=== PATIENT | female | born 1945 | race Caucasian/White ===

== ENCOUNTER → 2021-05-13 00:42 | Outpatient (CLI) | payer MEDICARE, SELFPAY ==
[2021-05-13 17:56] LABS: SARS-CoV-2 RNA PCR Negative
== END ==
PROVIDERS: PCP Family Medicine; Visit Provider Internal Medicine Gastroenterology
DX: Z01.812 Encounter for preprocedural laboratory examination (principal); Z20.822 Contact with and (suspected) exposure to COVID-19
CPT/HCPCS: C9803; U0003; U0005

== ENCOUNTER 2021-05-17 01:33 | Day surgery (SDC) | payer MEDICARE, SELFPAY ==
[2021-05-12 09:33] VITALS: BMI 36.6
--- NOTE | 2021-05-16 13:37 | WPDANESEPPF ---
Anes - Initial Pre Proc Eval Procedure: Operation Date: 05/17/21 08:30 Proposed Procedures p Esophagogastroduodenoscopy - Timoteo Kyle MD Date/Time: 05/16/21 13:37 Surgeon: Timoteo Kyle MD Pre Op Diagnosis: GERD Patient Data Age: 76 Gender: F Height: 1.57 m Weight: 91 kg Allergies Allergy/AdvReac Type Severity Reaction Status Date / Time erythromycin base Allergy Unknown Skin Verified 05/17/21 07:29 Reaction Sulfa (Sulfonamide Allergy Unknown severe Verified 05/17/21 07:29 Antibiotics) joint pain Home Medications Medication Instructions Recorded Confirmed Type tramadol 50 mg tablet 50 mg PO Q6H PRN #90 tablet 06/14/20 05/12/21 Rx trazodone 50 mg tablet 50 mg PO DAILY #90 tablet 06/28/20 05/12/21 Rx acetaminophen 500 mg tablet 500 mg PO DAILY PRN tablet 07/26/20 05/12/21 History cholecalciferol (vitamin D3) 25 25 mcg PO DAILY 07/26/20 05/12/21 History mcg (1,000 unit) capsule cyanocobalamin (vitamin B-12) 1,000 mcg PO DAILY 07/26/20 05/12/21 History 1,000 mcg tablet folic acid 400 mcg tablet 0.4 mg PO DAILY 07/26/20 05/12/21 History valsartan 160 1 tablet PO DAILY #90 tablet 08/09/20 05/12/21 Rx mg-hydrochlorothiazide 12.5 mg tablet ketoconazole 2 % topical cream See Rx Instructions .ROUTE 04/24/21 05/12/21 Rx .COMPLEX #30 g Calcium + Vitamin D 500 mg PO DAILY 05/12/21 05/12/21 History omeprazole 40 mg PO DAILY 05/12/21 05/12/21 History psyllium [Metamucil] 1 packet PO DAILY 05/12/21 05/12/21 History Patient hx anesthesia problems: none Family hx anesthesia problems: none PMFSH Past Medical History Medical History (Updated 05/16/21 @ 13:37 by Kody Galvez DO) Benign essential HTN CKD (chronic kidney disease) Hypothyroidism (acquired) Surgical History Surgical History (Updated 05/16/21 @ 13:37 by Kody J. Luchtefeld, DO) History of tubal ligation Family History Family History Father Family history of malignant neoplasm Sibling Family history of malignant neoplasm Family history of malignant neoplasm of breast Mother Family history of malignant neoplasm of breast in first degree relative Social History Social History Smoking packs per day: 0.5 Smoking cigarettes per day: 10.0 Years smoked: 15 Smoking pack-years: 7.50 Smoking status: Former smoker Tobacco type: cigarettes Alcohol intake: current Drinks per week: 7 Living arrangements: with family Spiritual care concerns: No Anes - Eval Final PreProcedure Day of Procedure 05/16/21 13:37 Patient weight: obese Heart: regular rate and rhythm Lungs: clear to auscultation and normal air movement Airway: Mallampati scale class III Neurological: alert and oriented Last oral intake: >/= 8 hours ASA classification: III Emergent: no Anesthetic plan: proceed Anesthesia type and monitoring: general GIVS and standard monitoring Informed Consent: The patient's anesthetic plan and its attendant risks and benefits were discussed with the patient/family/POA. Questions were solicited and answers provided to the satisfaction of the patient/family/POA.
[2021-05-17 07:31] VITALS: BP 144/91; PULSE 86; RESP 18; TEMP 36.4; O2SAT 99
[2021-05-17] MEDS: LACTATED RINGERS 1,000 ML 150 ML IV CONT (07:47)
--- NOTE | 2021-05-17 08:25 | PM.HPGS ---
History of Present Illness History of Present Illness Consent: Risks, benefits, and alternatives have been discussed and questions answered. Patient agrees to proceed with procedure. Chief complaint: GERD Narrative: Lyssa Viera is a 76 year old female with persistent reflux symptoms. This began about 1 year ago. She has what she calls a sick feeling particularly in the morning in the substernal area. She may wake up coughing and then gag and becomes nauseated. Occasionally it is burning. She does not regurgitate into her mouth. She does not have dysphagia. She has been taking omeprazole but the symptoms have persisted though lessened to a degree. Review of Systems Review of Systems: All systems reviewed & are unremarkable except as noted in HPI and below PMFSH Past Medical History Medical History Benign essential HTN CKD (chronic kidney disease) Hypothyroidism (acquired) Surgical History Surgical History History of tubal ligation Family History Family History Father Family history of malignant neoplasm Sibling Family history of malignant neoplasm Family history of malignant neoplasm of breast Mother Family history of malignant neoplasm of breast in first degree relative Social History Social History Smoking packs per day: 0.5 Smoking cigarettes per day: 10.0 Years smoked: 15 Smoking pack-years: 7.50 Smoking status: Former smoker Tobacco type: cigarettes Alcohol intake: current Drinks per week: 7 Living arrangements: with family Spiritual care concerns: No Meds Home Medications and Allergies Home Medications Medication Instructions Recorded Confirmed Type tramadol 50 mg tablet 50 mg PO Q6H PRN #90 tablet 06/14/20 05/12/21 Rx trazodone 50 mg tablet 50 mg PO DAILY #90 tablet 06/28/20 05/12/21 Rx acetaminophen 500 mg tablet 500 mg PO DAILY PRN tablet 07/26/20 05/12/21 History cholecalciferol (vitamin D3) 25 25 mcg PO DAILY 07/26/20 05/12/21 History mcg (1,000 unit) capsule cyanocobalamin (vitamin B-12) 1,000 mcg PO DAILY 07/26/20 05/12/21 History 1,000 mcg tablet folic acid 400 mcg tablet 0.4 mg PO DAILY 07/26/20 05/12/21 History valsartan 160 1 tablet PO DAILY #90 tablet 08/09/20 05/12/21 Rx mg-hydrochlorothiazide 12.5 mg tablet ketoconazole 2 % topical cream See Rx Instructions .ROUTE 04/24/21 05/12/21 Rx .COMPLEX #30 g Calcium + Vitamin D 500 mg PO DAILY 05/12/21 05/12/21 History omeprazole 40 mg PO DAILY 05/12/21 05/12/21 History psyllium [Metamucil] 1 packet PO DAILY 05/12/21 05/12/21 History Allergies Allergy/AdvReac Type Severity Reaction Status Date / Time erythromycin base Allergy Unknown Skin Verified 05/17/21 07:29 Reaction Sulfa (Sulfonamide Allergy Unknown severe Verified 05/17/21 07:29 Antibiotics) joint pain Vital Signs Vital Signs - 24 hr 05/17/21 07:31 Temperature 36.4 C L Pulse Rate 86 Respiratory Rate 18 Blood Pressure 144/91 H Pulse Oximetry 99 Exam Resp: Auscultation: clear to auscultation bilaterally Cardio: Rate: regular rate Rhythm: regular rhythm GI: GI Palp: Yes Soft to palpation and No Tenderness to palpation present (GI) Assessment and Plan Assessment and plan (1) GERD (gastroesophageal reflux disease): Code(s): K21.9 - Gastro-esophageal reflux disease without esophagitis Status: Acute Assessment and Plan: EGD with possible biopsy or dilatation or cautery.
[2021-05-17 09:00] VITALS: BP 108/65; PULSE 90; RESP 19; O2SAT 100
[2021-05-17 09:10] VITALS: BP 114/63; PULSE 83; RESP 25; O2SAT 100
[2021-05-17 09:20] VITALS: BP 118/73; PULSE 88; RESP 17; O2SAT 100
== END 2021-05-17 09:21 | disposition home or self-care (01) ==
PROVIDERS: PCP Family Medicine; Visit Provider Internal Medicine Gastroenterology
PROC: 0DJ08ZZ Inspection of Upper Intestinal Tract, Via Natural or Artificial Opening Endoscopic (ICD-10-PCS; CPT 43235; principal; 2021-05-17 08:30)
DX: K21.00 Gastro-esophageal reflux disease with esophagitis, without bleeding (principal); I12.9 Hypertensive chronic kidney disease with stage 1 through stage 4 chronic kidney disease, or unspecified chronic kidney disease; N18.9 Chronic kidney disease, unspecified; E03.9 Hypothyroidism, unspecified; Z87.891 Personal history of nicotine dependence; E66.9 Obesity, unspecified; Z68.37 Body mass index [BMI] 37.0-37.9, adult
CPT/HCPCS: 43239; 88305; C9803; J2704; J7120; U0003; U0005

== ENCOUNTER → 2021-12-22 08:47 | Outpatient (CLI) | payer MEDICARE, SELFPAY ==
--- NOTE | ~2021-12-22 | US_ITS ---
US abdomen limited DATE: 12/22/2021 09:05 INDICATION: Abnormal enzyme levels TECHNIQUE: Real-time imaging of liver, pancreas, gallbladder COMPARISON: None FINDINGS: No hepatic or pancreatic space-occupying mass lesion is evident. There is hepatic steatosis . Normal hepatopedal portal venous flow direction. No gallstones or gallbladder wall thickening or abnormal pericholecystic fluid collection. The common bile duct measures 4 mm, normal. IMPRESSION: Hepatic steatosis Reviewed, dictated and finalized at [facility]. Reviewed, dictated and finalized at location [facility]. [facility] IMPRESSION: Hepatic steatosis
== END ==
PROVIDERS: PCP Family Medicine; Visit Provider Family Medicine
DX: R74.8 Abnormal levels of other serum enzymes (principal); K76.0 Fatty (change of) liver, not elsewhere classified
CPT/HCPCS: 76705

== ENCOUNTER → 2022-09-10 10:17 | Outpatient (CLI) | payer MEDICARE, SELFPAY ==
--- NOTE | ~2022-09-10 | DEXA_ITS ---
Bone Density Report Name: ALISSON ROSENBERG Age: 77 Sex: Female Ethnicity: White Date of : 1945 Indication: postmenopausal; screening for osteoporosis; asthma or emphysema; Referring Provider: Beny Mathis Study: Bone densitometry was performed. Exam Date: September 10, 2022 Accession number: [id number] Bone Density: Region BMD T-score Z-score Classification AP Spine (L1-L4) 1.119 0.7 3.2 Normal Femoral Neck (Left) 0.729 -1.1 1.1 Osteopenia Total Hip (Left) 1.081 1.1 3.1 Normal Femoral Neck (Right) 0.783 -0.6 1.6 Normal Total Hip (Right) 0.985 0.4 2.3 Normal Total Hip Mean 1.033 0.8 2.7 Normal World Health Organization criteria for BMD impression classify patients as: Normal (T-score at or above -1.0), Osteopenia (T-score between -1.0 and -2.5), or Osteoporosis (T-score at or below -2.5). 10-year Fracture Risk(1): Major Osteoporotic Fracture 10% Hip Fracture 1.7% Reported Risk Factors: [place] (), Neck BMD=0.729, BMI=37.1 (1) FRAX(R) Version 3.08. Fracture probability calculated for an untreated patient. Fracture probability may be lower if the patient has received treatment. Previous Exams: Region Exam Age BMD T-score BMD Change BMD Change Date g/cm2 vs Baseline vs Previous AP Spine(L1-L4) 09/10/2022 77 1.119 0.7 0.021 0.021 05/08/2017 72 1.098 0.5 Total Hip(Left) 09/10/2022 77 1.081 1.1 0.049 0.049 05/08/2017 72 1.032 0.7 Total Hip(Right) 09/10/2022 77 0.985 0.4 0.022 0.022 05/08/2017 72 0.964 0.2 *Denotes significance at 95% confidence level, LSC for AP Spine = 0.022 g/cm2, LSC for Total Hip = 0.027 g/cm2 Clinical Information Provided by Patient: Has used the following medications: Vitamin D, Calcium Has the following medical conditions: Asthma or Emphysema Patient maximum height was 63.7 Menopause Age: 55 Drinks caffeinated beverages Onset of menses at age 11 Number of children 1 Impression: The patient has low bone mass, based on the Left Femoral Neck T-score. The patient has an estimated ten-year risk of hip fracture of 1.7% and an estimated ten-year risk of major fracture of 10%, based on the WHO FRAX algorithm. No significant bone loss was observed. Discussion: BONE DENSITY IS LOW AT ONE OR MORE SKELETAL SITES. This patient's lowest T-score is low at one or more skeletal sites. It meets the World Health Organiza
--- NOTE | ~2022-09-10 | XR_ITS ---
EXAMINATION: XR chest 2V DATE: 09/10/2022 10:43 INDICATION: Cough, unspecified. TECHNIQUE: Frontal and lateral views of the chest were obtained. COMPARISON: Chest 2 views 06/15/2015 FINDINGS: There is mild atelectasis at left lung base. No pleural effusion or pneumothorax. The heart size is normal. IMPRESSION: 1. Mild atelectasis at left lung base. Reviewed, dictated and finalized at location [facility].
== END ==
PROVIDERS: PCP Physician Assistant; Visit Provider Physician Assistant
DX: Z78.0 Asymptomatic menopausal state (principal); R05.9 Cough, unspecified; R91.8 Other nonspecific abnormal finding of lung field; M85.852 Other specified disorders of bone density and structure, left thigh
CPT/HCPCS: 71046; 77080

== ENCOUNTER 2022-12-08 10:14 | Observation (INO) | payer MEDICARE, SELFPAY ==
[2022-12-08] VITALS (8 sets, daily range): BP systolic 106–146; BP diastolic 61–86; PULSE 84–102; RESP 18–20; TEMP 36.3–37; O2SAT 96–100; BMI 39.3
--- NOTE | ~2022-12-08 | US_ITS ---
EXAMINATION: US venous doppler [facility] DATE: 12/09/2022 18:08 INDICATION: Elevated D-dimer and PE . TECHNIQUE: Grayscale images without and with compression and Doppler images of the bilateral lower ex tremity veins were obtained. COMPARISON: None FINDINGS: The right common femoral vein, profunda (deep) femoral vein, femoral vein, popliteal vein, peroneal v ein, posterior tibial veins, gastrocnemius vein, and greater saphenous vein are patent. The left common femoral vein, profunda femoral vein, femoral vein, popliteal vein, peroneal vein, pos terior tibial veins, gastrocnemius vein, and greater saphenous vein are patent. IMPRESSION: 1. Patent bilateral lower extremity veins. No evidence of deep venous thrombosis. Reviewed, dictated and finalized at location [facility]. R MIXER IMPRESSION: 1. Patent bilateral lower extremity veins. No evidence of deep venous thrombos is.
--- NOTE | ~2022-12-08 | CT_ITS ---
EXAMINATION: CTA chest PE protocol DATE: 12/08/2022 13:02 ELECTRONIC SEMICONDUCTOR PROCESSOR INDICATION: Elevated d-dimer. Chest palpitations. TECHNIQUE: Computed tomographic angiography (CTA) of the chest was performed with 100 mL Omnipaque-35 0 intravenous contrast. The dose-length product was 568.07 mGy-cm. Maximum intensity projection 3D-re constructions of the aorta and other arteries were constructed by the technologist on a separate work station. Automated exposure control and iterative reconstruction technique were employed. COMPARISON: Chest dated 12/08/2022. FINDINGS: There are small filling defects in left upper lobe segmental pulmonary arteries is no evide nce of left lower lobe segmental pulmonary arteries, consistent with pulmonary embolism. No significa nt pleural or pericardial effusion. No thoracic lymphadenopathy. Heart size normal. There are bilater al peripheral interstitial infiltrates with interlobular septal thickening. Mild dependent atelectasi s. There is right upper lobe atelectasis/scarring. No endobronchial lesions. No pneumothorax. No susp icious pulmonary nodules or masses. Mild atherosclerosis of the aorta and coronary arteries without e vidence for aneurysm. Fatty infiltration of the liver. The spleen, pancreas, adrenal glands are unremarkable. Kidneys are a trophic. Gallbladder is present. Mild thoracic spondylosis. There is a focal sclerotic lesion inferio r endplate of T11, likely bone island. IMPRESSION: 1. Filling defects left upper lobe and lower lobe segmental pulmonary arteries, consistent with pulmo nary embolism, small thrombus burden. 2: Mild bilateral peripheral interstitial infiltrates with interlobular septal thickening. This may represent chronic interstitial lung disease or mild edema. Reviewed, dictated and finalized at location A. TRONIC SEMICONDUCTOR PROCESSOR IMPRESSION: 1. Filling defects left upper lobe and lower lobe segmental pulmonary arteries, consistent with pulmonary embolism, small thrombus burden. 2: Mild bilateral peripheral interstitial infiltrates with interlobular septal thickening. This may represent chronic interstitial lung disease or mild edema .
--- NOTE | ~2022-12-08 | XR_ITS ---
EXAMINATION: XR chest 2V 12/08/2022 11:17 INDICATION: Chest palpitations. Painful cough. PROCEDURE: PA and lateral views of the chest COMPARISON: 09/10/2022 FINDINGS: The lungs are clear. The cardiomediastinal silhouette is within normal limits. There are no pleural effusions. There is no pneumothorax suspected. IMPRESSION: 1: NO ACUTE CARDIOPULMONARY DISEASE. Reviewed, dictated and finalized at location A. CAL RESEARCHER
--- NOTE | 2022-12-08 10:19 | ECG_ITS ---
Measurements Intervals [place] Rate: 95 P: 36 TX: 166 QRS: -3 QRSD: 86 T: 79 QT: 335 QTc: 422 Interpretive Statements SINUS RHYTHM VENTRICULAR PREMATURE COMPLEX NONSPECIFIC ST & T-WAVE ABNORMALITY- ANT/HIGH LAT LEADS BASELINE ARTIFACT- I, II, AVL BORDERLINE ECG NO PREVIOUS ECG AVAILABLE FOR COMPARISON Electronically Signed On 12-08-2022 11:32:07 LAB TECH by Demetris Zabala D.O.
--- NOTE | 2022-12-08 10:54 | ED.ARRPALP ---
HPI - Arrhythmia/Palpitations General Chief Complaint: Arrhythmia/Palpitations <Priscila Martinez PA-C - Last Filed: 12/08/22 16:37> Stated Complaint: rapid HR, AFIB RVR EMS MONITOR <Priscila Martinez PA-C - Last Filed: 12/08/22 16:37> Time Seen by Provider: 12/08/22 10:39 <Priscila Martinez PA-C - Last Filed: 12/08/22 16:37> History of Present Illness HPI narrative: 77-year-old female here for evaluation of palpitations today. Patient states she felt her heart racing while she was at rest, looked at her apple watch and it told her she was in atrial fibrillation with rapid ventricular response. She called an ambulance who confirmed afib rvr but patient converted without intervention after several minutes to sinus tach. Denies history of atrial fibrillation. Patient has been feeling unwell over the past several weeks with sinus congestion, headaches, cough and other upper respiratory infectious symptoms. These have since improved. COVID test at home was negative. No chest pain, shortness of breath, fevers or chills, nausea or vomiting. <Priscila Martinez PA-C - Last Filed: 12/08/22 16:37> Related Data Home Medications: Home Medications Medication Instructions Recorded Confirmed acetaminophen 500 mg tablet 500 mg PO DAILY PRN Pain 07/26/20 10/08/22 (Tylenol Extra Strength) cholecalciferol (vitamin D3) 25 25 mcg PO DAILY 07/26/20 10/08/22 mcg (1,000 unit) capsule cyanocobalamin (vitamin B-12) 1,000 mcg PO DAILY 07/26/20 10/08/22 1,000 mcg tablet (Vitamin B-12) folic acid 400 mcg tablet 0.4 mg PO DAILY 07/26/20 10/08/22 Calcium + Vitamin D 500 mg PO DAILY 05/12/21 10/08/22 psyllium 1 packet PO DAILY 05/12/21 10/08/22 <ANDRES Jones Last Filed: 12/08/22 16:37> Allergies/Adverse Reactions: Allergies Allergy/AdvReac Type Severity Reaction Status Date / Time erythromycin base Allergy Unknown Skin Verified 12/08/22 10:28 Reaction Sulfa (Sulfonamide Allergy Unknown severe Verified 12/08/22 10:28 Antibiotics) joint pain <Priscila Martniez PA-C - Last Filed: 12/08/22 16:37> Review of Systems Review of Systems: Gen.: Denies fevers or chills Eyes: Denies eye pain or visual change ENT: Denies congestion Respiratory: Denies shortness of breath or cough CV: Reports palpitations GI: Denies abdominal pain nausea, emesis or diarrhea denies burning, urgency, frequency or hematuria Musculoskeletal: Denies back pain or muscle pain Neuro: Denies numbness, tingling, weakness or focal weakness Skin: Denies rash Except as documented, all other systems reviewed and negative <Priscila Martinez PA-C - Last Filed: 12/08/22 16:37> [facility] Past Medical History Medical History: Medical History (Updated 12/08/22 @ 13:20 by Priscila Martinez PA-C) Benign essential HTN CKD (chronic kidney disease) Hypothyroidism (acquired) On levothyroxine <Priscila Martinez PA-C - Last Filed: 12/08/22 16:37> Surgical History Surgical History: Surgical History (Updated 12/08/22 @ 14:43 by Odalis New NP) H/O breast biopsy History of esophagogastroduodenoscopy (EGD) May 17, 2021 biopsies negative History of tubal ligation <Priscila Martinez PA-C - Last Filed: 12/08/22 16:37> Family History Family History: Family History Father Family history of malignant neoplasm Sibling Family history of malignant neoplasm Family history of malignant neoplasm of breast Mother Family history of malignant neoplasm of breast in first degree relative <Priscila Martinez PA-C - Last Filed: 12/08/22 16:37> Social History Social History: Social History (Updated 12/08/22 @ 14:46 by Odalis New NP) 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
[2022-12-08 11:31] LABS: Basophils Absolute Auto 0.1 K/mm3 (0.0-0.1); Basophils Percent Auto 0.8 % (0.2-1.2); Eosinophils Absolute Auto 0.1 K/mm3 (0-0.3); Eosinophils Percent Auto 0.8 % (0-4.4); Hematocrit 43.2 % (37.0-47.0); Hemoglobin 14.3 g/dL (12.0-15.0); Immature Granulocyte Absolute 0.02 K/mm3 (0.00-0.031); Immature Granulocyte Percent A 0.2 % (0-0.5); Lymphocytes Absolute Auto 1.96 K/mm3 (0.9-3.2); Lymphocytes Percent Auto 22.9 % (18.3-44.2); Mean Corpuscular HGB Conc 33.1 g/dl (32-36); Mean Corpuscular Hemoglobin 32.8 pg (26-34); Mean Corpuscular Volume 99.1 fl (80-100); Mean Platelet Volume 8.9 fl (7.4-10.4); Monocytes Absolute Auto 0.7 K/mm3 (0.1-0.6); Monocytes Percent Auto 7.7 % (2.6-8.5); Neutrophils Absolute Auto 5.8 K/mm3 (1.3-6.7); Neutrophils Percent Auto 67.6 % (45.5-73.1); Platelet Count Result 269 k/mm3 (150-375); Red Blood Count 4.36 M/mm3 (4.2-5.4); Red Cell Distribution Width 13.7 % (11.5-14.5); White Blood Count 8.6 K/mm3 (4.5-10.0)
[2022-12-08 11:47] LABS: D Dimer 0.65 ug/mL (<0.48)
[2022-12-08 11:54] LABS: Alanine Aminotransferase 25 U/L (6-35); Albumin Level 4.1 g/dL (3.5-5.1); Alkaline Phosphatase 79 U/L (38-126); Anion Gap 6 mmol/L (8-16); Aspartate Amino Transferase 40 U/L (14-36); Bilirubin,Total 0.8 mg/dL (0.2-1.3); Blood Urea Nitrogen 15 mg/dL (7-17); Calcium 8.8 mg/dL (8.4-10.2); Carbon Dioxide 29 mmol/L (22-30); Chloride 102 mmol/L (98-107); Estimated CRCL calculation 48 ml/min; Estimated Glomerular Filt Rate > 60; Glucose 93 mg/dL (65-110); Sodium 137 mmol/L (137-145)
[2022-12-08 12:05] LABS: Troponin I < 0.012 ng/mL (0.000-0.034)
[2022-12-08 13:44] LABS: Magnesium 1.6 mg/dL (1.6-2.3)
[2022-12-08 13:47] LABS: Prothrombin Time 12.9 Seconds (11.1-14.7)
[2022-12-08 13:49] LABS: Partial Thromboplastin Time 25.5 SECONDS (22.3-36.8)
[2022-12-08 13:54] LABS: NT Pro B Type Natriuretic Pept 477 pg/mL (5-100)
[2022-12-08 14:14] LABS: Influenza A QL RT-PCR Negative (Negative); Influenza B QL RT-PCR Negative (Negative); SARS-CoV-2 RNA PCR Negative
--- NOTE | 2022-12-08 14:41 | PM.IMHP ---
H&P: HPI History of Present Illness Date/Time: 12/08/22 14:41 Chief Complaint: Palpitation Narrative: This is a 77-year-old female patient came to the emergency room with a racing heart rate. The patient has an Apple watch and it told her that she had atrial fibrillation and rapid ventricular response. She called an ambulance and was confirmed that she was in AFib with RVR. The patient converted without any intervention after several minutes. The patient stated that she has been unwell for the last several weeks with some sinus congestion. She has had headaches and cough. She has also had upper respiratory infections. Those symptoms are now improved. The patient had a negative COVID test at home. CTA was read as1. Filling defects left upper lobe and lower lobe segmental pulmonary arteries, consistent with pulmonary embolism, small thrombus burden. 2:? Mild bilateral peripheral interstitial infiltrates with interlobular septal thickening. This may represent chronic interstitial lung disease or mild edema. Chest x-ray was read as no acute cardiopulmonary disease. Subcu Lovenox was ordered. The patient is on room air. She does not appear to be in any distress. D-dimer 0.65. Influenza A/B and COVID are all negative. Patient is being admitted to observation status on the date of service 12/08/2022. Review of Systems Review of Systems: All systems reviewed & are unremarkable except as noted in HPI and below Constitutional: Constitutional: Reports as per HPI and Reports no additional constitutional complaints Eyes: Eyes: Reports as per HPI and Reports no additional eye complaints ENT: Reports system reviewed and no additional complaints, except as documented and Reports Normal hearing present Cardiovascular: Cardiovascular: Reports no additional cardiovascular complaints Respiratory: Respiratory: Reports no additional respiratory complaints and Reports no additional respiratory complaints Gastrointestinal: Gastrointestinal: Reports as per HPI and Reports no additional gastrointestinal complaints Musculoskeletal: Musculoskeletal: Reports no additional musculoskeletal complaints Integumentary/Breasts: Skin/Breast: Reports system reviewed and no additional complaints, except as docu and Reports as per HPI Neurologic: Reports system reviewed and no additional complaints, except as documented, Reports as per HPI and Reports Normal hearing present Psychiatric: Psychiatric: Reports no additional psychiatric complaints and Reports as per HPI Endocrine: Endocrine: Reports no additional endocrine complaints Hematologic/Lymphatic: Hematologic/Lymphatic: Reports no additional hematologic/lymphatic complaints Allergic/Immunologic: Allergic/Immunologic: Reports no additional allergic/immunologic complaints [facility] Past Medical History Medical History (Updated 12/08/22 @ 19:32 by Odalis New NP) Benign essential HTN CKD (chronic kidney disease) History of colon polyps Hypothyroidism (acquired) On levothyroxine Surgical History Surgical History (Updated 12/08/22 @ 19:26 by Odalis New NP) H/O breast biopsy H/O colonoscopy with polypectomy History of esophagogastroduodenoscopy (EGD) May 17, 2021 biopsies negative History of nasal surgery Cyst removed below left nostril History of tubal ligation Family History Family History Father Family history of malignant neoplasm Sibling Family history of malignant neoplasm Family history of malignant neoplasm of breast Mother Family history of malignant neoplasm of breast in first degree relative Son Diabetes mellitus Son Congestive heart failure Social History Social History (Updated 12/08/22 @ 19:27 by Odalis New NP) Social History: The patient lives with her son and spouse . She has 3 children. She is Retired from [employer]. 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. She is a former smoker.
[2022-12-08] MEDS: ENOXAPARIN 100 MG/ML SYRINGE 90 MG SUB-Q (15:21)
--- NOTE | 2022-12-08 18:39 | ADMGEN ---
This patient, Lyssa Viera, was admitted to 2 Medical Room 253-01. Patient/family oriented to hospital policies and general routines including ID bracelet, bed and alarms, visiting hours, pain management, procedures, bathroom and other care routines, personal items, smoking policy, room service/diet, and visiting hours. Information on how to activate the Rapid Response Team has been discussed. Patient/Family are encouraged to report perceived risks to care and to ask questions if they do not understand what they are told or what they should do.
[2022-12-08] MEDS: ACETAMINOPHEN 500 MG TABLET PO (23:36)
[2022-12-09] VITALS (9 sets, daily range): BP systolic 149–150; BP diastolic 81–94; PULSE 66–88; RESP 16–18; TEMP 36.4–36.8; O2SAT 96–98
[2022-12-09 05:35] LABS: Basophils Percent Auto 0.6 % (0.2-1.2); Eosinophils Absolute Auto 0.2 K/mm3 (0-0.3); Eosinophils Percent Auto 2.3 % (0-4.4); Hematocrit 38.7 % (37.0-47.0); Immature Granulocyte Absolute 0.03 K/mm3 (0.00-0.031); Immature Granulocyte Percent A 0.4 % (0-0.5); Lymphocytes Absolute Auto 2.46 K/mm3 (0.9-3.2); Lymphocytes Percent Auto 35.5 % (18.3-44.2); Mean Corpuscular HGB Conc 33.6 g/dl (32-36); Mean Corpuscular Hemoglobin 33.5 pg (26-34); Mean Corpuscular Volume 99.7 fl (80-100); Mean Platelet Volume 9.4 fl (7.4-10.4); Monocytes Absolute Auto 0.5 K/mm3 (0.1-0.6); Monocytes Percent Auto 7.8 % (2.6-8.5); Neutrophils Absolute Auto 3.7 K/mm3 (1.3-6.7); Neutrophils Percent Auto 53.4 % (45.5-73.1); Platelet Count Result 246 k/mm3 (150-375); Red Blood Count 3.88 M/mm3 (4.2-5.4); Red Cell Distribution Width 13.8 % (11.5-14.5); White Blood Count 6.9 K/mm3 (4.5-10.0)
[2022-12-09] MEDS: LEVOTHYROXINE SODIUM 50 MCG TABLET BY MOUTH (05:36)
[2022-12-09 05:51] LABS: Alanine Aminotransferase 20 U/L (6-35); Albumin Level 3.6 g/dL (3.5-5.1); Alkaline Phosphatase 60 U/L (38-126); Anion Gap 3 mmol/L (8-16); Aspartate Amino Transferase 27 U/L (14-36); Bilirubin,Total 0.8 mg/dL (0.2-1.3); Blood Urea Nitrogen 17 mg/dL (7-17); Calcium 8.6 mg/dL (8.4-10.2); Carbon Dioxide 31 mmol/L (22-30); Chloride 100 mmol/L (98-107); Estimated CRCL calculation 45 ml/min; Estimated Glomerular Filt Rate 54; Glucose 92 mg/dL (65-110); Lipase 57 U/L (23-300); Magnesium 1.8 mg/dL (1.6-2.3); Potassium 3.7 mmol/L (3.4-5.0); Sodium 134 mmol/L (137-145)
--- NOTE | 2022-12-09 07:39 | PM.IMPN ---
Progress Note: A&P Assessment and Plan (1) Pulmonary embolism: Code(s): I26.99 - Other pulmonary embolism without acute cor pulmonale Status: Acute Assessment and Plan: Presented to ER with CC of racing heart. CTA impression: PE with small thrombus burden; chronic interstitial lung disease vs mild edema. The patient was ordered a 1 time dose of Lovenox. D-dimer was elevated. Ultrasound of the lower extremities have been ordered. Patient placed on a starter pack of Xarelto for the PE. The patient has also been ordered an echo to evaluate for valvular disease. Ultrasound bilateral lower extremities ordered The patient also had a brief period of atrial fibrillation earlier that has now subsided. (2) Atrial fibrillation: Code(s): I48.91 - Unspecified atrial fibrillation Status: Acute Assessment and Plan: Patient presented to the ER due to feeling like her heart is racing. Patient found to have AFib RVR in the ER 12/08/2022 Patient converted without any intervention in the ER. Patient put on telemetry Patient started on Xarelto 12/09/22 patient regular rate and rhythm when evaluated (3) Hypothyroidism (acquired): Code(s): E03.9 - Hypothyroidism, unspecified Status: Acute Assessment and Plan: Continue with levothyroxine (4) Benign essential HTN: Code(s): I10 - Essential (primary) hypertension Status: Acute Assessment and Plan: Continue with valsartan and hydrochlorothiazide. continue to monitor renal functions. (5) GERD (gastroesophageal reflux disease): Code(s): K21.9 - Gastro-esophageal reflux disease without esophagitis Status: Acute Assessment and Plan: Continue with omeprazole. Subjective Date/time seen: 12/09/22 07:39 Interval history: 12/09/22 77-year-old female with history of hypertension and hypothyroidism. Patient presented to the ER with AFib RVR as well as a PE. Patient feeling better has no complaints at this time. Denies chest pain, shortness a breath, nausea, vomiting, fever, headache, palpitations and lower extremity swelling. Review of Systems Review of Systems: All systems reviewed & are unremarkable except as noted in HPI and below Exam Narrative: GENERAL: Comfortable, no acute distress HENMT: moist mucous membranes EYES: EOM intact b/l NECK: no lymphadenopathy RESPIRATORY: clear to auscultation CARDIO: RRR GI: soft, nontender, bowel sounds present SKIN: no rashes EXTREMITIES: no edema, redness or tenderness Objective Data Vital Signs Vital Signs: Vital Signs - 24 hr 12/08/22 10:20 12/08/22 10:28 12/08/22 12:03 Temperature 98.6 F Pulse Rate 90 98 92 Respiratory Rate 18 18 Blood Pressure 146/79 H 130/86 Pulse Oximetry 100 96 Oxygen Delivery Room Air 12/08/22 15:26 12/08/22 18:46 12/08/22 19:09 Temperature 97.4 F L Pulse Rate 84 99 102 H Respiratory Rate 18 18 Blood Pressure 142/69 H 106/61 Pulse Oximetry 98 96 Oxygen Delivery 12/08/22 20:32 12/08/22 20:50 12/08/22 20:00 Temperature 98.1 F Pulse Rate 92 89 Respiratory Rate 20 Blood Pressure 127/74 Pulse Oximetry 97 Oxygen Delivery Room Air 12/09/22 00:00 12/09/22 04:00 12/09/22 05:14 Temperature 97.6 F Pulse Rate 72 73 66 Respiratory Rate 16 Blood Pressure 150/91 H Pulse Oximetry 96 Oxygen Delivery Intake/Output Intake/Output: Intake & Output 12/06/22 12/07/22 12/08/22 12/09/22 23:59 23:59 23:59 23:59 Intake Total 150 Balance 150 Meds/Results Medications: Active Medications Generic Name Dose Route Start Last Admin Trade Name Freq PRN Reason Stop Dose Admin Acetaminophen 500 mg 12/08/22 19:33 12/08/22 23:36 Acetaminophen 500 Mg Tablet PO 500 mg DAILY PRN Administration Pain 1-3 Cyanocobalamin 1,000 mcg 12/09/22 09:00 Cyanocobalamin 1,000 Mcg Tablet PO DAILY [facility] Folic Acid 0.4 mg 12/09/22 09:00 Folic
[2022-12-09] MEDS: CYANOCOBALAMIN 1,000 MCG TABLET 1000 MCG PO (08:36)
[2022-12-09] MEDS: CHOLECALCIFEROL 1,000 UNITS TABLET 1000 UNITS PO (08:36)
[2022-12-09] MEDS: RIVAROXABAN 15 MG TABLET PO ×2 (08:36→17:42)
[2022-12-09] MEDS: FOLIC ACID 0.4 MG TABLET PO (08:37)
[2022-12-09] MEDS: VALSARTAN 160 MG TABLET PO (08:37)
[2022-12-09] MEDS: PSYLLIUM POWDER PACKET 1 PACKET PO (08:37)
[2022-12-09] MEDS: PANTOPRAZOLE 40 MG TABLET PO ×2 (08:37→20:53)
[2022-12-09] MEDS: hydroCHLOROthiazide 12.5 MG CAPSULE PO (08:37)
[2022-12-09] MEDS: ACETAMINOPHEN 500 MG TABLET PO (11:03)
[2022-12-09] MEDS: traMADol HCL (*CRX) 50 MG TABLET PO (22:45)
[2022-12-10] VITALS (9 sets, daily range): BP systolic 136–161; BP diastolic 80–95; PULSE 63–78; RESP 16–18; TEMP 36.4–37.1; O2SAT 96–97
--- NOTE | 2022-12-10 | ECHO_ITS ---
Patient Info Name: Lyssa Viera Age: 77 years : 1945 Gender: Female Ht: 62 in Wt: 214 lbs BSA: 2.11 m2 HR: 71 bpm BP: 161 / 95 mmHg Technical Quality: Good Exam Date: 12/10/2022 8:31 AM Exam Location: [facility] Patient Status: Inpatient Admit Date: 12/08/2022 Staff Ordering Physician: Odalis New NP [employer] Specialist: Иван Toscano RDCS, RT Attending Provider: Angela Mason MD Referring Physician: Virgen NOONAN; Exam Type: CA echo doppler color flow Study Info Indications I48.1 - Persistent atrial fibrillation I26.99 - Other pulmonary embolism without acute cor pulmonale Complete two-dimensional, color flow and Doppler transthoracic echocardiogram is performed. Strain analysis performed. Summary 1. Complete two-dimensional, color flow and Doppler transthoracic echocardiogram is performed. 2. Left ventricular chamber dimension is normal. 3. Left ventricular systolic function is normal, estimated at 55-60%. 4. There is mildly increased left ventricular wall thickness. 5. The left ventricular diastolic function is grade I diastolic dysfunction. 6. E/e' 6 is not elevated. 7. Global longitudinal strain is normal at -19.1%. 8. There is moderate aortic valve sclerosis. 9. There is mild aortic valve regurgitation. 10. There is mild to moderate mitral valve regurgitation. Left Ventricle E/e' 6 is not elevated. Global longitudinal strain is normal at -19.1%. Left ventricular chamber dimension is normal. Left ventricular systolic function is normal, estimated at 55-60%. There is mildly increased left ventricular wall thickness. The left ventricular diastolic function is grade I diastolic dysfunction. Right Ventricle Right ventricular systolic function is normal based on a normal TAPSE 2.0 cm. Right ventricular chamber dimension is not well visualized. Left Atria Left atrial chamber dimension is normal. Right Atria Right atrial chamber dimension is normal. Aortic Valve The aortic valve is trileaflet. There is moderate aortic valve sclerosis. There is no aortic valve stenosis. There is mild aortic valve regurgitation. Pulmonic Valve There is no pulmonic regurgitation. Mitral Valve There is no mitral valve stenosis. There is mild to moderate mitral valve regurgitation. Tricuspid Valve There is no tricuspid valve regurgitation. Pericardium/Pleural There is no pericardial effusion. Inferior Vena Cava Normal inferior vena cava with >50% collapse upon inspiration consistent with normal right atrial pressure, 5 mmHg. Aorta The aortic root size at the sinus of Valsalva is normal. Left Ventricular Outflow Tract Name Value Normal LVOT 2D LVOT Diameter 2.0 cm LVOT Doppler LVOT Peak Gradient 3 mmHg LVOT Mean Gradient 2 mmHg LVOT VTI 21 cm LVOT VTI/AV VTI Ratio 0.7 LVOT Stroke Volume 65 ml LVOT CO 4.7 l/min LVOT CI 2.2 l/min/m2 Selena
[2022-12-10 05:44] LABS: Hematocrit 38.4 % (37.0-47.0); Hemoglobin 12.8 g/dL (12.0-15.0); Mean Corpuscular HGB Conc 33.3 g/dl (32-36); Mean Corpuscular Hemoglobin 33.2 pg (26-34); Mean Corpuscular Volume 99.5 fl (80-100); Mean Platelet Volume 9.4 fl (7.4-10.4); Platelet Count Result 230 k/mm3 (150-375); Red Blood Count 3.86 M/mm3 (4.2-5.4); Red Cell Distribution Width 13.5 % (11.5-14.5); White Blood Count 6.6 K/mm3 (4.5-10.0)
[2022-12-10 05:58] LABS: Alanine Aminotransferase 20 U/L (6-35); Albumin Level 3.6 g/dL (3.5-5.1); Alkaline Phosphatase 59 U/L (38-126); Anion Gap 3 mmol/L (8-16); Aspartate Amino Transferase 27 U/L (14-36); Bilirubin,Total 0.7 mg/dL (0.2-1.3); Blood Urea Nitrogen 14 mg/dL (7-17); Calcium 8.4 mg/dL (8.4-10.2); Carbon Dioxide 30 mmol/L (22-30); Chloride 103 mmol/L (98-107); Estimated CRCL calculation 50 ml/min; Estimated Glomerular Filt Rate > 60; Glucose 102 mg/dL (65-110); Potassium 3.4 mmol/L (3.4-5.0); Sodium 136 mmol/L (137-145)
[2022-12-10] MEDS: LEVOTHYROXINE SODIUM 50 MCG TABLET BY MOUTH (05:58)
--- NOTE | 2022-12-10 07:12 | PM.IMPN ---
Progress Note: A&P Assessment and Plan (1) Pulmonary embolism: Code(s): I26.99 - Other pulmonary embolism without acute cor pulmonale Status: Acute Assessment and Plan: Presented to ER with CC of racing heart. CTA impression: PE with small thrombus burden; chronic interstitial lung disease vs mild edema. Presented with A-fib rvr that converted without intervention in ER The patient was ordered a 1 time dose of Lovenox. D-dimer was elevated. Ultrasound of the lower extremities have been ordered. Patient placed on a starter pack of Xarelto for the PE. Awaiting echo results Ultrasound bilateral lower extremities negative for DVT Patient able to be discharged pending echo results. (2) Atrial fibrillation: Code(s): I48.91 - Unspecified atrial fibrillation Status: Acute Assessment and Plan: Patient presented to the ER due to feeling like her heart is racing. Patient found to have AFib RVR in the ER 12/08/2022 Patient converted without any intervention in the ER. Patient put on telemetry Patient started on Xarelto 12/09/22 patient regular rate and rhythm when evaluated (3) Hypothyroidism (acquired): Code(s): E03.9 - Hypothyroidism, unspecified Status: Acute Assessment and Plan: Continue with levothyroxine (4) Benign essential HTN: Code(s): I10 - Essential (primary) hypertension Status: Acute Assessment and Plan: Continue with valsartan and hydrochlorothiazide. continue to monitor renal functions. (5) GERD (gastroesophageal reflux disease): Code(s): K21.9 - Gastro-esophageal reflux disease without esophagitis Status: Acute Assessment and Plan: Continue with omeprazole. Subjective Date/time seen: 12/10/22 07:12 Interval history: 12/09/22 77-year-old female with history of hypertension and hypothyroidism. Patient presented to the ER with AFib RVR as well as a PE. Patient feeling better has no complaints at this time. Denies chest pain, shortness a breath, nausea, vomiting, fever, headache, palpitations and lower extremity swelling. Review of Systems Review of Systems: All systems reviewed & are unremarkable except as noted in HPI and below Exam Narrative: GENERAL: Comfortable, no acute distress HENMT: moist mucous membranes EYES: EOM intact b/l NECK: no lymphadenopathy RESPIRATORY: clear to auscultation CARDIO: RRR GI: soft, nontender, bowel sounds present SKIN: no rashes EXTREMITIES: no edema, redness or tenderness, negative calf squeeze Objective Data Vital Signs Vital Signs: Vital Signs - 24 hr 12/09/22 08:00 12/09/22 08:40 12/09/22 12:00 Temperature Pulse Rate 71 88 Respiratory Rate Blood Pressure Pulse Oximetry Oxygen Delivery Room Air 12/09/22 15:23 12/09/22 16:00 12/09/22 21:30 Temperature 97.8 F 98.2 F Pulse Rate 73 80 78 Respiratory Rate 17 18 Blood Pressure 149/81 H 150/94 H Pulse Oximetry 97 98 Oxygen Delivery 12/09/22 20:00 12/09/22 20:00 12/10/22 00:00 Temperature Pulse Rate 72 66 Respiratory Rate Blood Pressure Pulse Oximetry Oxygen Delivery Room Air 12/10/22 04:00 12/10/22 05:19 Temperature 98.2 F Pulse Rate 63 78 Respiratory Rate 17 Blood Pressure 161/95 H Pulse Oximetry 97 Oxygen Delivery Intake/Output Intake/Output: Intake & Output 12/07/22 12/08/22 12/09/22 12/10/22 23:59 23:59 23:59 23:59 Intake Total 980 150 Output Total 800 Balance 980 -650 Meds/Results Medications: Active Medications Generic Name Dose Route Start Last Admin Trade Name Gwen PRN Reason Stop Dose Admin Acetaminophen 500 mg 12/08/22 19:33 12/09/22 11:03 Acetaminophen 500 Mg Tablet PO 500 mg DAILY PRN Administration Pain 1-3 Cyanocobalamin 1,000 mcg 12/09/22 09:00 12/09/22 08:36 Cyanocobalamin 1,000 Mcg Tablet PO 1,000 mcg DAILY BELINDA Administration
[2022-12-10] MEDS: PANTOPRAZOLE 40 MG TABLET PO ×2 (09:01→20:31)
[2022-12-10] MEDS: FOLIC ACID 0.4 MG TABLET PO (09:01)
[2022-12-10] MEDS: CHOLECALCIFEROL 1,000 UNITS TABLET 1000 UNITS PO (09:01)
[2022-12-10] MEDS: CYANOCOBALAMIN 1,000 MCG TABLET 1000 MCG PO (09:01)
[2022-12-10] MEDS: hydroCHLOROthiazide 12.5 MG CAPSULE PO (09:01)
[2022-12-10] MEDS: RIVAROXABAN 15 MG TABLET PO ×2 (09:02→16:51)
[2022-12-10] MEDS: VALSARTAN 160 MG TABLET PO (09:02)
[2022-12-10] MEDS: PSYLLIUM POWDER PACKET 1 PACKET PO (09:02)
[2022-12-10] MEDS: traZODone HCL 50 MG TABLET PO (20:31)
[2022-12-11] VITALS: PULSE 67
[2022-12-11 04:00] VITALS: PULSE 68
[2022-12-11 06:00] VITALS: BP 148/83; PULSE 75; RESP 18; TEMP 37.1; O2SAT 96
[2022-12-11 06:12] LABS: Hematocrit 40.7 % (37.0-47.0); Hemoglobin 13.3 g/dL (12.0-15.0); Mean Corpuscular HGB Conc 32.7 g/dl (32-36); Mean Corpuscular Hemoglobin 32.7 pg (26-34); Mean Platelet Volume 9.4 fl (7.4-10.4); Platelet Count Result 235 k/mm3 (150-375); Red Blood Count 4.07 M/mm3 (4.2-5.4); Red Cell Distribution Width 13.2 % (11.5-14.5); White Blood Count 6.6 K/mm3 (4.5-10.0)
[2022-12-11 06:24] LABS: Anion Gap 6 mmol/L (8-16); Blood Urea Nitrogen 12 mg/dL (7-17); Calcium 8.6 mg/dL (8.4-10.2); Carbon Dioxide 30 mmol/L (22-30); Chloride 100 mmol/L (98-107); Estimated CRCL calculation 50 ml/min; Estimated Glomerular Filt Rate > 60; Glucose 105 mg/dL (65-110); Potassium 3.7 mmol/L (3.4-5.0); Sodium 136 mmol/L (137-145)
[2022-12-11] MEDS: LEVOTHYROXINE SODIUM 50 MCG TABLET BY MOUTH (06:26)
[2022-12-11 08:00] VITALS: PULSE 82
[2022-12-11] MEDS: PANTOPRAZOLE 40 MG TABLET PO (08:36)
[2022-12-11] MEDS: RIVAROXABAN 15 MG TABLET PO (08:36)
[2022-12-11] MEDS: PSYLLIUM POWDER PACKET 1 PACKET PO (08:36)
[2022-12-11] MEDS: hydroCHLOROthiazide 12.5 MG CAPSULE PO (08:36)
[2022-12-11] MEDS: VALSARTAN 160 MG TABLET PO (08:36)
[2022-12-11] MEDS: CHOLECALCIFEROL 1,000 UNITS TABLET 1000 UNITS PO (08:36)
[2022-12-11] MEDS: FOLIC ACID 0.4 MG TABLET PO (08:36)
[2022-12-11] MEDS: CYANOCOBALAMIN 1,000 MCG TABLET 1000 MCG PO (08:36)
--- NOTE | 2022-12-11 09:43 | PM.DS ---
DS: Admitting Diagnosis Discharge Date 12/11/22 Admitting Diagnosis pulmonary embolism, AFib RVR DS: Discharge Diagnosis Discharge Diagnosis (1) Pulmonary embolism: Code(s): I26.99 - Other pulmonary embolism without acute cor pulmonale Status: Acute Assessment and Plan: Presented to ER with CC of racing heart. CTA impression: PE with small thrombus burden; chronic interstitial lung disease vs mild edema. Presented with A-fib rvr that converted without intervention in ER The patient was ordered a 1 time dose of Lovenox. D-dimer was elevated. Ultrasound of the lower extremities have been ordered. Patient placed on a starter pack of Xarelto for the PE. Awaiting echo results Ultrasound bilateral lower extremities negative for DVT Patient able to be discharged pending echo results. (2) Atrial fibrillation: Code(s): I48.91 - Unspecified atrial fibrillation Status: Acute Assessment and Plan: Patient presented to the ER due to feeling like her heart is racing. Patient found to have AFib RVR in the ER 12/08/2022 Patient converted without any intervention in the ER. Patient put on telemetry Patient started on Xarelto 12/09/22 patient regular rate and rhythm when evaluated (3) Hypothyroidism (acquired): Code(s): E03.9 - Hypothyroidism, unspecified Status: Acute Assessment and Plan: Continue with levothyroxine (4) Benign essential HTN: Code(s): I10 - Essential (primary) hypertension Status: Acute Assessment and Plan: Continue with valsartan and hydrochlorothiazide. continue to monitor renal functions. (5) GERD (gastroesophageal reflux disease): Code(s): K21.9 - Gastro-esophageal reflux disease without esophagitis Status: Acute Assessment and Plan: Continue with omeprazole. DS: Summary Hospital Course Reason for hospitalization: PE, AFib RVR Hospital Course: patient was evaluated in the ER 12/08/2022 due to palpitations and her Apple watch telling her that she was in atrial fibrillation with rapid ventricular response. This was confirmed in the ER and patient converted without intervention after several minutes of sinus tach. Patient had stated that she had not been feeling well for a couple weeks with some sinus congestion, headaches and cough. The symptoms had since improved. CTA revealed pulmonary embolism. X-ray did not reveal an acute cardiopulmonary process. Patient was given a 1 time dose of subcutaneous Lovenox and was admitted. Patient was started on Xarelto 15 mg b.i.d.. Discussed with patient that this would be continued for a total of 21 days and after that patient will be transition to Xarelto 20 mg once a day. Due to patient having AFib she will continue on Xarelto indefinitely. During admission patient underwent echocardiogram and ultrasound of the bilateral lower extremities. Ultrasound did not reveal evidence of a DVT. Patient underwent echocardiogram Doppler color flow that revealed EF of 55-60%, grade 1 diastolic dysfunction, moderate aortic valve sclerosis, mild aortic valve regurg, and mild to moderate mitral valve regurg. Patient denied smoking as well as hormone use. Patient stated that she was up-to-date on her cancer screening. Advised patient to continue cancer screening due to cancer being a risk factor for clotting. Patient did not require oxygen supplementation and did not have any other episodes of atrial fibrillation during her hospital stay. Patient was discharged with Xarelto and advised to follow-up with primary care provider within the next week. Time Spent with Patient Time attestation: Total time spent providing and/or coordinating discharge services: Exam Narrative: GENERAL: Comfortable, no acute distress HENMT: moist mucous membranes EYES: EOM intact b/l NECK: no lymphadenopathy RESPIRATORY: clear to auscultation CARDIO: RRR GI: soft, no
[2022-12-11 12:00] VITALS: PULSE 77
--- NOTE | 2022-12-12 09:24 | PC.NURSE ---
echo results were faxed to PCP per HIM.
== END 2022-12-11 12:37 | disposition home or self-care (01) ==
LOC: ANHED 13:49 → ANH2MED 12-10 07:01
PROVIDERS: Internal Medicine Critical Care Medicine; Nurse Practitioner; Physician Assistant; Admitting Provider Hospitalist; Emergency Provider General Practice; PCP Emergency Medicine; Visit Provider Internal Medicine
DX: I26.99 Other pulmonary embolism without acute cor pulmonale (principal); I48.91 Unspecified atrial fibrillation; E03.9 Hypothyroidism, unspecified; R00.2 Palpitations; R09.81 Nasal congestion; I12.9 Hypertensive chronic kidney disease with stage 1 through stage 4 chronic kidney disease, or unspecified chronic kidney disease; N18.9 Chronic kidney disease, unspecified; I08.0 Rheumatic disorders of both mitral and aortic valves; R51.9 Headache, unspecified; R05.9 Cough, unspecified; F10.90 Alcohol use, unspecified, uncomplicated; Z20.822 Contact with and (suspected) exposure to COVID-19; Z87.891 Personal history of nicotine dependence; Z79.1 Long term (current) use of non-steroidal anti-inflammatories (NSAID); Z79.51 Long term (current) use of inhaled steroids; Z79.891 Long term (current) use of opiate analgesic; Z79.899 Other long term (current) drug therapy
CPT/HCPCS: 36415; 71046; 71275; 80048; 80053; 83690; 83735; 83880; 84443; 84484; 85025; 85027; 85380; 85610; 85730; 87636; 93005; 93306; 93970; 96372; 99285; A9270; G0378; J1650; Q9967

== ENCOUNTER 2023-05-06 09:50 | Emergency (ER) | payer MEDICARE, SELFPAY ==
[2023-05-06 10:03] VITALS: BP 136/94; PULSE 86; RESP 16; TEMP 36.6; O2SAT 99
--- NOTE | 2023-05-06 10:06 | ED.URI ---
HPI - URI/Sore Throat General Chief Complaint: Upper Respiratory Infection Stated Complaint: cov test Time Seen by Provider: 05/06/23 10:06 Source: patient, RN notes reviewed and old records reviewed Mode of arrival: ambulatory Limitations: no limitations History of Present Illness HPI Narrative: 78 year old female who presents to [facility] care with complaints of upper respiratory symptoms of cough with chest congestion. sneezing, nasal congestion and drainage, headache with no fever since Saturday evening. Patient reports that she went to conference in [place] on Saturday. Patient reports that she took home COVID test yesterday that was negative. Patient reports that she did take some Tylenol at about o200 for a headache. Patient does have history of a fib and is on blood thinner and also has history of kidney disease and has seen nephrology in the past. Patient reports that she can not take any Ibuprofen or NSAID medications. MD elicited complaint: cough, rhinorrhea, nasal congestion and other (cough productive) Onset (ago): day(s) (3) Pain scale (0-10): 0 Able to tolerate fluids by mouth: Yes Treatments prior to arrival: acetaminophen Related Data Home Medications Medication Instructions Recorded Confirmed acetaminophen 500 mg tablet 500 mg PO DAILY PRN Pain 07/26/20 05/06/23 (Tylenol Extra Strength) cholecalciferol (vitamin D3) 25 25 mcg PO DAILY 07/26/20 05/06/23 mcg (1,000 unit) capsule cyanocobalamin (vitamin B-12) 1,000 mcg PO DAILY 07/26/20 05/06/23 1,000 mcg tablet (Vitamin B-12) Calcium + Vitamin D 500 mg PO DAILY 05/12/21 05/06/23 psyllium 1 packet PO DAILY 05/12/21 05/06/23 metoprolol succinate 25 mg 25 mg PO DAILY 04/08/23 05/06/23 tablet,extended release 24 hr Allergies Allergy/AdvReac Type Severity Reaction Status Date / Time erythromycin base Allergy Unknown Skin Verified 05/06/23 10:06 Reaction Sulfa (Sulfonamide Allergy Unknown severe Verified 05/06/23 10:06 Antibiotics) joint pain Review of Systems Review of Systems: CONSTITUTIONAL: Denies malaise, chills, sweats, or fever. EYES: Denies visual changes, redness, or discharge. ENT: Reports rhinorrhea, congestion, no sinus pain, no otalgia or sore throat. CARDIOVASCULAR: Denies chest pain, palpitations, or edema. RESPIRATORY: Reports cough.? Denies dyspnea. GASTROINTESTINAL: Denies abdominal pain, nausea, vomiting, diarrhea SKIN: Denies rash or itching. MUSCULOSKELETAL: Denies myalgia. NEUROLOGIC: Reports headache. All systems reviewed & are unremarkable except as noted in HPI and below PMFSH Past Medical History Medical History Benign essential HTN CKD (chronic kidney disease) History of colon polyps Hypothyroidism (acquired) On levothyroxine Surgical History Surgical History H/O breast biopsy H/O colonoscopy with polypectomy History of esophagogastroduodenoscopy (EGD) May 17, 2021 biopsies negative History of nasal surgery Cyst removed below left nostril History of tubal ligation Family History Family History Father Family history of malignant neoplasm Sibling Family history of malignant neoplasm Family history of malignant neoplasm of breast Mother Family history of malignant neoplasm of breast in first degree relative Son Diabetes mellitus Son Congestive heart failure Social History Social History Social History: The patient lives with her son and spouse . She has 3 children. She is Retired from [employer]. 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 She is a former smoker. She drinks a glass a wine a day. Code status full code Smoking packs per day: 0.5 Smoking cigarettes per day: 10.0 Years smoked: 17 Smoking pack-years: 8.50 Smoking status: Former sm
== END 2023-05-06 10:36 | disposition home or self-care (01) ==
PROVIDERS: Emergency Provider Registered Nurse; PCP Emergency Medicine
DX: J06.9 Acute upper respiratory infection, unspecified (principal); Z20.822 Contact with and (suspected) exposure to COVID-19; Z87.891 Personal history of nicotine dependence; I12.9 Hypertensive chronic kidney disease with stage 1 through stage 4 chronic kidney disease, or unspecified chronic kidney disease; N18.9 Chronic kidney disease, unspecified; E03.9 Hypothyroidism, unspecified
CPT/HCPCS: 87426; 99213; C9803; G0463

== ENCOUNTER → 2023-07-02 10:30 | Outpatient (CLI) | payer MEDICARE, SELFPAY ==
--- NOTE | ~2023-07-02 | XR_ITS ---
Clinical Indication: Cough PA and lateral views of the chest: Comparison: 12/08/2022 Findings: The lungs are clear, without evidence of focal consolidation or pleural effusion. Cardiome diastinal silhouette is within normal limits. Bones and soft tissues are unremarkable. Impression: Normal chest. Reviewed, dictated and finalized at location . Impression: Normal chest.
== END ==
PROVIDERS: PCP Emergency Medicine; Visit Provider Emergency Medicine
DX: R05.3 Chronic cough (principal)
CPT/HCPCS: 71046

== ENCOUNTER 2024-01-21 14:39 | Emergency (ER) | payer MEDICARE, SELFPAY ==
[2024-01-21 14:47] VITALS: BP 182/114; PULSE 84; RESP 16; TEMP 36.1; O2SAT 100
--- NOTE | 2024-01-21 15:03 | ED.GENADULT ---
HPI - General Adult General Chief complaint: Wound/Laceration Stated complaint: LIPS BLEEDING Time Seen by Provider: 01/21/24 14:55 Source: patient and RN notes reviewed Mode of arrival: ambulatory Limitations: no limitations History of Present Illness HPI narrative: 78-year-old female presents with concern for bleeding to her lower yet. She reports she had a blister that area from being in the sun and today it started to bleed. She reports she is on Xarelto and the area would not stop bleeding despite pressure, ice. She denies any other injury, trauma. MD complaint: Bleeding Related Data Home Medications Medication Instructions Recorded Confirmed cholecalciferol (vitamin D3) 25 25 mcg PO DAILY 07/26/20 06/17/23 mcg (1,000 unit) capsule cyanocobalamin (vitamin B-12) 1,000 mcg PO DAILY 07/26/20 06/17/23 1,000 mcg tablet (Vitamin B-12) metoprolol succinate 25 mg 12.5 mg PO DAILY 10/17/23 tablet,extended release 24 hr rivaroxaban 20 mg tablet (Xarelto) 20 mg PO DAILY 01/21/24 01/21/24 Allergies Allergy/AdvReac Type Severity Reaction Status Date / Time erythromycin base Allergy Unknown Skin Verified 01/21/24 14:41 Reaction Sulfa (Sulfonamide Allergy Unknown severe Verified 01/21/24 14:41 Antibiotics) joint pain Review of Systems Review of Systems: CONSTITUTIONAL: Denies malaise, chills, sweats, or fever. SKIN: Reports blister on the lower lip with intractable bleeding All systems reviewed & are unremarkable except as noted in HPI and below PMFSH Past Medical History Medical History Benign essential HTN CKD (chronic kidney disease) History of colon polyps Hypothyroidism (acquired) On levothyroxine Surgical History Surgical History H/O breast biopsy H/O colonoscopy with polypectomy History of esophagogastroduodenoscopy (EGD) May 17, 2021 biopsies negative History of nasal surgery Cyst removed below left nostril History of tubal ligation Family History Family History Father Family history of malignant neoplasm Sibling Family history of malignant neoplasm Family history of malignant neoplasm of breast Mother Family history of malignant neoplasm of breast in first degree relative Son Diabetes mellitus Son Congestive heart failure Social History Social History Social History: The patient lives with her son and spouse . She has 3 children. She is Retired from [employer]. 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 She is a former smoker. She drinks a glass a wine a day. Code status full code Smoking packs per day: 0.5 Smoking cigarettes per day: 10.0 Years smoked: 17 Smoking pack-years: 8.50 Smoking status: Former smoker Tobacco type: cigarettes Alcohol intake: current Drinks per week: 7 Alcohol use details: wine Substance use: current Lack of Transportation: No Lack of Food: Never True Current Housing: I Have Housing Concerned About Future Housing: No Difficulty Paying Gas/Electric Bills: No Difficulty Paying for Meds: No Currently Unemployed: No Education: Master's Degree or Higher Difficulty w/ Childcare or Family Care: No Living arrangements: with family Spiritual care concerns: No Comments At time of signature, agree with nursing past medical, surgical, social and family history. There is no relevant family history pertinent to the presenting complaint Exam Narrative: GENERAL: Well-appearing, well-nourished, and in no acute distress. HEAD: Normocephalic, atraumatic. EYES: PERRLA, conjunctivae clear ENT: Mucous membranes moist. NECK: Supple. No lymphadenopathy CHEST: Clear to auscultation. No respiratory distress. HEART: Regular rate and rhythm. SKIN: Warm, dry. Pinpoint break in the skin noted
[2024-01-21 15:12] VITALS: BP 171/120
== END 2024-01-21 15:09 | disposition home or self-care (01) ==
PROVIDERS: Emergency Provider Nurse Practitioner; PCP Emergency Medicine
DX: S01.501A Unspecified open wound of lip, initial encounter (principal); X58.XXXA Exposure to other specified factors, initial encounter; Z87.891 Personal history of nicotine dependence; I12.9 Hypertensive chronic kidney disease with stage 1 through stage 4 chronic kidney disease, or unspecified chronic kidney disease; N18.9 Chronic kidney disease, unspecified; E03.9 Hypothyroidism, unspecified
CPT/HCPCS: 12011; 99213; G0463

== ENCOUNTER 2024-04-17 09:44 | Outpatient (CLI) | payer MEDICARE, SELFPAY ==
[2024-04-17 19:23] LABS: Alanine Aminotransferase 29 U/L (6-35); Albumin Level 4.4 g/dL (3.5-5.1); Alkaline Phosphatase 73 U/L (38-126); Anion Gap 7 mmol/L (4-12); Aspartate Amino Transferase 56 U/L (14-36); Bilirubin,Total 0.5 mg/dL (0.2-1.3); Blood Urea Nitrogen 17 mg/dL (7-17); Calcium 9.3 mg/dL (8.4-10.2); Carbon Dioxide 29 mmol/L (22-30); Chloride 101 mmol/L (98-107); Estimated Glomerular Filt Rate > 60; Glucose 82 mg/dL (65-110); Potassium 4.1 mmol/L (3.4-5.0); Sodium 137 mmol/L (137-145)
[2024-04-17 19:44] LABS: Total Triiodothyronine (T3) 0.91 NG/ML (0.97-1.69)
== END 2024-04-17 09:45 | disposition home or self-care (01) ==
LOC: ANHGOSHLAB 09:45
PROVIDERS: PCP Emergency Medicine; Visit Provider Emergency Medicine
DX: E03.9 Hypothyroidism, unspecified (principal); E66.9 Obesity, unspecified
CPT/HCPCS: 36415; 80053; 84439; 84443; 84480

== ENCOUNTER 2024-05-16 10:30 | Emergency (ER) | payer MEDICARE, SELFPAY ==
--- NOTE | ~2024-05-16 | XR_ITS ---
XR chest 2V DATE: 05/16/2024 11:20 INDICATION: Cough TECHNIQUE: PA and lateral views COMPARISON: 07/02/2023 2 view chest FINDINGS: Bilateral hyperinflation. No pulmonary infiltrate or consolidation, pleural effusion or pul monary vascular congestion or pneumothorax. Left ventricular enlargement is suggested. There is aortic arch calcification and some aortic unfoldi ng. No hilar or mediastinal enlargement. IMPRESSION: Bilateral hyperinflation Left ventricular enlargement Aortic calcification and unfolding No active pulmonary disease or significant change since 07/02/2023 Reviewed, dictated and finalized at location A.
[2024-05-16 10:51] VITALS: BP 152/96; PULSE 103; RESP 16; TEMP 37.4; O2SAT 97
--- NOTE | 2024-05-16 11:07 | ED.URI ---
HPI - URI/Sore Throat General Chief Complaint: Upper Respiratory Infection Stated Complaint: cough,headache,dehydrated Time Seen by Provider: 05/16/24 11:07 Source: patient Mode of arrival: ambulatory Limitations: no limitations History of Present Illness HPI Narrative: 79-year-old female history of atrial fibrillation, PE, hypertension, CKD presented for complaint of cough and chest congestion over the past 5 days. Endorses nasal congestion and fatigue. Denies shortness of breath, wheezing, nausea, vomiting, diarrhea. She took NyQuil for symptoms last night. Cough is worse when lying down, productive of clear sputum. Tested negative for covid at the onset. Related Data Home Medications Medication Instructions Recorded Confirmed cholecalciferol (vitamin D3) 25 25 mcg PO DAILY 07/26/20 05/16/24 mcg (1,000 unit) capsule cyanocobalamin (vitamin B-12) 1,000 mcg PO DAILY 07/26/20 05/16/24 1,000 mcg tablet (Vitamin B-12) Allergies Allergy/AdvReac Type Severity Reaction Status Date / Time erythromycin base Allergy Unknown Skin Verified 05/16/24 10:50 Reaction Sulfa (Sulfonamide Allergy Unknown severe Verified 05/16/24 10:50 Antibiotics) joint pain Review of Systems Review of Systems: CONSTITUTIONAL: Denies body aches, fever, chills, or sweats. EYES: Denies visual changes, redness, or discharge. ENT: reports rhinorrhea, congestion, Denies sore throat, or otalgia. CARDIOVASCULAR: Denies chest pain, palpitations, or edema. RESPIRATORY: Reports cough, denies sob, wheezing. GASTROINTESTINAL: Denies abdominal pain, nausea, vomiting, or diarrhea. SKIN: Denies rash, itching, or wounds. MUSCULOSKELETAL: Denies back pain, joint pain, or myalgia. NEUROLOGIC: Denies headache, numbness, tingling, or weakness. All systems reviewed & are unremarkable except as noted in HPI and below PMFSH Past Medical History Medical History Benign essential HTN CKD (chronic kidney disease) History of colon polyps Hypothyroidism (acquired) On levothyroxine Surgical History Surgical History H/O breast biopsy H/O colonoscopy with polypectomy History of esophagogastroduodenoscopy (EGD) May 17, 2021 biopsies negative History of nasal surgery Cyst removed below left nostril History of tubal ligation Family History Family History Father Family history of malignant neoplasm Sibling Family history of malignant neoplasm Family history of malignant neoplasm of breast Mother Family history of malignant neoplasm of breast in first degree relative Son Diabetes mellitus Son Congestive heart failure Social History Social History Social History: The patient lives with her son and spouse . She has 3 children. She is Retired from [employer]. 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 She is a former smoker. She drinks a glass a wine a day. Code status full code Smoking packs per day: 0.5 Smoking cigarettes per day: 10.0 Years smoked: 17 Smoking pack-years: 8.50 Smoking status: Former smoker Tobacco type: cigarettes Alcohol intake: current Drinks per week: 7 Alcohol use details: wine Substance use: current Lack of Transportation: No Lack of Food: Never True Current Housing: I Have Housing Concerned About Future Housing: No Difficulty Paying Gas/Electric Bills: No Difficulty Paying for Meds: No Currently Unemployed: No Education: Master's Degree or Higher Difficulty w/ Childcare or Family Care: No Living arrangements: with family Spiritual care concerns: No Comments At time of signature, I have reviewed and agree with nursing past medical, surgical, social and family history unless otherwise noted. Please see nursing chart for further information
== END 2024-05-16 12:06 | disposition home or self-care (01) ==
PROVIDERS: Emergency Provider Nurse Practitioner Family; PCP Emergency Medicine
DX: J40 Bronchitis, not specified as acute or chronic (principal); Z87.891 Personal history of nicotine dependence; I12.9 Hypertensive chronic kidney disease with stage 1 through stage 4 chronic kidney disease, or unspecified chronic kidney disease; N18.9 Chronic kidney disease, unspecified; E03.9 Hypothyroidism, unspecified; I48.91 Unspecified atrial fibrillation; Z86.711 Personal history of pulmonary embolism
CPT/HCPCS: 71046; 99213; G0463

== ENCOUNTER 2024-11-10 22:02 | Emergency (ER) | payer MEDICARE, SELFPAY ==
--- NOTE | ~2024-11-10 | XR_ITS ---
EXAMINATION: XR chest 2V Exam Date/Time: 11/10/2024 23:00 [facility] [employer] HISTORY: afib Comparison: 05/16/2024. RESULT: Lines, tubes, and devices: None. Lungs and pleura: Clear. Cardiomediastinal silhouette: Stable. Other: No acute osseous or upper abdominal finding. IMPRESSION: No acute cardiopulmonary process. Reviewed, dictated and finalized at location K. [employer] [employer]
[2024-11-10 22:25] VITALS: BP 121/85; PULSE 96; RESP 16; TEMP 36.2; O2SAT 95
--- NOTE | 2024-11-10 22:32 | ECG_ITS ---
Test Date: 2024-11-10 22:36:24 Measurements Intervals [place] Rate: 94 P: 53 W[place]: 173 QRS: -19 QRSD: 164 T: 133 QT: 392 QTc: 491 Interpretive Statements SINUS RHYTHM LEFT BUNDLE BRANCH BLOCK [120+ ms QRS DURATION, 80+ ms Q/S IN V1/V2, 85+ ms R IN I/aVL/V5/V6] No previous ECG available for comparison Electronically Signed On 11-11-2024 18:48:54 CHIEF GAUGER by Chris Lo
[2024-11-10 22:47] LABS: Basophils Absolute Auto 0.1 K/mm3 (0.0-0.1); Basophils Percent Auto 0.9 % (0.2-1.2); Eosinophils Absolute Auto 0.2 K/mm3 (0-0.3); Eosinophils Percent Auto 2.6 % (0-4.4); Hematocrit 38.9 % (37.0-47.0); Hemoglobin 13.1 g/dL (12.0-15.0); Immature Granulocyte Absolute 0.02 K/mm3 (0.00-0.031); Immature Granulocyte Percent A 0.3 % (0-0.5); Lymphocytes Absolute Auto 3.05 K/mm3 (0.9-3.2); Lymphocytes Percent Auto 39.6 % (18.3-44.2); Mean Corpuscular HGB Conc 33.7 g/dl (32-36); Mean Corpuscular Hemoglobin 32.8 pg (26-34); Mean Corpuscular Volume 97.3 fl (80-100); Mean Platelet Volume 9.2 fl (7.4-10.4); Monocytes Absolute Auto 0.7 K/mm3 (0.1-0.6); Monocytes Percent Auto 9.5 % (2.6-8.5); Neutrophils Absolute Auto 3.6 K/mm3 (1.3-6.7); Neutrophils Percent Auto 47.1 % (45.5-73.1); Platelet Count Result 256 k/mm3 (150-375); Red Cell Distribution Width 13.6 % (11.5-14.5); White Blood Count 7.7 K/mm3 (4.5-10.0)
[2024-11-10 23:02] LABS: Alanine Aminotransferase 27 U/L (6-35); Alkaline Phosphatase 85 U/L (38-126); Anion Gap 6 mmol/L (4-12); Aspartate Amino Transferase 40 U/L (14-36); Bilirubin,Total 0.4 mg/dL (0.2-1.3); Blood Urea Nitrogen 26 mg/dL (7-17); Calcium 9.2 mg/dL (8.4-10.2); Carbon Dioxide 27 mmol/L (22-30); Chloride 105 mmol/L (98-107); Estimated CRCL calculation 26 ml/min; Estimated Glomerular Filt Rate 48; Glucose 92 mg/dL (65-110); INR 2.5; Lipase 100 U/L (23-300); Potassium 3.7 mmol/L (3.4-5.0); Prothrombin Time 27.6 Seconds (11.1-14.7); Sodium 138 mmol/L (137-145)
[2024-11-10 23:03] LABS: Partial Thromboplastin Time 34.7 Seconds (22.3-36.8)
[2024-11-10 23:13] LABS: Troponin I < 0.012 ng/mL (0.000-0.034)
[2024-11-10 23:58] VITALS: BP 128/74; PULSE 86; RESP 17; O2SAT 96
[2024-11-10 23:59] VITALS: PULSE 98
[2024-11-11] VITALS (18 sets, daily range): BP systolic 104–151; BP diastolic 54–92; PULSE 71–109; RESP 14–22; O2SAT 95–100
--- NOTE | 2024-11-11 00:15 | ED.ARRPALP ---
HPI - Arrhythmia/Palpitations General Chief Complaint: Arrhythmia/Palpitations Stated Complaint: a-fib Time Seen by Provider: 11/11/24 00:01 Source: patient Mode of arrival: EMS Limitations: no limitations History of Present Illness HPI narrative: Patient is a 79 y/o female who presents to the ED via EMS with report of palpitations. Patient reports she was sitting down watching TV prior to arrival when she suddenly began having pain in her bilateral lower jaw and chest pressure. She felt her heart racing at that time. She looked on her Apple watch and noted her heart rate to be in the 170s. She states this felt similar to her previous episode of AFib. She has had 1 other episode of AFib in December of 2022. She is on Xarelto 20 mg daily. She is compliant with this, but did miss 3 doses last week due to undergoing gynecologic surgery. She had previously been on metoprolol, but was taken off of this October 22 by her masseur/masseuse (Dr. Olivier) d/t patient reporting fatigue. patient states while she was in the ambulance, she felt herself convert out of AFib. She is feeling improved currently. Denies any ongoing chest pain or pressure. Denies shortness of breath. Denies lower extremity pain or swelling. Denies recent cough or cold symptoms, fevers. Related Data Home Medications ?Medication ?Instructions ?Recorded ?Confirmed ?Last Taken ?Type cholecalciferol (vitamin D3) 25 25 mcg PO DAILY 07/26/20 11/11/24 11/11/24 History mcg (1,000 unit) capsule cyanocobalamin (vitamin B-12) 1,000 mcg PO DAILY 07/26/20 11/11/24 11/11/24 History 1,000 mcg tablet (Vitamin B-12) Allergies Allergy/AdvReac Type Severity Reaction Status Date / Time erythromycin base Allergy Unknown Skin Verified 11/11/24 00:03 Reaction Sulfa (Sulfonamide Allergy Unknown severe Verified 11/11/24 00:03 Antibiotics) joint pain Review of Systems Review of Systems: All systems reviewed & are unremarkable except as noted in HPI. All systems reviewed & are unremarkable except as noted in HPI and below PMFSH Past Medical History Medical History (Updated 11/11/24 @ 02:51 by Radha Mckeon PA-C) Pulmonary embolism Atrial fibrillation Right foot infection Cortisone 08/18/2024 History of colon polyps CKD (chronic kidney disease) Benign essential HTN Hypothyroidism (acquired) On levothyroxine Surgical History Surgical History H/O colonoscopy with polypectomy History of nasal surgery Cyst removed below left nostril H/O breast biopsy History of esophagogastroduodenoscopy (EGD) May 17, 2021 biopsies negative History of tubal ligation Family History Family History Father Family history of malignant neoplasm Sibling Family history of malignant neoplasm Family history of malignant neoplasm of breast Mother Family history of malignant neoplasm of breast in first degree relative Son Diabetes mellitus Son Congestive heart failure Social History Social History Social History: The patient lives with her son and spouse . She has 3 children. She is Retired from [employer]. 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 She is a former smoker. She drinks a glass a wine a day. Code status full code Smoking packs per day: 0.5 Smoking cigarettes per day: 10.0 Years smoked: 17 Smoking pack-years: 8.50 Smoking status: Former smoker Tobacco type: cigarettes Alcohol intake: current Drinks per week: 7 Alcohol use details: wine Substance use: current Lack of Transportation: No Lack of Food: Never True Current Housing: I Have Housing Concerned About Future Housing: No Difficulty Paying Gas/Electric Bills: No Difficulty Paying for Meds: No Currently Unemployed: No Education: Master's Degree or Higher Difficulty w/ Childcare or Family Care: No Living arrangements: with family Spiritual care concerns: No Exam Narrative: GENERAL: Elderly but well appearing, well-nourished, non-toxic, in no acute distress. HEAD: Normocephalic, atraumatic. RESPIRATORY: Airway patent, respirations nonlabored. Clear to auscultation bilaterally, no rales, rhonchi, wheezing. No focal lung sounds. CARDIOVASCULAR: Borderline tachycardic with regular rhythm without murmurs, rubs, or gallops. Peripheral pulses intact. MUSCULOSKELETAL: Moves all extremities. No gross deformities. No peripheral edema. No calf tenderness. SKIN: Warm, dry, normal color. NEURO: A&O X3. Speech clear. Cranial nerves II-XII grossly intact. Steady gait. No ataxic movements. PSYCHIATRIC: Appropriate mood and affect. Normal interaction. Course Vital Signs Vital signs: Vital Signs Temperature 97.1 F L 11/10/24 22:25 Pulse Rate 96 11/10/24 22:25 Respiratory Rate 16 11/10/24 22:25 Blood Pressure 121/85 11/10/24 22:25 Pulse Oximetry 95 11/10/24 22:25 Oxygen Delivery Room Air 11/10/24 22:25 Temperature 97.1 F L 11/10/24 22:25 Pulse Rate 83 11/11/24 02:40 Respiratory Rate 18 11/11/24 01:46 Blood Pressure 114/71 11/11/24 01:46 Pulse Oximetry 96 11/11/24 01:46 Oxygen Delivery Room Air 11/10/24 22:25 MDM - Arrhythmia/Palpitations MDM Narrative Medical decision making narrative: Patient presented to ED with palpitations, AFib. Improved by the time of arrival to the ED and by the time of my evaluation. Patient asymptomatic upon my evaluation. HR in the 90s, sinus on the monitor. EKG with NSR, left bundle-branch block. This does appear new from previous records. Only 1 other EKG in the system from December 2022 does not show evidence of LBBB. Baseline troponin is undetectable. Chest x-ray is clear. Laboratory studies are otherwise unremarkable. Stable electrolytes. Magnesium WNL. Patient is not currently on any rate-controlling medications. Taken off metoprolol around 3 weeks ago. She also had to hold her Xarelto for 3 days last week due to preop for gynecologic surgery. Hx of PE. D-dimer today WNL. TSH WNL. 3HR trop slightly increased to 0.032 but still within normal range. Discussed clinical picture and work-up with Dr. Smallwood, cardiology director of cardiopulmonary services for Dr. Olivier, feel patient is safe for discharge home with close outpatient follow-up. Will have office contact patient today to make follow-up appointment. She will discuss with Dr. Olivier -patient's masseur/masseuse. Recommended to give dose of short-acting metoprolol tartrate 12.5 mg x 1 in the ED to prevent further tachycardia/ AFib tonight. Will defer medication adjustments /possible Holter monitoring to Dr. Olivier. Discussed these recommendations with patient. She is in agreement with plan. She feels comfortable going home. She has remained asymptomatic since being in the ED. No further sx's or arrhythmias. Discussed strict return precautions should sx's recur or worsen. She voiced understanding. D/C in stable condition. HR stable at time of d/c. Medical Records Attestation: I reviewed the patient's medical records. Lab Data Attestation: I reviewed the patient's lab results. 11/10/24 22:39 11/10/24 22:39 Labs: Lab Results 11/10/24 11/11/24 Range/Units 22:39 02:06 WBC 7.7 (4.5-10.0) K/mm3 RBC 4.00 L (4.2-5.4) M/mm3 Hgb 13.1 (12.0-15.0) g/dL Hct 38.9 (37.0-47.0) % MCV 97.3 (80-100) fl MCH 32.8 (26-34) pg MCHC 33.7 (32-36) g/dl RDW 13.6 (11.5-14.5) % Plt Count 256 (150-375) k/mm3 MPV 9.2 (7.4-10.4) fl Immature Gran % (Auto) 0.3 (0-0.5) % Neut % (Auto) 47.1 (45.5-73.1) % Lymph % (Auto) 39.6 (18.3-44.2) % Starke % (Auto) 9.5 H (2.6-8.5) % Eos % (Auto) 2.6 (0-4.4) % Baso % (Auto) 0.9 (0.2-1.2) % Lymph # (Auto) 3.05 (0.9-3.2) K/mm3 Starke # (Auto) 0.7 H (0.1-0.6) K/mm3 Eos # (Auto) 0.2 (0-0.3) K/mm3 Baso # (Auto) 0.1 (0.0-0.1) K/mm3 Abs Immat Gran (auto) 0.02 (0.00-0.031) K/mm3 Absolute Neuts (auto) 3.6 (1.3-6.7) K/mm3 Absolute Nucleated RBC 0.000 (0.0-0.012) K/mm3 Nucleated RBC % 0.0 (0.0-0.2) % PT 27.6 H (11.1-14.7) Seconds INR 2.5 APTT 34.7 (22.3-36.8) Seconds D-Dimer 0.43 (<0.48) ug/mL Sodium 138 (137-145) mmol/L Potassium 3.7 (3.4-5.0) mmol/L Chloride 105 (98-107) mmol/L Carbon Dioxide 27 (22-30) mmol/L Anion Gap 6 (4-12) mmol/L BUN 26 H (7-17) mg/dL Creatinine 1.10 H (0.7-1.0) mg/dL Estim Creat Clear Calc 26 ml/min Estimated GFR 48 L (59 - ) Glucose 92 (65-110) mg/dL Calcium 9.2 (8.4-10.2) mg/dL Magnesium 1.9 (1.6-2.3) mg/dL Total Bilirubin 0.4 (0.2-1.3) mg/dL AST 40 H (14-36) U/L ALT 27 (6-35) U/L Alkaline Phosphatase 85 (38-126) U/L Troponin I < 0.012 0.032 D (0.000-0.034) ng/mL Total Protein 7.0 (6.3-8.2) g/dL Albumin 4.0 (3.5-5.1) g/dL Lipase 100 (23-300) U/L TSH 0.787 (0.465-4.680) uIU/mL Imaging Data Attestation: I personally reviewed and interpreted this imaging study as follows: Radiologist's impression: ITS Impressions Chest X-Ray 11/10/24 23:23 IMPRESSION: No acute cardiopulmonary process. ECG Data EKG #1: Attestation: I personally reviewed and interpreted this ECG as follows: ECG completion date: 11/10/24 ECG completion time: 22:36 EKG Interpretation: normal rate (94), sinus rhythm, non-specific ST changes and LBBB Discharge Plan Discharge Clinical Impression: Paroxysmal A-fib, LBBB (left bundle branch block), Jaw pain Patient Disposition: Home, Self-Care Condition: Stable Instructions: Antibiotic Form, A-fib (Atrial Fibrillation) (ED), Tachycardia (ED) Additional Instructions: The cardiology office should be contacting you today to make a follow-up appointment for further evaluation. They are aware of your ED visit and symptoms tonight. Continue to monitor symptoms. Return to the ED if you experience recurrent symptoms, recurrent elevated heart rate, jaw pain, chest pain, shortness of breath, feeling dizzy or lightheaded, passing out, unable to keep down food or drink, or any other symptoms of concern. Patient Language: Mongolian Prescriptions: No Action cyanocobalamin (vitamin B-12) [Vitamin B-12] 1,000 mcg tablet 1,000 mcg PO DAILY cholecalciferol (vitamin D3) 25 mcg (1,000 unit) capsule 25 mcg PO DAILY metoprolol succinate 25 mg tablet extended release 24 hr 12.5 mg PO DAILY Qty: 45 1RF pantoprazole 40 mg tablet,delayed release (DR/EC) 40 mg PO QAM Qty: 90 3RF Xarelto 20 mg tablet 20 mg PO DAILY Qty: 90 1RF Rx Instructions: pt states she takes this every day levothyroxine 50 mcg tablet See Rx Instructions .ROUTE .COMPLEX Qty: 90 1RF Dose Instruction: TAKE 1 TABLET BY MOUTH DAILY Rx Instructions: TAKE 1 TABLET BY MOUTH DAILY valsartan-hydrochlorothiazide 160-12.5 mg tablet See Rx Instructions .ROUTE .COMPLEX Qty: 90 1RF Dose Instruction: TAKE 1 TABLET BY MOUTH DAILY Rx Instructions: TAKE 1 TABLET BY MOUTH DAILY tramadol 50 mg tablet 50 mg PO Q8H PRN (Reason: pain) Qty: 20 0RF Follow-up/Referrals: Sameer Hampton MD [Primary Care Provider] - Time of Disposition: 02:49
[2024-11-11 00:57] LABS: Magnesium 1.9 mg/dL (1.6-2.3)
[2024-11-11 01:27] LABS: D Dimer 0.43 ug/mL (<0.48)
[2024-11-11 01:32] LABS: Thyroid Stimulating Hormone 0.787 uIU/mL (0.465-4.680)
--- NOTE | 2024-11-11 01:46 | ECG_ITS ---
Test Date: 2024-11-11 02:01:04 Measurements Intervals [place] Rate: 79 P: 68 NE: 164 QRS: -24 QRSD: 162 T: 133 QT: 436 QTc: 503 Interpretive Statements SINUS RHYTHM LEFT BUNDLE BRANCH BLOCK [120+ ms QRS DURATION, 80+ ms Q/S IN V1/V2, 85+ ms R IN I/aVL/V5/V6] Compared to ECG 11/10/2024 22:36:24 No significant changes Electronically Signed On 11-11-2024 11:51:14 DIE TRIPPER by Chris Lo
[2024-11-11 02:38] LABS: Troponin I 0.032 ng/mL (0.000-0.034)
[2024-11-11] MEDS: METOPROLOL TARTRATE 12.5 MG TABLET PO (02:40)
== END 2024-11-11 03:48 | disposition home or self-care (01) ==
PROVIDERS: Student in an Organized Health Care Education/Training Program; Emergency Provider Physician Assistant; PCP Emergency Medicine
DX: I48.0 Paroxysmal atrial fibrillation (principal); I44.7 Left bundle-branch block, unspecified; R68.84 Jaw pain; Z86.711 Personal history of pulmonary embolism; N18.9 Chronic kidney disease, unspecified; I12.9 Hypertensive chronic kidney disease with stage 1 through stage 4 chronic kidney disease, or unspecified chronic kidney disease; E03.9 Hypothyroidism, unspecified; Z87.891 Personal history of nicotine dependence
CPT/HCPCS: 36415; 71046; 80053; 83690; 83735; 84443; 84484; 85025; 85380; 85610; 85730; 93005; 99284; A9270

== ENCOUNTER 2024-11-16 07:34 | Emergency (ER) | payer MEDICARE, SELFPAY ==
--- NOTE | ~2024-11-16 | US_ITS ---
US pelvic complete Ordering provider: Darci Jernigan III, DO History: . vaginal bleeding . Comparison: None. Technique: Transabdominal and endovaginal ultrasound of the pelvis (Doppler ultrasound interrogation techniques used as needed for this exam.) FINDINGS: CERVIX: Normal. UTERUS: Measures 7.1x 3.9x 5.4 cm in length which is within normal limits and is anteverted. No myom etrial masses. ENDOMETRIUM: Normal in thickness measuring 19 mm. (Note: the premenopausal endometrium may measure up to 16 mm when in the secretory phase.) No endometrial masses, cysts or fluid. CUL DE SAC: No free fluid. RIGHT OVARY: Not visualized. LEFT OVARY: Not visualized. ADNEXA: Normal. No mass. IMPRESSION: Thickened endometrium. Further evaluation advised to exclude endometrial carcinoma.. Otherwise, иван l pelvic ultrasound. Reviewed, dictated and finalized at location A. ANICAL DESIGN TECHNICIAN IMPRESSION: Thickened endometrium. Further evaluation advised to exclude endometrial carcin yelena.. Otherwise, normal pelvic ultrasound.
[2024-11-16 07:44] VITALS: BP 159/91; PULSE 99; RESP 17; TEMP 36.6; O2SAT 99
--- NOTE | 2024-11-16 07:54 | ED_ITS ---
HPI - Female Genitourinary General Chief complaint: Vaginal Bleeding Stated complaint: vaginal bleeding Time Seen by Provider: 11/16/24 07:50 History of Present Illness HPI Narrative: Pt presents with heavy vaginal bleeding today. Pt had hysteroscopy with D and C 11/[address] Paulina Leyva at [facility]. Pt had some bleedign initially but it resolved but now recurred and more heavy. Pt is on xeralto for a fib. Pt denies abdominal pain. Related Data Home Medications ?Medication ?Instructions ?Recorded ?Confirmed ?Last Taken ?Type cholecalciferol (vitamin D3) 25 25 mcg PO DAILY 07/26/20 11/11/24 11/11/24 History mcg (1,000 unit) capsule cyanocobalamin (vitamin B-12) 1,000 mcg PO DAILY 07/26/20 11/11/24 11/11/24 History 1,000 mcg tablet (Vitamin B-12) Allergies Allergy/AdvReac Type Severity Reaction Status Date / Time erythromycin base Allergy Unknown Skin Verified 11/16/24 07:35 Reaction Sulfa (Sulfonamide Allergy Unknown severe Verified 11/16/24 07:35 Antibiotics) joint pain Review of Systems 2 Review of Systems: All systems reviewed & are unremarkable except as noted in HPI and below PMFSH Past Medical History Medical History (Updated 11/16/24 @ 09:27 by Darci Jernigan III, DO) Pulmonary embolism Atrial fibrillation Right foot infection Cortisone 08/18/2024 History of colon polyps CKD (chronic kidney disease) Benign essential HTN Hypothyroidism (acquired) On levothyroxine Surgical History Surgical History H/O colonoscopy with polypectomy History of nasal surgery Cyst removed below left nostril H/O breast biopsy History of esophagogastroduodenoscopy (EGD) May 17, 2021 biopsies negative History of tubal ligation Family History Family History Father Family history of malignant neoplasm Sibling Family history of malignant neoplasm Family history of malignant neoplasm of breast Mother Family history of malignant neoplasm of breast in first degree relative Son Diabetes mellitus Son Congestive heart failure Social History Social History Social History: The patient lives with her son and spouse . She has 3 children. She is Retired from [employer]. 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 She is a former smoker. She drinks a glass a wine a day. Code status full code Smoking packs per day: 0.5 Smoking cigarettes per day: 10.0 Years smoked: 17 Smoking pack-years: 8.50 Smoking status: Former smoker Tobacco type: cigarettes Alcohol intake: current Drinks per week: 7 Alcohol use details: wine Substance use: current Lack of Transportation: No Lack of Food: Never True Current Housing: I Have Housing Concerned About Future Housing: No Difficulty Paying Gas/Electric Bills: No Difficulty Paying for Meds: No Currently Unemployed: No Education: Master's Degree or Higher Difficulty w/ Childcare or Family Care: No Living arrangements: with family Spiritual care concerns: No Exam 2 Const: General: healthy appearing and no acute distress Nutritional Appearance: well nourished Orientation/consciousness: patient oriented x3 Limitations: no limitations Eyes: Conjunctivae: conjunctivae normal Resp: Effort & Inspection: normal respiratory effort Auscultation: clear to auscultation bilaterally Cardio: Rate: regular rate Rhythm: abnormal rhythm GI: GI Palp: Yes Soft to palpation and No Tenderness to palpation present (GI) Auscultation: normal bowel sounds Back/Spine/Pelvis: Back: no CVA tenderness Skin: General skin exam: normal color Rashes: no rashes Wounds: no wounds Neuro: General: patient oriented x3, moves all extremities and no focal motor deficits Cranial nerves: Yes Nystagmus not present Speech: normal speech Extrem: General: normal to inspection and no clubbing, cyanosis or edema Psych: Appearance: grossly normal Mental Status: mental status grossly normal Affect: normal affect Attitude: cooperative Course Vital Signs Vital signs: Vital Signs Temperature 98 F 11/16/24 07:44 Pulse Rate 99 11/16/24 07:44 Respiratory Rate 17 11/16/24 07:44 Blood Pressure 159/91 H 11/16/24 07:44 Pulse Oximetry 99 11/16/24 07:44 Oxygen Delivery Room Air 11/16/24 07:44 Temperature 97.9 F 11/16/24 10:19 Pulse Rate 90 11/16/24 10:19 Respiratory Rate 16 11/16/24 10:19 Blood Pressure 146/93 H 11/16/24 10:19 Pulse Oximetry 98 11/16/24 10:19 Oxygen Delivery Room Air 11/16/24 07:44 MDM - Female Genitourinary MDM Narrative Medical decision making narrative: Pt presents with vaginal bleeding s/p hysteroscopy last week. Will check labs and sono and call her surgeon. labs look fine. endometrium thickened. discussed with Dr mcnulty covering for dr leyva. recommended holding xeralto for 3 days and will see in follow up Lab Data 11/16/24 08:09 11/16/24 08:09 Labs: Lab Results 11/16/24 Range/Units 08:09 WBC 5.7 (4.5-10.0) K/mm3 RBC 3.89 L (4.2-5.4) M/mm3 Hgb 12.7 (12.0-15.0) g/dL Hct 37.9 (37.0-47.0) % MCV 97.4 (80-100) fl MCH 32.6 (26-34) pg MCHC 33.5 (32-36) g/dl RDW 13.7 (11.5-14.5) % Plt Count 255 (150-375) k/mm3 MPV 9.4 (7.4-10.4) fl Immature Gran % (Auto) 0.4 (0-0.5) % Neut % (Auto) 46.6 (45.5-73.1) % Lymph % (Auto) 36.5 (18.3-44.2) % [place] % (Auto) 13.1 H (2.6-8.5) % Eos % (Auto) 2.5 (0-4.4) % Baso % (Auto) 0.9 (0.2-1.2) % Lymph # (Auto) 2.07 (0.9-3.2) K/mm3 [place] # (Auto) 0.7 H (0.1-0.6) K/mm3 Eos # (Auto) 0.1 (0-0.3) K/mm3 Baso # (Auto) 0.1 (0.0-0.1) K/mm3 Abs Immat Gran (auto) 0.02 (0.00-0.031) K/mm3 Absolute Neuts (auto) 2.7 (1.3-6.7) K/mm3 Absolute Nucleated RBC 0.000 (0.0-0.012) K/mm3 Nucleated RBC % 0.0 (0.0-0.2) % PT 20.7 H D (11.1-14.7) Seconds INR 1.7 APTT 29.3 (22.3-36.8) Seconds Sodium 137 (137-145) mmol/L Potassium 4.0 (3.4-5.0) mmol/L Chloride 104 (98-107) mmol/L Carbon Dioxide 28 (22-30) mmol/L Anion Gap 5 (4-12) mmol/L BUN 15 D (7-17) mg/dL Creatinine 0.90 (0.7-1.0) mg/dL Estim Creat Clear Calc 47 ml/min Estimated GFR 60 (59 - ) Glucose 99 (65-110) mg/dL Calcium 8.7 (8.4-10.2) mg/dL Total Bilirubin 0.7 (0.2-1.3) mg/dL AST 45 H (14-36) U/L ALT 27 (6-35) U/L Alkaline Phosphatase 82 (38-126) U/L Total Protein 7.0 (6.3-8.2) g/dL Albumin 3.8 (3.5-5.1) g/dL Discharge Plan Discharge Clinical Impression: Abnormal vaginal bleeding Patient Disposition: Home, Self-Care Condition: Stable Instructions: Antibiotic Form, Abnormal (Dysfunctional) Uterine Bleeding (ED) Additional Instructions: hold xeralto for 3 days. follow up with dr leyva Patient Language: Latvian Prescriptions: No Action cyanocobalamin (vitamin B-12) [Vitamin B-12] 1,000 mcg tablet 1,000 mcg PO DAILY cholecalciferol (vitamin D3) 25 mcg (1,000 unit) capsule 25 mcg PO DAILY metoprolol succinate 25 mg tablet extended release 24 hr 12.5 mg PO DAILY Qty: 45 1RF pantoprazole 40 mg tablet,delayed release (DR/EC) 40 mg PO QAM Qty: 90 3RF Xarelto 20 mg tablet 20 mg PO DAILY Qty: 90 1RF Rx Instructions: pt states she takes this every day levothyroxine 50 mcg tablet See Rx Instructions .ROUTE .COMPLEX Qty: 90 1RF Dose Instruction: TAKE 1 TABLET BY MOUTH DAILY Rx Instructions: TAKE 1 TABLET BY MOUTH DAILY valsartan-hydrochlorothiazide 160-12.5 mg tablet See Rx Instructions .ROUTE .COMPLEX Qty: 90 1RF Dose Instruction: TAKE 1 TABLET BY MOUTH DAILY Rx Instructions: TAKE 1 TABLET BY MOUTH DAILY tramadol 50 mg tablet 50 mg PO Q8H PRN (Reason: pain) Qty: 20 0RF Follow-up/Referrals: Sameer Hampton MD [Primary Care Provider] -
[2024-11-16 08:26] LABS: Basophils Absolute Auto 0.1 K/mm3 (0.0-0.1); Basophils Percent Auto 0.9 % (0.2-1.2); Eosinophils Absolute Auto 0.1 K/mm3 (0-0.3); Eosinophils Percent Auto 2.5 % (0-4.4); Hematocrit 37.9 % (37.0-47.0); Hemoglobin 12.7 g/dL (12.0-15.0); Immature Granulocyte Absolute 0.02 K/mm3 (0.00-0.031); Immature Granulocyte Percent A 0.4 % (0-0.5); Lymphocytes Absolute Auto 2.07 K/mm3 (0.9-3.2); Lymphocytes Percent Auto 36.5 % (18.3-44.2); Mean Corpuscular HGB Conc 33.5 g/dl (32-36); Mean Corpuscular Hemoglobin 32.6 pg (26-34); Mean Corpuscular Volume 97.4 fl (80-100); Mean Platelet Volume 9.4 fl (7.4-10.4); Monocytes Absolute Auto 0.7 K/mm3 (0.1-0.6); Monocytes Percent Auto 13.1 % (2.6-8.5); Neutrophils Absolute Auto 2.7 K/mm3 (1.3-6.7); Neutrophils Percent Auto 46.6 % (45.5-73.1); Platelet Count Result 255 k/mm3 (150-375); Red Blood Count 3.89 M/mm3 (4.2-5.4); Red Cell Distribution Width 13.7 % (11.5-14.5); White Blood Count 5.7 K/mm3 (4.5-10.0)
[2024-11-16 08:35] LABS: Alanine Aminotransferase 27 U/L (6-35); Albumin Level 3.8 g/dL (3.5-5.1); Alkaline Phosphatase 82 U/L (38-126); Anion Gap 5 mmol/L (4-12); Aspartate Amino Transferase 45 U/L (14-36); Bilirubin,Total 0.7 mg/dL (0.2-1.3); Blood Urea Nitrogen 15 mg/dL (7-17); Calcium 8.7 mg/dL (8.4-10.2); Carbon Dioxide 28 mmol/L (22-30); Chloride 104 mmol/L (98-107); Estimated CRCL calculation 47 ml/min; Estimated Glomerular Filt Rate 60; Glucose 99 mg/dL (65-110); Sodium 137 mmol/L (137-145)
[2024-11-16 08:50] LABS: INR 1.7; Prothrombin Time 20.7 Seconds (11.1-14.7)
[2024-11-16 08:51] LABS: Partial Thromboplastin Time 29.3 Seconds (22.3-36.8)
[2024-11-16 10:19] VITALS: BP 146/93; PULSE 90; RESP 16; TEMP 36.6; O2SAT 98
--- OUTSIDE RECORDS SUMMARY | 2024-11-21 18:16 | XMS_ITS | Clinical Summary ---
Author Organization [facility] Address [address] [place] [address] Phone Care Team Providers Care Magnetic Resonance Technologist Name Role Phone Stefan Park MD Primary Care Provider [phone] Social History Tobacco Use Types Packs/Day Years Used Date Smoking Tobacco: Never Assessed Comments Unknown Sex and Gender Information Value Date Recorded Sex Assigned at Not on file Legal Sex Female 8:22 AM CDT Gender Identity Not on file Sexual Orientation Not on file Plan of Treatment Health Maintenance Due Date Last Done Comments DEXA Bone Density 1945 Hepatitis C Virus (HCV) Screening 1945 TdaP Immunization 1945 Zoster Immunization (1 of 2) 1995 Pneumococcal Immunization (5 0+ years) (1 of 1 - PCV) 2010 SARS-COV-2 Immunization ( - 2022-24 season) 2023 Influenza Immunization (Seas on Ended) 2024 Colonoscopy High Risk Discontinued 09/03/2019 Colonoscopy Discontinued 09/03/2019 Colorectal Cancer Screening Discontinued Cologuard Discontinued Hepatitis B Immunization Aged Out No longer eligible based on patient's age to complete this topic Immunochemical Fecal Occult Blood Discontinued Meningococcal Immunization (ACWY) Aged Out No longer eligible based on patient's age to complete this topic Rotavirus Immunization Aged Out No lo nger eligible based on patient's age to complete this topic Procedures Procedure Name Priority Date/Time Associated Diagnosis Comments HM COLONOSCOPY Routine 09/03/2019 from Last 3 Months or Most Recently Relevant to Health Maintenance Results * HM COLONOSCOPY (09/03/2019) Malik Austin DO PROCEDURE/MINOR SURGICAL ORDERA BLES Final Result from Last 3 Months or Most Recently Relevant to Health Maintenance Care Teams Magnetic Resonance Technologist Relationship Specialty Start Date End Date Stefan Park MD [address] [place] [address] PCP - General Family Medicine 07/15/19
--- OUTSIDE RECORDS SUMMARY | 2024-11-21 18:17 | XMS_ITS | Encounter Summary ---
Author Organization [facility] Healthcare Address [address] [place] [address] Care Team Providers Care Chemical Weigher Name Role Phone No, Physician Primary Care Provider [phone] Encounter Details Date Type Department Care Team (Latest Contact Info) Description 11/02/2024 2:47 PM GUILLOTINE TRIMMER - 11/02/2024 11:59 PM GUILLOTINE TRIMMER Hospital Encounter [address] [address] Postmenopausal bleeding; Pre-operative laboratory examination Discharge Disposition: Discharge to home or self care Social History Tobacco Use Types Packs/Day Years Used Date Smoking Tobacco: Former Cigarettes 0 08/19/1963 - 12/02/1977 Smokeless Tobacco: Never Comments:I smoked very littl e. Humiliation, Afraid, Rape, and Kick questionnair e Answer Date Recorded Within the last year, have y ou been afraid of your partner or ex-partner? No 09/09/2023 Within the last year, have y ou been humiliated or emotionally abused in other ways by your partner or ex-partner? No Within the last year, have y ou been kicked, hit, slapped, or otherwise physically hurt by your partner or ex-partner? No 09/09/2023 Within the last year, have y ou been raped or forced to have any kind of sexual activity by your partner or ex-partner? No 09/09/2023 AUDIT-C Answer Date Recorded Q1: How often do you have a drink containing alcohol? 4 or more times a week 10/28/2024 Q2: How many drinks containi ng alcohol do you have on a typical day when you are drinking? 1 or 2 Q3: How often do you have si x or more drinks on one occasion? Never 10/28/2024 PHQ-2 Answer Date Recorded PHQ-2 Total Score 0 09/07/2024 Comments No Sex and Gender Information Value Date Recorded Sex Assigned at Not on file Legal Sex Female 3:32 AM GUILLOTINE TRIMMER Gender Identity Not on file Sexual Orientation Not on file documented as of this encounter Medications at Time of Discharge acetaminophen (TYLENOL) 500 mg tablet Take 1 tablet (500 mg total) by mouth every 6 (six) hours as needed calcium carbonate-vitami n D3 1,250mg (500mg elemental) - 5 mcg (200 units) per tablet Take 1 tablet by mouth daily cholecalciferol (VITAMIN D-3) 2000 unit tablet 0.5 tablets (1,000 Units total) cyanocobalamin (Vitamin B-12) 100 mcg tablet Take 1 tablet (100 mcg total) by mouth daily ibuprofen (ADVIL,MOTRIN) 600 mg tablet Take 1 tablet (600 mg total) by mouth every 6 (six) hours as needed for pain 10 tablet 11/05/2024 ketoconazole (NIZORAL) 2 % cream Apply topically daily levothyroxine (SYNTHROID) 50 mcg tablet Take 1 tablet (50 mcg total) by mouth workers' compensation magistrate before breakfast omeprazole (PriLOSEC) 20 mg capsule 2 capsules (40 mg total) 08/10/2015 psyllium, aspartame, SF (Metamucil Fiber Singles) 3.4 gram packet Take by mouth as directed 05/28/2018 rivaroxaban (XARELTO) 20 mg tablet Take 1 tablet (20 mg total) by mouth traMADoL (ULTRAM) 50 mg tablet as needed 09/05/2012 traZODone (DESYREL) 50 mg tablet Take 1 tablet (50 mg total) by mouth nightly valsartan-hydroC HLOROthiazide (DIOVAN-HCT) 160-12.5 mg per tablet Take 1 tablet by mouth daily documented as of this encounter Discharge Disposition Disposition Code Departure Means Destination Discharge to home or self care documented in this encounter Plan of Treatment Not on file documented as of this encounter Procedures Procedure Name Priority Date/Time Associated Diagnosis Comments EGFR Routine 11/02/2024 2:47 PM GUILLOTINE TRIMMER Postmenopausal bleeding Pre-operative laboratory examination DIFFERENTIAL AUTO Routine 11/02/2024 2:4 7 PM GUILLOTINE TRIMMER Postmenopausal bleeding Pre-operative laboratory examination URINALYSIS AND REFLEX TO MICROSCOPIC Routine 11/02/2024 2:47 PM GUILLOTINE TRIMMER Postmenopausal bleeding Pre-operative laboratory examination CBC WITH AUTO DIFFERENTIAL Routine 11/02/2024 2:47 PM GUILLOTINE TRIMMER Postmenopausal bleeding Pre-operative laboratory examination TYPE AND SCREEN Timed 11/02/2024 2:47 PM GUILLOTINE TRIMMER Postmenopausal bleeding Pre-operative laboratory examination URINE CULTURE Routine 11/02/2024 2:47 PM GUILLOTINE TRIMMER Postmenopausal bleeding Pre-operative laboratory examination COMPREHENSIVE METABOLIC PANEL Routine 11/02/2024 2:47 PM GUILLOTINE TRIMMER Postmenopausal bleeding Pre-operative laboratory examination documented in this encounter Results * (ABNORMAL) eGFR (11/02/2024 2:47 PM GUILLOTINE TRIMMER) eGFR 55(L) >=60 mL/min/1. 73 m2 Comment: Interpretive Data Reference Interval Normal ?>/= 90 mL/min/1.73m2 Mildly decreased* ? 60 - 89 mL/min/1.73m2 Mildly to moderately decreased ?45 - 59 mL/min/1.73m2 Moderately to severely decreased ??30 - 44 mL/min/1.73m2 Severely decreased ?15 - 29 mL/min/1.73m2 Kidney Failure ?< 15 ??mL/min/1.73m2 *Relative to young adult level Estimated glomerular filtration rate is determined by the 2020 CKD-EPI equation recommended by the National Kidney Foundation (A Unifying Approach to GFR Estimation: Recommendations of the NKF-ASK Task Force on Reassessing the Inclusion of Race in Diagnosing Kidney Disease, JASN 2020). The CKD-EPI equation should not be used for patients with unstable renal function and has not been validated in children and those over 70. Current interpretive data was last reviewed 2021. Blood 11/02/2024 2:47 PM GUILLOTINE TRIMMER 11/02/2024 8:35 PM GUILLOTINE TRIMMER us Paulina Leyva MD LAB BLOOD ORDERABLE S Final Result [facility] [id number] Department [place] [address] * (ABNORMAL) Differential, auto (11/02/2024 2:47 PM GUILLOTINE TRIMMER) Neutrophil abs 3.9 1.5 - 6.5 K/cumm Imm gran abs 0.0 0.0 - 0.1 K/cumm [facility] Lymphocyte abs 2.7 0.8 - 3.3 K/cumm [facility] Monocyte abs 0.9(H) 0.2 - 0.8 K/cumm [facility] Eosinophil abs 0.1 0.0 - 0.5 K/cumm [facility] Basophil abs 0.1 0.0 - 0.1 K/cumm [facility] Neutrophil pct 50.6 % [facility] Comment: Interpretive Data Percent cell count reference ranges are not reported, since discordance with absolute values may lead to misinterpretation of CBC data. Current Interpretive Data was last revised on 2018. Imm gran pct 0.3 % [facility] Comment: Interpretive Data Percent cell count reference ranges are not reported, since discordance with absolute values may lead to misinterpretation of CBC data. Current Interpretive Data was last revised on 2018. Lymphocyte pct 35.4 % [facility] Comment: Interpretive Data Percent cell count reference ranges are not reported, since discordance with absolute values may lead to misinterpretation of CBC data. Current Interpretive Data was last revised on 2018. Monocyte pct 11.8 % [facility] Comment: Interpretive Data Percent cell count reference ranges are not reported, since discordance with absolute values may lead to misinterpretation of CBC data. Current Interpretive Data was last revised on 2018. Eosinophil pct 1.2 % [facility] Comment: Interpretive Data Percent cell count reference ranges are not reported, since discordance with absolute values may lead to misinterpretation of CBC data. Current Interpretive Data was last revised on 2018. Basophil pct 0.7 % [facility] Comment: Interpretive Data Percent cell count reference ranges are not reported, since discordance with absolute values may lead to misinterpretation of CBC data. Current Interpretive Data was last revised on 2018. Blood 11/02/2024 2:4 7 PM GUILLOTINE TRIMMER 11/02/2024 7:38 PM GUILLOTINE TRIMMER us Paulina Leyva MD LAB BLOOD ORDERABLE S Final Result [facility] [id number] Department [place] [address] * (ABNORMAL) Comprehensive metabolic panel (11/02/2024 2:47 PM GUILLOTINE TRIMMER) Sodium 135 135 - 145 mmol/L Potassium, pl 4.2 3.3 - 4.9 mmol/L [facility] Chloride 96(L) 97 - 110 mmol/L [facility] CO2 26 22 - 32 mmol/L [facility] Anion gap 13 2 - 15 mmol/L [facility] BUN 15 6 - 25 mg/dL [facility] Creatinine 1.03 0.60 - 1.10 mg/dL [facility] Glucose 95 70 - 199 mg/dL [facility] Comment: Interpretive Data Fasting glucose >/= 126 mg/dl is diagnostic for diabetes. ?? Fasting is defined as no caloric intake for at least 8 hours. Fasting glucose between 100 mg/dl to 125 mg/dl is diagnostic of prediabetes. In a patient with classic symptoms of hyperglycemia or hyperglycemic crisis, a random glucose >/= 200 mg/dl is diagnostic for diabetes. In the absence of unequivocal hyperglycemia, results should be confirmed by repeat testing. The classification and Diagnosis of Diabetes Diabetes Care 202; 46: S19-S40. Current interpretive data was last revised 2022. Calcium 9.3 8.5 - 10.3 mg/dL [facility] Bilirubin, total 0.7 0.1 - 1.2 mg/dL [facility] Protein, pl 7.6 6.5 - 8.5 g/dL [facility] Albumin 4.1 3.5 - 5.0 g/dL [facility] Alk phos 104 40 - 130 Units/L [facility] ALT 26 7 - 45 Units/L [facility] AST 45 10 - 45 Units/L [facility] Blood 11/02/2024 2:47 PM GUILLOTINE TRIMMER 11/02/2024 7:38 PM GUILLOTINE TRIMMER Paulina Leyva MD LAB BLOOD ORDERABLE S Final Result Performing Organization Address [facility] Co de Phone Number BOOGIE SIM [address] Department [email or web address] [place] [address] * Urine culture Urine, clean voided (11/02/2024 2:47 PM GUILLOTINE TRIMMER) Report Final Report: Less than 100,000 colonies/mL (clinically insignificant growth based on current clinical standards) Comment:Testing performed by : [facility], [address] [place]., [address] Organism (CLINICALLY INSIGNIFICANT GROWTH [facility] Urine, clean voided 11/02/2024 2:47 PM GUILLOTINE TRIMMER 11/02/2024 10:18 PM GUILLOTINE TRIMMER Narrative [facility] - 11/04/2024 3:41 AM GUILLOTINE TRIMMER Testing performed by [facility] Microbiology Laboratory ([phone]) Paulina Leyva MD LAB MICROBIOLOGY - GENERAL ORDERABLES Final Result Performing Organization Address City/[facility]/ZIP Co de Phone Number AURELIANOJULIETH [facility] [address] [place] [address] * Urinalysis reflex to microscopic (11/02/2024 2:47 PM GUILLOTINE TRIMMER) Color, ur Yellow Yellow Clarity, ur Clear Clear [facility] Specific gravity, ur 1.020 1.003 - 1.030 [facility] pH, urine 6.0 [facility] Comment: Interpretive Data ? Urine pH is affected by diet, medications, systemic acid-base disturbances, and renal tubular function. ??pH may affect urinary stone formation. ??For example, urine pH below 6.0 may help reduce the tendency for calcium phosphate stones and pH greater than 6.0 may reduce the tendency for uric acid stone formation. Source: [facility] Current Interpretive Data was last revised on 2017 Protein, ur ql Negative Negative [facility] Glucose, ur ql Negative Negative [facility] Ketones, ur Negative Negative [facility] Bilirubin, ur Negative Negative [facility] Blood, ur Negative Negative [facility] Urobilinogen, ur <2.0 <2.0 mg/dL [facility] Nitrite, ur Negative Negative [facility] Leukocyte esterase, ur Negative Negative [facility] UA reflex comment Reflex conditions for microscopic UA not met. [facility] Urine 11/02/2024 2:47 PM GUILLOTINE TRIMMER 11/02/2024 7:38 PM GUILLOTINE TRIMMER Paulina Leyva MD LAB URINE ORDERABLE S Final Result Performing Organization Address [facility] de Phone Number BOOGIE [place] [address] Department of [email or web address] [place], [place] [id number] * Type and screen (11/02/2024 2:47 PM GUILLOTINE TRIMMER) Pathologist [facility] Jayne, indirect Negative ABO Rh O Positive [facility] Blood 11/02/2024 2:47 PM GUILLOTINE TRIMMER 11/02/2024 8:25 PM GUILLOTINE TRIMMER Narrative [facility] - 11/02/2024 9:06 PM GUILLOTINE TRIMMER Is this test being ordered in advance for a procedure?->Yes Expected date of procedure:->11/05/24 Has the patient been transfused in the past 3 months?->No Has the patient been in the past 3 months?->No Paulina Leyva MD LAB BLOOD BANK TEST ORDERABLES Final Result Performing Organization Address [facility] Co de Phone Number AURELIANOJULIETH SIM [phone] Department of Laboratories [place], [place] [id number] * (ABNORMAL) CBC with auto differential (11/02/2024 2:47 PM GUILLOTINE TRIMMER) WBC 7.6 3.8 - 9.9 K/cumm Hgb 13.5 11.9 - 15.5 g/dL [facility] Hct 42.9 35.6 - 45.5 % [facility] Plt 282 150 - 400 K/cumm [facility] MPV 9.6 9.1 - 12.3 fL [facility] RBC 4.32 3.90 - 5.20 M/cumm [facility] MCV 99.3(H) 81.3 - 96.4 fL [facility] MCH 31.3 27.1 - 33.3 pg [facility] MCHC 31.5(L) 32.3 - 35.7 g/dL [facility] RDW CV 13.3 11.1 - 14.9 % [facility] RDW SD 49.1(H) 35.7 - 48.1 fL [facility] NRBC abs 0.00 0.00 - 0.01 K/cumm [facility] Blood 11/02/2024 2:47 PM GUILLOTINE TRIMMER 11/02/2024 7:38 PM GUILLOTINE TRIMMER us Paulina Leyva MD LAB BLOOD ORDERABLE S Final Result [facility] [address] Department [place] [address] documented in this encounter Visit Diagnoses Diagnosis Postmenopausal bleeding Pre-operative laboratory examination Pre-procedural laboratory examination documented in this encounter Care Teams Chemical Weigher Relationship Specialty Start Date End Date No, Physician PCP - General 10/22/24 documented as of this encounter
--- OUTSIDE RECORDS SUMMARY | 2024-11-21 18:17 | XMS_ITS | Encounter Summary ---
Author Organization [facility] Healthcare Address [address] [place] [address] Care Team Providers Care Lorry Weigher Name Role Phone No, Physician Primary Care Provider [phone] Paulina Leyva MD Unavailable [phone] Reason for Visit * Auth/Cert (Routine) Specialty Diagnoses / Procedures Referred By Contac t Referred To Contact Diagnoses Postmenopausal bleeding Postmenopausal bleeding [N95.0] Procedures ME HYSTEROSCOPY BX ENDOMETRIUM&/POLYPC W/WO D&C HYSTEROSCOPY, DILATION AND CURETTAGE, MYOSURE POLYPECTOMY Referral ID Status Reason Start Date Expiration Date Visits Re quested Visits Authorized [id number] 1 1 Encounter Details Date Type Department Care Team (Late st Contact Info) Description 11/05/2024 9:15 AM VENEER PATCHER - 11/05/2024 1:40 PM VENEER PATCHER Hospital Encounter [facility] Operating Room [address] [place] [address] Paulina Leyva MD [address] [place] [id number] Postmenopausal bleeding Discharge Disposition: Discharge to home or self [...] Date Recorded PHQ-2 Total Score 0 09/07/2024 Personal Safety Answer Date Recorded Have you ever been in or are you currently in a harmful physical or emotional relationship or is someone making you feel afraid or unsafe? Denies 11/05/2024 Comments No Sex and Gender Information Value Date Recorded Sex Assigned at Not on file Legal Sex Female 3:32 AM VENEER PATCHER Gender Identity Not on file Sexual Orientation Not on file documented as of this encounter Last Filed Vital Signs Vital Sign Reading Time Taken Comments Blood Pressure 164/96 11/05/2024 1:10 PM VENEER PATCHER Pulse 75 11/05/2024 1:10 PM VENEER PATCHER Temperature 36.6 ??C (97.8 ??F) 11/05/2024 1:10 PM CS T Respiratory Rate 18 11/05/2024 1:10 PM VENEER PATCHER Oxygen Saturation 95% 11/05/2024 1:10 PM VENEER PATCHER Inhaled Oxygen Concentration - - Weight 98.3 kg (216 lb 11.4 oz) 11/05/2024 9:34 AM VENEER PATCHER Height 158.8 cm (5' 2.5 ) 11/05/2024 9:34 AM VENEER PATCHER Body Mass Index 39.01 11/05/2024 9:34 AM VENEER PATCHER documented in this encounter Discharge Instructions * Attachments The following attachments cannot be sent through Care Everywhere. 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 operator before breakfast omeprazole (PriLOSEC) 20 mg capsule [...] mouth daily documented as of this encounter Ordered Prescriptions Prescription Sig Dispense Quantity Refills Last Filled Start Date End Date ibuprofen (ADVIL,MOTRIN) 600 mg tablet Take 1 tablet (600 mg total) by mouth every 6 (six) hours as needed for pain 10 tablet 11/05/2024 documented in this encounter Discharge Disposition Disposition Code Departure Means Destination Comment s Discharge to home or self care documented in this encounter H&P Notes * Paulina Leyva MD - 11/05/2024 8:59 AM CST History and Physical Subjective: Lyssa Rosenberg is a 79 y.o. year old female who presents for hysteroscopy, D and C, MyoSure polypectomy secondary to postmenopausal bleeding. The patient had an episode of vaginal bleeding. She was sent for ultrasound on 08/31/2024 that showed the uterus to be 5.7 x 4.8 x 3.1 with a endometrium measures 5.4 mm. She declines sampling in theoffice. Therefore we will go for MyoSure D&C. She has recently seen her clinical documentation manager in got cardiac clearance. No LMP recorded. Patient is postmenopausal. Past Medical History: Diagnosis Date Arthritis Asthma Atrial fibrillation (CMS/HCC) (HCC) Chronic kidney disease GERD (gastroesophageal reflux disease) Heart disease 12/2022 Hypertension Hypothyroidism Thyroid disease Past Surgical History: Procedure Laterality Date BREAST BIOPSY COLONOSCOPY CYST REMOVAL ESOPHAGOGASTRODUODENOSCOPY ME LIG/TRNSXJ FLP TUBE ABDL/VAG APPR UNI/BI Tubal Ligation - (Added by TW Conv) TUBAL LIGATION Prior to Admission medications Medication Sig Start Date End Date Taking? Authorizing Provider acetaminophen (TYLENOL) 500 mg tablet Take 1 tablet (500 mg total) by mouth every 6 (six) hours as needed Yes Susan Lacey MD calcium carbonate-vitamin D3 1,250mg (500mg elemental) - 5 mcg (200 units) per tablet Take 1 tabletby mouth daily Yes Susan Lacey MD cholecalciferol (VITAMIN D-3) 2000 unit tablet 0.5 tablets (1,000 Units total) Yes Susan Lacey MD cyanocobalamin (Vitamin B-12) 100 mcg tablet Take 1 tablet (100 mcg total) by mouth daily Yes Susan Lacey MD ketoconazole (NIZORAL) 2 % cream Apply topically daily Yes Susan Lacey MD levothyroxine (SYNTHROID) 50 mcg tablet Take 1 tablet (50 mcg total) by mouth pocket flap creasing machine operator before breakfast Yes Susan Lacey MD omeprazole (PriLOSEC) 20 mg capsule 2 capsules (40 mg total) 08/10/15 Yes Susan Lacey MD psyllium, aspartame, SF (Metamucil Fiber Singles) 3.4 gram packet Take by mouth as directed 05/28/18Yes Susan Lacey MD rivaroxaban (XARELTO) 20 mg tablet Take 1 tablet (20 mg total) by mouth Yes Susan Lacey MD traMADoL (ULTRAM) 50 mg tablet 09/05/12 Yes Susan Lacey MD valsartan-hydroCHLOROthiazide (DIOVAN-HCT) 160-12.5 mg per tablet Take 1 tablet by mouth daily Yes Susan Lacey MD traZODone (DESYREL) 50 mg tablet Take 1 tablet (50 mg total) by mouth nightly Patient not taking: Reported on 11/02/2024 Provider, Historical, Allergies Allergen Reactions Erythromycin Rash Sulfa (Sulfonamide Antibiotics) Other (See comments) Extreme pain in back Family History Problem Relation Age of Onset Breast cancer Mother 40 Family history of malignant neoplasm of breast - (Added by TW Conv) Thyroid disease Mother Heart attack Father Lung cancer Father Family history of lung cancer - (Added by TW Conv) Hypertension Father Other (Ewings sarcoma [Other]) Sister Hypertension Sister Breast cancer Sister 69 x2 she was brca 1&2 negative. 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 Substance and Sexual Activity Drug use: Never Frequency: 7.0 times per week Comment: wine- 3-4 glasses because she drinks it over a long period of time, no mj, pills or drugs. Sexual activity: Not Currently Partners: Male control/protection: None Alcohol Use: Not At Risk (10/28/2024) AUDIT-C Frequency of Alcohol Consumption: 4 or more times a week Average Number of Drinks: 1 or 2 Frequency of Binge Drinking: Never ROS: No URI symptoms. Objective: BP 156/85 Pulse 91 Temp 36.3 ??C (97.3 ??F) (Temporal) Resp 18 Ht 158.8 cm (5' 2.5 ) Wt 216 lb 11.4 oz (98.3 kg) SpO2 97% BMI 39.01 kg/m?? Pleasant female in NAD. Physical Exam: HEENT: WNL Heart: RRR Lungs: clear Abdomen: soft, non-tender, no masses Pelvic: deferred to OR Extremities: non-tender Recent Results (from the past week) CBC with auto differential Collection Time: 11/02/24 2:47 PM Result Value Ref Range WBC 7.6 3.8 - 9.9 K/cumm Hgb 13.5 11.9 - 15.5 g/dL Hct 42.9 35.6 - 45.5 % Plt 282 150 - 400 K/cumm MPV 9.6 9.1 - 12.3 fL RBC 4.32 3.90 - 5.20 M/cumm MCV 99.3 (H) 81.3 - 96.4 fL MCH 31.3 27.1 - 33.3 pg MCHC 31.5 (L) 32.3 - 35.7 g/dL RDW CV 13.3 11.1 - 14.9 % RDW SD 49.1 (H) 35.7 - 48.1 fL NRBC abs 0.00 0.00 - 0.01 K/cumm Type and screen Collection Time: 11/02/24 2:47 PM Result Value Ref Range Jayne, indirect Negative ABO Rh O Positive Urinalysis reflex to microscopic Collection Time: 11/02/24 2:47 PM Result Value Ref Range Color, ur Yellow Yellow Clarity, ur Clear Clear Specific gravity, ur 1.020 1.003 - 1.030 pH, urine 6.0 Protein, ur ql Negative Negative Glucose, ur ql Negative Negative Ketones, ur Negative Negative Bilirubin, ur Negative Negative Blood, ur Negative Negative Urobilinogen, ur <2.0 <2.0 mg/dL Nitrite, ur Negative Negative Leukocyte esterase, ur Negative Negative UA reflex comment Reflex conditions for microscopic UA not met. Urine culture Urine, clean voided Collection Time: 11/02/24 2:47 PM Specimen: Urine, clean voided Result Value Ref Range Report Final Report: Less than 100,000 colonies/mL (clinically insignificant growth based on current clinical standards) Organism (CLINICALLY INSIGNIFICANT GROWTH Comprehensive metabolic panel Collection Time: 11/02/24 2:47 PM Result Value Ref Range Sodium 135 135 - 145 mmol/L Potassium, pl 4.2 3.3 - 4.9 mmol/L Chloride 96 (L) 97 - 110 mmol/L CO2 26 22 - 32 mmol/L Anion gap 13 2 - 15 mmol/L BUN 15 6 - 25 mg/dL Creatinine 1.03 0.60 - 1.10 mg/dL Glucose 95 70 - 199 mg/dL Calcium 9.3 8.5 - 10.3 mg/dL Bilirubin, total 0.7 0.1 - 1.2 mg/dL Protein, pl 7.6 6.5 - 8.5 g/dL Albumin 4.1 3.5 - 5.0 g/dL Alk phos 104 40 - 130 Units/L ALT 26 7 - 45 Units/L AST 45 10 - 45 Units/L Differential, auto Collection Time: 11/02/24 2:47 PM Result Value Ref Range Neutrophil abs 3.9 1.5 - 6.5 K/cumm Imm gran abs 0.0 0.0 - 0.1 K/cumm Lymphocyte abs 2.7 0.8 - 3.3 K/cumm Monocyte abs 0.9 (H) 0.2 - 0.8 K/cumm Eosinophil abs 0.1 0.0 - 0.5 K/cumm Basophil abs 0.1 0.0 - 0.1 K/cumm Neutrophil pct 50.6 % Imm gran pct 0.3 % Lymphocyte pct 35.4 % Monocyte pct 11.8 % Eosinophil pct 1.2 % Basophil pct 0.7 % eGFR Collection Time: 11/02/24 2:47 PM Result Value Ref Range eGFR 55 (L) >=60 mL/min/1.73 m2 Potassium, whole blood Collection Time: 11/05/24 9:49 AM Result Value Ref Range Potassium, bld 4.0 3.3 - 4.9 mmol/L Assessment and Plan: Procedure reviewed along with risk, benefits and alternatives as they pertain to her specifically. Questions answered Post op pain management discussed. She voices understanding and desired to proceed. Paulina Leyva MD ER PATCHER documented in this encounter Miscellaneous Notes * Op Note - Paulina Leyva MD - 11/05/2024 10:45 AM CST Operative Note Preop Dx: 1. Postmenopausal bleeding 2. Endometrial polyp- possible Post op Dx: Same Surgeon: Dr. Paulina Leyva Procedure: Hysteroscopy with Myosure endometrial curettage Anesthesia: General EBL: Minimal Findings: proliferative endometrium. There is no descent. Specimens: Endometrial curettings Abx: None Drains: None Counts: Correct Compl.: None Condition: To RR stable. Indications for Procedure: Lyssa Rosenberg is a 79 y.o. year old female who presents for hysteroscopy, Myosure polypectomy and D&C. See H&P. Operative Technique: After the benefits and risks were discussed, and informed consent was obtained, the patient was taken to the operating room and under successful general anesthesia was prepped and draped in the usual sterile manner for vaginal surgery. SCDs were placed on the patient's legs, anin and out catheter was performed, and a time out was performed. A speculum was placed in the vagina, and the anterior cervical lip was grasped with a tenaculum. The cervix was dilated with Dago dilators. Hysteroscopy was performed. Initially I believe I made a false passage posteriorly but with retracting the hysteroscope I was able to go through the endocervical canal into the uterus. Posteriorly there was irregular area of tissue. It was broad-based and very erythematous. Approximately half a cm in diameter. Overall there appeared to be proliferative endometrium. Both tubal ostia were visualized. Pictures were taken. Using the Myosure device, the the posterior irregular area was resected and removed. Endometrium was sampled circumferentially.. The endometrial cavity was clear after finishing. Because I could not be confident that I was putting the curette into the endometrial cavity and not the false passage orperforating curettage was not done. Tissue resected was sent to pathology. All instruments were removed and hemostasis was assured. The patient was transferred to the recovery room in good condition.She tolerated the procedure well. Paulina Leyva MD ER PATCHER * Perioperative Nursing Note - Nighat Friend RN - 10/28/2024 2:05 PM CST Pre operative instructions reviewed with patient, she verbalized understanding. Instructed patient that she is to hold xarelto prior to procedure and will be notified of hold time after Dr Olivier confirms this. Gris from Dr Leyva aware to get clearance and xarelto hold time from Dr Olivier ER PATCHER * Pre-Procedure Instructions - Nighat Friend RN - 10/28/2024 1:54 PM CST [phone] We are pleased that you and your doctor have chosen [facility] for your surgery. We hope that the following information will help make your visit a pleasant one. Surgery Date: 11/05/2024 9:30 am arrival to ambulatory department Before your surgery: Notify your doctor of ANY change in your health such as a cold, sore throat, fever, any infection or a change in the problem for which you are having your surgery. Follow any instructions given to you by your doctor or surgeon. Check with your doctor if you need to STOP taking: Aspirin (ordered by your doctor) Plavix Coumadin One week before surgery STOP taking: All herbal supplements Aspirin (not ordered by your doctor) Aleve, Advil, Motrin, Ibuprofen, or other similar medications (Tylenol is okay). 24 hours before your surgery: No smoking or alcoholic drinks. Night before your surgery: Do not eat or drink anything after midnight. Follow surgeon's instructions for anti-bacterial shower night before and morning of surgery. Day of surgery: Do not swallow any water when you brush your teeth. ONLY take these pills with a tiny sip of water. Pre-Surgery Instructions: Medication Instructions acetaminophen (TYLENOL) 500 mg tablet Take as prescribed calcium carbonate-vitamin D3 1,250mg (500mg elemental) - 5 mcg (200 units) per tablet Stop taking 7days prior to surgery cholecalciferol (VITAMIN D-3) 2000 unit tablet Stop taking 7 days prior to surgery cyanocobalamin (Vitamin B-12) 100 mcg tablet Stop taking 7 days prior to surgery ketoconazole (NIZORAL) 2 % cream Take as prescribed levothyroxine (SYNTHROID) 50 mcg tablet Take morning of surgery omeprazole (PriLOSEC) 20 mg capsule Take morning of surgery psyllium, aspartame, SF (Metamucil Fiber Singles) 3.4 gram packet Take as prescribed rivaroxaban (XARELTO) 20 mg tablet Stop taking 3 days prior to surgery traMADoL (ULTRAM) 50 mg tablet Hold the morning of surgery valsartan-hydroCHLOROthiazide (DIOVAN-HCT) 160-12.5 mg per tablet Take morning of surgery traZODone (DESYREL) 50 mg tablet Take as prescribed Use no make-up, nail georgian, lotions, oils or powders on your skin. Wear comfortable clothes that will not be tight in the area of your surgery. Leave all valuables and jewelry (including all body piercing jewelry) at home. If you use a CPAP machine, please bring it with you to wear after your surgery. Please bring your a photo ID and insurance cards with you. Check in at the Registration Desk.downstairs in the Ambulatory Surgery Department. You will come inthe main entrance and go down the dwyer until you see the [employer]/coffee shop, there will be elevators to the right, take those down to LL1. You will exist the elevators to the right and go down thehall and you will pass Medical Imaging on the left and we will be the next department on the right,you will see the sign above that says Ambulatory Surgery Department check-in. If you are 17 years old or younger, a parent or guardian must come with you. After your Outpatient Surgery: You must have a responsible adult to drive you home, you will not be allowed to drive or take a cabhome. We recommend you have someone stay with you for 24 hours after your surgery. Questions or concerns: If you have any questions or concerns regarding your procedure, contact your surgeon as soon as possible. If you have questions regarding your Pre-Admission Testing, please call us. We can be reached at the number posted at the top of the page. ER PATCHER documented in this encounter Plan of Treatment Not on file documented as of this encounter Procedures Procedure Name Priority Date/Time Associated Diagnosis Comments SURGICAL PATHOLOGY Routine 11/05/2024 2: 57 PM VENEER PATCHER Postmenopausal bleeding DILATION AND CURETTAGE/HYSTEROSC OPY 11/05/2024 10:16 AM VENEER PATCHER Postmenopausal bleeding ECG 12-LEAD STAT 11/05/2024 10:00 AM VENEER PATCHER POTASSIUM, WHOLE BLOOD STAT 11/05/2024 9:49 AM VENEER PATCHER ABO/RH STAT 11/05/2024 9:49 AM VENEER PATCHER ANTIBODY SCREEN STAT 11/05/2024 9:49 AM VENEER PATCHER TYPE AND SCREEN STAT 11/05/2024 9:49 AM VENEER PATCHER documented in this encounter Results * Surgical pathology (11/05/2024 2:57 PM VENEER PATCHER) Tissue (Endometrial curettings) 11/05/2024 11:08 AM VENEER PATCHER Narrative PATHOLOGY [facility] ([place] - 11/09/2024 12:25 PM VENEER PATCHER EPIC results best viewed via link to PDF [facility] Department of Pathology [address] [place] [id number] Note to Patients: This report may contain a detailed description of human tissue sent by a health care provider to the laboratory for pathologic evaluation. The content of this report is essential for diagnosis and may provide important critical findings. This information may be unfamiliar to patients to review without a medical professional present. It is advised that the patient review this report in the presence of a health care provider who can answer questions and explain the details. Final Report Patient Name: ??LYSSA ROSENBERGRamón Address: ??[address] [place] [address], ??[place], [place] ?? Gender: ??F : ??1945 (Age: 79) Service: ??Obstetrics Location: ??[facility] Hospital #: ??[id number] Patient Type: ??[facility] EP OP in bed Accession # ?[id number] Taken: ??11/05/2024 Received: ??11/05/2024 Accessioned: ??11/05/2024 Reported: ??11/09/2024 Physician(s):Paulina Leyva M.D. Diagnosis: Endometrium, curettings: ? - Consistent with benign endometrial polyp. ? - Negative for complex atypical hyperplasia and malignancy. Abdoulaye Villarreal M.D. Report Electronically Reviewed and Signed Out By ??Abdoulaye Villarreal M.D. ??11/09/2024 12:25:08 Specimen(s) Received: A: Endometrial curettings Microscopic Description: Sections show fragments of endometrium which show findings of a benign endometrial polyp which show a somewhat hyalinized stroma with some scattered cystically dilated glands as well as occasional thick-walled clusters of vessels. ??There is no evidence of complex atypical hyperplasia or malignancy present. ??Overall, the findings are compatible with a benign endometrial polyp. Intradepartmental consultation: Dr. Hensley has also reviewed this case and agrees with the findings. Clinical History: Postmenopausal bleeding. ??Hystereoscopy, dilation and curettage, Myosure polypectomy. Gross Description: The specimen is submitted in a single formalin filled container labeled LYSSA ROSENBERG and endometrial curettings . ??It is an approximate 1.5 cc aggregate of multiple pink-hernández mucosal tissue fragments. ??All in one cassette. Rae Montoya R.N., P.Belkis/Daphney White M.D. REPORT IMAGES AND SCANNED DOCUMENTS, IF INCLUDED, ONLY VIEWABLE IN PDF VERSION OF REPORT The performance characteristics of some immunohistochemical stains, fluorescence in-situ hybridization tests and immunophenotyping by flow cytometry cited in this report (if any) were determined by the Surgical Pathology Department at [facility] as part of an ongoing water quality analyst program and in compliance with federally mandated regulations drawn from the Clinical Laboratory Improvement Act of 1988 (CLIA '88). ??Some of these tests rely on the use of analyte specific reagents and are subject to specific labeling requirements by the US Food and Drug Administration. ??Such diagnostic tests may only be performed in a facility that is certified by the Department of Health and Human Services as a high complexity laboratory under CLIA '88. The FDA has determined that such clearance or approval is not necessary. ??This test is used for clinical purposes. ??It should not be regarded as investigational or for research. ??Nevertheless, federal rules concerning the medical use of analyte specific reagents require that the following disclaimer be attached to the report: This test was developed and its performance characteristics determined by the Surgical Pathology Department [facility]. ??It has not been cleared or approved by the U. S. Food and Drug Administration. Note for decalcified specimens: This assay has not been validated on decalcified tissues. Results should be interpreted with caution given the possibility of false negativity on decalcified specimens Paulina Leyva MD LAB PATHOLOGY ORDER ART Final Result PATHOLOGY [facility] ([place] [address] [place] [address] * ECG 12 lead (11/05/2024 10:00 AM VENEER PATCHER) 11/05/2024 10:0 0 AM VENEER PATCHER Narrative [facility] - 11/05/2024 10:17 AM VENEER PATCHER Vent Rate: 69 bpm RR Interval: 859 msec ME Interval: 177 msec QRS Duration: 169 msec QT Interval: 454 msec QTC Interval: 474 msec P-R-T [place]: 28 - -24 - 122 degrees IMPRESSION: SINUS RHYTHM LEFT BUNDLE BRANCH BLOCK ??[120+ ms QRS DURATION, 80+ ms Q/S IN V1/V2, 85+ ms R IN I/aVL/V5/V6] ABNORMAL ECG Electronically Signed By: Mauri Sanches MD us Archie Riggins MD ECG ORDERABLES Final Result [facility] * Antibody screen (11/05/2024 9:49 AM VENEER PATCHER) Jayne, indirect, Gel Interpretation Negative ABSC Blood 11/05/2024 9:49 AM VENEER PATCHER 11/05/2024 9:59 AM VENEER PATCHER Narrative [facility] - 11/05/2024 11:05 AM VENEER PATCHER Has the patient had Daratumumab or Isatuximab in the past 6 months?->Unknown us Paulina Leyva MD LAB BLOOD BANK TEST ORDERABLES Final Result [facility] Department [place] [address] * ABO/Rh (11/05/2024 9:49 AM VENEER PATCHER) ABO/Rh O Positive Blood 11/05/2024 9:49 AM VENEER PATCHER 11/05/2024 9:59 AM VENEER PATCHER Narrative [facility] - 11/05/2024 11:05 AM VENEER PATCHER Has the patient had Daratumumab or Isatuximab in the past 6 months?->Unknown us Paulina Leyva MD LAB BLOOD BANK TEST ORDERABLES Final Result [facility] [place] [place] [address] * Potassium, whole blood (11/05/2024 9:49 AM VENEER PATCHER) Potassium, bld 4.0 3.3 - 4.9 mmol/L Comment: Interpretive Data This method is not able to assess for hemolysis, which may falsely increase potassium concentrations. If further testing is needed to evaluate this result, consider in-laboratory plasma potassium. Current Interpretive Data was last revised on 2022. Blood 11/05/2024 9:49 AM VENEER PATCHER 11/05/2024 9:59 AM VENEER PATCHER Archie Riggins MD LAB BLOOD ORDERABLES F inal Result Performing Organization Address [facility] Co de Phone Number [facility] [place] [address] documented in this encounter Visit Diagnoses Diagnosis Postmenopausal bleeding- Primary documented in this encounter Admitting Diagnoses Diagnosis Postmenopausal bleeding documented in this encounter Administered Medications Inactive Administered Medications - up to 3 most recent administrations Medication Order MAR Action Action Date Dose Rate Site acetaminophen (TYLENOL) tablet 1,000 mg 1,000 mg, oral, Once, On [place] 11/05/24 at 1000, For 1 dose, Pre-Op, Administer 1 hour prior to induction., Indications: PainIndications:Pain Given 11/05/2024 9:58 AM VENEER PATCHER 1,000 mg fentaNYL (SUBLIMAZE) preservative free injection 25 mcg 25 mcg, intravenous, Every 10 min PRN, 1st line for pain, Starting on La[place] 11/05/24 at 1124, Phase I, Notify Anesthesiologist if total PACU dose reaches 100 mcg and pain score 5/10 or more., Indications: PainIndications:Pain Given 11/05/2024 11:39 AM VENEER PATCHER 25 mcg Given 11/05/2024 11:29 AM VENEER PATCHER 25 mcg ketorolac (TORADOL) 30 mg/mL injection 30 mg 30 mg, intravenous, Once, On Laurel 11/05/24 at 1215, For 1 dose, Phase I, For Adult IV push, administer over 15 seconds Given 11/05/2024 11:46 AM VENEER PATCHER 30 mg sodium chloride 0.9% infusion 125 mL/hr, intravenous, Continuous, Starting on Laurel 11/05/24 at 1000, Pre-Op, May discontinue when discharge criteria met. New Bag 11/05/2024 10:39 AM VENEER PATCHER documented in this encounter Active and Recently Administered Medications Times are shown in VENEER PATCHER. Scheduled Medication Order 11/03/2024 11/04/2024 11/05/2024 acetaminophen (TYLENOL) tablet 1,000 mg (COMPLETED) 1,000 mg, oral, Once, On Laurel 11/05/24 at 1000, For 1 dose, Pre-Op, Administer 1 hour prior to induction., Indications: Pain 0958 (Given - Provid er: Bishop Francois RN) ketorolac (TORADOL) 30 mg/mL injection 30 mg (COMPLETED) 30 mg, intravenous, Once, On Laurel 11/05/24 at 1215, For 1 dose, Phase I, For Adult IV push, administer over 15 seconds 1146 (Given - Provid er: Christine Peoples) Continuous Medication Order 11/03/2024 11/04/2024 11/05/2024 sodium chloride 0.9% infusion 30 mL/hr, intravenous, Continuous, Starting on Laurel 11/05/24 at 1000, Pre-Op 1000 (Due) sodium chloride 0.9% infusion 125 mL/hr, intravenous, Continuous, Starting on La[place] 11/05/24 at 1000, Pre-Op, May discontinue when discharge criteria met. 1039 (New Bag - Prov ider: Jason Ervin CRNA)1841 (Due: Stopped) PRN Medication Order 11/03/2024 11/04/2024 11/05/2024 fentaNYL (SUBLIMAZE) preservative free injection 25 mcg (CANCELED) 25 mcg, intravenous, Every 10 min PRN, 1st line for pain, Starting on Laurel 11/05/24 at 1124, Phase I, Notify Anesthesiologist if total PACU dose reaches 100 mcg and pain score 5/10 or more., Indications: Pain 1129 (Given - Provid er: Christine Peoples)1139 (Given - Provider: Christine Peoples - Comment: total of 50 mcg given from vial. 0 waste.) sodium chloride 0.9% irrigation (CANCELED) As needed, Starting on Laurel 11/05/24 at 1102, Intra-Op 1102 (Given - Provid er: Paulina Leyva MD - Comment: on sterile field) documented in this encounter Orders Medications Ordered That John ht Not Have Been Administered Count Last Ordered Date First Ordered Date amisulpride (BARHEMSYS) injection 10 mg 1 1 01/06/2024 Carrier Fluids for Secondary Infusion - 0.9% Sodium Chloride 1 11/05/2024 diphenhydrAMINE (BENADRYL) 5 0 mg/mL injection 12.5 mg 1 11/05/2024 meperidine (DEMEROL) preserv ative free injection 12.5 mg 1 11/05/2024 naloxone (NARCAN) 0.4 mg/mL injection 0.04-0.4 mg 1 11/05/2024 sodium chloride 0.9% flush 0.5-20 mL 1 04/2024 sodium chloride 0.9% infusion 2 11/05/2024 sodium chloride 0.9% irrigation 1 Diet Count Last Ordered Date First Orde red Date ADULT DISCHARGE DIET 1 11/05/2024 Nursing Count Last Ordered Date First Orde red Date DISCHARGE CALL PROVIDER 1 11/05/2024 DISCHARGE INSTRUCTIONS 1 11/05/2024 FOLLOW UP WITH ESTABLISHED PROVIDER 1 11/05 Admission Count Last Ordered Date First Orde red Date INITIATE OUTPATIENT IN A BED 1 11/05/2024 Discharge Count Last Ordered Date First Orde red Date DISCHARGE PATIENT 1 11/05/2024 documented in this encounter Care Teams Lorry Weigher Relationship Specialty Start Date End Date No, Physician PCP - General 10/22/24 Paulina Leyva MD [address] [place] [address] [place] [address] Consulting Physician Obstetrics and Gynecology 11/05/24 documented as of this encounter
--- OUTSIDE RECORDS SUMMARY | 2024-11-21 18:17 | XMS_ITS | Encounter Summary ---
Author Organization [facility] Address [address] [place] [address] Care Team Providers Care Signal Worker Helper Name Role Phone Sameer Hampton MD Primary Care Provider [phone] Reason for Referral * Diagnostic Imaging (Routine) - Closed Specialty Diagnoses / Procedures Referred By Contac t Referred To Contact Diagnoses Screening mammogram, encounter for Procedures Screening Mammogram Bilateral W Adrián Screening Mammogram, Self [facility] Referral ID Status Reason Start Date Expiration Date Visits Re quested Visits Authorized [id number] Closed 03/23/2024 04/22/2025 1 1 * Diagnostic Imaging (Routine) - Closed Specialty Diagnoses / Procedures Referred By Contac t Referred To Contact Diagnoses Screening mammogram, encounter for Procedures Screening Mammogram Bilateral W Adrián Screening Mammogram, Self [facility] Referral ID Status Reason Start Date Expiration Date Visits Re quested Visits Authorized [id number] Closed 03/23/2024 04/22/2025 1 1 Reason for Visit * Diagnostic Imaging (Routine) - Closed Specialty Diagnoses / Procedures Referred By Contac t Referred To Contact Diagnoses Screening mammogram, encounter for Procedures Screening Mammogram Bilateral W Adrián Screening Mammogram, Self [facility] Referral ID Status Reason Start Date Expiration Date Visits Re quested Visits Authorized [id number] Closed 03/23/2024 04/22/2025 1 1 Encounter Details Date Type Department Care Team (Latest Contact Info) Description 04/15/2024 9:49 AM CDT - 04/15/2024 11:59 PM CDT Hospital Encounter [facility] [address] [place] [address] Screening mammogram, encounter for Discharge Disposition: Discharge to home or self [...] often do you have a drink containing alc ohol? Monthly or less 09/09/2023 Q2: How many drinks containi ng alcohol do you have on a typical day when you are drinking? 1 or 2 09/09/2023 Q3: How often do you have si x or more drinks on one occasion? Never 09/09/2023 Comments No Sex and Gender Information Value Date Recorded Sex Assigned at Not on file Legal Sex Female 3:32 AM LINEN MANAGER Gender Identity Not on file Sexual Orientation [...] tablet (100 mcg total) by mouth daily ketoconazole (NIZORAL) 2 % cream Apply topically daily levothyroxine (SYNTHROID) 50 mcg tablet Take 1 tablet (50 mcg total) by mouth flight engineer helicopter before breakfast omeprazole (PriLOSEC) 20 mg capsule [...] tablet Take 1 tablet by mouth daily metoprolol XL (TOPROL-XL) 25 mg extended release tablet TAKE 1 TABLET (25 MG TOTAL) BY MOUTH DAILY. 90 tablet 3 12/16/2023 4 documented as of this encounter Discharge Disposition Disposition Code Departure Means Destination Discharge to home or self care documented in this encounter Plan of Treatment Not on file documented as of this encounter Procedures Procedure Name Priority Date/Time Associated Diagnosis Comments SCREENING MAMMOGRAM BILATERAL W ADRIÁN Schedule Routine, Read Routine (OP Routine) 04/15/2024 10:03 AM CDT Screening mammogram, encounter for documented in this encounter Results * Screening Mammogram Bilateral W Adrián (04/15/2024 10:03 AM CDT) Anatomical Region Laterality Modality Breast Bilateral Mammography Narrative 04/16/2024 2:54 PM CDT Mammogram Technique: Bilateral Digital Breast Tomosynthesis, Bilateral C-view 2D Screening mammogram. ??Views obtained: ??bilateral craniocaudal and bilateral mediolateral oblique. ??Computer Aided Detection was performed. Mammogram Findings: The present examination has been compared to prior imaging studies performed at [facility] on 12/14/2015, 12/18/2016, 01/08/2018 and 02/16/2020, and at [facility] at [facility] on 12/13/2014, 02/02/2019, 02/09/2020, 02/22/2021, 03/21/2022 and 04/11/2023. There are scattered areas of fibroglandular density. There is no suspicious abnormality in either breast. There are no significant changes from the prior study. Impression: There is no mammographic evidence of malignancy. Annual screening mammography is recommended. OVERALL FINAL ASSESSMENT: BI-RADS CATEGORY 1: ??Negative. Procedure Note Anne Watts MD - 04/16/2024 Mammogram Technique: Bilateral Digital Breast Tomosynthesis, Bilateral C-view 2D Screening mammogram. Views obtained: bilateral craniocaudal and bilateral mediolateral oblique. Computer Aided Detection was performed. Mammogram Findings: The present examination has been compared to prior imaging studies performed at [facility] on 12/14/2015, 12/18/2016,01/08/2018 and 02/16/2020, and at [facility] on 12/13/2014, 02/02/2019, 02/09/2020, 02/22/2021, 03/21/2022 and04/11/2023. There are scattered areas of fibroglandular density. There is no suspicious abnormality in either breast. There are no significant changes from the prior study. Impression: There is no mammographic evidence of malignancy. Annual screening mammography is recommended. OVERALL FINAL ASSESSMENT: BI-RADS CATEGORY 1: Negative. us Self Screening Mammogram IMG MAMMO PROCEDURES Fi nal Result documented in this encounter Visit Diagnoses Diagnosis Screening mammogram, encounter for documented in this encounter Care Teams Signal Worker Helper Relationship Specialty Start Date End Date Sameer Hampton MD PCP - General Family Medicine 02/26/23 10/21/24 documented as of this encounter
--- OUTSIDE RECORDS SUMMARY | 2024-11-21 18:17 | XMS_ITS | Encounter Summary ---
Author Organization [facility] Healthcare Address [address] [place] [address] Care Team Providers Care Trailer Rental Clerk Name Role Phone No, Physician Primary Care Provider [phone] Paulina Leyva MD Unavailable [phone] Reason for Visit * Auth/Cert (Routine) Specialty Diagnoses / Procedures Referred By Contac t Referred To Contact Diagnoses Postmenopausal bleeding Postmenopausal bleeding [N95.0] Procedures AR HYSTEROSCOPY BX ENDOMETRIUM&/POLYPC W/WO D&C HYSTEROSCOPY, DILATION AND CURETTAGE, MYOSURE POLYPECTOMY Referral ID Status Reason Start Date Expiration Date Visits Re quested Visits Authorized [id number] 1 1 Encounter Details Date Type Department Care Team (Late st Contact Info) Description 11/05/2024 10:31 AM BLINDSTITCH LAPEL PADDER Anesthesia Event [facility] Operating Room [address] [place] [address] [place] [id number] [address] Acrhie Riggins MD [address] [place] [id number] Anesthesia Record Procedure Summary Procedure Name Responsible Anesthesiologist Anesthesia Start Time Anesthesia Stop Time HYSTEROSCOPY, DILATION AND CURETTAGE, MYOSURE POLYPECTOMY (Vagina) Ruben Mosley MD 11/05/24 1031 11/05/24 1122 Events Date Time Event Comment 11/05/2024 0947 1031 An Start 1031 In Room 1031 An Start Data 1039 An Induction The patient was reevaluated immediately before moderate or deep sedation use and before anesthesia induction. 1040 An LMA 1041 Anesthesia Ready 1044 an celeste now 1053 Proc Start 1108 Proc Fin 1113 Airway Removed 1116 Out of Room 1116 an stop data 1120 Handoff to RN I completed my handoff to the receiving nurse during which we: 1. Patient identified 2. Responsible provider identified 3. Pertinent medical history reviewed 4. Procedure type and surgical course discussed 5. Intraoperative anesthetic management and any significant issues discussed 6. Expectations and concerns for postop period discussed 7. Questions solicited from receiving nurse 8. Patient disposition at the time of handoff: No value filed. 1122 An Stop Meds Name Total fentaNYL 100 mcg propofol 150 mg lidocaine (cardiac) syringe 2 % 100 mg dexamethasone 4 mg ondansetron 4 mg sodium chloride 0.9% infusion 0 mL * Agents Name O2% N2O O2 Air Sevoflurane Inspired Sevoflurane * Blood No blood administrations on file. Lines, Drains, and Airways Type Details Placement Removal Wound 11/05/24; 1054; Non-incision; Vagina; hysteroscopy 11/05/24 1054 by Cortney Holman RN Peripheral IV Placement Date: 04/24; Placement Time: 0959; Catheter Size: 22 G; Orientation: Left, Proximal; Location: Antecubital; Inserted by: Ammy WILEY; Insertion Attempts: 2; Patient Tolerance: Tolerated well; Removal Date: 11/05/24; Removal Time: 1310; Removal Reason: Discharge 11/05/24 0959 by Bishop Francois RN 11/05/24 1310 by Bishop Francois, INEZ Supraglottic Airway Placement Date: 04/24; Placement Time: 1047 (created via procedure documentation); Mask Ventilation: 0; Size: 4; Insertion Attempts: 1; Comments: Atraumatic LMA placement. Dentition same as preop. No GERD sx today. ; Removal Date: 11/05/24; Removal Time: 1114 11/05/24 1047 by Jason Ervin CRNA 11/05/24 1114 by Portia Collado MD documented in this encounter Social History Tobacco Use Types Packs/Day Years [...] on file Legal Sex Female 3:32 AM BLINDSTITCH LAPEL PADDER Gender Identity Not on file Sexual Orientation Not on file documented as of this encounter OR Notes * Anesthesia Postprocedure Evaluation - Ruben Mosley MD - 11/05/2024 12:48 PM CST Patient: Lyssa Viera Procedure Summary Date: 11/05/24 Room / Location: [facility] OR [facility] OPERATING ROOM Anesthesia Start: 1031 Anesthesia Stop: 1122 Procedure: HYSTEROSCOPY, DILATION AND CURETTAGE, MYOSURE POLYPECTOMY (Vagina) Diagnosis: Postmenopausal bleeding (Postmenopausal bleeding [N95.0]) Providers: Paulina Leyva MD Responsible Provider: Ruben Mosley MD Anesthesia Type: general ASA Status: 2 Anesthesia Type: general Last vitals BP 164/96 Pulse 75 Temp 36.6 ??C (97.8 ??F) (Temporal) Resp 18 SpO2 95% Anesthesia Post Evaluation Patient location during evaluation: PACU Patient participation: complete - patient participated Level of consciousness: fully awake Pain management: satisfactory to patient Airway patency: adequate Cardiovascular status: acceptable Respiratory status: acceptable Hydration status: acceptable Pt is: normothermic Nausea/Vomiting status: none No notable events documented. DSTITCH LAPEL PADDER * Anesthesia Procedure Notes - Jason Ervin CRNA - 11/05/2024 10:47 AM CSTAssociated Order(s): Airway Airway Patient location: OR Urgency: elective Indications for airway management: anesthesia and airway protection Difficult airway: no Staff: Placed by: CHAIN SAW DRIVER: Jason Ervin CRNA Emergent airway documentation: Risks and benefits discussed: yes Consent obtained: yes Consent given by: patient Airway prep: Preoxygenated: yes Patient position: sniffing Mask difficulty assessment: 0 - not attempted Spontaneous ventilation during airway: absent Sedation level during airway: GA Final airway details: Final airway type: supraglottic airway Final supraglottic airway: unique SGA size: 4 Number of attempts: 1 Planned trial extubation: yes Additional comments: Atraumatic LMA placement. Dentition same as preop. No GERD sx today. DSTITCH LAPEL PADDER * Anesthesia Preprocedure Evaluation - Portia Collado MD - 11/05/2024 9:30 AM BLINDSTITCH LAPEL PADDER Images from the original note were not included. Anesthesia Evaluation Lyssa Viera is a 79 y.o. female HYSTEROSCOPY, DILATION AND CURETTAGE, MYOSURE POLYPECTOMY (Vagina) Pre-Op Diagnosis Codes: * Postmenopausal bleeding [N95.0] HISTORY Past Medical History Information obtained from: patient and chart. Neurological Pertinent negatives: seizures and CVA/stroke Cardiovascular + Hypertension + Atrial fibrillation/flutter - + DVT/PE Pertinent negatives: MD ; pacemaker/ICD and negative for CHF Respiratory + Asthma (Last use of inhaler was in the ) Pertinent negatives: COPD; sleep apnea (LEESA) and non-smoker Gastrointestinal + GERD - on daily therapy. Asymptomatic. Renal / + Renal disease - CKD Musculoskeletal/Pain + Osteoarthritis Endocrine / Other + Thyroid disease - hypothyroidism Pertinent negatives: diabetes mellitus Functional Capacity Functional capacity: 4-6 METs Comments: Functional capacity limited by knee pain Review of Systems Pertinent negatives: SOB; recent cold/flu; fever and chest pain Patient Active Problem List Diagnosis Date Noted Postmenopausal bleeding 09/09/2023 Well woman exam 09/09/2023 Chronic fatigue 04/23/2023 Medication side effects 04/23/2023 Primary hypertension 01/29/2023 Paroxysmal atrial fibrillation (CMS/HCC) (HCC) 01/29/2023 Pulmonary embolus (HCC) 01/29/2023 Hypothyroidism (acquired) 01/29/2023 Chronic anticoagulation 01/29/2023 Past Medical History: Diagnosis Date Arthritis Asthma Atrial fibrillation (CMS/HCC) (HCC) Chronic kidney disease GERD (gastroesophageal reflux disease) Heart disease 12/2022 Hypertension Hypothyroidism Thyroid disease Past Surgical History: Procedure Laterality Date BREAST BIOPSY COLONOSCOPY CYST REMOVAL ESOPHAGOGASTRODUODENOSCOPY AR LIG/TRNSXJ FLP TUBE ABDL/VAG APPR UNI/BI Tubal Ligation - (Added by TW Conv) TUBAL LIGATION OB History 2 Para 2 Term 1 1 AB Living 3 SAB IAB Ectopic Multiple 1 Live Births 3 Allergies Allergen Reactions Erythromycin Rash Sulfa (Sulfonamide Antibiotics) Other (See comments) Extreme pain in back Med List Status: Nurse Complete Set By: Nighat Friend RN at 10/28/2024 1:53 PM Taking? Last Dose Start Date End Date Provider acetaminophen (TYLENOL) 500 mg tablet Past Week -- -- Susan Lacey MD calcium carbonate-vitamin D3 1,250mg (500mg elemental) - 5 mcg (200 units) per tablet Past Week -- -- Susan Lacey MD cholecalciferol (VITAMIN D-3) 2000 unit tablet Past Week -- -- Susan Lacey MD cyanocobalamin (Vitamin B-12) 100 mcg tablet Past Week -- -- Susan Lacey MD ketoconazole (NIZORAL) 2 % cream -- -- -- Susan Lacey MD levothyroxine (SYNTHROID) 50 mcg tablet 11/05/2024 -- -- Susan Lacey MD omeprazole (PriLOSEC) 20 mg capsule 11/05/2024 08/10/15 -- Susan Lacey MD psyllium, aspartame, SF (Metamucil Fiber Singles) 3.4 gram packet -- 05/28/18 -- Susan Lacey MD rivaroxaban (XARELTO) 20 mg tablet 11/02/2024 -- -- Susan Lacey MD traMADoL (ULTRAM) 50 mg tablet 11/04/2024 09/05/12 -- Susan Lacey MD traZODone (DESYREL) 50 mg tablet More than a month -- -- Susan Lacey MD valsartan-hydroCHLOROthiazide (DIOVAN-HCT) 160-12.5 mg per tablet 11/05/2024 -- -- Susan Lacey MD Current Facility-Administered Medications: acetaminophen (TYLENOL) tablet 1,000 mg, 1,000 mg, oral, Once Carrier Fluids for Secondary Infusion - 0.9% Sodium Chloride, 30 mL, intravenous, PRN sodium chloride 0.9% flush 0.5-20 mL, 0.5-20 mL, intra-catheter, PRN sodium chloride 0.9% infusion, 30 mL/hr, intravenous, Continuous sodium chloride 0.9% infusion, 125 mL/hr, intravenous, Continuous Social History Tobacco Use Smoking Status Former Current packs/day: 0.00 Types: Cigarettes Start date: 08/19/1963 Quit date: 12/02/1977 Years since quittin.9 Smokeless Tobacco Never Tobacco Comments I smoked very little. Alcohol Use: Not At Risk (10/28/2024) AUDIT-C Frequency of Alcohol Consumption: 4 or more times a week Average Number of Drinks: 1 or 2 Frequency of Binge Drinking: Never Substance and Sexual Activity Drug Use Never Frequency: 7.0 times per week Comment: wine- 3-4 glasses because she drinks it over a long period of time, no mj, pills or drugs. 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 PT: No results found for requested labs within last 30 days. INR: No results found for requested labs within last 30 days. APTT: No results found for requested labs within last 30 days. Hgb A1C: No results found for requested labs within last 30 days. CBC RBC: 11/02/2024: 4.32 M/cumm RDW: No results found for requested labs within last 30 days. MCHC: 11/02/2024: 31.5 g/dL (L) MCH: 11/02/2024: 31.3 pg MCV: 11/02/2024: 99.3 fL (H) Hct: 11/02/2024: 42.9 % Hgb: 11/02/2024: 13.5 g/dL WBC: 11/02/2024: 7.6 K/cumm MPV: 11/02/2024: 9.6 fL Platelets: 11/02/2024: 282 K/cumm RDW CV: 11/02/2024: 13.3 % RDW Sd: 11/02/2024: 49.1 fL (H) BMP Glucose: 11/02/2024: 95 mg/dL Calcium: 11/02/2024: 9.3 mg/dL Sodium: 11/02/2024: 135 mmol/L Potassium: 11/02/2024: 4.2 mmol/L CO2: 11/02/2024: 26 mmol/L Chloride: 11/02/2024: 96 mmol/L (L) BUN: 11/02/2024: 15 mg/dL Creatinine: 11/02/2024: 1.03 mg/dL STOP-Bang Total Score: 3 DOS Physical Exam Medical history, medications, and allergies reviewed. Attestation: This PAT evaluation 11/05/2024. Airway Exam: Mallampati: III Cervical ROM: FROM Cardiovascular Exam: Rate: regular Rhythm: regular Pulmonary Exam: LCTA, bilat EENT Exam: trachea midline Dental Exam: Appears intact Current state: Patient's current state is cooperative. Anesthesia Plan ASA 2 My patient is approved for the Anesthesia Controlled Medication protocol when under care of a CHAIN SAW DRIVER Planned anesthesia: General Team communication plan: LMA Induction: Induction: intravenous. Postoperative Plan: No postoperative mechanical ventilation intended. Informed Consent: Discussed plan with CHAIN SAW DRIVER. Anesthesia plan and risks discussed with patient. Consent and Attending signature: I and/or my designee have discussed the anesthesia plan, benefits, possible alternatives, parental presence at time of induction (if indicated), and clinically relevant risks that may include dental injury, unintentional awareness, and/or other complications. The patient and/or parent/legal guardian understand, and agree to proceed. All questions answered. DSTITCH LAPEL PADDER documented in this encounter Plan of Treatment Not on file documented as of this encounter Procedures Procedure Name Priority Date/Time Associated Diagnosis Comments AR AN ELECTIVE SUPRAGLOTTIC AIRWAY Routine 11/05/2024 10:47 AM BLINDSTITCH LAPEL PADDER documented in this encounter Results * AR AN ELECTIVE SUPRAGLOTTIC AIRWAY (11/05/2024 10:47 AM BLINDSTITCH LAPEL PADDER) Narrative Jason Ervin CRNA - 11/05/2024 10:47 AM BLINDSTITCH LAPEL PADDER Jason Ervin CRNA ? 11/05/2024 10:47 AM Airway Patient location: OR Urgency: elective Indications for airway management: anesthesia and airway protection Difficult airway: no Staff: Placed by: CHAIN SAW DRIVER: Jason Ervin CRNA Emergent airway documentation: Risks and benefits discussed: yes Consent obtained: yes Consent given by: patient Airway prep: Preoxygenated: yes Patient position: sniffing Mask difficulty assessment: 0 - not attempted Spontaneous ventilation during airway: absent Sedation level during airway: GA Final airway details: Final airway type: supraglottic airway Final supraglottic airway: unique SGA size: 4 Number of attempts: 1 Planned trial extubation: yes Additional comments: Atraumatic LMA placement. Dentition same as preop. No GERD sx today. us Ruben Mosley MD ANESTHESIA ORDERABLES Fi nal Result documented in this encounter Visit Diagnoses Not on filedocumented in this encounter Administered Medications Inactive Administered Medications - up to 3 most recent administrations Medication Order MAR Action Action Date Dose Rate Site dexAMETHasone (DECADRON) injection solution intravenous, Administer over 2 Minutes, As needed, Starting on Laurel 11/05/24 at 1044, Anesthesia Intra-op Given 11/05/2024 10:44 AM BLINDSTITCH LAPEL PADDER 4 mg fentaNYL (SUBLIMAZE) preservative free injection intravenous, As needed, Starting on [place] 11/05/24 at 1045, Anesthesia Intra-op Given 11/05/2024 11:21 AM BLINDSTITCH LAPEL PADDER 50 mcg Given 11/05/2024 10:56 AM BLINDSTITCH LAPEL PADDER 25 mcg Given 11/05/2024 10:45 AM BLINDSTITCH LAPEL PADDER 25 mcg lidocaine (PF) (XYLOCAINE) 20 mg/mL (2 %) preservative free injection intravenous, As needed, Starting on [place] 11/05/24 at 1039, Anesthesia Intra-op Given 11/05/2024 10:39 AM BLINDSTITCH LAPEL PADDER 100 mg ondansetron (ZOFRAN) injection intravenous, Administer over 2 Minutes, As needed, Starting on [place] 11/05/24 at 1044, Anesthesia Intra-op Given 11/05/2024 10:44 AM BLINDSTITCH LAPEL PADDER 4 mg propofoL (DIPRIVAN) 10 mg/mL IV intravenous, As needed, Starting on [place] 11/05/24 at 1039, Anesthesia Intra-op Given 11/05/2024 10:39 AM BLINDSTITCH LAPEL PADDER 150 mg sodium chloride 0.9% infusion 125 mL/hr, intravenous, Continuous, Starting on Laurel 11/05/24 at 1000, Pre-Op, May discontinue when discharge criteria met. New Bag 11/05/2024 10:39 AM BLINDSTITCH LAPEL PADDER documented in this encounter Care Teams Trailer Rental Clerk Relationship Specialty Start Date End Date No, Physician PCP - General 10/22/24 Paulina Leyva MD [address] GRIJALVA [address] [place] [id number] Consulting Physician Obstetrics and Gynecology 11/05/24 documented as of this encounter
--- OUTSIDE RECORDS SUMMARY | 2024-11-21 18:17 | XMS_ITS | Encounter Summary ---
Author Organization [facility] Healthcare Address [address] [place] [address] Care Team Providers Care Retail Coverage Merchandiser Name Role Phone No, Physician Primary Care Provider [phone] Encounter Details Date Type Department Care Team (Late st Contact Info) Description 11/02/2024 Telephone [facility] Cardiology [address] [place] [address] Berta Olivier MD [address] [place] [address] Social History Tobacco Use Types Packs/Day Years [...] on file Legal Sex Female 3:32 AM OUTCOMES ANALYST Gender Identity Not on file Sexual Orientation Not on file documented as of this encounter Miscellaneous Notes * Telephone Encounter - Shaun Simon RN - 11/03/2024 11:51 AM OUTCOMES ANALYST Clearance sent to [facility] OMES ANALYST * Telephone Encounter - Shaun Simon RN - 11/02/2024 1:12 PM OUTCOMES ANALYST LM on returning call regarding cardiac clearance. Explained that clearance will be reviewed tomorrow when RP returns to office. Advised their office to call back with any questions or concerns. OMES ANALYST * Telephone Encounter - Priya Navarrete - 11/02/2024 11:43 AM CST Pt is scheduled for an OBGYN surgical procedure on 11/05/2024. They faxed us a letter asking for clearance and how long to hold Xarelto before and after on 10/28/2024. The OBGYN does not have a recommended time to hold medication. Clearance letter to our office is scanned into media. . OMES ANALYST documented in this encounter Plan of Treatment Not on file documented as of this encounter Visit Diagnoses Not on filedocumented in this encounter Care Teams Retail Coverage Merchandiser Relationship Specialty Start Date End Date No, Physician PCP - General 10/22/24 documented as of this encounter
--- OUTSIDE RECORDS SUMMARY | 2024-11-21 18:17 | XMS_ITS | Encounter Summary ---
Author Organization [facility] Healthcare Address [address] [place] [address] Care Team Providers Care Medical Transcription Name Role Phone Sameer Hampton MD Primary Care Provider [phone] Reason for Visit * Reason Comments Follow-up Pt is here for a 6 m [facility] f/u PMB Encounter Details Date Type Department Care Team (Late st Contact Info) Description 01/06/2024 10:30 AM SUPERVISOR LATHING Office Visit [facility] Medical Group Women's Health Care at [address] [address] Paulina Leyva MD [address] [place], [place] [id number] Postmenopausal bleeding (Primary Dx) Social History Tobacco Use Types Packs/Day Years [...] on file Legal Sex Female 3:32 AM SUPERVISOR LATHING Gender Identity Not on file Sexual Orientation Not on file documented as of this encounter Last Filed Vital Signs Vital Sign Reading Time Taken Comments Blood Pressure 134/78 01/06/2024 10:25 AM SUPERVISOR LATHING Pulse - - Temperature - - Respiratory Rate - - Oxygen Saturation - - Inhaled Oxygen Concentration - - Weight 98.9 kg (218 lb) 01/06/2024 10:25 AM SUPERVISOR LATHING Height - - Body Mass Index 39.24 08/27/2023 9:01 AM CDT documented in this encounter Progress Notes * Paulina Leyva MD - 01/06/2024 10:30 AM CST Images from the original note were not included. Tattoo Identifier Visit Follow-up (Pt is here for a 6 month f/u PMB ) Subjective: Lyssa Viera is a 78 y.o. year old female who presents For follow-up of her postmenopausal bleeding She has not had anymore No LMP recorded. Patient is postmenopausal. Menstrual History: No LMP recorded. Patient is postmenopausal. Sexual History: OB History 2 Para 2 Term 1 1 AB Living 3 SAB IAB Ectopic Multiple 1 Live Births 3 # Outcome Date GA Labor/2nd Weight Sex Delivery Anes PTL Lv A1 A5 1A 10/1976 1.758 kg (3 lb 14 oz) M Vaginal None Living 1B 10/1976 2.155 kg (4 lb 12 oz) M Vaginal None Living 2 Term 06/1978 2.92 kg (6 lb 7 oz) M Vaginal None Living Objective: BP 134/78 (BP Location: Left arm, Patient Position: Sitting) Wt 218 lb (98.9 kg) BMI 39.24 kg/m?? Physical Exam: well-developed well-nourished female in no apparent distress OBGyn Exam Assessment and Plan: Diagnoses and all orders for this visit: Postmenopausal bleeding (Primary) Assessment & Plan: To call if she has any more bleeding otherwise we will follow-up for complete exam in 1 year Return in about 1 year (around 01/06/2025) for follow-up of postmenopausal bleeding and complete exam. Paulina Leyva MD 01/06/2024 RVISOR LATHING documented in this encounter Miscellaneous Notes * Assessment & Plan Note - Paulina Leyva MD - 01/06/2024 10:48 AM CSTAssociated Problem(s): Postmenopausal bleeding To call if she has any more bleeding otherwise we will follow-up for complete exam in 1 year RVISOR LATHING documented in this encounter Plan of Treatment Not on file documented as of this encounter Visit Diagnoses Diagnosis Postmenopausal bleeding- Primary documented in this encounter Care Teams Medical Transcription Relationship Specialty Start Date End Date Sameer Hampton MD PCP - General Family Medicine 02/26/23 10/21/24 documented as of this encounter
--- OUTSIDE RECORDS SUMMARY | 2024-11-21 18:17 | XMS_ITS | Encounter Summary ---
Author Organization [facility] Healthcare Address [address] [place] [address] Care Team Providers Care Jewelry Repairer Name Role Phone No, Physician Primary Care Provider [phone] Reason for Visit * Reason Comments Pre-op Visit Pt is scheduled for Hysteroscopy, D&C, Myosure Polypectomy on 11/05/2024 Surgical Clearance Still waiting for hernandez rgical clearance from Cardiology. Per nurse Madhav w/ [facility] Cardiology: Dr Olivier returns to office tomorrow, will complete and send back. Encounter Details Date Type Department Care Team (Late st Contact Info) Description 11/02/2024 1:45 PM TABLET MAKING MACHINE OPERATOR HELPER Office Visit [facility] Medical Group Women's Health Care at [address] [address] Paulina Leyva MD [address] [place] [address] DR GRIJALVA [address] [place] [address] Postmenopausal bleeding (Primary Dx) Social History Tobacco [...] on file Legal Sex Female 3:32 AM TABLET MAKING MACHINE OPERATOR HELPER Gender Identity Not on file Sexual Orientation Not on file documented as of this encounter Last Filed Vital Signs Vital Sign Reading Time Taken Comments Blood Pressure 126/70 11/02/2024 1:46 PM TABLET MAKING MACHINE OPERATOR HELPER Pulse - - Temperature - - Respiratory Rate - - Oxygen Saturation - - Inhaled Oxygen Concentration - - Weight 98.9 kg (218 lb) 11/02/2024 1:46 PM TABLET MAKING MACHINE OPERATOR HELPER Height 158.8 cm (5' 2.5 ) 11/02/2024 1:46 PM TABLET MAKING MACHINE OPERATOR HELPER Body Mass Index 39.24 11/02/2024 1:46 PM TABLET MAKING MACHINE OPERATOR HELPER documented in this encounter Progress Notes * Paulina Leyva MD - 11/02/2024 1:45 PM CST Images from the original note were not included. System Support Developer Visit Pre-op Visit (Pt is scheduled for Hysteroscopy, D&C, Myosure Polypectomy on 11/05/2024) and Surgical Clearance (Still waiting for surgical clearance from Cardiology. Per nurse Madhav w/ [facility] Cardiology: Dr Olivier returns to office tomorrow, will complete and send back. ) Subjective: Lyssa Viera is a 79 y.o. year old female who presents for her preop She didn't talk to cards about the procedure Cardiac clearance is pending. [facility] called her today and told her to stop her xeralto No more bleeding. She fell on on 10/08 after going to the bathroom No dizziness Thinks she broke her tailbone. Lots of pain. She is off her betablocker No LMP recorded. Patient is postmenopausal. Menstrual History: No LMP recorded. Patient is postmenopausal. Sexual History: OB History 2 Para 2 Term 1 1 AB Living 3 SAB IAB Ectopic Multiple 1 Live Births 3 # Outcome Date GA Labor/2nd Weight Sex Type Anes PTL Lv A1 A5 1A 10/1976 1.758 kg (3 lb 14 oz) M Vaginal None Living 1B 10/1976 2.155 kg (4 lb 12 oz) M Vaginal None Living 2 Term 06/1978 2.92 kg (6 lb 7 oz) M Vaginal None Living Objective: BP 126/70 (BP Location: Left arm, Patient Position: Sitting) Ht 158.8 cm (5' 2.5 ) Wt 218 lb (98.9 kg) BMI 39.24 kg/m?? Physical Exam: Wdwn fmeal in nad OBGyn Exam Assessment and Plan: Diagnoses and all orders for this visit: Postmenopausal bleeding (Primary) Assessment & Plan: Procedure reviewed along with risk, benefits and alternatives as they pertain to her specifically. Questions answered Post op pain management discussed. She voices understanding and desired to proceed. Return for Next scheduled follow up. Paulina Leyva MD 11/02/2024 ET MAKING MACHINE OPERATOR HELPER documented in this encounter Miscellaneous Notes * Assessment & Plan Note - Paulina Leyva MD - 11/02/2024 2:29 PM CSTAssociated Problem(s): Postmenopausal bleeding Procedure reviewed along with risk, benefits and alternatives as they pertain to her specifically. Questions answered Post op pain management discussed. She voices understanding and desired to proceed. ET MAKING MACHINE OPERATOR HELPER documented in this encounter Plan of Treatment Not on file documented as of this encounter Visit Diagnoses Diagnosis Postmenopausal bleeding- Primary documented in this encounter Care Teams Jewelry Repairer Relationship Specialty Start Date End Date No, Physician PCP - General 10/22/24 documented as of this encounter
--- OUTSIDE RECORDS SUMMARY | 2024-11-21 18:17 | XMS_ITS | Encounter Summary ---
Author Organization [facility] Healthcare Address [address] [place] [address] Care Team Providers Care Drupal Architect Name Role Phone Sameer Hampton MD Primary Care Provider Reason for Visit * Reason Comments Follow-up Pt is here for a fol low up after ultrasound for PMB.IMPRESSION:1. There is a normal-sized uterus without evidence of fibroids. The endometrium is thickened for woman with postmenopausal bleeding. Sampling is recommended. 2. The right ovary is not visualized. 3. The left ovary is visualized within normal limits. Encounter Details Date Type Department Care Team (Late st Contact Info) Description 09/07/2024 10:00 AM CDT Office Visit [facility] Medical Group Women's Health Care at [address] [address] Paulina Leyva MD [address] [address] Postmenopausal bleeding (Primary Dx) Social History Tobacco [...] more drinks on one occasion? Never 09/09/2023 PHQ-2 Answer Date Recorded PHQ-2 Total Score 0 09/07/2024 Comments No Sex and Gender Information Value Date Recorded Sex Assigned at Not on file Legal Sex Female 3:32 AM SUPERVISOR HISTOLOGY Gender Identity Not on file Sexual Orientation Not on file documented as of this encounter Last Filed Vital Signs Vital Sign Reading Time Taken Comments Blood Pressure 134/88 09/07/2024 9:59 AM CDT Pulse - - Temperature - - Respiratory Rate - - Oxygen Saturation - - Inhaled Oxygen Concentration - - Weight - - Height 158.8 cm (5' 2.5 ) 09/07/2024 9:59 AM CDT Body Mass Index - - documented in this encounter Progress Notes * Paulina Leyva MD - 09/07/2024 10:00 AM CDT Images from the original note were not included. Staff Occupational Therapist Visit Follow-up (Pt is here for a follow up after ultrasound for PMB.//IMPRESSION:/1. There is a normal-sized uterus without evidence of fibroids. The endometrium is thickened for woman with postmenopausalbleeding. Sampling is recommended. 2. The right ovary is not visualized. 3. The left ovary is visualized within normal limits./) Subjective: Lyssa Viera is a 79 y.o. year old female who presents for follow-up ultrasound as mentioned inthe nursing note above. No more bleeding. She was having some hemorrhoids. No LMP recorded. Patient is postmenopausal. Menstrual [...] oz) M Vaginal None Living Objective: BP 134/88 (BP Location: Right arm, Patient Position: Sitting) Ht 158.8 cm (5' 2.5 ) BMI 38.88 kg/m?? Physical Exam: wdwn female in nad OBGyn Exam Assessment and Plan: Diagnoses and all orders for this visit: Postmenopausal bleeding (Primary) Assessment & Plan: Options discussed She has had emb before and declines to do again Will arrange to go to OR for myosure D&C. Procedure reviewed along with risk, benefits and alternatives as they pertain to her specifically. Questions answered Post op pain management discussed. She voices understanding and desired to proceed. No follow-ups on file. Paulina Leyva MD 09/07/2024 documented in this encounter Miscellaneous Notes * Assessment & Plan Note - Paulina Leyva MD - 09/07/2024 10:14 AM CDTAssociated Problem(s): Postmenopausal bleeding Options discussed She has had emb before and declines to do again Will arrange to go to OR for myosure D&C. Procedure reviewed along with risk, benefits and alternatives as they pertain to her specifically. Questions answered Post op pain management discussed. She voices understanding and desired to proceed. documented in this encounter Plan of Treatment Not on file documented as of this encounter Visit Diagnoses Diagnosis Postmenopausal bleeding- Primary documented in this encounter Care Teams Drupal Architect Relationship Specialty Start Date End Date Sameer Hampton MD PCP - General Family Medicine 02/26/23 10/21/24 documented as of this encounter
--- OUTSIDE RECORDS SUMMARY | 2024-11-21 18:17 | XMS_ITS | Encounter Summary ---
Author Organization [facility] Healthcare Address [address] [place] [address] Care Team Providers Care Mobile Therapist Name Role Phone No, Physician Primary Care Provider [phone] Paulina Leyva MD Unavailable [phone] Encounter Details Date Type Department Care Team (Late st Contact Info) Description 11/16/2024 Telephone [facility] [address] [facility] [address] [place] [address] Paulina Leyva MD [address] [place] [address] Social History Tobacco Use Types Packs/Day Years [...] on file Legal Sex Female 3:32 AM DISPOSAL MAN Gender Identity Not on file Sexual Orientation Not on file documented as of this encounter Miscellaneous Notes * Telephone Encounter - Nina Zurita RN - 11/17/2024 3:32 PM CST [phone] Called patient and left VM to check in and see how she is doing. I advised her to call back at her convenience. INEZ Wood OSAL MAN * Telephone Encounter - Arnulfo Le MD - 11/16/2024 9:16 AM DISPOSAL MAN I spoke with the ERP at [facility] today patient has been bleeding last day or 2. Op note and pathology reviewed. Ultrasound showed a thickened EMC thought to likely be blood. Bleeding is not extremely active. She is on Xarelto. We discussed holding her Xarelto for a few days. We talked about TXA but will instead hold Xarelto and call if bleeding is not improved. Hb is normal. OSAL MAN * Telephone Encounter - Nina Zurita RN - 11/16/2024 8:44 AM CST My chart message from patient at 6:30am I am experiencing increased bleeding resulting from my Hysteroscopy, dilation & curettage, myosure Polpecotomy on 11/05/24. This increase has increased significantly in the last [address] Leyva is in [place] on Mondays, I would like to see her rather than go to the ER. Is this possible? I had significant bleeding from a LEEP procedure many years ago. That bleeding was attributed to a scab falling from the wound. I called and spoke with patient and when I called she was already at [place] ER. She stated bleeding from procedure she had on 11/05/2024 was very minimal on Saturday and Saturday and then on Saturday she states she started having significant heavy bleeding and last night passed some clots. She said she had a similar issues a few years back when she had a leep. Patient states at the ER she had had blood work and a abdominal usg and is waiting to hear what they plan is. I stated That Dr. Leyva is out of the office today, but that I would forward her the message and also asked her to update us with what the ER says. REJI Tejeda, RN OSAL MAN documented in this encounter Plan of Treatment Not on file documented as of this encounter Visit Diagnoses Not on filedocumented in this encounter Care Teams Mobile Therapist Relationship Specialty Start Date End Date No, Physician PCP - General 10/22/24 Paulina Leyva MD [address] [place] [address] [place] [address] Consulting Physician Obstetrics and Gynecology 11/05/24 documented as of this encounter
--- OUTSIDE RECORDS SUMMARY | 2024-11-21 18:17 | XMS_ITS | Encounter Summary ---
Author Organization [facility] Address [address] [place] [address] Care Team Providers Care Painter And Body Work Name Role Phone Sameer Hampton MD Primary Care Provider [phone] Reason for Referral * Diagnostic Imaging (Routine) - Pending Review Specialty Diagnoses / Procedures Referred By Contleigh ann t Referred To Contact Diagnoses Postmenopausal bleeding Procedures US Transvaginal Paulina Leyva MD [address] [place] [address] DR GRIJALVA [address] [place] [address] Phone: tel: Referral ID Status Reason Start Date Expiration Date V isits Requested Visits Authorized [id number] Pending Review 08/28/2024 09/27/2025 1 1 Reason for Visit * Reason Onset Date Comments bleeding 08/28/2024 PMB Encounter Details Date Type Department Care Team (Late st Contact Info) Description 08/28/2024 Telephone [facility] [address] [facility] [address] [place] [address] Paulina Leyva MD [address] [place] [address] [address] GRIJALVA [address] [place] [address] bleeding (PMB) Social History Tobacco Use Types Packs/Day Years [...] on file Legal Sex Female 3:32 AM HISTORIAN RESEARCH ASSISTANT Gender Identity Not on file Sexual Orientation Not on file documented as of this encounter Miscellaneous Notes * Telephone Encounter - Nina Zurita RN - 08/28/2024 1:59 PM CDT Patient sent a [facility] message stating that she started having PMB that is light and started last night. Patient is wearing a pad and monitoring it and says it is a small amount, not a flow. No pain.Patient also made us aware that she is on a blood thinner, Xarelto 20 mg daily per her cardiologistfor blood clots and it is a medicine she has to take and cannot stop. Discussed with patient that we will order an ultrasound for PBM to be done SHAUN and then we will also set up an appt. With Dr. Leyva. I advised patient that if bleeding picks up, to where she is saturating a pad in an hour, thatshe should go to the ER to be evaluated. Patient verbalized understanding. Rut in our office will call patient to get ultrasound scheduled in our [place] office SHAUN and I advised to let patient know that Dr. Leyva can see her at the [place] office on 09/07/24 at 9:[address]. Dr. eLyva, Any further instructions? Thank you, INEZ Wood documented in this encounter Plan of Treatment Not on file documented as of this encounter Results * US Transvaginal (08/31/2024 10:59 AM CDT) Cul de Sac No free fluid visualized VIEWPOINT Endometrial Thickness 5.4 mm&millim eters [facility]IEWPOINT Anatomical Region Laterality Modality Pelvis N/A Ultrasound 08/31/2024 10:5 6 AM CDT Impressions 08/31/2024 5:52 PM CDT 1. ?? There is a normal-sized uterus without evidence of fibroids. ??The endometrium is thickened for woman with postmenopausal bleeding. ??Sampling is recommended. ??2. The right ovary is not visualized. ??3. The left ovary is visualized within normal limits. Narrative Procedure Note Paulina Leyva MD - 08/31/2024 IMPRESSION: 1. There is a normal-sized uterus without evidence of fibroids. Theendometrium is thickened for woman with postmenopausal bleeding. Samplingis recommended. 2. The right ovary is not visualized. 3. The left ovaryis visualized within normal limits. Paulina Leyva MD IMG US PROCEDURES F inal Result documented in this encounter Visit Diagnoses Diagnosis Postmenopausal bleeding- Primary Postmenopausal bleeding documented in this encounter Care Teams Painter And Body Work Relationship Specialty Start Date End Date Sameer Hampton MD PCP - General Family Medicine 02/26/23 10/21/24 documented as of this encounter
--- OUTSIDE RECORDS SUMMARY | 2024-11-21 18:17 | XMS_ITS | Encounter Summary ---
Author Organization [facility] Healthcare Address [address] [place] [address] Care Team Providers Care Optical Instrument Assembler Name Role Phone No, Physician Primary Care Provider [phone] Paulina Leyva MD Unavailable [phone] Encounter Details Date Type Department Care Team (Late st Contact Info) Description 11/11/2024 Telephone [facility] Medical Group Cardiology [address] [place] [address] Berta Olivier MD [address] [address] Social History Tobacco Use Types Packs/Day [...] on file Legal Sex Female 3:32 AM REGIONAL CLIMATE CHANGE ANALYST Gender Identity Not on file Sexual Orientation Not on file documented as of this encounter Miscellaneous Notes * Telephone Encounter - Ammy Calix RN - 11/11/2024 10:45 AM REGIONAL CLIMATE CHANGE ANALYST Spoke with pt, reviewed RP's response and she verbalized understanding. ONAL CLIMATE CHANGE ANALYST * Telephone Encounter - Ammy Calix RN - 11/11/2024 10:25 AM REGIONAL CLIMATE CHANGE ANALYST Spoke with pt, she went to the ED last night after feeling like she was in afib for 20 minutes while sitting and watching television. Pt said she was uncomfortable and had some slight pressure in herchest at the time and checked her apple watch and her HR was bouncing all around between 47-170. Pttold her to call 911 and while enroute to the hospital she went back into normal rhythm. Ptwas treated in the ED, given 12.5mg metoprolol, had labs done and an xray and was sent home and advised to call us. Offered pt an appt with RP on Sat for f/u and she declined because she has a meeting so she is scheduled to see CT next week in office.Pt said the ED mentioned this could be related to her being taken off of metoprolol last month at her OV I told pt it is much more likely this afib episode was due to her having recent surgery. Pt is feeling fine today and her HR is 80. Pt asking for advice on medication and if any changes need to be made. Will forward to RP. Please advise, thank you! ONAL CLIMATE CHANGE ANALYST * Telephone Encounter - Leilani Dubois - 11/11/2024 10:07 AM CST Pt calling to report she was seen at for Afib and was advised to discuss with her provider whether or not she should resume taking metoprolol. States ED doctor believes her Afib episode may have been caused due to stopping the medication. Pt requesting a call back to further discuss. Contact:[phone] ONAL CLIMATE CHANGE ANALYST documented in this encounter Plan of Treatment Not on file documented as of this encounter Visit Diagnoses Not on filedocumented in this encounter Care Teams Optical Instrument Assembler Relationship Specialty Start Date End Date No, Physician PCP - General 10/22/24 Paulina Leyva MD [address] [place] [address] DR GRIJALVA [address] [place] [address] Consulting Physician Obstetrics and Gynecology 11/05/24 documented as of this encounter
--- OUTSIDE RECORDS SUMMARY | 2024-11-21 18:17 | XMS_ITS | Encounter Summary ---
Author Organization [facility] Address [address] [place] [address] Care Team Providers Care International Trade Manager Name Role Phone Sameer Hampton MD Primary Care Provider [phone] Reason for Visit * Reason Onset Date Comments Procedure Scheduling 09/10/2024 Encounter Details Date Type Department Care Team (Late st Contact Info) Description 09/10/2024 Telephone [facility] [address] [facility] [address] [place] [address] Paulina Leyva MD [address] [place] [address] [address] [place] [address] Procedure Scheduling Social History Tobacco Use Types Packs/Day Years [...] on file Legal Sex Female 3:32 AM SHERIFF DETECTIVE Gender Identity Not on file Sexual Orientation Not on file documented as of this encounter Miscellaneous Notes * Telephone Encounter - Gris Carias MA - 09/10/2024 10:56 AM CDT [phone] Spoke w/ patient, Scheduled surgical procedure: Hysteroscopy, D&C, Myosure for 11/05/2024 Scheduled pre & post op appts as well Thank you Gris documented in this encounter Plan of Treatment Not on file documented as of this encounter Visit Diagnoses Not on filedocumented in this encounter Care Teams International Trade Manager Relationship Specialty Start Date End Date Sameer Hampton MD PCP - General Family Medicine 02/26/23 10/21/24 documented as of this encounter
--- OUTSIDE RECORDS SUMMARY | 2024-11-21 18:17 | XMS_ITS | Referral Summary ---
Author Organization [facility] [address] [place] [address] Address [address] [facility] [address] [place] [address] Care Team Providers Care Outreach Specialist Name Role Phone No, Physician Primary Care Provider Paulina Leyva MD Unavailable [phone] Encounters Date Type Department Care Team Description 11/20/2024 2:30 PM EDI ARCHITECT Office Visit [facility] Cardiology [address] [place] [address] [address] [place] [address] Paulina Mejia NP Paroxysmal atrial fibrillation (CMS/HCC) (HCC); New onset left bundle branch block (LBBB); Chronic fatigue 11/16/2024 [facility]phone [facility] [address] [place] [address] [address] [address] Paulina Leyva MD 11/11/2024 Telephone [facility] Cardiology [address] [place] [address] [address] [place] [address] Berta Olivier MD 11/11/2024 Telephone [facility] [address] [place] [address] [address] [place] [phone] Paulina Leyva MD follow up 11/05/2024 10:45 AM EDI ARCHITECT - 11/05/2024 12:00 PM EDI ARCHITECT Surgery [facility] Operating Room [address] [place] [address] Paulina Leyva MD HYSTEROSCOPY, DILATION AND CURETTAGE, MYOSURE POLYPECTOMY 11/05/2024 10:31 AM EDI ARCHITECT Anesthesia Event [facility] Operating Room [address] [place] [address] Ruben Mosley MD Reynolds, Ethan Emerson, MD 11/05/2024 9:15 AM EDI ARCHITECT - 11/05/2024 1:40 PM EDI ARCHITECT Hospital Encounter [facility] Operating Room [address] [place] [address] Paulina Leyva MD Postmenopausal bleeding Discharge Disposition: Discharge to home or self care 11/02/2024 2:47 PM EDI ARCHITECT - 11/02/2024 11:59 PM EDI ARCHITECT Hospital Encounter [address] [address] Postmenopausal bleeding; Pre-operative laboratory examination Discharge Disposition: Discharge to home or self care 11/02/2024 2:45 PM EDI ARCHITECT Lab [facility] Outpatient Lab at [address] [phone] Hypothyroidism (acquired) (Primary Dx); Postmenopausal bleeding 11/02/2024 Telephone [facility] Cardiology [address] [place] [address] [place] [phone] Berta Olivier MD 11/02/2024 1:45 PM EDI ARCHITECT Office Visit [facility] Women[facility] Care at [address] [address] Paulina Leyva MD Postmenopausal bleeding (Primary Dx) 10/28/2024 Telephone [facility] [address] [place] [address] [place] [phone] Paulina Leyva MD 10/22/2024 9:15 AM EDI ARCHITECT Office Visit [facility] Cardiology [address] [place] [address] [address] [place] [phone] Berta Olivier MD Paroxysmal atrial fibrillation (CMS/HCC) (HCC) (Primary Dx); Primary hypertension; Chronic anticoagulation 10/14/2024 Telephone [facility] [address] [facility] [address] [place] [phone] Paulina Leyva MD Pre Cert (CPT 70704) 09/10/2024 Telephone [place] [facility] [address] [facility] [address] [place] [phone] Paulina Leyva MD Procedure Scheduling 09/07/2024 10:00 AM CDT Office Visit [facility] Care at [address] [address] Paulina Leyva MD Postmenopausal bleeding (Primary Dx) 08/31/2024 10:30 AM CDT Ancillary Procedure [facility] [address] [place] [address] [address] [place] [phone] Postmenopausal bleeding 08/28/2024 Telephone [facility] [address] [place] [address] [address] [place] [phone] Paulina Leyva MD bleeding (PMB) from Last 3 Months Allergies Active Allergy Reactions Criticality Noted Date Comments Erythromycin Rash Medium 09/03/2012 Sulfa (Sulfonamide Antibiotics) Other (See comments) Medium 09/03/2012 Extreme pain in back Medications traMADoL (ULTRAM) 50 mg tablet as needed 2 Active traZODone (DESYREL) 50 mg tablet Take 1 tablet (50 mg total) by mouth nightly Active acetaminophen (TYLENOL) 500 mg tablet Take 1 tablet (500 mg total) by mouth every 6 (six) hours as needed Active cholecalciferol (VITAMIN D-3) 2000 unit tablet 0.5 tablets (1,000 Units total) Active cyanocobalamin (Vitamin B-12) 100 mcg tablet Take 1 tablet (100 mcg total) by mouth daily Active calcium carbonate-vitami n D3 1,250mg (500mg elemental) - 5 mcg (200 units) per tablet Take 1 tablet by mouth daily Active omeprazole (PriLOSEC) 20 mg capsule 2 capsules (40 mg total) 5 Active psyllium, aspartame, SF (Metamucil Fiber Singles) 3.4 gram packet Take by mouth as directed 8 Active valsartan-hydroC HLOROthiazide (DIOVAN-HCT) 160-12.5 mg per tablet Take 1 tablet by mouth daily Active levothyroxine (SYNTHROID) 50 mcg tablet Take 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 Active rivaroxaban (XARELTO) 20 mg tablet Take 1 tablet (20 mg total) by mouth Active ketoconazole (NIZORAL) 2 % cream Apply topically daily Active ibuprofen (ADVIL,MOTRIN) 600 mg tablet Take 1 tablet (600 mg total) by mouth every 6 (six) hours as needed for pain 10 tablet 4 Active Additional Information Patient not taking.Reported on 11/20/2024 diltiazem LA (CARDIZEM LA) 120 mg 24 hr tabletIndication s:Paroxysmal atrial fibrillation (CMS/HCC) (HCC) Take 1 tablet (120 mg total) by mouth daily 90 tablet 3 4 11/20/20 25 Active Active Problems Problem Noted Date Diagnosed Date Postmenopausal bleeding 09/09/2023 Assessment & Plan (11/02/2024 2:29 PM EDI ARCHITECT): Procedure reviewed along with risk, benefits and alternatives as they pertain to her specifically. Questions answered Post op pain management discussed. She voices understanding and desired to proceed. Assessment & Plan (09/07/2024 10:15 AM CDT): Options discussed She has had emb before and declines to do again Will arrange to go to OR for myosure D&C. Procedure reviewed along with risk, benefits and alternatives as they pertain to her specifically. Questions answered Post op pain management discussed. She voices understanding and desired to proceed. Assessment & Plan (01/06/2024 10:48 AM EDI ARCHITECT): To call if she has any more bleeding otherwise we will follow-up for complete exam in 1 year Assessment & Plan (09/30/2023 10:48 AM CDT): Options discussed She wants to watch and wait. If she bleeds again will go to OR Assessment & Plan (09/09/2023 2:20 PM CDT): [facility] I anticipate she will need an emb Well woman exam 09/09/2023 Overview (09/09/2023): Lab: Pap:s/p cryo and LEEP. Labs with pcp. S/p emb x 2 last 20 years ago. Job:2022 Colonoscopy: 2019- told not come back BMD:2021 Chronic fatigue 04/23/2023 Medication side effects 04/23/2023 Primary hypertension 01/29/2023 Paroxysmal atrial fibrillation (CMS/HCC) 023 Pulmonary embolus 01/29/2023 Hypothyroidism (acquired) 01/29/2023 Chronic anticoagulation 01/29/2023 Social History Tobacco Use Types Packs/Day Years Used Date Smoking Tobacco: Former Cigarettes 0 08/19/1963 - 12/02/1977 Smokeless Tobacco: Never Tobacco Cessation:Counseling Given: Not Answered Comments:I smoked very little. Humiliation, Afraid, Rape, and Kick questionnair e [...] on file Legal Sex Female 3:32 AM EDI ARCHITECT Gender Identity Not on file Sexual Orientation Not on file Last Filed Vital Signs Vital Sign Reading Time Taken Comments Blood Pressure 132/84 11/20/2024 2:33 PM EDI ARCHITECT Pulse 89 11/20/2024 2:33 PM EDI ARCHITECT Temperature 36.6 ??C (97.8 ??F) 11/05/2024 1:10 PM CS T Respiratory Rate 18 11/05/2024 1:10 PM EDI ARCHITECT Oxygen Saturation 98% 11/20/2024 2:33 PM EDI ARCHITECT Inhaled Oxygen Concentration - - Weight 98 kg (216 lb) 11/20/2024 2:33 PM EDI ARCHITECT Height 157.5 cm (5' 2 ) 11/20/2024 2:33 PM EDI ARCHITECT Body Mass Index 39.51 11/20/2024 2:33 PM EDI ARCHITECT Plan of Treatment Not on file Procedures Procedure Name Priority Date/Time Associated Diagnosis Comments ECG 12-LEAD Routine 11/20/2024 New onset left bundle branch block (LBBB) Paroxysmal atrial fibrillation (CMS/HCC) (HCC) SURGICAL PATHOLOGY Routine 11/05/2024 2: 57 PM EDI ARCHITECT Postmenopausal bleeding HI AN ELECTIVE SUPRAGLOTTIC AIRWAY Routine 11/05/2024 10:47 AM EDI ARCHITECT DILATION AND CURETTAGE/HYSTEROSCO PY 11/05/2024 10:16 AM EDI ARCHITECT Postmenopausal bleeding ECG 12-LEAD STAT 11/05/2024 10:00 AM EDI ARCHITECT ANTIBODY SCREEN STAT 11/05/2024 9:49 AM EDI ARCHITECT ABO/RH STAT 11/05/2024 9:49 AM EDI ARCHITECT POTASSIUM, WHOLE BLOOD STAT 11/05/2024 9:49 AM EDI ARCHITECT TYPE AND SCREEN STAT 11/05/2024 9:49 AM EDI ARCHITECT EGFR Routine 11/02/2024 2:47 PM EDI ARCHITECT Postmenopausal bleeding Pre-operative laboratory examination DIFFERENTIAL AUTO Routine 11/02/2024 2:4 7 PM EDI ARCHITECT Postmenopausal bleeding Pre-operative laboratory examination COMPREHENSIVE METABOLIC PANEL Routine 11/02/2024 2:47 PM EDI ARCHITECT Postmenopausal bleeding Pre-operative laboratory examination URINALYSIS AND REFLEX TO MICROSCOPIC Routine 11/02/2024 2:47 PM EDI ARCHITECT Postmenopausal bleeding Pre-operative laboratory examination TYPE AND SCREEN Timed 11/02/2024 2:47 PM EDI ARCHITECT Postmenopausal bleeding Pre-operative laboratory examination CBC WITH AUTO DIFFERENTIAL Routine 11/02/2024 2:47 PM EDI ARCHITECT Postmenopausal bleeding Pre-operative laboratory examination URINE CULTURE Routine 11/02/2024 2:47 PM EDI ARCHITECT Postmenopausal bleeding Pre-operative laboratory examination US TRANSVAGINAL Schedule Routine, Read Routine (OP Routine) 08/31/2024 10:59 AM CDT Postmenopausal bleeding from Last 3 Months Results * ECG 12 lead (11/20/2024) 11/20/2024 us Paulina Mejia NP ECG ORDERABLES Edited Re sult - Final * Surgical pathology (11/05/2024 2:57 PM EDI ARCHITECT) Tissue (Endometrial curettings) 11/05/2024 11:08 AM EDI ARCHITECT Narrative PATHOLOGY [facility] ([facility]) - 11/09/2024 12:25 PM EDI ARCHITECT EPIC results best viewed via link to PDF [facility] Department of Pathology [address] [place], [place] [id number] Note to Patients: This report may contain [...] the details. Final Report Patient Name: ??LYSSA ROSENBERG Address: ??[address] [place] [address], ??[place], [place] ?? Gender: ??F : ??1945 (Age: 79) Service: ??Obstetrics Location: ??[facility] #: ??[id number] Patient Type: ??[facility] EP OP in bed Accession # ?[id number] Taken: ??11/05/2024 Received: ??11/05/2024 Accessioned: ??11/05/2024 Reported: [...] ??All in one cassette. Rae Montoya R.N., P.A./Daphney White M.D. REPORT IMAGES AND SCANNED DOCUMENTS, IF INCLUDED, ONLY VIEWABLE IN PDF VERSION OF REPORT The performance characteristics of some immunohistochemical stains, fluorescence in-situ hybridization tests and immunophenotyping by flow cytometry cited in this report (if any) were determined by the Surgical Pathology Department at [facility] as part of an ongoing quality management nurse program and in compliance with federally mandated [...] characteristics determined by the Surgical Pathology Department [facility]. ??It has not been cleared or approved by the U. S. Food and Drug Administration. Note for decalcified specimens: This assay has not been validated on decalcified tissues. Results should be interpreted with caution given the possibility of false negativity on decalcified specimens Paulina Leyva MD LAB PATHOLOGY ORDER ART Final Result Performing Organization Address City/State/[facility] Co de Phone Number PATHOLOGY [place] [phone] * HI AN ELECTIVE SUPRAGLOTTIC AIRWAY (11/05/2024 10:47 AM EDI ARCHITECT) Narrative Jason Ervin CRNA - 11/05/2024 10:47 AM EDI ARCHITECT Jason Ervin CRNA ? 11/05/2024 10:47 AM Airway Patient location: OR Urgency: elective Indications for airway management: anesthesia and airway protection Difficult airway: no Staff: Placed by: WHEEL TRUING MACHINE TENDER: Jason Ervin CRNA Emergent airway documentation: Risks [...] same as preop. No GERD sx today. Ruben Mosley MD ANESTHESIA ORDERABLES Fi nal Result * ECG 12 lead (11/05/2024 10:00 AM EDI ARCHITECT) 11/05/2024 10:0 0 AM EDI ARCHITECT Narrative [facility] - 11/05/2024 10:17 AM EDI ARCHITECT Vent Rate: 69 bpm RR Interval: 859 msec HI Interval: 177 msec QRS Duration: 169 msec QT Interval: 454 msec QTC Interval: 474 msec P-R-T [place]: 28 - -24 - 122 degrees IMPRESSION: SINUS RHYTHM LEFT BUNDLE BRANCH BLOCK ??[120+ ms QRS DURATION, 80+ ms Q/S IN V1/V2, 85+ ms R IN I/aVL/V5/V6] ABNORMAL ECG Electronically Signed By: Mauri Sanches MD Archie Riggins MD ECG ORDERABLES Final Result Performing Organization Address [facility]/ZIP Co de Phone Number [facility] [employer] [facility] * Potassium, whole blood (11/05/2024 9:49 AM EDI ARCHITECT) Potassium, bld 4.0 3.3 - 4.9 mmol/L Comment: Interpretive Data This method is not able to assess for hemolysis, which may falsely increase potassium concentrations. If further testing is needed to evaluate this result, consider in-laboratory plasma potassium. Current Interpretive Data was last revised on 2022. Blood 11/05/2024 9:49 AM EDI ARCHITECT 11/05/2024 9:59 AM EDI ARCHITECT Archie Riggins MD LAB BLOOD ORDERABLES F inal Result Performing Organization Address [facility]/ZIP Co de Phone Number [facility] (TIFFANIE) [address] [facility] Department of Laboratories [place] [phone] * ABO/Rh (11/05/2024 9:49 AM EDI ARCHITECT) ABO/Rh O Positive Blood 11/05/2024 9:49 AM EDI ARCHITECT 11/05/2024 9:59 AM EDI ARCHITECT Narrative [facility] (TIFFANIE) - 11/05/2024 11:05 AM EDI ARCHITECT Has the patient had Daratumumab or Isatuximab in the past 6 months?->Unknown us Paulina Leyva MD LAB BLOOD BANK TEST ORDERABLES Final Result Performing Organization Address [facility]/ZIP Co de Phone Number [facility] ([place]) [address] [facility] Department of [employer] [place] [address] * Antibody screen (11/05/2024 9:49 AM EDI ARCHITECT) Jayne, indirect, Gel Interpretation Negative ABSC Blood 11/05/2024 9:49 AM EDI ARCHITECT 11/05/2024 9:59 AM EDI ARCHITECT Narrative [facility] ([place]) - 11/05/2024 11:05 AM EDI ARCHITECT Has the patient had Daratumumab or Isatuximab in the past 6 months?->Unknown us Paulina Leyva MD LAB BLOOD BANK TEST ORDERABLES Final Result Performing Organization Address [facility] de Phone Number [facility]IE HENRIQUEZ ([place]) 1 [facility] [employer] [place] [address] * (ABNORMAL) eGFR (11/02/2024 2:47 PM EDI ARCHITECT) eGFR 55(L) >=60 mL/min/1. 73 m2 Comment: [...] last reviewed 2021. Blood 11/02/2024 2:47 PM EDI ARCHITECT 11/02/2024 8:35 PM EDI ARCHITECT us Paulina Leyva MD LAB BLOOD ORDERABLE S Final Result [facility] [address] Department [place] [address] * (ABNORMAL) Differential, auto (11/02/2024 2:47 PM EDI ARCHITECT) Neutrophil abs 3.9 1.5 - 6.5 K/cumm Imm gran abs 0.0 0.0 - 0.1 K/cumm [facility] Lymphocyte abs 2.7 0.8 - 3.3 K/cumm [facility] Monocyte abs 0.9(H) 0.2 - 0.8 K/cumm [facility] Eosinophil abs 0.1 0.0 - 0.5 K/cumm [facility] Basophil abs 0.1 0.0 - 0.1 K/cumm [facility] Neutrophil pct 50.6 % [facility] Comment: Interpretive Data Percent cell count reference ranges are not reported, since discordance with absolute values may lead to misinterpretation of CBC data. Current Interpretive Data was last revised on 2018. Imm gran pct 0.3 % [facility] Comment: Interpretive Data Percent cell count reference ranges are not reported, since discordance with absolute values may lead to misinterpretation of CBC data. Current Interpretive Data was last revised on 2018. Lymphocyte pct 35.4 % [facility] Comment: Interpretive Data Percent cell count reference ranges are not reported, since discordance with absolute values may lead to misinterpretation of CBC data. Current Interpretive Data was last revised on 2018. Monocyte pct 11.8 % [facility] Comment: Interpretive Data Percent cell count reference ranges are not reported, since discordance with absolute values may lead to misinterpretation of CBC data. Current Interpretive Data was last revised on 2018. Eosinophil pct 1.2 % [facility] Comment: Interpretive Data Percent cell count reference ranges are not reported, since discordance with absolute values may lead to misinterpretation of CBC data. Current Interpretive Data was last revised on 2018. Basophil pct 0.7 % [facility] Comment: Interpretive Data Percent cell count reference ranges are not reported, since discordance with absolute values may lead to misinterpretation of CBC data. Current Interpretive Data was last revised on 2018. Blood 11/02/2024 2:47 PM EDI ARCHITECT 11/02/2024 7:38 PM EDI ARCHITECT Paulina Leyva MD LAB BLOOD ORDERABLE S Final Result [facility] [address] Department [place] [address] * Urinalysis reflex to microscopic (11/02/2024 2:47 PM EDI ARCHITECT) Color, ur Yellow Yellow Clarity, ur Clear Clear [facility] Specific gravity, ur 1.020 1.003 - 1.030 [facility] pH, urine 6.0 [facility] Comment: Interpretive Data ? Urine pH is affected by diet, medications, systemic acid-base disturbances, and renal tubular function. ??pH may affect urinary stone formation. ??For example, urine pH below 6.0 may help reduce the tendency for calcium phosphate stones and pH greater than 6.0 may reduce the tendency for uric acid stone formation. Source: [facility] [employer] Current Interpretive Data was last revised on [...] not met. [facility] Urine 11/02/2024 2:47 PM EDI ARCHITECT 11/02/2024 7:38 PM EDI ARCHITECT Paulina Leyva MD LAB URINE ORDERABLE S Final Result Performing Organization Address City/[facility] Co de Phone Number B[facility]GIE SIM [address] [facility] [employer] [place] [address] * (ABNORMAL) CBC with auto differential (11/02/2024 2:47 PM EDI ARCHITECT) WBC 7.6 3.8 - 9.9 K/cumm Hgb 13.5 11.9 - 15.5 g/dL [facility] Hct 42.9 35.6 - 45.5 % [facility] Plt 282 150 - 400 K/cumm [facility] MPV 9.6 9.1 - 12.3 fL [facility] RBC 4.32 3.90 - 5.20 M/cumm [facility] MCV 99.3(H) 81.3 - 96.4 fL [facility] MCH 31.3 27.1 - 33.3 pg [facility] MCHC 31.5(L) 32.3 - 35.7 g/dL [facility] RDW CV 13.3 11.1 - 14.9 % [facility] RDW SD 49.1(H) 35.7 - 48.1 fL [facility] NRBC abs 0.00 0.00 - 0.01 K/cumm [facility] Blood 11/02/2024 2:47 PM EDI ARCHITECT 11/02/2024 7:38 PM EDI ARCHITECT Paulina Leyva MD LAB BLOOD ORDERABLE S Final Result Performing Organization Address City/[facility]/ZIP Co de Phone Number [facility] [address] Department of [employer] [place], [place] [phone] * Type and screen (11/02/2024 2:47 PM EDI ARCHITECT) Jayne, indirect Negative ABO Rh O Positive [facility] Blood 11/02/2024 2:47 PM EDI ARCHITECT 11/02/2024 8:25 PM EDI ARCHITECT Narrative [facility] - 11/02/2024 9:06 PM EDI ARCHITECT Is this test being ordered in advance for a procedure?->Yes Expected date of procedure:->11/05/24 Has the patient been transfused in the past 3 months?->No Has the patient been in the past 3 months?->No Paulina Leyva MD LAB BLOOD BANK TEST ORDERABLES Final Result Performing Organization Address [facility] de Phone Number BOOGIE SIM [phone] Department [place] [address] * Urine culture Urine, clean voided (11/02/2024 2:47 PM EDI ARCHITECT) Report Final Report: Less than 100,000 colonies/mL (clinically insignificant growth based on current clinical standards) Comment:Testing performed by : [facility], [address] [place]., [address] Organism (CLINICALLY INSIGNIFICANT GROWTH [facility] Urine, clean voided 11/02/2024 2:47 PM EDI ARCHITECT 11/02/2024 10:18 PM EDI ARCHITECT Narrative [facility] - 11/04/2024 3:41 AM EDI ARCHITECT Testing performed by [facility] ([phone]) Paulina Leyva MD LAB MICROBIOLOGY - GENERAL ORDERABLES Final Result Performing Organization Address [facility] de Phone Number [facility]GIE SIM [phone] Department [place] [address] * (ABNORMAL) Comprehensive metabolic panel (11/02/2024 2:47 PM EDI ARCHITECT) Sodium 135 135 - 145 mmol/L Potassium, pl 4.2 3.3 - 4.9 mmol/L [facility] Chloride 96(L) 97 - 110 mmol/L [facility] CO2 26 22 - 32 mmol/L [facility] Anion gap 13 2 - 15 mmol/L [facility] BUN 15 6 - 25 mg/dL [facility] Creatinine 1.03 0.60 - 1.10 mg/dL [facility] Glucose 95 70 - 199 mg/dL [facility] Comment: Interpretive Data Fasting glucose >/= [...] classification and Diagnosis of Diabetes Diabetes Care 2021; 46: S19-S40. Current interpretive data was last revised 2022. Calcium 9.3 8.5 - 10.3 mg/dL [facility] Bilirubin, total 0.7 0.1 - 1.2 mg/dL [facility] Protein, pl 7.6 6.5 - 8.5 g/dL [facility] Albumin 4.1 3.5 - 5.0 g/dL [facility] Alk phos 104 40 - 130 Units/L [facility] ALT 26 7 - 45 Units/L [facility] AST 45 10 - 45 Units/L [facility] Blood 11/02/2024 2:47 PM EDI ARCHITECT 11/02/2024 7:38 PM EDI ARCHITECT us Paulina Leyva MD LAB BLOOD ORDERABLE S Final Result [facility] [address] Department [place] [address] * US Transvaginal (08/31/2024 10:59 AM CDT) [...] MD IMG US PROCEDURES F inal Result from Last 3 Months Insurance [facility] MED[facility] Care Teams Outreach Specialist Relationship Specialty Start Date End Date No, Physician PCP - General 10/22/24 Paulina Leyva MD [address] [place] [address] Consulting Physician Obstetrics and Gynecology 11/05/24
--- OUTSIDE RECORDS SUMMARY | 2024-11-21 18:17 | XMS_ITS | Encounter Summary ---
Author Organization [facility] Address [address] [place] [address] Care Team Providers Care Insurance Marketing Rep Name Role Phone Sameer Hampton MD Primary Care Provider [phone] Reason for Visit * Reason Comments Vaginal Bleeding * Diagnostic Imaging (Routine) - Pending Review Specialty Diagnoses / Procedures Referred By Contac t Referred To Contact Diagnoses Postmenopausal bleeding Procedures US Transvaginal Paulina Leyva MD 4 [facility] [address] [address] Phone: tel: Referral ID Status Reason Start Date Expiration Date V isits Requested Visits Authorized [id number] Pending Review 08/28/2024 09/27/2025 1 1 Encounter Details Date Type Department Care Team (Latest Contact Info) Description 08/31/2024 10:30 AM CDT Ancillary Procedure [facility] 4 [facility] [address] [place] [id number] Postmenopausal bleeding Social History Tobacco Use Types Packs/Day Years [...] on file 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 us Paulina Leyva MD IMG US PROCEDURES F inal Result documented in this encounter Visit Diagnoses Diagnosis Postmenopausal bleeding documented in this encounter Care Teams Insurance Marketing Rep Relationship Specialty Start Date End Date Sameer Hampton MD PCP - General Family Medicine 02/26/23 10/21/24 documented as of this encounter
--- OUTSIDE RECORDS SUMMARY | 2024-11-21 18:17 | XMS_ITS | Encounter Summary ---
Author Organization [facility] Healthcare Address [address] [place] [address] Care Team Providers Care Lead Portfolio Manager Name Role Phone Sameer Hampton MD Primary Care Provider [phone] Reason for Visit * Reason Comments Follow-up 6 mo f/u Atrial Fibrillation Encounter Details Date Type Department Care Team (Latest Contact Info) Description 02/26/2024 9:30 AM CDT Office Visit [facility] Medical Group Cardiology [address] [place] [address] Mikey Harrington MD [address] [facility] [address] [place] [address] Paroxysmal atrial fibrillation (CMS/HCC) (HCC) (Primary Dx); Medication side effects; Primary hypertension; Chronic anticoagulation Social History Tobacco Use Types Packs/Day Years [...] on file 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 Gender Identity Not on file Sexual Orientation Not on file documented as of this encounter Last Filed Vital Signs Vital Sign Reading Time Taken Comments Blood Pressure 126/82 02/26/2024 9:42 AM CDT Pulse 81 02/26/2024 9:42 AM CDT Temperature - - Respiratory Rate - - Oxygen Saturation 96% 02/26/2024 9:42 AM CDT Inhaled Oxygen Concentration - - Weight 98 kg (216 lb) 02/26/2024 9:42 AM CDT Height 158.8 cm (5' 2.5 ) 02/26/2024 9:42 AM CDT Body Mass Index 38.88 02/26/2024 9:42 AM CDT documented in this encounter Progress Notes * Mikey Harrington MD - 02/26/2024 9:30 AM CDT Images from the original note were not included. DATE OF VISIT: 02/26/2024 CHIEF COMPLAINT Chief Complaint Patient presents with Follow-up 6 mo f/u Atrial Fibrillation ASSESSMENT Diagnoses and all orders for this visit: Paroxysmal atrial fibrillation (CMS/HCC) (HCC) (Primary) Medication side effects Primary hypertension Chronic anticoagulation PLAN/RECOMMENDATIONS Stable, paroxysmal isolated symptomatic A. Fib in setting of acute PE 12/2022. Continue current medical therapy and systemic anticoagulation for stroke risk reduction. CHADS2 Vasc score 4. -Continue Toprol XL 12.5 mg daily reduction has helped fatigue but not resolved. She is not experiencing bradycardia and otherwise appears to be tolerating medications well. -continue Xarelto 20 mg at bedtime initially prescribed due to acute pulmonary embolism. Monitor for bleeding. If any falls, head injury or bleeding go to ER immediately. Clinically, it seem unlikelyfacial dryness, itching not relted to drug reaction or Xarelto. -notify the office with recurrent palpitations, AFib as noted. She was alerted by her Apple watch originally. BP controlled, goal <140/90mmHg. Monitor BP on routine basis. Call with readings. Continue consistent cardiovascular exercise, weight loss, medication compliance, and low-sodium diet. -continue Valsartan Hydrochlorothiazide 160/12.5 mg once daily. Lipids personally reviewed 02/26/24 LDL 82, improved and reasonably well controlled with goal LDL<100. Continue lifestyle modification and routine lipid monitoring. Evidence on CTA chest coronary and aortic atherosclerosis recommendation for statin therapy should be considered with goal LDL < 70. Discuss at next visit. Lifestyle modification counseling performed. Encouraged consistent weight loss, exercise, reductionin caloric intake. She will observe tolerance with increased activity on a consistent basis and call with any concerns or issues. Thyroid managed by PCP. Continue levothyroxine 50 mcg daily. Recent left upper and lower lobe small pulmonary embolism with small clot burden seemingly unprovoked This is being managed by her PCP. If any falls, bleeding or head injury go to ER immediately. Speak with PCP re facial itching, she agrees. Discussed antihistamine may be useful, Claritin or Alisha or Zyrtec. Over 50% of this visit counseling A. Fib, HTN, lipids, medications, lifestyle modification. Follow up in the office in 6 months or sooner as needed. Thank you for allowing me the privilege of participating in the care this very pleasant patient. Please do not hesitate to contact me with any additional questions or concerns. HPI Lyssa Viera is a 78 y.o. female with a PMHx of PAF, PE, CKD, HTN, hypothyroidism, seen in [facility] referral by Sameer Hampton MD for my opinion regarding atrial fibrillation. 01/29/23 Initial visit: Notes 12/20/22 was getting ready to go to a but could tell something was wrong and not feeling well, checked her watch told her AFib, SOB, palpitations, weak, taken to ER via EMS found to be in AF but spontaneously converted to SR and immediately felt better. BP was elevated. CTA Chest revealed L upper/lower lobe small PE. Notes some bleeding from gums at night on occasion (not nightly) since starting Xarelto but never during the day. She has not missed doses of Xarelto, she wonders if she is gritting her teeth but denies other unusual bleeding, bruising, melena/BRBPR. 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 Tires with walking whereas she could walk 3 miles but has not been as consistent since the pandemic, still now [facility] [place] [facility] A bit more SOB since PE with ADL's cleaning refrigerator had to sit a few times. She notes longstanding fatigue and SOBgoing up stairs that is not new. Denies prior palpitations, AF or other arrhythmias and was very symptomatic with AF when she presented and could tell when she converted to SR. [place] had [place] [employer] [place] but she forgot her compression socks that trip so had first time ever edema bilateral equal no assoc CP or SOB and resolved upon returning, generally no edema. LE venous dopplers negative for DVT and Echo. Etiology of PE was unknown. Had a sleep study no LEESA but does not sleep well. Has GERD so elevates pillow. 04/23/23 Under stress with her husbands health.has arthritis issues, has orthotics may help with herability to ambulate, can't lose weight. Feels the Metoprolol makes her tired, fatigued, a little lightheaded every once in a while. BP is good, no palps. She walks at the gym again her feet is the biggest limitation. Walking maybe a mile a day at the gym used to walk 3 miles daily. But she has to stop and rest several times mainly due to her feet. 08/27/23 Tired quite a bit, has arthritis in R foot getting injections limits her walking but she isback to walking some not as much as she would like. She would like to reduce her Metoprolol thinks this may be contributing to her fatigue. No CP or bleeding. No falls. Breathing is stable. Had Octavio July after traveling from [place]. Had 2 other viral illnesses with travel. She has noted HR upto 120 when exercising but not at other times. 02/26/24 has itchy and rash on face dry feeling for at least a month prior to going to , no new med changes or new soaps, lotions, detergents or new substances. No other rash or itching elsewhere atall. Benadryl gel did help. Has not spoken with PCP yet. [place] Doing ok otherwise. Cut Metoprolol in half due to fatigue which helped, still tired but notably better. Still walking most days at gym. MEDICAL HISTORY Past Medical History: Diagnosis Date Arthritis Atrial fibrillation (CMS/HCC) (HCC) Chronic kidney disease GERD (gastroesophageal reflux disease) Heart disease 12/2022 Hypertension Thyroid disease SOCIAL HISTORY reports that she quit smoking about 46 years ago. Her smoking use included cigarettes. She started smoking about 60 years ago. She has never used smokeless tobacco. She reports that she does not currently use drugs. Frequency: 7.00 times per week. No alcohol history on file. FAMILY HISTORY family history includes Autism in her son; Breast cancer (age of onset: 40) in her mother; Breast cancer (age of onset: 69) in her sister; Diabetes in her son; Ewings sarcoma in her sister; Heart attack in her father; Hypertension in her father and sister; Lung cancer in her father; No Known Problems in her paternal grandfather; Non-Hodgkin's Lymphoma in her brother; Thyroid disease in her mother. MEDICATIONS HOME MEDICATIONS : acetaminophen (TYLENOL) 500 mg tablet calcium carbonate-vitamin D3 1,250mg (500mg elemental) - 5 mcg (200 units) per tablet cholecalciferol (VITAMIN D-3) 2000 unit tablet cyanocobalamin (Vitamin B-12) 100 mcg tablet ketoconazole (NIZORAL) 2 % cream levothyroxine (SYNTHROID) 50 mcg tablet metoprolol XL (TOPROL-XL) 25 mg extended release tablet omeprazole (PriLOSEC) 20 mg capsule psyllium, aspartame, SF (Metamucil Fiber Singles) 3.4 gram packet rivaroxaban (XARELTO) 20 mg tablet traMADoL (ULTRAM) 50 mg tablet traZODone (DESYREL) 50 mg tablet valsartan-hydroCHLOROthiazide (DIOVAN-HCT) 160-12.5 mg per tablet fluticasone furoate-vilanteroL (BREO ELLIPTA) 200-25 mcg/dose diskus inhaler ALLERGIES Allergies Allergen Reactions Erythromycin Rash Sulfa (Sulfonamide Antibiotics) Rash REVIEW OF SYSTEMS Review of Systems Constitutional: Positive for malaise/fatigue and weight loss. Negative for decreased appetite, diaphoresis, fever, night sweats and weight gain. HENT: Negative for hearing loss and nosebleeds. Eyes: Negative for blurred vision and pain. Cardiovascular: Negative for chest pain, claudication, dyspnea on exertion, irregular heartbeat, leg swelling, near-syncope, orthopnea, palpitations and syncope. Respiratory: Negative for cough, hemoptysis, shortness of breath, snoring and wheezing. Endocrine: Negative for cold intolerance and heat intolerance. Hematologic/Lymphatic: Negative for bleeding problem. Does not bruise/bleed easily. Skin: Negative for color change, itching, rash and suspicious lesions. Musculoskeletal: Positive for arthritis and joint pain. Negative for falls, muscle weakness and myalgias. Gastrointestinal: Negative for abdominal pain, heartburn, hematemesis, melena and nausea. Genitourinary: Negative for dysuria, hematuria and nocturia. Neurological: Negative for excessive daytime sleepiness, dizziness, focal weakness, headaches, light-headedness, loss of balance and weakness. Psychiatric/Behavioral: Negative for altered mental status, depression and memory loss. The patientis not nervous/anxious. Allergic/Immunologic: Negative for environmental allergies. All other systems reviewed and are negative. PHYSICAL EXAM Vitals BP 126/82 (BP Location: Left arm, Patient Position: Sitting) Pulse 81 Ht 158.8 cm (5' 2.5 ) Wt 98 kg (216 lb) SpO2 96% BMI 38.88 kg/m?? Weight: 98 kg (216 lb) Height: 158.8 cm (5' 2.5 ) Body mass index is 38.88 kg/m??. Physical Exam Vitals reviewed. Constitutional: General: She is not in acute distress. Appearance: Normal appearance. She is well-developed. She is not diaphoretic. HENT: Head: Normocephalic and atraumatic. Right Ear: External ear normal. Left Ear: External ear normal. Nose: Nose normal. Mouth/Throat: Mouth: Mucous membranes are moist. Dentition: Normal dentition. Eyes: General: Lids are normal. No scleral icterus. Extraocular Movements: Extraocular movements intact. Conjunctiva/sclera: Conjunctivae normal. Neck: Thyroid: No thyromegaly. Vascular: Normal carotid pulses. No carotid bruit, hepatojugular reflux or JVD. Trachea: No tracheal deviation. Cardiovascular: Rate and Rhythm: Normal rate and regular rhythm. Pulses: Normal pulses and intact distal pulses. No decreased pulses. Heart sounds: Normal heart sounds, S1 normal and S2 normal. Heart sounds not distant. No murmur heard. No friction rub. No gallop. No S3 or S4 sounds. Pulmonary: Effort: Pulmonary effort is normal. No respiratory distress. Breath sounds: Normal breath sounds. No wheezing or rales. Chest: Chest wall: No tenderness. Abdominal: General: Bowel sounds are normal. There is no distension. Palpations: Abdomen is soft. There is no mass. Tenderness: There is no abdominal tenderness. There is no guarding or rebound. Musculoskeletal: General: No tenderness or deformity. Normal range of motion. Cervical back: Normal range of motion and neck supple. Right lower leg: No edema. Left lower leg: No edema. Lymphadenopathy: Cervical: No cervical adenopathy. Skin: General: Skin is warm and dry. Coloration: Skin is not pale. Findings: No ecchymosis, erythema, petechiae or rash. Nails: There is no clubbing. Neurological: General: No focal deficit present. Mental Status: She is alert and oriented to person, place, and time. Mental status is at baseline. Cranial Nerves: No cranial nerve deficit. Motor: No abnormal muscle tone. Coordination: Coordination normal. Psychiatric: Mood and Affect: Mood normal. Speech: Speech normal. Behavior: Behavior normal. Behavior is cooperative. Thought Content: Thought content normal. Judgment: Judgment normal. LABS AND OTHER DIAGNOSTIC TESTS 12/08/2022 CTA PE [facility]: Filling defects left upper lobe and left lower lobe segmental pulmonary arteries consistent with pulmonary embolism small thrombus burden. Mild bilateral peripheral interstitial infiltrates with interlobular septal thickening may represent chronic interstitial lung disease or mild edema. Mild atherosclerosis of the aorta and coronary arteries without evidence for aneurysm. 2D Echocardiogram Pending results I have personally reviewed and analyzed EKG, electronic medical record, and bloodwork/lipids. Joaquin Harrington MD, [facility] This note is dictated and transcribed using [employer] Direct Software. Vessel Scrapper Helper variancesmay occur. Despite proofreading, typographical errors may occur. documented in this encounter Plan of Treatment Not on file documented as of this encounter Procedures Procedure Name Priority Date/Time Associated Diagnosis Comments POCT LIPID PANEL Routine 02/26/2024 11:0 8 AM CDT Primary hypertension documented in this encounter Results * POCT lipid panel (02/26/2024 11:08 AM CDT) Cholesterol, POC 167 mg/dL Comment:GLU = 96 HDL, POC 72 mg/dL Triglycerides, POC 67 mg/dL LDL Cholesterol POC 82 mg/dL Chol/HDL Ratio, POC 1.1 Non-HDL Cholesterol, POC 95 mg/dL Cholesterol Total, POC 167 mg/dL Capillary blood 02/26/2024 1 1:08 AM CDT Mikey Harrington MD POINT OF CARE TEST ORDER ART Final Result documented in this encounter Visit Diagnoses Diagnosis Paroxysmal atrial fibrillation (CMS/HCC) (HCC)- Primary Atrial fibrillation Medication side effects Unspecified adverse effect of unspecified drug, medicinal and biological substance Primary hypertension Unspecified essential hypertension Chronic anticoagulation Encounter for long-term (current) use of anticoagulants documented in this encounter Discontinued Medications Medication Sig Discontinue Reason Start Date End Da te fluticasone furoate-vilanteroL (BREO ELLIPTA) 200-25 mcg/dose diskus inhaler Inhale 1 puff daily Rinse mouth with water after use. Do not swallow. Therapy completed 02/26/2024 documented as of this encounter Care Teams Lead Portfolio Manager Relationship Specialty Start Date End Date Sameer Hampton MD PCP - General Family Medicine 02/26/23 10/21/24 documented as of this encounter
--- OUTSIDE RECORDS SUMMARY | 2024-11-21 18:17 | XMS_ITS | Encounter Summary ---
Author Organization [facility] Healthcare Address [address] [place] [address] Care Team Providers Care Attic Fans Mechanic Name Role Phone No, Physician Primary Care Provider [phone] Reason for Visit * Reason Comments Atrial Fibrillation Hypertension 6 mo f/u Encounter Details Date Type Department Care Team (Latest Contact Info) Description 10/22/2024 9:15 AM 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 Office Visit [facility] Medical Group Cardiology [address] [place] [address] Berta Olivier MD [address] [address] Paroxysmal atrial fibrillation (CMS/HCC) (HCC) (Primary Dx); Primary hypertension; Chronic anticoagulation Social History Tobacco [...] on file Legal Sex Female 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 Gender Identity Not on file Sexual Orientation Not on file documented as of this encounter Last Filed Vital Signs Vital Sign Reading Time Taken Comments Blood Pressure 134/82 10/22/2024 9:11 AM 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 Pulse 82 10/22/2024 9:11 AM 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 Temperature - - Respiratory Rate - - Oxygen Saturation 98% 10/22/2024 9:11 AM 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 Inhaled Oxygen Concentration - - Weight 98 kg (216 lb) 10/22/2024 9:11 AM 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 Height 158.8 cm (5' 2.5 ) 10/22/2024 9:11 AM 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 Body Mass Index 38.88 10/22/2024 9:11 AM 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 documented in this encounter Progress Notes * Berta Olivier MD - 10/22/2024 9:15 AM CST CARDIOLOGY CLINIC NOTE CHIEF COMPLAINT / REASON FOR CONSULT: F/U HISTORY: Lyssa Viera is a 79 y.o. female with the following history: Paroxysmal atrial fibrillation. Diagnosed in December 2022, in setting of acute pulmonary embolism. Hypertension History of pulmonary embolism in December 2022 Chronic kidney disease Hypothyroidism Interim History: Transitioning care from Dr. Harrington. Since last visit, Clementine broke her tailbone, hasbeen having pain from that. Has fatigue, gaining weight. No palpitations. No alerts from her Apple Watch regarding AFIB. REVIEW OF SYSTEMS: GENERAL: As per HPI CVS: As per HPI PHYSICAL EXAMINATION: There were no vitals taken for this visit. GENERAL: Alert, in no distress HEAD: Normocephalic and atraumatic EYES: Extra ocular movement intact ENT: Unremarkable NECK: Supple with midline trachea CHEST: Clear to auscultation CARDIAC: Regular rate and rhythm, S1 S2 normal, no murmur, rub, heaves, thrills or gallops SKIN: Warm and dry NEURO: Alert and oriented x 3 CARDIAC IMAGING RESULTS REVIEW: No prior cardiovascular imaging available for review. ASSESSMENT/PLAN: Paroxysmal atrial fibrillation. Diagnosed in December 2022, in setting of acute pulmonary embolism. Given ongoing fatigue, will have her stop the Metoprolol and see if she notices any improvement from being off of beta vega. Continue Xarelto. Hypertension Continue Valsartan-HCTZ. Berta Olivier M.D., [facility] DING TANK TENDER HELPER documented in this encounter Plan of Treatment Not on file documented as of this encounter Visit Diagnoses Diagnosis Paroxysmal atrial fibrillation (CMS/HCC) (HCC)- Primary Atrial fibrillation Primary hypertension Unspecified essential hypertension Chronic anticoagulation Encounter for long-term (current) use of anticoagulants documented in this encounter Discontinued Medications Medication Sig Discontinue Reason Start Date End Da te metoprolol XL (TOPROL-XL) 25 mg extended release tablet TAKE 1 TABLET (25 MG TOTAL) BY MOUTH DAILY. Therapy completed 12/16/2023 10/22/2024 documented as of this encounter Care Teams Attic Fans Mechanic Relationship Specialty Start Date End Date No, Physician PCP - General 10/22/24 documented as of this encounter
--- OUTSIDE RECORDS SUMMARY | 2024-11-21 18:17 | XMS_ITS | Encounter Summary ---
Author Organization [facility] Address [address] [place] [address] Care Team Providers Care Rail Bender Name Role Phone Sameer Hampton MD Primary Care Provider [phone] Reason for Visit * Reason Onset Date Comments Pre Cert 10/14/2024 CPT 86169 Encounter Details Date Type Department Care Team (Late st Contact Info) Description 10/14/2024 Telephone [facility] [address] [place] [address] [address] [place] [address] Paulina Leyva MD [address] [place] [address] [address] [place] [address] Pre Cert (CPT 84471) Social History Tobacco Use Types Packs/Day Years [...] on file Legal Sex Female 3:32 AM FX ARTIST Gender Identity Not on file Sexual Orientation Not on file documented as of this encounter Miscellaneous Notes * Telephone Encounter - Gris Carias MA - 10/14/2024 11:49 AM FX ARTIST [phone] [employer] Spoke w/ Alfred Mancia, rep Claims that he has to transfer call to: [phone] (opt 3) Spoke w/ Issacc, intake rep Claims that CPT 73327: No Prior Auth Required Ref #: [id number] Thank you, Gris ARTIST documented in this encounter Plan of Treatment Not on file documented as of this encounter Visit Diagnoses Not on filedocumented in this encounter Care Teams Rail Bender Relationship Specialty Start Date End Date Sameer Hampton MD PCP - General Family Medicine 02/26/23 10/21/24 documented as of this encounter
--- OUTSIDE RECORDS SUMMARY | 2024-11-21 18:17 | XMS_ITS | Encounter Summary ---
Author Organization [facility] Healthcare Address [address] [place] [address] Care Team Providers Care Aluminum Siding Installer Name Role Phone No, Physician Primary Care Provider [phone] Encounter Details Date Type Department Care Team (Late st Contact Info) Description 11/02/2024 2:45 PM HEDIS REGISTERED NURSE RN Lab [facility] Medical Group Outpatient Lab at [address] [address] Hypothyroidism (acquired) (Primary Dx); Postmenopausal bleeding Social History Tobacco Use Types [...] when you are drinking? 1 or 2 11/27/202 4 Q3: How often do you have si x or more drinks on one occasion? Never 10/28/2024 PHQ-2 Answer Date Recorded PHQ-2 Total Score 0 09/07/2024 Comments No Sex and Gender Information Value Date Recorded Sex Assigned at Not on file Legal Sex Female 3:32 AM HEDIS REGISTERED NURSE RN Gender Identity Not on file Sexual Orientation Not on file documented as of this encounter Plan of Treatment Not on file documented as of this encounter Visit Diagnoses Diagnosis Hypothyroidism (acquired)- Primary Unspecified hypothyroidism Postmenopausal bleeding documented in this encounter Care Teams Aluminum Siding Installer Relationship Specialty Start Date End Date No, Physician PCP - General 10/22/24 documented as of this encounter
--- OUTSIDE RECORDS SUMMARY | 2024-11-21 18:17 | XMS_ITS | Encounter Summary ---
Author Organization [facility] Address [address] [place] [address] Care Team Providers Care Back End Developer Name Role Phone No, Physician Primary Care Provider [phone] Paulina Leyva MD Unavailable [phone] Encounter Details Date Type Department Care Team (Late st Contact Info) Description 10/28/2024 Telephone [facility] [address] [facility] [address] [place] [address] Paulina Leyva MD [address] [place] [address] Social History Tobacco Use Types Packs/Day [...] on file Legal Sex Female 3:32 AM PRINCIPAL QUALITY ENGINEER Gender Identity Not on file Sexual Orientation Not on file documented as of this encounter Miscellaneous Notes * Telephone Encounter - Gris Carias MA - 11/03/2024 2:35 PM PRINCIPAL QUALITY ENGINEER Received surgical clearance from Cardiology - scanned into media & attached to encounter Dr Autumn MENDOZA Thank you Gris CIPAL QUALITY ENGINEER * Telephone Encounter - Gris Carias MA - 11/02/2024 1:46 PM PRINCIPAL QUALITY ENGINEER Received a VM from nurse Madhav w/ [facility] Cardiology: claims that Dr Olivier is out of the office today and returns in the morning. Will have completed and sent back tomorrow morning. Return call number if needed: [phone] Thank you Gris. CIPAL QUALITY ENGINEER * Telephone Encounter - Gris Carias MA - 11/02/2024 11:41 AM PRINCIPAL QUALITY ENGINEER Walked over and spoke w/ Cardiology in the [facility] office Claims that she will follow up with faxed request, aware that patient is scheduled 11/05. CIPAL QUALITY ENGINEER * Telephone Encounter - Gris Carias MA - 10/28/2024 2:17 PM PRINCIPAL QUALITY ENGINEER Completed letter and faxed Waiting for response CIPAL QUALITY ENGINEER * Telephone Encounter - Gris Carias MA - 10/28/2024 1:50 PM PRINCIPAL QUALITY ENGINEER Nighat ortizRamón pre arrival called into the office stating that they do not see a medical clearance from Cardiology. Claims that they need to know how long patient should hold Xarelto medication prior to her surgical procedure scheduled 11/05/2024. [id number] [facility] Cardiology - [facility] location Spoke w Josselyn Claims that she does not see where the patient discussed the [facility]. Requested to send a clearance letter form over to Dr Olivier at fax #: [phone] Olivier will review & sign off. Must include surgical date, type of procedure and medication name/ concern. CIPAL QUALITY ENGINEER documented in this encounter Plan of Treatment Not on file documented as of this encounter Visit Diagnoses Not on filedocumented in this encounter Care Teams Back End Developer Relationship Specialty Start Date End Date No, Physician PCP - General 10/22/24 Paulina Leyva MD [address] [place] [address] [id number] Consulting Physician Obstetrics and Gynecology 11/05/24 documented as of this encounter
--- OUTSIDE RECORDS SUMMARY | 2024-11-21 18:17 | XMS_ITS | Clinical Summary ---
Author Organization [facility] [address] [facility] [address] Address [address] [place] [address] Care Team Providers Care Property Economist Name Role Phone No, Physician Primary Care Provider [phone] Paulina Leyva MD Unavailable [phone] Allergies Active Allergy Reactions Criticality Noted Date [...] 1 tablet (50 mcg total) by mouth tin can feeder before breakfast Active rivaroxaban (XARELTO) 20 mg [...] 09/09/2023 Assessment & Plan (11/02/2024 2:29 PM INVESTIGATIVE ASSISTANT): Procedure reviewed along with risk, benefits and [...] proceed. Assessment & Plan (01/06/2024 10:48 AM INVESTIGATIVE ASSISTANT): To call if she has any more bleeding otherwise we will follow-up for complete exam in 1 year Assessment & Plan (09/30/2023 10:48 AM CDT): Options discussed She wants to watch and wait. If she bleeds again will go to OR Assessment & Plan (09/09/2023 2:20 PM CDT): [facility] I anticipate she will need an emb Well woman exam 09/09/2023 Overview (09/09/2023): Lab: Pap:s/p cryo and LEEP. Labs with pcp. S/p emb x 2 last 20 years ago. Job:2022 Colonoscopy: 2019- told not come back BMD:2021 Chronic fatigue 04/23/2023 Medication side effects 04/23/2023 Primary hypertension 01/29/2023 Paroxysmal atrial fibrillation (CMS/HCC) 023 Pulmonary embolus 01/29/2023 Hypothyroidism (acquired) 01/29/2023 Chronic anticoagulation 01/29/2023 Encounters Date Type Department Care Team Description 11/20/2024 2:30 PM INVESTIGATIVE ASSISTANT Office Visit [facility] Medical [facility] Cardiology [address] [place] [address] Paulina Mejia NP Paroxysmal atrial fibrillation (CMS/HCC) (HCC); New onset left bundle branch block (LBBB); Chronic fatigue 11/16/2024 Telephone [facility] [email or web address] [address] [facility] [address] [place] [address] Paulina Leyva MD 11/11/2024 Telephone [facility] Cardiology [address] [place] [address] Berta Olivier MD 11/11[facility]2024 [facility] [address] [facility] [address] [place] [address] Paulina Leyva MD follow up 11/05/2024 10:45 AM INVESTIGATIVE ASSISTANT - 11/05/2024 12:00 PM INVESTIGATIVE ASSISTANT Surgery [facility] Operating Room 1 [place] [address] Paulina Leyva MD HYSTEROSCOPY, DILATION AND CURETTAGE, MYOSURE POLYPECTOMY 11/05/2024 10:31 AM INVESTIGATIVE ASSISTANT Anesthesia Event [facility] [address] [place] [address] Ruben Mosley MD Reynolds, Ethan Emerson, MD 11/05/2024 9:15 AM INVESTIGATIVE ASSISTANT - 11/05/2024 1:40 PM INVESTIGATIVE ASSISTANT Hospital Encounter [facility] Operating [facility] [address] [place] [address] Paulina Leyva MD Postmenopausal bleeding Discharge Disposition: Discharge to home or self care 11/02/2024 2:47 PM INVESTIGATIVE ASSISTANT - 11/02/2024 11:59 PM INVESTIGATIVE ASSISTANT Hospital Encounter [address] [address] Postmenopausal bleeding; Pre-operative laboratory examination Discharge Disposition: Discharge to home or self care 11/02/2024 2:45 PM INVESTIGATIVE ASSISTANT Lab [facility] Outpatient Lab at [address] [phone] Hypothyroidism (acquired) (Primary Dx); Postmenopausal bleeding 11/02/2024 1:45 PM INVESTIGATIVE ASSISTANT Office Visit [facility] at [address] [address] Paulina Leyva MD Postmenopausal bleeding (Primary Dx) 11/02/2024 Telephone [facility] Cardiology [address] [facility] [address] [place] [phone] Berta Olivier MD 10/28/2024 Telephone Frank PA[facility] [address] [place] [address] [place] [phone] Paulina Leyva MD 10/22/2024 9:15 AM INVESTIGATIVE ASSISTANT Office Visit [facility] Cardiology [address] [facility] [address] [place] [phone] Berta Olivier MD Paroxysmal atrial fibrillation (CMS/HCC) (HCC) (Primary Dx); Primary hypertension; Chronic anticoagulation 10/14/2024 Telephone [facility] [address] [facility] [address] [place] [address] Paulina Leyva MD Pre Cert (CPT 18125) 09/10/2024 Telephone Frank K[facility]n [address] [facility] [address] [place] [address] Paulina Leyva MD Procedure Scheduling 09/07/2024 10:00 AM CDT Office Visit [facility] at [address] [phone] Paulina Leyva MD Postmenopausal bleeding (Primary Dx) 08/31/2024 10:30 AM CDT Ancillary Procedure Frank Kuhn [address] [place] [address] [address] [place] [address] Postmenopausal bleeding 08/28/2024 Telephone [facility] [employer] [address] [place] [address] Paulina Leyva MD bleeding (PMB) from Last 3 Months Surgical History Surgery Date Site/Laterality Comments LA LIG/TRNSXJ FLP TUBE ABDL/ VAG APPR UNI/BI Tubal Ligation - (Added by TW Conv) BREAST BIOPSY CYST REMOVAL TUBAL LIGATION COLONOSCOPY ESOPHAGOGASTRODUODENOSCOPY Medical History Medical History Date Comments Atrial fibrillation (CMS/HCC) (HCC) Chronic kidney disease Hypertension Thyroid disease GERD (gastroesophageal reflux disease) Arthritis Heart disease 12/2022 Asthma Hypothyroidism Family History Medical History Relation Name Comments Non-Hodgkin's Lymphoma Brother Famil y history of non-Hodgkin's lymphoma - (Added by TW Conv) Heart attack Father Gui Meeks Hypertension Father Gui Meeks Lung cancer Father Gui Meeks Family histor y of lung cancer - (Added by TW Conv) Breast cancer Mother Family history of malignant neoplasm of breast - (Added by TW Conv) Thyroid disease Mother No Known Problems Paternal Grandfather Ewings sarcoma [Other] Sister 1 Marti Arthritis Sister 2 Crystal Monreal Breast cancer Sister 2 Crystal Monreal x2 she was br ca 1&2 negative. 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 09/09/23 Relation Name Status Comments Brother Father Gui Meeks Mother Paternal Grandfather Sister 1 Marti Sister 2 Crystal Alvarados Son 1 Tomer Rosenberg (autism) Son 2 Tomer Rosenberg Social History Tobacco Use Types Packs/Day Years [...] on file Legal Sex Female 3:32 AM INVESTIGATIVE ASSISTANT Gender Identity Not on file Sexual Orientation Not on file Obstetrics History Para Term AB IAB SAB Ectopic Multiple Livin g Live Births 2 2 1 1 1 3 3 Date Outcome GA Total Labor Labor/2nd/3rd Weight Sex Type Anes PTL Lisa A1 A5 Name Clin 10/20 76 1.758 kg (3 lb 14 oz) M Vaginal None Living Complications:None 10/20 76 2.155 kg (4 lb 12 oz) M Vaginal None Living Complications:None 06/19 78 Term 2.92 kg (6 lb 7 oz) M Vaginal None Living Complications:None Last Filed Vital Signs Vital Sign Reading Time Taken Comments Blood Pressure 132/84 11/20/2024 2:33 PM INVESTIGATIVE ASSISTANT Pulse 89 11/20/2024 2:33 PM INVESTIGATIVE ASSISTANT Temperature 36.6 ??C (97.8 ??F) 11/05/2024 1:10 PM CS T Respiratory Rate 18 11/05/2024 1:10 PM INVESTIGATIVE ASSISTANT Oxygen Saturation 98% 11/20/2024 2:33 PM INVESTIGATIVE ASSISTANT Inhaled Oxygen Concentration - - Weight 98 kg (216 lb) 11/20/2024 2:33 PM INVESTIGATIVE ASSISTANT Height 157.5 cm (5' 2 ) 11/20/2024 2:33 PM INVESTIGATIVE ASSISTANT Body Mass Index 39.51 11/20/2024 2:33 PM INVESTIGATIVE ASSISTANT Plan of Treatment Health Maintenance Due Date Last Done Comments Hepatitis C Screening 1945 Osteoporosis Screening-Bone Density Scan 1945 DTaP/Tdap/Td Vaccine (1 - Tdap) 1956 Hepatitis B Screening 1963 Pneumococcal vaccine 65+ (1 of 1 - PCV) 2010 Well Visit 65+ 2010 Zoster Vaccine (2 of 2) 10/06/2019 08/11/2019, 06/05 Covid-19 Vaccine (2023-2 5 season) 2024 09/30/2023, 08/24/2022, 03/26/2022, Additional history exists Influenza Vaccine (#1) 2024 09/05/2023 Depression Screening 09/07/2025 09/07/2024 Fall Risk Assessment 09/10/2025 09/10/2024 Procedures Procedure Name Priority Date/Time Associated Diagnosis Comments ECG 12-LEAD Routine 11/20/2024 New onset left bundle branch block (LBBB) Paroxysmal atrial fibrillation (CMS/HCC) (HCC) SURGICAL PATHOLOGY Routine 11/05/2024 2: 57 PM INVESTIGATIVE ASSISTANT Postmenopausal bleeding LA AN ELECTIVE SUPRAGLOTTIC AIRWAY Routine 11/05/2024 10:47 AM INVESTIGATIVE ASSISTANT DILATION AND CURETTAGE/HYSTEROSCO PY 11/05/2024 10:16 AM INVESTIGATIVE ASSISTANT Postmenopausal bleeding ECG 12-LEAD STAT 11/05/2024 10:00 AM INVESTIGATIVE ASSISTANT ANTIBODY SCREEN STAT 11/05/2024 9:49 AM INVESTIGATIVE ASSISTANT ABO/RH STAT 11/05/2024 9:49 AM INVESTIGATIVE ASSISTANT POTASSIUM, WHOLE BLOOD STAT 11/05/2024 9:49 AM INVESTIGATIVE ASSISTANT TYPE AND SCREEN STAT 11/05/2024 9:49 AM INVESTIGATIVE ASSISTANT EGFR Routine 11/02/2024 2:47 PM INVESTIGATIVE ASSISTANT Postmenopausal bleeding Pre-operative laboratory examination DIFFERENTIAL AUTO Routine 11/02/2024 2:4 7 PM INVESTIGATIVE ASSISTANT Postmenopausal bleeding Pre-operative laboratory examination COMPREHENSIVE METABOLIC PANEL Routine 11/02/2024 2:47 PM INVESTIGATIVE ASSISTANT Postmenopausal bleeding Pre-operative laboratory examination URINALYSIS AND REFLEX TO MICROSCOPIC Routine 11/02/2024 2:47 PM INVESTIGATIVE ASSISTANT Postmenopausal bleeding Pre-operative laboratory examination TYPE AND SCREEN Timed 11/02/2024 2:47 PM INVESTIGATIVE ASSISTANT Postmenopausal bleeding Pre-operative laboratory examination CBC WITH AUTO DIFFERENTIAL Routine 11/02/2024 2:47 PM INVESTIGATIVE ASSISTANT Postmenopausal bleeding Pre-operative laboratory examination URINE CULTURE Routine 11/02/2024 2:47 PM INVESTIGATIVE ASSISTANT Postmenopausal bleeding Pre-operative laboratory examination US TRANSVAGINAL Schedule Routine, Read Routine (OP Routine) 08/31/2024 10:59 AM CDT Postmenopausal bleeding from Last 3 Months Results * ECG 12 lead (11/20/2024) 11/20/2024 Paulina Mejia NP ECG ORDERABLES Edited Re sult - Final * Surgical pathology (11/05/2024 2:57 PM INVESTIGATIVE ASSISTANT) Tissue (Endometrial curettings) 11/05/2024 11:08 AM INVESTIGATIVE ASSISTANT Narrative PATHOLOGY [facility] ([place]) - 11/09/2024 12:25 PM INVESTIGATIVE ASSISTANT EPIC results best viewed via link to PDF [facility] Department of Pathology [address] [place] [address] Note to Patients: This report may contain [...] Final Report Patient Name: ??LYSSA ROSENBERG Address: ??[address] [place] [address], ??[place], [place] ?? Gender: ??F : ??1945 (Age: 79) Service: ??Obstetrics Location: ??[facility] Hospital #: ??[id number] Patient Type: ??[facility] EP OP in bed Accession # ?[id number] Taken: ??11/05/2024 Received: ??11/05/2024 Accessioned: ??11/05/2024 Reported: [...] in a single formalin filled container labeled LYSSALisa ROSENBERG and endometrial curettings . ??It is an approximate 1.5 cc aggregate of multiple pink-hernández mucosal tissue fragments. ??All in one cassette. Rae Montoya, Adrianne., P.A./Daphney White M.D. REPORT IMAGES AND SCANNED DOCUMENTS, IF INCLUDED, ONLY VIEWABLE IN PDF VERSION OF REPORT The performance characteristics of some immunohistochemical stains, fluorescence in-situ hybridization tests and immunophenotyping by flow cytometry cited in this report (if any) were determined by the Surgical Pathology Department at [facility] as part of an ongoing quality control operator program and in compliance with federally mandated [...] characteristics determined by the Surgical Pathology Department [facility]. ??It has not been cleared or approved by the U. S. Food and Drug Administration. Note for decalcified specimens: This assay has not been validated on decalcified tissues. Results should be interpreted with caution given the possibility of false negativity on decalcified specimens Paulina Leyva MD LAB PATHOLOGY ORDER ART Final Result Performing Organization Address City/State/[facility] Co de Phone Number PATHOLOGY [facility] [address] [place] [address] * LA AN ELECTIVE SUPRAGLOTTIC AIRWAY (11/05/2024 10:47 AM INVESTIGATIVE ASSISTANT) Narrative Jason Ervin CRNA - 11/05/2024 10:47 AM INVESTIGATIVE ASSISTANT Jason Ervin CRNA ? 11/05/2024 10:47 AM Airway Patient location: OR Urgency: elective Indications for airway management: anesthesia and airway protection Difficult airway: no Staff: Placed by: EARTHMOVING LABOURER: Jason Ervin CRNA Emergent airway documentation: Risks [...] * ECG 12 lead (11/05/2024 10:00 AM INVESTIGATIVE ASSISTANT) 11/05/2024 10:0 0 AM INVESTIGATIVE ASSISTANT Narrative [facility] - 11/05/2024 10:17 AM INVESTIGATIVE ASSISTANT Vent Rate: 69 bpm RR Interval: 859 msec LA Interval: 177 msec QRS Duration: 169 msec QT Interval: 454 msec QTC Interval: 474 msec P-R-T Ivor: 28 - -24 - 122 degrees IMPRESSION: SINUS RHYTHM LEFT BUNDLE BRANCH BLOCK ??[120+ ms QRS DURATION, 80+ ms Q/S IN V1/V2, 85+ ms R IN I/aVL/V5/V6] ABNORMAL ECG Electronically Signed By: Mauri Sanches MD Archie Riggins MD ECG ORDERABLES Final Result Performing Organization Address City/[facility]/ZIP Co de Phone Number [facility] [employer] [facility] * Potassium, whole blood (11/05/2024 9:49 AM INVESTIGATIVE ASSISTANT) Potassium, bld 4.0 3.3 - 4.9 mmol/L Comment: Interpretive Data This method is not able to assess for hemolysis, which may falsely increase potassium concentrations. If further testing is needed to evaluate this result, consider in-laboratory plasma potassium. Current Interpretive Data was last revised on 2022. Blood 11/05/2024 9:49 AM INVESTIGATIVE ASSISTANT 11/05/2024 9:59 AM INVESTIGATIVE ASSISTANT Archie Riggins MD LAB BLOOD ORDERABLES F inal Result [facility] ([place]) [address] [facility] Department [place] [address] * ABO/Rh (11/05/2024 9:49 AM INVESTIGATIVE ASSISTANT) Pathologist [facility] ABO/Rh O Positive Blood 11/05/2024 9:49 AM INVESTIGATIVE ASSISTANT 11/05/2024 9:59 AM INVESTIGATIVE ASSISTANT Narrative [facility] ([place]) - 11/05/2024 11:05 AM INVESTIGATIVE ASSISTANT Has the patient had Daratumumab or Isatuximab in the past 6 months?->Unknown Paulina Leyva MD LAB BLOOD BANK TEST ORDERABLES Final Result [facility] ([place]) [address] [facility] [place] [address] * Antibody screen (11/05/2024 9:49 AM INVESTIGATIVE ASSISTANT) Pathologist [facility] Jayne, indirect, Gel Interpretation Negative ABSC Blood 11/05/2024 9:49 AM INVESTIGATIVE ASSISTANT 11/05/2024 9:59 AM INVESTIGATIVE ASSISTANT Narrative [facility] ([place]) - 11/05/2024 11:05 AM INVESTIGATIVE ASSISTANT Has the patient had Daratumumab or Isatuximab in the past 6 months?->Unknown Paulina Leyva MD LAB BLOOD BANK TEST ORDERABLES Final Result Performing Organization Address City/[facility] Co de Phone Number [facility] ([place]) 1 [facility] [place] [address] * (ABNORMAL) eGFR (11/02/2024 2:47 PM INVESTIGATIVE ASSISTANT) Pathologist [facility] eGFR 55(L) >=60 mL/min/1. 73 m2 Comment: [...] last reviewed 2021. Blood 11/02/2024 2:47 PM INVESTIGATIVE ASSISTANT 11/02/2024 8:35 PM INVESTIGATIVE ASSISTANT us Paulina Leyva MD LAB BLOOD ORDERABLE S Final Result [facility] [id number] [place] [address] * (ABNORMAL) Differential, auto (11/02/2024 2:47 PM INVESTIGATIVE ASSISTANT) Neutrophil abs 3.9 1.5 - 6.5 K/cumm Imm gran abs 0.0 0.0 - 0.1 K/cumm [facility] Lymphocyte abs 2.7 0.8 - 3.3 K/cumm [facility] Monocyte abs 0.9(H) 0.2 - 0.8 K/cumm [facility] Eosinophil abs 0.1 0.0 - 0.5 K/cumm [facility] Basophil abs 0.1 0.0 - 0.1 K/cumm [facility] Neutrophil pct 50.6 % [facility] Comment: Interpretive Data Percent cell count reference ranges are not reported, since discordance with absolute values may lead to misinterpretation of CBC data. Current Interpretive Data was last revised on 2018. Imm gran pct 0.3 % [facility] Comment: Interpretive Data Percent cell count reference ranges are not reported, since discordance with absolute values may lead to misinterpretation of CBC data. Current Interpretive Data was last revised on 2018. Lymphocyte pct 35.4 % [facility] Comment: Interpretive Data Percent cell count reference ranges are not reported, since discordance with absolute values may lead to misinterpretation of CBC data. Current Interpretive Data was last revised on 2018. Monocyte pct 11.8 % [facility] Comment: Interpretive Data Percent cell count reference ranges are not reported, since discordance with absolute values may lead to misinterpretation of CBC data. Current Interpretive Data was last revised on 2018. Eosinophil pct 1.2 % [facility] Comment: Interpretive Data Percent cell count reference ranges are not reported, since discordance with absolute values may lead to misinterpretation of CBC data. Current Interpretive Data was last revised on 2018. Basophil pct 0.7 % [facility] Comment: Interpretive Data Percent cell count reference ranges are not reported, since discordance with absolute values may lead to misinterpretation of CBC data. Current Interpretive Data was last revised on 2018. Blood 11/02/2024 2:47 PM INVESTIGATIVE ASSISTANT 11/02/2024 7:38 PM INVESTIGATIVE ASSISTANT us Paulina Leyva MD LAB BLOOD ORDERABLE S Final Result [facility] [address] Department [place] [address] * Urinalysis reflex to microscopic (11/02/2024 2:47 PM INVESTIGATIVE ASSISTANT) Color, ur Yellow Yellow Clarity, ur Clear Clear [facility] Specific gravity, ur 1.020 1.003 - 1.030 [facility] pH, urine 6.0 [facility] Comment: Interpretive Data ? Urine pH is affected by diet, medications, systemic acid-base disturbances, and renal tubular function. ??pH may affect urinary stone formation. ??For example, urine pH below 6.0 may help reduce the tendency for calcium phosphate stones and pH greater than 6.0 may reduce the tendency for uric acid stone formation. Source: [facility] [employer] Current Interpretive Data was last revised on [...] not met. [facility] Urine 11/02/2024 2:47 PM INVESTIGATIVE ASSISTANT 11/02/2024 7:38 PM INVESTIGATIVE ASSISTANT Paulina Leyva MD LAB URINE ORDERABLE S Final Result [facility] [address] Department [place] [address] * (ABNORMAL) CBC with auto differential (11/02/2024 2:47 PM INVESTIGATIVE ASSISTANT) WBC 7.6 3.8 - 9.9 K/cumm Hgb 13.5 11.9 - 15.5 g/dL [facility] CH Hct 42.9 35.6 - 45.5 % [facility] CH Plt 282 150 - 400 K/cumm [facility] MPV 9.6 9.1 - 12.3 fL [facility] RBC 4.32 3.90 - 5.20 M/cumm [facility] MCV 99.3(H) 81.3 - 96.4 fL [facility] MCH 31.3 27.1 - 33.3 pg [facility] MCHC 31.5(L) 32.3 - 35.7 g/dL [facility] RDW CV 13.3 11.1 - 14.9 % [facility] RDW SD 49.1(H) 35.7 - 48.1 fL [facility] NRBC abs 0.00 0.00 - 0.01 K/cumm [facility] Blood 11/02/2024 2:47 PM INVESTIGATIVE ASSISTANT 11/02/2024 7:38 PM INVESTIGATIVE ASSISTANT us Paulina Leyav MD LAB BLOOD ORDERABLE S Final Result Performing Organization Address [facility] Co de Phone Number [facility] [phone] Department [place] [address] * Type and screen (11/02/2024 2:47 PM INVESTIGATIVE ASSISTANT) Jayne, indirect Negative ABO Rh O Positive [facility] Blood 11/02/2024 2:47 PM INVESTIGATIVE ASSISTANT 11/02/2024 8:25 PM INVESTIGATIVE ASSISTANT Narrative [facility] - 11/02/2024 9:06 PM INVESTIGATIVE ASSISTANT Is this test being ordered in advance for a procedure?->Yes Expected date of procedure:->11/05/24 Has the patient been transfused in the past 3 months?->No Has the patient been in the past 3 months?->No Paulina Leyva MD LAB BLOOD BANK TEST ORDERABLES Final Result Performing Organization Address [facility] de Phone Number [facility] [phone] [place] [place] [place] [address] * Urine culture Urine, clean voided (11/02/2024 2:47 PM INVESTIGATIVE ASSISTANT) Report Final Report: Less than 100,000 colonies/mL (clinically insignificant growth based on current clinical standards) Comment:Testing performed by : [facility], [address] [place]., [address] Organism (CLINICALLY INSIGNIFICANT GROWTH [facility] Urine, clean voided 11/02/2024 2:47 PM INVESTIGATIVE ASSISTANT 11/02/2024 10:18 PM INVESTIGATIVE ASSISTANT Narrative [facility] - 11/04/2024 3:41 AM INVESTIGATIVE ASSISTANT Testing performed by [facility] Microbiology Laboratory ([phone]) Paulina Leyva MD LAB MICROBIOLOGY - GENERAL ORDERABLES Final Result Performing Organization Address [facility] Co de Phone Number [facility] [phone] Department [place] [place] [address] * (ABNORMAL) Comprehensive metabolic panel (11/02/2024 2:47 PM INVESTIGATIVE ASSISTANT) Sodium 135 135 - 145 mmol/L Potassium, pl 4.2 3.3 - 4.9 mmol/L [facility] Chloride 96(L) 97 - 110 mmol/L [facility] CO2 26 22 - 32 mmol/L [facility] Anion gap 13 2 - 15 mmol/L [facility] BUN 15 6 - 25 mg/dL [facility] Creatinine 1.03 0.60 - 1.10 mg/dL [facility] Glucose 95 70 - 199 mg/dL [facility] Comment: Interpretive Data Fasting glucose >/= 126 [...] Units/L [facility] Blood 11/02/2024 2:47 PM INVESTIGATIVE ASSISTANT 11/02/2024 7:38 PM INVESTIGATIVE ASSISTANT us Paulina Leyva MD LAB BLOOD ORDERABLE S Final Result [facility] [phone] [place] [address] * US Transvaginal (08/31/2024 10:59 AM [...] inal Result from Last 3 Months Insurance [facility] MEDICARE AETNA MEDICARE AETNA MEDICARE Care Teams Property Economist Relationship Specialty Start Date End Date No, Physician PCP - General 10/22/24 Paulina Leyva MD [address] [place] [address] [place] [address] Consulting Physician Obstetrics and Gynecology 11/05/24
--- OUTSIDE RECORDS SUMMARY | 2024-11-21 18:17 | XMS_ITS | Encounter Summary ---
Author Organization [facility]ly [facility] Address [address] [place] [address] Care Team Providers Care Cassandra Consultant Name Role Phone No, Physician Primary Care Provider [phone] Paulina Leyva MD Unavailable [phone] Reason for Visit * Auth/Cert (Routine) Specialty Diagnoses / Procedures Referred By Contac t Referred To Contact Diagnoses Postmenopausal bleeding Postmenopausal bleeding [N95.0] Procedures MS HYSTEROSCOPY BX ENDOMETRIUM&/POLYPC W/WO D&C HYSTEROSCOPY, DILATION AND CURETTAGE, MYOSURE POLYPECTOMY Referral ID Status Reason Start Date Expiration Date Visits Re quested Visits Authorized [id number] 1 1 Encounter Details Date Type Department Care Team (Late st Contact Info) Description 11/05/2024 10:45 AM LAWN MOWER OPERATOR - 11/05/2024 12:00 PM LAWN MOWER OPERATOR Surgery [facility] Operating Room [address] [place] [address] Paulina Leyva MD [address] [place] [id number] HYSTEROSCOPY, DILATION AND CURETTAGE, MYOSURE POLYPECTOMY Surgery Details Date/Time Status Location OR Service Patient Class Case Class Case Type Trauma Case? 11/05/2024 10:45 AM Posted [facility] OPERATING ROOM OR 01 Obstetrics / Gynecology Outpatient Elective Panel 1 Procedure LRB Anes Op Region Wound Class Comments HYSTEROSCOPY, DILATION AND CURETTAGE, MYOSURE POLYPECTOMY N/A General Vagina Class III - Contaminated Surgeon Surgeon Role Service Panel Paulina Leyva MD Primary Obstetrics / Gynecology 1 documented in this encounter Social History Tobacco [...] on file Legal Sex Female 3:32 AM LAWN MOWER OPERATOR Gender Identity Not on file Sexual Orientation Not on file documented as of this encounter Last Filed Vital Signs Vital Sign Reading Time Taken Comments Blood Pressure 168/81 11/05/2024 12:00 PM LAWN MOWER OPERATOR Pulse 64 11/05/2024 12:00 PM LAWN MOWER OPERATOR Temperature 36.6 ??C (97.8 ??F) 11/05/2024 1 1:18 AM LAWN MOWER OPERATOR Respiratory Rate 13 11/05/2024 12:0 0 PM LAWN MOWER OPERATOR Oxygen Saturation 97% 11/05/2024 12: 00 PM LAWN MOWER OPERATOR Inhaled Oxygen Concentration - - Weight 98.3 kg (216 lb 11.4 oz) 11/05/2024 9:34 AM LAWN MOWER OPERATOR Height 158.8 cm (5' 2.5 ) 11/05/2024 9:34 AM LAWN MOWER OPERATOR Body Mass Index 39.01 11/05/2024 9:34 AM LAWN MOWER OPERATOR documented in this encounter Discharge Instructions * Attachments The following attachments cannot be sent through Care Everywhere. * MyoSure Tissue Removal System (Discharge Care) (Libyan) * Ibuprofen (By mouth) (Libyan) * General Anesthesia (Discharge Care) (Libyan) documented in this encounter Medications at Time [...] 1 tablet (50 mcg total) by mouth icing and glaze maker before breakfast omeprazole (PriLOSEC) 20 mg capsule [...] AM CST History and Physical Subjective: Lyssa Viera is a 79 y.o. [...] MyoSure D&C. She has recently seen her crewman armoured personnel carrier [id number] in got cardiac clearance. No LMP recorded. Patient is postmenopausal. Past Medical History: Diagnosis Date Arthritis Asthma Atrial fibrillation (CMS/HCC) (HCC) Chronic kidney disease GERD (gastroesophageal reflux disease) Heart disease 12/2022 Hypertension Hypothyroidism Thyroid disease Past Surgical History: Procedure Laterality Date BREAST BIOPSY COLONOSCOPY CYST REMOVAL ESOPHAGOGASTRODUODENOSCOPY MS LIG/TRNSXJ FLP TUBE ABDL/VAG APPR UNI/BI Tubal Ligation - (Added by TW Conv) TUBAL LIGATION Prior to Admission medications Medication Sig Start Date End Date Taking? Authorizing Provider acetaminophen (TYLENOL) 500 mg tablet Take 1 tablet (500 mg total) by mouth every 6 (six) hours as needed Yes Susan Laecy MD calcium carbonate-vitamin D3 1,250mg (500mg elemental) [...] 1 tablet (50 mcg total) by mouth icing and glaze maker before breakfast Yes Susan Lacey MD omeprazole [...] nightly Patient not taking: Reported on 11/02/2024 Susan Lacey MD Allergies Allergen Reactions Erythromycin Rash Sulfa (Sulfonamide [...] Son Cancer Neg Hx no colon or library circulation clerk cancer cmt 09/09/23 Social History Tobacco Use [...] and desired to proceed. Paulina Leyva MD MOWER OPERATOR documented in this encounter Miscellaneous Notes * [...] To RR stable. Indications for Procedure: Lyssa Viera is a 79 y.o. year [...] was clear after finishing. Because I could notbe confident that I was putting the curette into the endometrial cavity and not the false passage or perforating curettage was not done. Tissue resected was sent to pathology. All instruments were removed and hemostasis was assured. The patient was transferred to the recovery room in good condition. She tolerated the procedure well. Paulina Leyva MD MOWER OPERATOR * Perioperative Nursing Note - Nighat Friend RN - 10/28/2024 2:05 PM CST Pre operative instructions reviewed with patient, she verbalized understanding. Instructed patient that she is to hold xarelto prior to procedure and will be notified of hold time after Dr Olivier confirms this. Gris from Dr Leyva aware to get clearance and xarelto hold time from Dr Olivier MOWER OPERATOR * Pre-Procedure Instructions - Nighat Friend RN - 10/28/2024 1:54 PM CST [phone] We are pleased that you and your doctor have chosen [facility] for your surgery. We hope that the [...] Take as prescribed Use no make-up, nail slovenian, lotions, oils or powders on your skin. [...] down the dwyer until you see the [employer], there will be elevators to the [...] posted at the top of the page. MOWER OPERATOR documented in this encounter Plan of Treatment Not on file documented as of this encounter Procedures Procedure Name Priority Date/Time Associated Diagnosis Comments SURGICAL PATHOLOGY Routine 11/05/2024 2: 57 PM LAWN MOWER OPERATOR Postmenopausal bleeding DILATION AND CURETTAGE/HYSTEROSC OPY 11/05/2024 10:16 AM LAWN MOWER OPERATOR Postmenopausal bleeding ECG 12-LEAD STAT 11/05/2024 10:00 AM LAWN MOWER OPERATOR POTASSIUM, WHOLE BLOOD STAT 11/05/2024 9:49 AM LAWN MOWER OPERATOR ABO/RH STAT 11/05/2024 9:49 AM LAWN MOWER OPERATOR ANTIBODY SCREEN STAT 11/05/2024 9:49 AM LAWN MOWER OPERATOR TYPE AND SCREEN STAT 11/05/2024 9:49 AM LAWN MOWER OPERATOR documented in this encounter Results * Surgical pathology (11/05/2024 2:57 PM LAWN MOWER OPERATOR) Tissue (Endometrial curettings) 11/05/2024 11:08 AM LAWN MOWER OPERATOR Narrative PATHOLOGY [facility] - 11/09/2024 12:25 PM LAWN MOWER OPERATOR EPIC results best viewed via link to PDF [facility] Department of Pathology [address] [place] [address] Note to Patients: This report may contain [...] the details. Final Report Patient Name: ??LYSSA VIERARamón Address: ??[address] [place] [address], ??[place], [place] ?? Gender: ??F : ??1945 (Age: 79) Service: ??Obstetrics Location: ??[facility] Hospital #: ??[id number] Patient Type: ??[facility] EP OP in bed Accession # ?[id number] Taken: ??11/05/2024 Received: ??11/05/2024 Accessioned: ??11/05/2024 Reported: [...] a single formalin filled container labeled LYSSA VIERA and endometrial curettings . ??It is an [...] determined by the Surgical Pathology Department at [facility] as part of an ongoing quality control tester program and in compliance with federally mandated [...] characteristics determined by the Surgical Pathology Department [facility]. ??It has not been cleared or approved by the U. S. Food and Drug Administration. Note for decalcified specimens: This assay has not been validated on decalcified tissues. Results should be interpreted with caution given the possibility of false negativity on decalcified specimens Paulina Leyva MD LAB PATHOLOGY ORDER ART Final Result Performing Organization Address [facility] Co de Phone Number PATHOLOGY [facility] [address] [place] [address] * ECG 12 lead (11/05/2024 10:00 AM LAWN MOWER OPERATOR) 11/05/2024 10:0 0 AM LAWN MOWER OPERATOR Narrative [facility] - 11/05/2024 10:17 AM LAWN MOWER OPERATOR Vent Rate: 69 bpm RR Interval: 859 msec MS Interval: 177 msec QRS Duration: 169 msec QT Interval: 454 msec QTC Interval: 474 msec P-R-T Hutchinson: 28 - -24 - 122 degrees IMPRESSION: SINUS RHYTHM LEFT BUNDLE BRANCH BLOCK ??[120+ ms QRS DURATION, 80+ ms Q/S IN V1/V2, 85+ ms R IN I/aVL/V5/V6] ABNORMAL ECG Electronically Signed By: Mauri Sanches MD Archie Riggins MD ECG ORDERABLES Final Result Performing Organization Address [facility] de Phone Number [facility] RateElert [facility] * Antibody screen (11/05/2024 9:49 AM LAWN MOWER OPERATOR) Jayne, indirect, Gel Interpretation Negative ABSC Blood 11/05/2024 9:49 AM LAWN MOWER OPERATOR 11/05/2024 9:59 AM LAWN MOWER OPERATOR Narrative [facility] - 11/05/2024 11:05 AM LAWN MOWER OPERATOR Has the patient had Daratumumab or Isatuximab in the past 6 months?->Unknown us Paulina Leyva MD LAB BLOOD BANK TEST ORDERABLES Final Result Performing Organization Address [facility] Co de Phone Number [facility] 1 [facility] Department [place] [address] * ABO/Rh (11/05/2024 9:49 AM LAWN MOWER OPERATOR) ABO/Rh O Positive Blood 11/05/2024 9:49 AM LAWN MOWER OPERATOR 11/05/2024 9:59 AM LAWN MOWER OPERATOR Narrative [facility] - 11/05/2024 11:05 AM LAWN MOWER OPERATOR Has the patient had Daratumumab or Isatuximab in the past 6 months?->Unknown Paulina Leyva MD LAB BLOOD BANK TEST ORDERABLES Final Result Performing Organization Address [facility]/ZIP Co de Phone Number [facility] ([place] [address] [place] [address] [place] [address] * Potassium, whole blood (11/05/2024 9:49 AM LAWN MOWER OPERATOR) Potassium, bld 4.0 3.3 - 4.9 mmol/L Comment: Interpretive Data This method is not able to assess for hemolysis, which may falsely increase potassium concentrations. If further testing is needed to evaluate this result, consider in-laboratory plasma potassium. Current Interpretive Data was last revised on 2022. Blood 11/05/2024 9:49 AM LAWN MOWER OPERATOR 11/05/2024 9:59 AM LAWN MOWER OPERATOR Archie Riggins MD LAB BLOOD ORDERABLES F inal Result Performing Organization Address [facility] Co de Phone Number [facility] [address] [place] [address] [place] [address] documented in this encounter Visit Diagnoses Diagnosis Postmenopausal bleeding- Primary Postmenopausal bleeding documented in this encounter Admitting Diagnoses Diagnosis [...] induction., Indications: PainIndications:Pain Given 11/05/2024 9:58 AM LAWN MOWER OPERATOR 1,000 mg fentaNYL (SUBLIMAZE) preservative free injection 25 mcg 25 mcg, intravenous, Every 10 min PRN, 1st line for pain, Starting on Laurel 11/05/24 at 1124, Phase I, Notify Anesthesiologist if total PACU dose reaches 100 mcg and pain score 5/10 or more., Indications: PainIndications:Pain Given 11/05/2024 11:39 AM LAWN MOWER OPERATOR 25 mcg Given 11/05/2024 11:29 AM LAWN MOWER OPERATOR 25 mcg ketorolac (TORADOL) 30 mg/mL injection 30 mg 30 mg, intravenous, Once, On Laurel 11/05/24 at 1215, For 1 dose, Phase I, For Adult IV push, administer over 15 seconds Given 11/05/2024 11:46 AM LAWN MOWER OPERATOR 30 mg sodium chloride 0.9% infusion 125 mL/hr, intravenous, Continuous, Starting on Laurel 11/05/24 at 1000, Pre-Op, May discontinue when discharge criteria met. New Bag 11/05/2024 10:39 AM LAWN MOWER OPERATOR sodium chloride 0.9% irrigation As needed, Starting on Laurel 11/05/24 at 1102, Intra-Op Given 11/05/2024 11:02 AM LAWN MOWER OPERATOR 1,000 mL Surgical Site documented in this encounter Active and Recently Administered Medications Times are shown in LAWN MOWER OPERATOR. Scheduled Medication Order 11/03/2024 11/04/2024 11/05/2024 acetaminophen [...] 30 mL/hr, intravenous, Continuous, Starting on Laurel 24 at 1000, Pre-Op 1000 (Due) sodium chloride 0.9% infusion 125 mL/hr, intravenous, Continuous, Starting on Laurel 11/05/24 at 1000, Pre-Op, May discontinue when discharge criteria met. 1039 (New Bag - Prov ider: Jason Ervin, JOSE ARMANDO)1841 (Due: Stopped) PRN Medication Order 11/03/2024 11/04/2024 [...] 04/2024 sodium chloride 0.9% infusion 2 11/05/2024 Diet Count Last Ordered Date First Orde [...] 11/05/2024 documented in this encounter Care Teams Cassandra Consultant Relationship Specialty Start Date End Date No, Physician PCP - General 10/22/24 Paulina Leyva MD 4 [facility] [address] [address] Consulting Physician Obstetrics and Gynecology 11/05/24 documented as of this encounter
--- OUTSIDE RECORDS SUMMARY | 2024-11-21 18:17 | XMS_ITS | Encounter Summary ---
Author Organization [facility] Address [address] [place] [address] Care Team Providers Care Director Of Social Media Marketing Name Role Phone No, Physician Primary Care Provider [phone] Paulina Leyva MD Unavailable [phone] Reason for Visit * Reason Onset Date Comments follow up 11/11/2024 Encounter Details Date Type Department Care Team (Late st Contact Info) Description 11/11/2024 Telephone [place] [employer] [facility] [address] [place] [address] Paulina Leyva MD [address] [place] [address] [address] [place] [address] follow up Social History Tobacco Use Types Packs/Day Years [...] on file Legal Sex Female 3:32 AM WASTE COTTON CLEANER Gender Identity Not on file Sexual Orientation Not on file documented as of this encounter Miscellaneous Notes * Telephone Encounter - Nina Zurita RN - 11/17/2024 3:43 PM CST Called and spoke with patient to check in. Patient states she was discharged yesterday from [place] at 10:30 am and laid around all day. She said the bleeding has slowed down and she is just spotting. She states that she is off her Xaralto and has a f/up appt. With Cardiology on . Patienthas a post op appt. With us on 11/23/2024. She said she is doing better and played Bridge all day today. She hasn't needed anything for pain. She said she will contact us if she needs us. INEZ Wood E COTTON CLEANER * Telephone Encounter - Nina Zurita RN - 11/11/2024 9:58 AM CST [phone] Patient called back to give update. Patient states from the surgery, she really isn't having pain, Maybe just a cramp here and there. Patient states that she is still bleeding and having to wear a pad. She isn't having to change the pad every hour, but when she does she would say 50% of the pad is saturated. She states she is on blood thinners, so not sure if it could be because of that. She did let me know that she ended up in the ER at [place] last night due to Afib. Patient states she has had Afib one other time and that was on Dec 082022. She states she was started on Xarelto and metoprolo at that time. At the time of the episode last night, patient states she was watchingTV and started having jaw pain. Patient says she wears an apple watch and HR was 150-170, so her called ambulance. Patient states she did stop the metoprolol due to extreme fatigue, but last night at the ER they started her back on it and she took 12.5 mg of metoprolol. Patient was discharged from [facility] [place] at 4 am and back home feeling better. Patient states she does see a shine worker and was calling their office this morning for a follow up appt. Patient states she also has an appt. With a NURSING ASSISTANT at her PCP's office on Saturday11/16/2024 for her wellness exam. I stated that I would let Dr. Leyva, know and also reminded her of her post op appt. With Dr. Leyva on 11/23/2024 at 1 pm. REJI Tejeda RN E COTTON CLEANER * Telephone Encounter - Nina Zurita RN - 11/11/2024 9:10 AM CST [phone] Called and left VM for patient stating I was calling to check in on her post surgery. I advised patient to call us back when she can to give us an update. INEZ Wood E COTTON CLEANER * Telephone Encounter - Nina Zurita RN - 11/11/2024 9:09 AM CST ----- Message from Paulina Leyva MD sent at 11/09/2024 1:26 PM WASTE COTTON CLEANER ----- Please call and see how she is doing. E COTTON CLEANER documented in this encounter Plan of Treatment Not on file documented as of this encounter Visit Diagnoses Not on filedocumented in this encounter Care Teams Director Of Social Media Marketing Relationship Specialty Start Date End Date No, Physician PCP - General 10/22/24 Paulina Leyva MD [address] [place] [address] DR GRIJALVA [address] [place] [id number] Consulting Physician Obstetrics and Gynecology 11/05/24 documented as of this encounter
--- OUTSIDE RECORDS SUMMARY | 2024-11-21 18:18 | XMS_ITS | Encounter Summary ---
Author Organization [facility] Address [address] [place] [address] Care Team Providers Care Food Service Tray Attendant Name Role Phone Tiki Park MD Primary Care Provider Reason for Referral * Diagnostic Imaging (Routine) - Closed Specialty Diagnoses / Procedures Referred By Kaleb taylor Referred To Contact Diagnoses Encounter for screening mammogram for malignant neoplasm of breast Procedures Screening Mammogram Bilateral W Adrián Screening Mammogram, Self [address] [address] Referral ID Status Reason Start Date Expiration Date Visits Re quested Visits Authorized [id number] Closed 12/28/2019 07/08/2021 1 1 Reason for Visit * Diagnostic Imaging (Routine) - Closed Specialty Diagnoses / Procedures Referred By Kaleb taylor Referred To Contact Diagnoses Encounter for screening mammogram for malignant neoplasm of breast Procedures Screening Mammogram Bilateral W Adrián Screening Mammogram, Self [address] [address] Referral ID Status Reason Start Date Expiration Date Visits Re quested Visits Authorized [id number] Closed 12/28/2019 07/08/2021 1 1 Encounter Details Date Type Department Care Team (Latest Contact Info) Description 02/09/2020 12:50 PM CDT - 02/09/2020 11:59 PM CDT Hospital Encounter [facility] [address] [address] Screening Mammogram, Self Encounter for screening mammogram for malignant neoplasm of breast Discharge Disposition: Discharge to home or self care Social History Tobacco Use Types Packs/Day Years Used Date Smoking Tobacco: Every Day Comments Unknown Sex and Gender Information Value Date Recorded Sex Assigned at Not on file Legal Sex Female 3:32 AM RN INFUSION Gender Identity Not on file Sexual Orientation Not on file documented as of this encounter Medications at Time of Discharge omeprazole (PriLOSEC) 20 mg capsule 2 capsules (40 mg total) 08/10/2015 psyllium, aspartame, SF (Metamucil Fiber Singles) 3.4 gram packet Take by mouth as directed 05/28/2018 traMADoL (ULTRAM) 50 mg tablet as needed 09/05/2012 documented as of this encounter Discharge Disposition Disposition Code Departure Means Destination Discharge to home or self care documented in this encounter Plan of Treatment Not on file documented as of this encounter Procedures Procedure Name Priority Date/Time Associated Diagnosis Comments SCREENING MAMMOGRAM BILATERAL W ADRIÁN Schedule Routine, Read Routine (OP Routine) 02/09/2020 1:04 PM CDT Encounter for screening mammogram for malignant neoplasm of breast documented in this encounter Results * Screening Mammogram Bilateral W Adrián (02/09/2020 1:04 PM CDT) Anatomical Region Laterality Modality Breast Bilateral Mammography Addenda Addendum by Richelle Cespedes MD on 02/11/2020 11:37 AM CDT ADDENDED REPORT 02/11/2020 at 11:37:47 Addendum: The present examination has been compared to prior imaging studies performed at [facility] on 12/18/2016 and 01/08/2018, and at [facility] at [place] [address] on 02/02/2019. Mammogram Findings: Finding 2: ??Upon further review, there is a round mass in the middle upper outer quadrant of the right breast. Impression: Finding 2: ??Mass in the right breast requires additional evaluation. Additional views are recommended. OVERALL FINAL ASSESSMENT: BI-RADS CATEGORY 0: ??Incomplete: ??Need additional imaging evaluation. THIS REPORT HAS BEEN ADDENDED Narrative 02/11/2020 11:36 AM CDT ORIGINAL REPORT Mammogram Technique: Bilateral Digital Breast Tomosynthesis, Bilateral C-view 2D Screening mammogram. ??Views obtained: ??bilateral craniocaudal and bilateral mediolateral oblique. ??Computer Aided Detection was performed. Mammogram Findings: The present examination has been compared to prior imaging studies performed at [facility] on 12/18/2016 and 01/08/2018, and at [place] [address] on 02/02/2019. There are scattered areas of fibroglandular density. Finding 1: ??There is no suspicious abnormality in either breast. Impression: Annual screening mammography is recommended. OVERALL FINAL ASSESSMENT: BI-RADS CATEGORY 1: ??Negative. Procedure Note Richelle Cespedes MD - 02/11/2020 ORIGINAL REPORT Mammogram Technique: Bilateral Digital Breast Tomosynthesis, Bilateral C-view 2D Screening mammogram. Views obtained: bilateral craniocaudal and bilateral mediolateral oblique. Computer Aided Detection was performed. Mammogram Findings: The present examination has been compared to prior imaging studies performed at [facility] on 12/18/2016 and 01/08/2018, and at [place] [address] on 02/02/2019. There are scattered areas of fibroglandular density. Finding 1: There is no suspicious abnormality in either breast. Impression: Annual screening mammography is recommended. OVERALL FINAL ASSESSMENT: BI-RADS CATEGORY 1: Negative. us Self Screening Mammogram IMG MAMMO PROCEDURES Ed ited Result - Final documented in this encounter Visit Diagnoses Diagnosis Encounter for screening mammogram for malignant neoplasm of breast documented in this encounter Care Teams Food Service Tray Attendant Relationship Specialty Start Date End Date Tiki Park MD [address] [place] [address] PCP - General 11/12/17 02/25/23 documented as of this encounter
--- OUTSIDE RECORDS SUMMARY | 2024-11-21 18:18 | XMS_ITS | Encounter Summary ---
Author Organization [facility] Facility Care Team Providers Care Photographic Processor Name Role Phone Unavailable Primary Care Provider Unavailabl e Encounter Details Date Type Department Care Team (Late st Contact Info) Description 12/13/2014 - 12/13/2014 11:59 PM EDUCATION INTERN [facility] MD [address] [place] [address] Other screening mammogram Social History Tobacco Use Types Packs/Day Years Used Date Smoking Tobacco: Every Day Comments Unknown Sex and Gender Information Value Date Recorded Sex Assigned at Not on file Legal Sex Female 3:32 AM EDUCATION INTERN Gender Identity Not on file Sexual Orientation Not on file documented as of this encounter Medications at Time of Discharge traMADoL (ULTRAM) 50 mg tablet as needed 09/05/2012 documented as of this encounter Plan of Treatment Not on file documented as of this encounter Procedures Procedure Name Priority Date/Time Associated Diagnosis Comments SCREENING MAMMOGRAM Routine 12/13/2014 1 0:29 AM EDUCATION INTERN documented in this encounter Results * Screening Mammogram (12/13/2014 10:29 AM EDUCATION INTERN) Anatomical Region Laterality Modality Breast N/A Mammography 12/13/2014 10:2 9 AM EDUCATION INTERN Narrative 12/14/2014 10:00 AM EDUCATION INTERN DORIS DAWKINS MD, PHD FINAL REPORT The radiology attending physician has personally reviewed this study, and has reviewed and/or edited this written report and agrees with it. ACC# ??Date Time ??Exam [id number] Dec 13, 2014 10:29:00 [facility] [id number] Bilateral Screen w Adrián ?? Technologist(s): Fatimah Cr; ; EXAMINATION: ??Mammogram Technique: Bilateral Bilateral Full-Field Digital Screening Mammogram and Digital Breast Tomosynthesis were performed. ??Views obtained: ??bilateral craniocaudal and bilateral mediolateral oblique. ??Computer Aided Detection of the 2D images was performed with Kadriana.3 version 9.3. Mammogram Findings: The present examination has been compared to prior imaging studies performed at [facility] on 11/19/2013, 11/18/2012 and 10/23/2011. There are scattered fibroglandular densities. There is no suspicious abnormality in either breast. IMPRESSION: ??Annual screening mammography is recommended. OVERALL FINAL ASSESSMENT: BI-RADS CATEGORY 1: ??Negative. Requested By: Dictated By: ?? DORIS DAWKINS MD, PHD ??on Dec 14 2014 10:00A This document has been electronically signed by: DORIS DAWKINS MD, PHD on Dec 14 2014 ??9:59A Procedure Note Provider, MD Susan - 03/21/2017 DORIS DAWKINS MD, PHD FINAL REPORT The radiology attending physician has personally reviewed this study, and has reviewed and/or edited this written report and agrees with it. ACC# Date Time Exam [id number] Dec 13, 2014 10:29:00 [facility] [id number] Bilateral Screen w Adrián Technologist(s): Fatimah Cr; ; EXAMINATION: Mammogram Technique: Bilateral Bilateral Full-Field Digital Screening Mammogram and Digital Breast Tomosynthesis were performed. Views obtained: bilateral craniocaudal and bilateral mediolateral oblique. Computer AidedDetection of the 2D images was performed with Clarimedix 1.3 version 9.3. Mammogram Findings: The present examination has been compared to prior imaging studies performed at [facility] on 11/19/2013, 11/18/2012 and 10/23/2011. There are scattered fibroglandular densities. There is no suspicious abnormality in either breast. IMPRESSION: Annual screening mammography is recommended. OVERALL FINAL ASSESSMENT: BI-RADS CATEGORY 1: Negative. Requested By: Dictated By: DORIS DAWKINS MD, PHD on Dec 14 2014 10:00A This document has been electronically signed by: DORIS DAWKINS MD, PHD on Dec 14 2014 9:59A Historical Provider MD ROBINS MAMMO PROCEDURES Shelley l Result documented in this encounter Visit Diagnoses Diagnosis Other screening mammogram documented in this encounter
--- OUTSIDE RECORDS SUMMARY | 2024-11-21 18:18 | XMS_ITS | Encounter Summary ---
Author Organization [facility] Healthcare Address [address] [place] [address] Care Team Providers Care Diamond Broker Name Role Phone Sameer Hampton MD Primary Care Provider [phone] Reason for Referral * Diagnostic Imaging (Routine) - Closed Specialty Diagnoses / Procedures Referred By Kaleb taylor Referred To Contact Diagnoses Postmenopausal bleeding Procedures US Transvaginal Paulina Leyva MD [address] GRIJ[place]VA [address] [place] [address] Phone: tel: Referral ID Status Reason Start Date Expiration Date Visits Re quested Visits Authorized [id number] Closed 09/09/2023 10/08/2024 1 1 Reason for Visit * Reason Comments Postmenopausal Bleeding Encounter Details Date Type Department Care Team (Late st Contact Info) Description 09/09/2023 2:00 PM CDT Office Visit [facility] at [address] [address] Paulina Leyva MD [address] [place] [address] DR GRIJALVA [address] [place] [address] Postmenopausal bleeding (Primary Dx); Well woman exam Social History Tobacco Use Types Packs/Day Years [...] drinks on one occasion? Never 09/09/2023 Comments Unknown Sex and Gender Information Value Date Recorded Sex Assigned at Not on file Legal Sex Female 3:32 AM PROGRAM ENGINEER Gender Identity Not on file Sexual Orientation Not on file documented as of this encounter Last Filed Vital Signs Vital Sign Reading Time Taken Comments Blood Pressure 136/88 09/09/2023 2:04 PM CDT Pulse - - Temperature - - Respiratory Rate - - Oxygen Saturation - - Inhaled Oxygen Concentration - - Weight 97.1 kg (214 lb) 09/09/2023 2:04 PM CDT Height - - Body Mass Index 38.52 08/27/2023 9:01 AM CDT documented in this encounter Progress Notes * Paulina Leyva MD - 09/09/2023 2:00 PM CDT Images from the original note were not included. Initial fresh work inspector visit Subjective: Pateint presents for: Postmenopausal Bleeding Lyssa Viera is a 78 y.o. year old female who presents for pmb She states she was in her usoh until she had some spotting on 08/25 and 08/26. Was at a conference and was doing a lot of sitting. No cramping. She doesn't think she can do another emb in the office. She is still on the xeralto. Will need to be for life. Lab: Pap:s/p cryo and LEEP. Labs with pcp. S/p emb x 2 last 20 years ago. Job:2022 Colonoscopy: 2019- told not come back BMD:2021 Gardasil: No LMP recorded. Menstrual History: No LMP recorded. Sexual History: OB History 2 Para 2 [...] lb 7 oz) M Vaginal None Living Review of Systemsno constipation or diarrhea. Knows she has hemorrhoids. Objective: BP 136/88 (BP Location: Left arm, Patient Position: Sitting) Wt 214 lb (97.1 kg) BMI 38.52 kg/m?? OBGyn Examwdwn female in nad Assessment and Plan: Diagnoses and all orders for this visit: Postmenopausal bleeding (Primary) Assessment & Plan: To usg I anticipate she will need an emb Well woman exam Recommended screenings and preventive care discussed: Breast cancer: Breast Self Exam encouraged. Pap deferred. cholesterol followed by PCP. and Return for pelvic usg for pbm then me after. . Paulina Leyva MD 09/09/2023 documented in this encounter Miscellaneous Notes * Assessment & Plan Note - Paulina Leyva MD - 09/09/2023 2:20 PM CDTAssociated Problem(s): Postmenopausal bleeding To usg I anticipate she will need an emb * Addendum Note - Sami Carias MA - 09/09/2023 2:00 PM CDTAddended by: SAMI CARIAS on: 09/09/2023 02:40 PM Modules accepted: Orders documented in this encounter Plan of Treatment Not on file documented as of this encounter Results * US Transvaginal (09/18/2023 11:01 AM CDT) Cul de Sac No free fluid visualized VIEWPOINT Endometrial Thickness 4.1 mm&millim eters VIEWPOINT Anatomical Region Laterality Modality Pelvis N/A Ultrasound 09/18/2023 10:4 9 AM CDT Impressions 09/30/2023 10:41 AM CDT 1. The uterus is normal size with a normal endometrial thickness. ?2. ??Normal-appearing ovaries. Narrative Procedure Note Paulina Leyva MD - 09/30/2023 IMPRESSION: 1. The uterus is normal size with a normal endometrial thickness. 2.Normal- appearing ovaries. us Paulina Leyva MD IMG US PROCEDURES F inal Result documented in this encounter Visit Diagnoses Diagnosis Postmenopausal bleeding- Primary Well woman exam Routine general medical examination at a health care facility Postmenopausal bleeding documented in this encounter Care Teams Diamond Broker Relationship Specialty Start Date End Date Sameer Hampton MD PCP - General Family Medicine 02/26/23 10/21/24 documented as of this encounter
--- OUTSIDE RECORDS SUMMARY | 2024-11-21 18:18 | XMS_ITS | Encounter Summary ---
Author Organization [facility] Address [address] [place] [address] Care Team Providers Care Brim Buster Name Role Phone Tiki Park MD Primary Care Provider [phone] Reason for Referral * Diagnostic Imaging (Routine) - Closed Specialty Diagnoses / Procedures Referred By Kaleb taylor Referred To Contact Diagnoses Encounter for screening mammogram for malignant neoplasm of breast Procedures Screening Mammogram Bilateral W Tiki Yeung MD Phone: tel: fax: [address] [address] Referral ID Status Reason Start Date Expiration Date Visits Re quested Visits Authorized [id number] Closed 12/04/2018 06/14/2020 1 1 IRATORY CARE INSTRUCTOR Reason for Visit * Diagnostic Imaging (Routine) - Closed Specialty Diagnoses / Procedures Referred By Kaleb taylor Referred To Contact Diagnoses Encounter for screening mammogram for malignant neoplasm of breast Procedures Screening Mammogram Bilateral W Tiki Yeung MD Phone: tel: fax: [address] [address] Referral ID Status Reason Start Date Expiration Date Visits Re quested Visits Authorized [id number] Closed 12/04/2018 06/14/2020 1 1 Encounter Details Date Type Department Care Team (Latest Contact Info) Description 02/02/2019 1:42 PM RESPIRATORY CARE INSTRUCTOR - 02/02/2019 11:59 PM RESPIRATORY CARE INSTRUCTOR Hospital Encounter [facility] [address] [facility] [address] [place] [address] Tiki Park MD [address] [place] [id number] Encounter for screening mammogram for malignant neoplasm of breast Discharge Disposition: Discharge to home or self care Social History Tobacco Use Types Packs/Day Years Used Date Smoking Tobacco: Every Day Comments Unknown Sex and Gender Information Value Date Recorded Sex Assigned at Not on file Legal Sex Female 3:32 AM RESPIRATORY CARE INSTRUCTOR Gender Identity Not on file Sexual Orientation [...] ADRIÁN Schedule Routine, Read Routine (OP Routine) 02/02/2019 1:49 PM RESPIRATORY CARE INSTRUCTOR Encounter for screening mammogram for malignant neoplasm of breast documented in this encounter Results * Screening Mammogram Bilateral W Adrián (02/02/2019 1:49 PM RESPIRATORY CARE INSTRUCTOR) Anatomical Region Laterality Modality Breast Bilateral Digital Radiogra phy Narrative 02/04/2019 3:30 PM RESPIRATORY CARE INSTRUCTOR Mammogram Technique: Bilateral Digital Breast Tomosynthesis, Bilateral C-view 2D Screening mammogram. ??Views obtained: ??bilateral craniocaudal and bilateral mediolateral oblique. ??Computer Aided Detection was performed. Mammogram Findings: The present examination has been compared to prior imaging studies performed at [facility] on 12/14/2015, 12/18/2016 and 01/08/2018. There are scattered areas of fibroglandular density. There is no suspicious abnormality in either breast. Impression: Annual screening mammography is recommended. OVERALL FINAL ASSESSMENT: BI-RADS CATEGORY 1: ??Negative. Procedure Note Aileen Jimenez MD - 02/04/2019 Mammogram Technique: Bilateral Digital Breast Tomosynthesis, Bilateral C-view 2D Screening mammogram. Views obtained: bilateral craniocaudal and bilateral mediolateral oblique. Computer Aided Detection was performed. Mammogram Findings: The present examination has been compared to prior imaging studies performed at [facility] on 12/14/2015, 12/18/2016 and 01/08/2018. There are scattered areas of fibroglandular density. There is no suspicious abnormality in either breast. Impression: Annual screening mammography is recommended. OVERALL FINAL ASSESSMENT: BI-RADS CATEGORY 1: Negative. Tiki Park MD IMG MAMMO PROCEDURES Final Resul t documented in this encounter Visit Diagnoses Diagnosis Encounter for screening mammogram for malignant neoplasm of breast documented in this encounter Care Teams Brim Buster Relationship Specialty Start Date End Date Tiki Park MD [address] [place] [address] PCP - General 11/12/17 02/25/23 documented as of this encounter
--- OUTSIDE RECORDS SUMMARY | 2024-11-21 18:18 | XMS_ITS | Encounter Summary ---
Author Organization [facility] Healthcare Address [address] [place] [address] Care Team Providers Care Digital Press Operator Name Role Phone Tiki Park MD Primary Care Provider [phone] Encounter Details Date Type Department Care Team (Latest Contact Info) Description 01/08/2018 10:52 AM SLD TEACHER - 01/08/2018 11:59 PM SLD TEACHER Hospital Encounter [facility] OP INTERIM [phone] Davina Bolden MD [address] [facility] [phone] [place] [address] Discharge Disposition: Discharge to home or self care Social History Tobacco Use Types Packs/Day Years Used Date Smoking Tobacco: Every Day Comments Unknown Sex and Gender Information Value Date Recorded Sex Assigned at Not on file Legal Sex Female 3:32 AM SLD TEACHER Gender Identity Not on file Sexual Orientation Not on file documented as of this encounter Medications at Time of Discharge omeprazole (PriLOSEC) 20 mg capsule 2 capsules (40 mg total) 08/10/2015 traMADoL (ULTRAM) 50 mg tablet as needed 09/05/2012 documented as of this encounter Discharge Disposition Disposition Code Departure Means Destination Discharge to home or self care documented in this encounter Plan of Treatment Not on file documented as of this encounter Procedures Procedure Name Priority Date/Time Associated Diagnosis Comments MAMMOGRAPHY, TOMOGRAPHY, BILATERAL Routine 01/08/2018 5:18 PM SLD TEACHER documented in this encounter Results * MAMMOGRAPHY, TOMOGRAPHY, BILATERAL (01/08/2018 5:18 PM SLD TEACHER) Anatomical Region Laterality Modality Breast Bilateral Mammography 01/08/2018 5:18 PM SLD TEACHER Narrative 01/13/2018 3:35 PM SLD TEACHER RUFINA MCINTYRE M.D. FINAL REPORT ACC# ??Date Time ??Exam [id number] Jan 08, 2018 11:18:00 [facility] [id number] Scr Mamm grace 2v w/DANTE ?? Technologist(s): Feli Klein; ; EXAMINATION: ??Mammogram Technique: Bilateral Digital Breast Tomosynthesis, Bilateral C-view 2D Screening mammogram. ??Views obtained: ??bilateral craniocaudal and bilateral mediolateral oblique. ??Computer Aided Detection was performed. Mammogram Findings: The present examination has been compared to prior imaging studies performed at [facility] on 12/14/2015 and 12/18/2016, and at [facility] at [place] [address] on 12/13/2014. There are scattered areas of fibroglandular density. There is no suspicious abnormality in either breast. IMPRESSION: ??Annual screening mammography is recommended. OVERALL FINAL ASSESSMENT: BI-RADS CATEGORY 1: ??Negative. Requested By: Davina Bolden ??Shyla ? Dictated By: ?? RUFINA MCINTYRE M.D. ??on Jan 13 2018 ??9:35A This document has been electronically signed by: RUFINA MCINTYRE M.D. on Jan 13 2018 ??9:35A [id number] MCINTYRE M.D. FINAL REPORT Attending: ??YUAN, ??DAVINA Requesting: ??Yuan, ??Davina Requesting Fax: ?? Attending Fax: ?? Attending ID: ??[id number] Requesting ID: ??[id number] Report To 1 ID: ??[id number] ? Report To 1 Name: ??, ?? Report To 1 FAX: ?? NextGen Order #: ?? Procedure Note Miscellaneous, Not In File - 01/13/2018 RUFINA MCINTYRE M.D. FINAL REPORT ACC# Date Time Exam [id number] Jan 08, 2018 11:18:00 [facility] [id number] Scr Mamm grace 2v w/DANTE Technologist(s): Feli Klein; ; EXAMINATION: Mammogram Technique: Bilateral Digital Breast Tomosynthesis, Bilateral C-view 2D Screening mammogram. Views obtained: bilateral craniocaudal and bilateral mediolateral oblique. Computer Aided Detection was performed. Mammogram Findings: The present examination has been compared to prior imaging studies performed at [facility] on 12/14/2015 and 12/18/2016, and at [facility] at [place] [address] on 12/13/2014. There are scattered areas of fibroglandular density. There is no suspicious abnormality in either breast. IMPRESSION: Annual screening mammography is recommended. OVERALL FINAL ASSESSMENT: BI-RADS CATEGORY 1: Negative. Requested By: Davina Bolden M.D. Dictated By: RUFINA MCINTYRE M.D. on Jan 13 2018 9:35A This document has been electronically signed by: RUFINA MCINTYRE M.D. on Jan 13 2018 9:35A [id number] MCINTYRE M.D. FINAL REPORT Attending: DAVINA BOLDEN Requesting: Davina Bolden Requesting Fax: Attending Fax: Attending ID: [id number] Requesting ID: [id number] Report To 1 ID: [id number] Report To 1 Name: , Report To 1 FAX: NextGen Order #: Davina Bolden MD IMG MAMMO PROCEDURES Final R esult documented in this encounter Visit Diagnoses Not on filedocumented in this encounter Care Teams Digital Press Operator Relationship Specialty Start Date End Date Tiki Park MD [address] [place] [address] PCP - General 11/12/17 02/25/23 documented as of this encounter
--- OUTSIDE RECORDS SUMMARY | 2024-11-21 18:18 | XMS_ITS | Encounter Summary ---
Author Organization [facility] Healthcare Address [address] [place] [address] Care Team Providers Care Pharmacy Buyer Name Role Phone Sameer Hampton MD Primary Care Provider [phone] Reason for Visit * Reason Comments Follow-up USG Encounter Details Date Type Department Care Team (Late st Contact Info) Description 09/30/2023 10:15 AM CDT Office Visit [facility] Women's Health Care at [address] [address] Paulina Leyva MD [address] [place] [address] Postmenopausal bleeding (Primary Dx) Social History Tobacco [...] on file Legal Sex Female 3:32 AM 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 Medical Cash Poster Visit Follow-up (USG) Subjective: Lyssa Viera is a 78 y.o. year old female who presents for f/u of her pmb. She has not had anymore. Options discussed. No LMP recorded. Patient is postmenopausal. Menstrual [...] oz) M Vaginal None Living Objective: BP 148/86 (BP Location: Left arm, Patient Position: Sitting) Pulse 99 Wt 214 lb (97.1 kg) BMI38.52 kg/m?? Physical Exam: Wdwn female in nad OBGyn Exam Assessment and Plan: Diagnoses and all orders for this visit: Postmenopausal bleeding (Primary) Assessment & Plan: Options discussed She wants to watch and wait. If she bleeds again will go to OR Return in about 3 months (around 12/31/2023) for f/u pmb. Paulina Leyva MD 09/30/2023 documented in this encounter Miscellaneous Notes * Assessment & Plan Note - Paulina Leyva MD - 09/30/2023 10:46 AM CDTAssociated Problem(s): Postmenopausal bleeding Options discussed She wants to watch and wait. If she bleeds again will go to OR documented in this encounter Plan of Treatment Not on file documented as of this encounter Visit Diagnoses Diagnosis Postmenopausal bleeding- Primary documented in this encounter Care Teams Pharmacy Buyer Relationship Specialty Start Date End Date Sameer Hampton MD PCP - General Family Medicine 02/26/23 10/21/24 documented as of this encounter
--- OUTSIDE RECORDS SUMMARY | 2024-11-21 18:18 | XMS_ITS | Encounter Summary ---
Author Organization [facility] Healthcare Address [address] [place] [address] Care Team Providers Care Installer Molding And Trim Name Role Phone Tiki Park MD Primary Care Provider [phone] Sameer Hampton MD Primary Care Provider [phone] Encounter Details Date Type Department Care Team (Late st Contact Info) Description 01/30/2023 Orders Only [facility] [address] [place] [address] Scanning, Provider Social History Tobacco Use Types Packs/Day Years Used Date Smoking Tobacco: Former Cigarettes Q uit: 1986 Humiliation, Afraid, Rape, and Kick questionnair e [...] on file Legal Sex Female 3:32 AM METAL STUD FRAMER Gender Identity Not on file Sexual Orientation Not on file documented as of this encounter Plan of Treatment Not on file documented as of this encounter Procedures Procedure Name Priority Date/Time Associated Diagnosis Comments SCAN - RADIOLOGY/IMAGING 01/30/2023 9:28 PM METAL STUD FRAMER documented in this encounter Results * SCAN - RADIOLOGY/IMAGING (01/30/2023 9:28 PM METAL STUD FRAMER) Anatomical Region Laterality Modality Other us Provider Scanning Edited Result - Final documented in this encounter Visit Diagnoses Not on filedocumented in this encounter Care Teams Installer Molding And Trim Relationship Specialty Start Date End Date Tiki Park MD [address] [place] [address] PCP - General 11/12/17 02/25/23 Sameer Hampton MD [address] [place] [address] PCP - General Family Medicine 02/26/23 10/21/24 documented as of this encounter
--- OUTSIDE RECORDS SUMMARY | 2024-11-21 18:18 | XMS_ITS | Encounter Summary ---
Author Organization [facility] Address [address] [place] [address] Care Team Providers Care Java Programming Professor Name Role Phone Tiki Park MD Primary Care Provider [phone] Reason for Referral * Diagnostic Imaging (Routine) - Closed Specialty Diagnoses / Procedures Referred By Kaleb taylor Referred To Contact Diagnoses Abnormal mammogram Procedures US Breast Right Limited Tiki Park MD [address] [place] [address] Phone: tel: fax: [address] [address] Referral ID Status Reason Start Date Expiration Date Visits Re quested Visits Authorized [id number] Closed 02/12/2020 08/23/2021 1 1 * Diagnostic Imaging (Routine) - Closed Specialty Diagnoses / Procedures Referred By Kaleb taylor Referred To Contact Diagnoses Abnormal mammogram Procedures Diagnostic Mammogram Right W Tiki Yeung MD [address] [place] [address] Phone: tel: fax: [facility] Referral ID Status Reason Start Date Expiration Date Visits Re quested Visits Authorized [id number] Closed 02/12/2020 08/23/2021 1 1 Reason for Visit * Diagnostic Imaging (Routine) - Closed Specialty Diagnoses / Procedures Referred By Kaleb taylor Referred To Contact Diagnoses Abnormal mammogram Procedures Diagnostic Mammogram Right W Adrián Tiki Park MD [address] [place] [address] Phone: tel: fax: [facility] Referral ID Status Reason Start Date Expiration Date Visits Re quested Visits Authorized [id number] Closed 02/12/2020 08/23/2021 1 1 Encounter Details Date Type Department Care Team (Latest Contact Info) Description 02/16/2020 1:38 PM CDT - 02/16/2020 11:59 PM CDT Hospital Encounter [facility] Breast Imaging 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 Gender Identity Not on file Sexual Orientation [...] Name Priority Date/Time Associated Diagnosis Comments US BREAST RIGHT LIMITED Schedule Routine, Read Routine (OP Routine) 02/16/2020 2:27 PM CDT Abnormal mammogram DIAGNOSTIC MAMMOGRAM RIGHT W ADRIÁN Schedule Routine, Read Routine (OP Routine) 02/16/2020 2:05 PM CDT Abnormal mammogram documented in this encounter Results * US Breast Right Limited (02/16/2020 2:27 PM CDT) Anatomical Region Laterality Modality Breast Right Ultrasound 02/16/2020 3:11 PM CDT Impressions 02/16/2020 4:05 PM CDT Isodense mass in the right breast at the 9 o'clock position is consistent with a simple cyst. OVERALL FINAL ASSESSMENT: BI-RADS Category 2: Benign. Annual screening mammography is recommended. Dictated by: Reggie Olivier The radiology attending physician has personally reviewed this study, and had reviewed and/or edited this written report and agrees with it. Electronically signed by: Richelle Cespedes M.D. Narrative 02/16/2020 4:05 PM CDT EXAMINATION: RIGHT UNILATERAL DIGITAL DIAGNOSTIC MAMMOGRAM AND DIGITAL BREAST TOMOSYNTHESIS; RIGHT BREAST SONOGRAM HISTORY: 74-year-old woman with right breast mass presenting for further evaluation with diagnostic mammography and subsequently ultrasound. COMPARISON: Multiple prior mammograms dating back to 11/18/2012 TECHNIQUE: ?? Full field digital mammographic views of the RIGHT breast were performed, including computer aided detection (CAD) and digital breast tomosynthesis (DBT). Directed ultrasound evaluation of the RIGHT breast was performed. BREAST PARENCHYMAL COMPOSITION: There are scattered areas of fibroglandular density. MAMMOGRAM FINDINGS: There is a partially obscured, partially circumscribed round isodense mass in the right breast at 9 o'clock position approximately 5 cm the nipple which does not efface with compression. ?? SONOGRAM FINDINGS: Ultrasound correlate for the mammographic abnormality is a 0.5 x 0.4 x 0.4 cm well-circumscribed, anechoic cyst with no internal vascularity and increased posterior enhancement. Procedure Note Richelle Cespedes MD - 02/16/2020 EXAMINATION: RIGHT UNILATERAL DIGITAL DIAGNOSTIC MAMMOGRAM AND DIGITAL BREAST TOMOSYNTHESIS; RIGHT BREAST SONOGRAM HISTORY: 74-year-old woman with right breast mass presenting for further evaluation with diagnostic mammography and subsequently ultrasound. COMPARISON: Multiple prior mammograms dating back to 11/18/2012 TECHNIQUE: Full field digital mammographic views of the RIGHT breast were performed, including computer aided detection (CAD) and digital breast tomosynthesis (DBT). Directed ultrasound evaluation of the RIGHT breast was performed. BREAST PARENCHYMAL COMPOSITION: There are scattered areas of fibroglandular density. MAMMOGRAM FINDINGS: There is a partially obscured, partially circumscribed round isodense mass in the right breast at 9 o'clock position approximately 5 cm the nipple which does not efface with compression. SONOGRAM FINDINGS: Ultrasound correlate for the mammographic abnormality is a 0.5 x 0.4 x 0.4 cm well-circumscribed, anechoic cyst with no internal vascularity and increased posterior enhancement. IMPRESSION: Isodense mass in the right breast at the 9 o'clock position is consistent with a simple cyst. OVERALL FINAL ASSESSMENT: BI-RADS Category 2: Benign. Annual screening mammography is recommended. Dictated by: Reggie Olivier The radiology attending physician has personally reviewed this study, and had reviewed and/or edited this written report and agrees with it. Electronically signed by: Richelle Cespedes M.D. us K Travis Park MD IMG MAMMO PROCEDURES Final Resul t * Diagnostic Mammogram Right W Adrián (02/16/2020 2:05 PM CDT) Anatomical Region Laterality Modality Breast Right Mammography 02/16/2020 3:11 PM CDT Impressions 02/16/2020 4:05 PM CDT Isodense mass in the right breast at the 9 o'clock position is consistent with a simple cyst. OVERALL FINAL ASSESSMENT: BI-RADS Category 2: Benign. Annual screening mammography is recommended. Dictated by: Reggie Olivier The radiology attending physician has personally reviewed this study, and had reviewed and/or edited this written report and agrees with it. Electronically signed by: Richelle Cespedes M.D. Narrative 02/16/2020 4:05 PM CDT EXAMINATION: RIGHT UNILATERAL DIGITAL DIAGNOSTIC MAMMOGRAM AND DIGITAL BREAST TOMOSYNTHESIS; RIGHT BREAST SONOGRAM HISTORY: 74-year-old woman with right breast mass presenting for further evaluation with diagnostic mammography and subsequently ultrasound. COMPARISON: Multiple prior mammograms dating back to 11/18/2012 TECHNIQUE: ?? Full field digital mammographic views of the RIGHT breast were performed, including computer aided detection (CAD) and digital breast tomosynthesis (DBT). Directed ultrasound evaluation of the RIGHT breast was performed. BREAST PARENCHYMAL COMPOSITION: There are scattered areas of fibroglandular density. MAMMOGRAM FINDINGS: There is a partially obscured, partially circumscribed round isodense mass in the right breast at 9 o'clock position approximately 5 cm the nipple which does not efface with compression. ?? SONOGRAM FINDINGS: Ultrasound correlate for the mammographic abnormality is a 0.5 x 0.4 x 0.4 cm well-circumscribed, anechoic cyst with no internal vascularity and increased posterior enhancement. Procedure Note Richelle Cespedes MD - 02/16/2020 EXAMINATION: RIGHT UNILATERAL DIGITAL DIAGNOSTIC MAMMOGRAM AND DIGITAL BREAST TOMOSYNTHESIS; RIGHT BREAST SONOGRAM HISTORY: 74-year-old woman with right breast mass presenting for further evaluation with diagnostic mammography and subsequently ultrasound. COMPARISON: Multiple prior mammograms dating back to 11/18/2012 TECHNIQUE: Full field digital mammographic views of the RIGHT breast were performed, including computer aided detection (CAD) and digital breast tomosynthesis (DBT). Directed ultrasound evaluation of the RIGHT breast was performed. BREAST PARENCHYMAL COMPOSITION: There are scattered areas of fibroglandular density. MAMMOGRAM FINDINGS: There is a partially obscured, partially circumscribed round isodense mass in the right breast at 9 o'clock position approximately 5 cm the nipple which does not efface with compression. SONOGRAM FINDINGS: Ultrasound correlate for the mammographic abnormality is a 0.5 x 0.4 x 0.4 cm well-circumscribed, anechoic cyst with no internal vascularity and increased posterior enhancement. IMPRESSION: Isodense mass in the right breast at the 9 o'clock position is consistent with a simple cyst. OVERALL FINAL ASSESSMENT: BI-RADS Category 2: Benign. Annual screening mammography is recommended. Dictated by: Reggie Olivier The radiology attending physician has personally reviewed this study, and had reviewed and/or edited this written report and agrees with it. Electronically signed by: Richelle Cespedes M.D. Tiki Park MD IMG MAMMO PROCEDURES Final Resul t documented in this encounter Visit Diagnoses Diagnosis Abnormal mammogram Abnormal mammogram, unspecified documented in this encounter Care Teams Java Programming Professor Relationship Specialty Start Date End Date Tiki Park MD [address] [place] [address] PCP - General 11/12/17 02/25/23 documented as of this encounter
--- OUTSIDE RECORDS SUMMARY | 2024-11-21 18:18 | XMS_ITS | Encounter Summary ---
Author Organization [facility] Address [address] [place] [address] Care Team Providers Care Casing Mixer Name Role Phone Sameer Hampton MD Primary Care Provider [phone] Reason for Visit * Reason Comments Follow-up 4 mo f/u Atrial Fibrillation Encounter Details Date Type Department Care Team (Latest Contact Info) Description 08/27/2023 9:00 AM CDT Office Visit [facility] Cardiology at [address] [place] [address] Mikey Harrington MD [address] [place] [address] Paroxysmal atrial fibrillation (CMS/HCC) (HCC) (Primary Dx); Primary hypertension; Medication side effects; Chronic fatigue; Chronic anticoagulation Social History Tobacco Use Types Packs/Day Years Used Date Smoking Tobacco: Former Cigarettes Q uit: 1986 Comments Unknown Sex and Gender Information Value Date Recorded Sex Assigned at Not on file 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 Gender Identity Not on file Sexual Orientation Not on file documented as of this encounter Last Filed Vital Signs Vital Sign Reading Time Taken Comments Blood Pressure 122/84 08/27/2023 9:01 AM CDT Pulse 87 08/27/2023 9:01 AM CDT Temperature - - Respiratory Rate - - Oxygen Saturation 94% 08/27/2023 9:01 AM CDT Inhaled Oxygen Concentration - - Weight 96.2 kg (212 lb) 08/27/2023 9:01 AM CDT Height 158.8 cm (5' 2.5 ) 08/27/2023 9:01 AM CDT Body Mass Index 38.16 08/27/2023 9:01 AM CDT documented in this encounter Progress Notes * Mikey Harrington MD - 08/27/2023 9:00 AM CDT Images from the original note were not included. DATE OF VISIT: 08/27/2023 CHIEF COMPLAINT Chief Complaint Patient presents with ??? Follow-up 4 mo f/u ??? Atrial Fibrillation ASSESSMENT Diagnoses and all orders for this visit: Paroxysmal atrial fibrillation (CMS/HCC) (HCC) (Primary) Primary hypertension Medication side effects Chronic fatigue Chronic anticoagulation PLAN/RECOMMENDATIONS Stable, paroxysmal isolated symptomatic A. Fib in setting of acute PE 12/2022. Continue current medical therapy and systemic anticoagulation for stroke risk reduction. CHADS2 Vasc score 3. -Continue Toprol-XL 25 mg daily. -Once again, she inquired about her fatigue and we discussed reduction to 12.5 mg daily to observe any improvement fatigue as medication side effect. She is not experiencing bradycardia and otherwiseappears to be tolerating medications well. She reports she has not had any recurrent episodes of AFib and no palpitations and is very pleased with this result. I have advsied her she may certainly reduce and observe. She now would like to reduce Toprol XL and see how she feels and monitor for AF recurrence on her Apple Watch. She was reminded of potential inc risk for AF recurrence balance of risk vs benefit. -continue Xarelto 20 mg at bedtime initially prescribed due to acute pulmonary embolism. Monitor for bleeding. If any falls, head injury or bleeding go to ER immediately. -notify the office with recurrent palpitations, AFib as noted. She was alerted by her Apple watch originally. BP controlled, goal <140/90mmHg. Monitor BP on routine basis. Call with readings. Continue consistent cardiovascular exercise, weight loss, medication compliance, and low-sodium diet. -continue Valsartan Hydrochlorothiazide 160/12.5 mg once daily. Lipids personally reviewed 01/29/23 LDL 96, fairly well controlled with goal LDL<100. Continue lifestyle modification and routine lipid monitoring. Will discuss next visit given evidence on CTA chest coronary and aortic atherosclerosis recommendation for statin therapy should be strongly considered with goal LDL < 70. We did not discuss this visit reassess. Lifestyle modification counseling performed. Encouraged consistent weight [...] or head injury go to ER immediately. Over 50% of this visit counseling A. [...] in [facility] referral by Mikey Harrington MD for my opinion regarding atrial fibrillation. [...] melena/BRBPR. 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 Tires with walking whereas she [...] SR. She had taken a cruiseto the [employer] in August but she forgot her compression [...] when exercising but not at other times. MEDICAL HISTORY Past Medical History: Diagnosis Date ??? Atrial fibrillation (CMS/HCC) (HCC) ??? Chronic kidney disease ??? Hypertension ??? Thyroid disease SOCIAL HISTORY reports that she quit smoking about 36 years ago. Her smoking use included cigarettes. She does nothave any smokeless tobacco history on file. She reports current drug use. Frequency: 7.00 times perweek. Drug: Alcohol. No alcohol history on file. FAMILY HISTORY family history includes Breast cancer in her mother and sister; Heart attack in her father; Lung cancer in her father; Non-Hodgkin's Lymphoma in her brother. MEDICATIONS HOME MEDICATIONS : acetaminophen (TYLENOL) 500 mg tablet calcium carbonate-vitamin D3 1,250mg (500mg elemental) - 5 mcg (200 units) per tablet cholecalciferol (VITAMIN D-3) 2000 unit tablet cyanocobalamin (Vitamin B-12) 100 mcg tablet fluticasone furoate-vilanteroL (BREO ELLIPTA) 200-25 mcg/dose diskus inhaler ketoconazole (NIZORAL) 2 % cream levothyroxine (SYNTHROID) 50 mcg tablet metoprolol XL (TOPROL-XL) 25 mg extended release tablet omeprazole (PriLOSEC) 20 mg capsule psyllium, aspartame, SF (Metamucil Fiber Singles) 3.4 gram packet rivaroxaban (XARELTO) 20 mg tablet traMADoL (ULTRAM) 50 mg tablet traZODone (DESYREL) 50 mg tablet valsartan-hydroCHLOROthiazide (DIOVAN-HCT) 160-12.5 mg per tablet ALLERGIES Allergies Allergen Reactions ??? Erythromycin Rash ??? Sulfa (Sulfonamide Antibiotics) Rash REVIEW OF SYSTEMS [...] and are negative. PHYSICAL EXAM Vitals BP 122/84 (BP Location: Right arm, Patient Position: Sitting) Pulse 87 Ht 158.8 cm (5' 2.5 ) Wt 96.2 kg (212 lb) SpO2 94% BMI 38.16 kg/m?? Weight: 96.2 kg (212 lb) Height: 158.8 cm (5' 2.5 ) Body mass index is 38.16 kg/m??. Physical Exam Vitals reviewed. Constitutional: General: [...] LABS AND OTHER DIAGNOSTIC TESTS 12/08/2022 CTA [facility]: Filling defects left upper lobe and [...] medical record, and bloodwork/lipids. Joaquin Harrington MD, [facility] This note is dictated and transcribed using [employer] Direct Software. Flight Director variancesmay occur. Despite proofreading, typographical errors may occur. documented in this encounter Plan of Treatment Not on file documented as of this encounter Visit Diagnoses Diagnosis Paroxysmal atrial fibrillation (CMS/HCC) (HCC)- Primary Atrial fibrillation Primary hypertension Unspecified essential hypertension Medication side effects Unspecified adverse effect of unspecified drug, medicinal and biological substance Chronic fatigue Other malaise and fatigue Chronic anticoagulation Encounter for long-term (current) use of anticoagulants documented in this encounter Care Teams Casing Mixer Relationship Specialty Start Date End Date Sameer Hampton MD PCP - General Family Medicine 02/26/23 10/21/24 documented as of this encounter
--- OUTSIDE RECORDS SUMMARY | 2024-11-21 18:18 | XMS_ITS | Encounter Summary ---
Author Organization [facility] Address [address] [place] [address] Care Team Providers Care Ward Secretary Name Role Phone Tiki Park MD Primary Care Provider [phone] Reason for Referral * Diagnostic Imaging (Routine) - Closed Specialty Diagnoses / Procedures Referred By Kaleb taylor Referred To Contact Diagnoses Encounter for screening mammogram for malignant neoplasm of breast Procedures Screening Mammogram Bilateral W Adrián Screening Mammogram, Self [address] [address] Referral ID Status Reason Start Date Expiration Date Visits Re quested Visits Authorized [id number] Closed 01/09/2021 02/08/2022 1 1 Reason for Visit * Diagnostic Imaging (Routine) - Closed Specialty Diagnoses / Procedures Referred By Kaleb taylor Referred To Contact Diagnoses Encounter for screening mammogram for malignant neoplasm of breast Procedures Screening Mammogram Bilateral W Adrián Screening Mammogram, Self [address] [address] Referral ID Status Reason Start Date Expiration Date Visits Re quested Visits Authorized [id number] Closed 01/09/2021 02/08/2022 1 1 Encounter Details Date Type Department Care Team (Latest Contact Info) Description 02/22/2021 10:15 AM CDT - 02/22/2021 11:59 PM CDT Hospital Encounter [facility] [address] [address] Screening Mammogram, Self Encounter for screening mammogram for malignant neoplasm of breast Discharge Disposition: Discharge to home or self care Social History Tobacco Use Types Packs/Day Years Used Date Smoking Tobacco: Every Day Comments Unknown Sex and Gender Information Value Date Recorded Sex Assigned at Not on file 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 ??Views obtained: ??bilateral craniocaudal and bilateral mediolateral oblique. ??Computer Aided Detection was performed. Mammogram Findings: The present examination has been compared to prior imaging studies performed at [facility] on 02/16/2020, and at [facility] on 02/02/2019 and 02/09/2020. There are scattered areas of fibroglandular density. There is no suspicious abnormality in either breast. Impression: There is no mammographic evidence of malignancy. Annual screening mammography is recommended. OVERALL FINAL ASSESSMENT: BI-RADS CATEGORY 1: ??Negative. Procedure Note Aileen Jimenez MD - 02/23/2021 Mammogram Technique: Bilateral Digital Breast Tomosynthesis, Bilateral C-view 2D Screening mammogram. Views obtained: bilateral craniocaudal and bilateral mediolateral oblique. Computer Aided Detection was performed. Mammogram Findings: The present examination has been compared to prior imaging studies performed at [facility] on 02/16/2020, and at [facility] on 02/02/2019 and 02/09/2020. There are scattered areas of fibroglandular density. There is no suspicious abnormality in either breast. Impression: There is no mammographic evidence of malignancy. Annual screening mammography is recommended. OVERALL FINAL ASSESSMENT: BI-RADS CATEGORY 1: Negative. us Self Screening Mammogram IMG MAMMO PROCEDURES Fi nal Result documented in this encounter Visit Diagnoses Diagnosis Encounter for screening mammogram for malignant neoplasm of breast documented in this encounter Care Teams Ward Secretary Relationship Specialty Start Date End Date Tiki Park MD [address] [place] [address] PCP - General 11/12/17 02/25/23 documented as of this encounter
--- OUTSIDE RECORDS SUMMARY | 2024-11-21 18:18 | XMS_ITS | Encounter Summary ---
Author Organization [facility] Facility Care Team Providers Care Dip Painter Name Role Phone Unavailable Primary Care Provider Unavailabl e Encounter Details Date Type Department Care Team (Late st Contact Info) Description 12/14/2015 - 12/14/2015 11:59 PM PUBLIC RECORDS OFFICER [facility] [address] [place] [address] Nighat Bolden MD [address] [place] [phone] [place] [address] Encounter for screening mammogram for malignant neoplasm of breast Social History Tobacco Use Types Packs/Day Years Used Date Smoking Tobacco: Every Day Comments Unknown Sex and Gender Information Value Date Recorded Sex Assigned at Not on file Legal Sex Female 3:32 AM PUBLIC RECORDS OFFICER Gender Identity Not on file Sexual Orientation [...] Priority Date/Time Associated Diagnosis Comments SCREENING MAMMOGRAM W ADRIÁN Routine 12/14/2015 1:32 PM PUBLIC RECORDS OFFICER documented in this encounter Results * Screening Mammogram W Adrián (12/14/2015 1:32 PM PUBLIC RECORDS OFFICER) Anatomical Region Laterality Modality Breast N/A Mammography 12/14/2015 1:32 PM PUBLIC RECORDS OFFICER Narrative 12/15/2015 10:15 AM PUBLIC RECORDS OFFICER RUFINA MCINTYRE M.D. FINAL REPORT ACC# ??Date Time ??Exam [id number] Dec 14, 2015 13:32:00 [facility] [id number] Bilateral screen w adrián ?? Technologist(s): Yecenia Winters; ; EXAMINATION: ??Mammogram Technique: Bilateral Full-Field Digital Screening Mammogram and Digital Breast Tomosynthesis were performed. ??Views obtained: ??bilateral craniocaudal and bilateral mediolateral oblique. ??Computer Aided Detection of the 2D images was performed with Hopscotch.3 version 9.3. Mammogram Findings: The present examination has been compared to prior imaging studies performed at [facility] on 11/19/2013 and 11/18/2012, and at [facility] [place] [address] on 12/13/2014. There are scattered areas of fibroglandular density. There is no suspicious abnormality in either breast. IMPRESSION: ??Annual screening mammography is recommended. OVERALL FINAL ASSESSMENT: BI-RADS CATEGORY 1: ??Negative. Requested By: Dictated By: ?? RUFINA MCINTYRE M.D. ??on Dec 15 2015 10:15A This document has been electronically signed by: RUFINA MCINTYRE M.D. on Dec 15 2015 10:15A [id number] Procedure Note Provider, MD Susan - 03/21/2017 RUFINA MCINTYRE M.D. FINAL REPORT ACC# Date Time Exam [id number] Dec 14, 2015 13:32:00 [facility] [id number] Bilateral screen w adrián Technologist(s): Yecenia Winters; ; EXAMINATION: Mammogram Technique: Bilateral Full-Field Digital Screening Mammogram and Digital Breast Tomosynthesis were performed. Views obtained: bilateral craniocaudaland bilateral mediolateral oblique. Computer Aided Detection of the 2Dimages was performed with Hopscotch.3 version 9.3. Mammogram Findings: The present examination has been compared to prior imaging studies performed at [facility] on 11/19/2013 and 11/18/2012, and at [facility] [place] [address] on 12/13/2014. There are scattered areas of fibroglandular density. There is no suspicious abnormality in either breast. IMPRESSION: Annual screening mammography is recommended. OVERALL FINAL ASSESSMENT: BI-RADS CATEGORY 1: Negative. Requested By: Dictated By: RUFINA MCINTYRE M.D. on Dec 15 2015 10:15A This document has been electronically signed by: RUFINA MCINTYRE M.D. on Dec 15 2015 10:15A [id number] us Historical Provider MD [facility]INS MAMMO PROCEDURES Shelely l Result documented in this encounter Visit Diagnoses Diagnosis Encounter for screening mammogram for malignant neoplasm of breast documented in this encounter
--- OUTSIDE RECORDS SUMMARY | 2024-11-21 18:18 | XMS_ITS | Encounter Summary ---
Author Organization [facility] Address [address] [place] [address] Care Team Providers Care Assessment Clinician Name Role Phone Tiki Park MD Primary Care Provider [phone] Reason for Referral * Diagnostic Imaging (Routine) - Closed Specialty Diagnoses / Procedures Referred By Contac t Referred To Contact Diagnoses Screening mammogram, encounter for Procedures Screening Mammogram Bilateral W Adrián Screening Mammogram, Self [facility] Referral ID Status Reason Start Date Expiration Date Visits Re quested Visits Authorized [id number] Closed 01/30/2022 03/01/2023 1 1 * Diagnostic Imaging (Routine) - Closed Specialty Diagnoses / Procedures Referred By Contac t Referred To Contact Diagnoses Screening mammogram, encounter for Procedures Screening Mammogram Bilateral W Adrián Screening Mammogram, Self [facility] Referral ID Status Reason Start Date Expiration Date Visits Re quested Visits Authorized [id number] Closed 01/30/2022 03/01/2023 1 1 RT ANALYST Reason for Visit * Diagnostic Imaging (Routine) - Closed Specialty Diagnoses / Procedures Referred By Contac t Referred To Contact Diagnoses Screening mammogram, encounter for Procedures Screening Mammogram Bilateral W Adrián Screening Mammogram, Self [facility] Referral ID Status Reason Start Date Expiration Date Visits Re quested Visits Authorized [id number] Closed 01/30/2022 03/01/2023 1 1 Encounter Details Date Type Department Care Team (Latest Contact Info) Description 03/21/2022 10:52 AM CDT - 03/21/2022 11:59 PM CDT Hospital Encounter [facility] [address] [place] [address] Screening Mammogram, Self Screening mammogram, encounter for Discharge Disposition: Discharge to home or self care Social History Tobacco Use Types Packs/Day Years Used Date Smoking Tobacco: Every Day Comments Unknown Sex and Gender Information Value Date Recorded Sex Assigned at Not on file Legal Sex Female 3:32 AM REPORT ANALYST Gender Identity Not on file Sexual [...] ADRIÁN Schedule Routine, Read Routine (OP Routine) 03/21/2022 11:01 AM CDT Screening mammogram, encounter for documented in this encounter Results * Screening Mammogram Bilateral W Adrián (03/21/2022 11:01 AM CDT) Anatomical Region Laterality Modality Breast Bilateral Mammography Narrative 03/22/2022 11:58 AM CDT Mammogram Technique: Bilateral Digital Breast Tomosynthesis, Bilateral C-view 2D Screening mammogram. ??Views obtained: ??bilateral craniocaudal and bilateral mediolateral oblique. ??Computer Aided Detection was performed. Mammogram Findings: The present examination has been compared to prior imaging studies performed at [facility] on 02/16/2020, and at [facility] on 02/09/2020 and 02/22/2021. There are scattered areas of fibroglandular density. There is no suspicious abnormality in either breast. Impression: There is no mammographic evidence of malignancy. Annual screening mammography is recommended. OVERALL FINAL ASSESSMENT: BI-RADS CATEGORY 1: ??Negative. Procedure Note Sia Moore MD - 03/22/2022 Mammogram Technique: Bilateral Digital Breast Tomosynthesis, Bilateral C-view 2D Screening mammogram. Views obtained: bilateral craniocaudal and bilateral mediolateral oblique. Computer Aided Detection was performed. Mammogram Findings: The present examination has been compared to prior imaging studies performed at [facility] on 02/16/2020, and at [facility] on 02/09/2020 and 02/22/2021. There are scattered areas of fibroglandular density. There is no suspicious abnormality in either breast. Impression: There is no mammographic evidence of malignancy. Annual screening mammography is recommended. OVERALL FINAL ASSESSMENT: BI-RADS CATEGORY 1: Negative. us Self Screening Mammogram IMG MAMMO PROCEDURES Fi nal Result documented in this encounter Visit Diagnoses Diagnosis Screening mammogram, encounter for documented in this encounter Care Teams Assessment Clinician Relationship Specialty Start Date End Date Tiki Park MD [address] [place] [address] PCP - General 11/12/17 02/25/23 documented as of this encounter
--- OUTSIDE RECORDS SUMMARY | 2024-11-21 18:18 | XMS_ITS | Encounter Summary ---
Author Organization [facility] Address [address] [place] [address] Care Team Providers Care Grader Green Meat Name Role Phone Sameer Hampton MD Primary Care Provider [phone] Reason for Visit * Reason Comments Follow-up 3 mo f/u Atrial Fibrillation Hypertension Encounter Details Date Type Department Care Team (Late st Contact Info) Description 04/23/2023 9:00 AM CDT Office Visit [facility] Cardiology at [address] [place] [address] Mikey Harrington MD [address] [address] [place] [address] Paroxysmal atrial fibrillation (CMS/HCC) (HCC) (Primary Dx); Primary hypertension; Medication side effects; Chronic fatigue; Chronic anticoagulation; Hypothyroidism (acquired) Social History Tobacco Use Types Packs/Day Years Used Date Smoking Tobacco: Former Cigarettes Q uit: 1986 Comments Unknown Sex and Gender Information Value Date Recorded Sex Assigned at Not on file Legal Sex Female 3:32 AM EVENT 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 Gender Identity Not on file Sexual Orientation Not on file documented as of this encounter Last Filed Vital Signs Vital Sign Reading Time Taken Comments Blood Pressure 118/76 04/23/2023 9:00 AM CDT Pulse 80 04/23/2023 9:00 AM CDT Temperature - - Respiratory Rate - - Oxygen Saturation 97% 04/23/2023 9:00 AM CDT Inhaled Oxygen Concentration - - Weight 97.6 kg (215 lb 3.2 oz) 04/23/2023 9:00 A M CDT Height 158.8 cm (5' 2.5 ) 04/23/2023 9:00 AM CDT Body Mass Index 38.73 04/23/2023 9:00 AM CDT documented in this encounter Progress Notes * Mikey Harrington MD - 04/23/2023 9:00 AM CDT Images from the original note were not included. DATE OF VISIT: 04/23/2023 CHIEF COMPLAINT Chief Complaint Patient presents with ??? Follow-up 3 mo f/u ??? Atrial Fibrillation ??? Hypertension ASSESSMENT Diagnoses and all orders for this visit: Paroxysmal atrial fibrillation (CMS/HCC) (HCC) (Primary) Primary hypertension Medication side effects Chronic fatigue Chronic anticoagulation Hypothyroidism (acquired) PLAN/RECOMMENDATIONS Stable, paroxysmal isolated symptomatic A. Fib in setting of acute PE 12/2022. Continue current medical therapy and systemic anticoagulation for stroke risk reduction. CHADS2 Vasc score 3. -Continue Toprol-XL 25 mg daily. Discussed reduction reduction to 12.5 mg daily to observe any improvement fatigue as medication side effect. She is not bradycardic and otherwise appears to be tolerating medications well. She reports she is not had any recurrent episodes of AFib and no palpitationsand is very pleased with this result. After lengthy discussion she decided she will stay on Toprol-XL and increase her activity as tolerated and call with any additional concerns. -continue Xarelto 20 mg at bedtime initially prescribed due to acute pulmonary embolism. Monitor for bleeding. If any falls, head injury or bleeding go to ER immediately. -notify the office with recurrent palpitations, AFib as noted. She was alerted by her [employer] originally. BP controled, goal <140/90mmHg. Monitor BP on routine basis. Call with readings. Continue consistent cardiovascular exercise, weight loss, medication compliance, and low-sodium diet. -continue Valsartan hydrochlorothiazide 160/12.5 mg once daily. Toprol-XL 25 mg daily. Lipids personally reviewed 01/29/23 LDL 96, fairly well controlled with goal LDL<100. Continue lifestyle modification and routine lipid monitoring. Will discuss next visit given evidence on CTA chest coronary and aortic atherosclerosis recommendation for statin therapy should be strongly considered with goal LDL < 70. We did not discuss this visit reassess. Lifestyle modification counseling performed. Weight loss, exercise, reduction in caloric intake. Discussed at length. She has orthotics in her shoes which are helping her significantly. She will observe tolerance with increased activity on a consistent basis and call with any concerns or issues. Thyroid managed by PCP. Continue levothyroxine 50 mcg daily. Recent left upper and lower lobe small pulmonary embolism with small clot burden seemingly unprovoked This is being managed by her PCP and patient mentions she was advised to remain on anticoagulation indefinitely for her pulmonary embolism which I think is reasonable given the concerning circumstances but she will remain on systemic anticoagulation for her history of atrial fibrillation nonetheless. If any falls, bleeding or head injury go to ER immediately. Over 50% of this visit counseling A. Fib, HTN, lipids, medications, lifestyle modification. Follow up in the office in 3 months or sooner as needed. Thank you for allowing me the privilege of participating in the care this very pleasant patient. Please do not hesitate to contact me with any additional questions or concerns. HPI Lyssa Viera is a 78 y.o. female with a PMHx of PAF, PE, CKD, HTN, hypothyroidism, seen in carrier clinic referral by Mikey Harrington MD for my [...] melena/BRBPR. 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 Tires with walking whereas she [...] SR. She had taken a cruiseto the [employer] in August but she forgot her compression [...] several times mainly due to her feet. MEDICAL HISTORY Past Medical History: Diagnosis Date [...] tablet valsartan-hydroCHLOROthiazide (DIOVAN-HCT) 160-12.5 mg per tablet folic acid (FOLVITE) 800 mcg tablet ALLERGIES Allergies Allergen Reactions ??? Erythromycin Rash ??? Sulfa (Sulfonamide Antibiotics) Rash REVIEW OF SYSTEMS Review of Systems Constitutional: Positive for malaise/fatigue and weight gain. Negative for decreased appetite, diaphoresis, fever and night sweats. HENT: Negative for hearing loss and nosebleeds. [...] and are negative. PHYSICAL EXAM Vitals BP 118/76 (BP Location: Right arm, Patient Position: Sitting) Pulse 80 Ht 158.8 cm (5' 2.5 ) Wt 97.6 kg (215 lb 3.2 oz) SpO2 97% BMI 38.73 kg/m?? Weight: 97.6 kg (215 lb 3.2 oz) Height: 158.8 cm (5' 2.5 ) Body mass index is 38.73 kg/m??. Physical Exam Vitals reviewed. Constitutional: General: She is not in acute distress. Appearance: Normal appearance. She is well-developed. She is not diaphoretic. Comments: Wearing a mask HENT: Head: Normocephalic and atraumatic. Right Ear: [...] LABS AND OTHER DIAGNOSTIC TESTS 12/08/2022 CTA [facility]: Filling defects left upper lobe and [...] medical record, and bloodwork/lipids. Joaquin Harrington MD, [facility] This note is dictated and transcribed using [employer] Direct Software. [employer] variancesmay occur. Despite proofreading, typographical errors may [...] Encounter for long-term (current) use of anticoagulants Hypothyroidism (acquired) Unspecified hypothyroidism documented in this encounter Discontinued Medications Medication Sig Discontinue Reason Start Date End Da te folic acid (FOLVITE) 800 mcg tablet 400 mcg Therapy completed 04/23/2023 documented as of this encounter Care Teams Grader Green Meat Relationship Specialty Start Date End Date Sameer Hampton MD PCP - General Family Medicine 02/26/23 10/21/24 documented as of this encounter
--- OUTSIDE RECORDS SUMMARY | 2024-11-21 18:18 | XMS_ITS | Encounter Summary ---
Author Organization [facility] Address [address] [place] [address] Care Team Providers Care Wire Transfer Clerk Name Role Phone Tiki Park MD Primary Care Provider [phone] Reason for Visit * Reason Comments New Patient Atrial Fibrillation * Consultation (Routine) - Closed Specialty Diagnoses / Procedures Referred By Contac t Referred To Contact Cardiology Diagnoses Atrial fibrillation, unspecified type (HCC) Other acute pulmonary embolism without acute cor pulmonale (HCC) Sameer Hampton MD Phone: tel: fax: [facility] Medical [facility] [address] [address] [address] [place] [address] Phone: tel: fax: Referral ID Status Reason Start Date Expiration Date V isits Requested Visits Authorized [id number] Closed Specialty Services Required 12/25/2022 05/31/2023 4 4 Encounter Details Date Type Department Care Team (Late st Contact Info) Description 01/29/2023 9:30 AM GRINDER DRESSER Office Visit [facility] Cardiology at [address] [place] [address] Mikey Harrington MD [address] [place] [id number] Paroxysmal atrial fibrillation (CMS/HCC) (HCC) (Primary Dx); Other acute pulmonary embolism without acute cor pulmonale (HCC); Primary hypertension; Hypothyroidism (acquired); Chronic anticoagulation; Lipid screening Social History Tobacco Use Types Packs/Day Years Used Date Smoking Tobacco: Former Cigarettes Q uit: 1986 Tobacco Cessation:Counseling Given: Not Answered Comments Unknown Sex and Gender Information Value Date Recorded Sex Assigned at Not on file Legal Sex Female 3:32 AM GRINDER DRESSER Gender Identity Not on file Sexual Orientation Not on file documented as of this encounter Last Filed Vital Signs Vital Sign Reading Time Taken Comments Blood Pressure 112/74 01/29/2023 9:39 AM GRINDER DRESSER Pulse 81 01/29/2023 9:39 AM GRINDER DRESSER Temperature - - Respiratory Rate - - Oxygen Saturation 98% 01/29/2023 9:39 AM GRINDER DRESSER Inhaled Oxygen Concentration - - Weight 96.5 kg (212 lb 11.2 oz) 01/29/2023 9:39 AM GRINDER DRESSER Height 158.8 cm (5' 2.5 ) 01/29/2023 9:39 AM GRINDER DRESSER Body Mass Index 38.28 01/29/2023 9:39 AM GRINDER DRESSER documented in this encounter Ordered Prescriptions Prescription Sig Dispense Quantity Refills Last Filled Start Date End Date metoprolol XL (TOPROL-XL) 25 mg extended release tablet Take 1 tablet (25 mg total) by mouth daily 30 tablet 11 01/29/2023 12/16/2023 documented in this encounter Progress Notes * Mikey Harrington MD - 01/29/2023 9:30 AM CST Images from the original note were not included. DATE OF VISIT: 01/29/2023 CHIEF COMPLAINT Chief Complaint Patient presents with ??? New Patient ??? Atrial Fibrillation ASSESSMENT Diagnoses and all orders for this visit: Paroxysmal atrial fibrillation (CMS/HCC) (HCC) (Primary) - Ambulatory referral to Cardiology - ECG 12 lead Other acute pulmonary embolism without acute cor pulmonale (HCC) - Ambulatory referral to Cardiology Primary hypertension Hypothyroidism (acquired) Chronic anticoagulation Lipid screening - POCT lipid panel Other orders - metoprolol XL (TOPROL-XL) 25 mg extended release tablet; Take 1 tablet (25 mg total) by mouth daily PLAN/RECOMMENDATIONS Stable, paroxysmal isolated symptomatic A. Fib in setting of acute PE 12/2022. Continue current medical therapy and systemic anticoagulation for stroke risk reduction. CHADS2 Vasc score 3. Discussed pathophysiology of atrial fibrillation, risk for embolic stroke versus bleeding complications. Systemic anticoagulation warranted. Discussed likelihood of recurrence of atrial fibrillation. Discussed options for medical management and goals of therapy. She is not currently on AV kaity blocking agents. Recommend Toprol-XL 25 mg daily to reduce risk for recurrence of AFib and controlled ventricular response if recurrences noted. Counseled on side effects, risks and benefits. All questions answered to her satisfaction. Notify the office immediately with any questions or concerns. She agrees. -continue Xarelto 20 mg at bedtime initially prescribed due to acute pulmonary embolism. Monitor for bleeding. If any falls, head injury or bleeding go to ER immediately. -notify the office with recurrent palpitations, AFib as noted. She was alerted by her Apple watch originally. BP controled, goal <140/90mmHg. Monitor BP on routine basis. Call with readings. Continue consistent cardiovascular exercise, weight loss, medication compliance, and low-sodium diet. -continue Valsartan hydrochlorothiazide 160/12.5 mg once daily. Lipids personally reviewed 01/29/23 LDL 96, fairly well controlled with goal LDL<100. Continue lifestyle modification and routine lipid monitoring. Will discuss next visit given evidence on CTA chest coronary and aortic atherosclerosis recommendation for statin therapy should be strongly considered with goal LDL < 70. Will also discuss risk versus benefits of aspirin 81 mg daily. Lifestyle modification counseling performed. Weight loss, exercise, reduction in caloric intake. Thyroid managed by PCP. Recent left upper and lower lobe small pulmonary embolism with small clot burden seemingly provokedwithout identifiable contribution concerning. We discussed this at length. This is being managed byher PCP and patient mentions she was advised to remain on anticoagulation indefinitely for her pulmonary embolism which I think is reasonable given the concerning circumstances. [facility]. Recommendation to follow. We discussed potential cardiac complications associated with pulmonary embolism in the life-threatening nature ofsuch thromboembolic events. She reports no DVT was noted on lower extremity venous Dopplers. Will review these results as well. -12 lead EKG today personally reviewed and discussed sinus rhythm can not rule out septal infarct age indeterminate nonspecific T-wave abnormality, wandering baseline artifact, borderline ECG 86 beats per minute [place] 166 milliseconds QRS 84 milliseconds QT corrected 419 milliseconds My total encounter time on 01/29/2023 was 62 minutes which was spent in the activities documented inthe note. This includes time spent prior to the visit and after the visit in direct care of the patient. This time does not include time spent in any separately reportable services. Over 50% of this visit counseling A. Fib, HTN, lipids, medications, lifestyle modification. Follow up in the office in 2-3 months or sooner as needed. Thank you for allowing me the privilege of participating in the care this very pleasant patient. Please do not hesitate to contact me with any additional questions or concerns. HPI Lyssa Viera is a 77 y.o. female with a PMHx of PAF, PE, CKD, HTN, hypothyroidism, seen in [facility] referral by Sameer Hampton MD for my [...] melena/BRBPR. 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 Tires with walking whereas she [...] SR. [place] she forgot her compression socks that trip so had first time ever edema bilateral equal no assoc CP or SOB and resolved upon returning, generally no edema. LE venous dopplers negative for DVT and Echo. Etiology of PE was unknown. Had a sleep study no LEESA but does not sleep well. Has GERD so elevates pillow. MEDICAL HISTORY Past Medical History: Diagnosis Date [...] furoate-vilanteroL (BREO ELLIPTA) 200-25 mcg/dose diskus inhaler folic acid (FOLVITE) 800 mcg tablet ketoconazole (NIZORAL) 2 % cream levothyroxine (SYNTHROID) 50 mcg tablet omeprazole (PriLOSEC) 20 mg capsule psyllium, aspartame, SF (Metamucil Fiber Singles) 3.4 gram packet rivaroxaban (XARELTO) 20 mg tablet traMADoL (ULTRAM) 50 mg tablet traZODone (DESYREL) 50 mg tablet valsartan-hydroCHLOROthiazide (DIOVAN-HCT) 160-12.5 mg per tablet metoprolol XL (TOPROL-XL) 25 mg extended release tablet ALLERGIES Allergies Allergen Reactions ??? Erythromycin Rash ??? Sulfa (Sulfonamide Antibiotics) Rash REVIEW OF SYSTEMS Review of Systems Constitutional: Negative for decreased appetite, diaphoresis, fever, malaise/fatigue and night sweats. HENT: Negative for hearing [...] rash and suspicious lesions. Musculoskeletal: Positive for joint pain. Negative for falls, muscle weakness [...] and are negative. PHYSICAL EXAM Vitals BP 112/74 (BP Location: Left arm, Patient Position: Sitting) Pulse 81 Ht 158.8 cm (5' 2.5 ) Wt 96.5 kg (212 lb 11.2 oz) SpO2 98% BMI 38.28 kg/m?? Weight: 96.5 kg (212 lb 11.2 oz) Height: 158.8 cm (5' 2.5 ) Body mass index is 38.28 kg/m??. Physical Exam Vitals reviewed. Constitutional: General: [...] LABS AND OTHER DIAGNOSTIC TESTS 12/08/2022 CTA [facility]: Filling defects left upper lobe and left [...] medical record, and bloodwork/lipids. Joaquin Harrington MD, [facility] This note is dictated and transcribed using CTSpace Direct Software. Astronaut Mission Specialist variancesmay occur. Despite proofreading, typographical errors may occur. DER DRESSER DER DRESSER documented in this encounter Plan of Treatment Not on file documented as of this encounter Procedures Procedure Name Priority Date/Time Associated Diagnosis Comments POCT LIPID PANEL Routine 01/29/2023 12:4 2 PM GRINDER DRESSER Lipid screening ECG 12-LEAD Routine 01/29/2023 Paroxysmal atrial fibrillation (CMS/HCC) (HCC) documented in this encounter Results * POCT lipid panel (01/29/2023 12:42 PM GRINDER DRESSER) Cholesterol, POC 186 mg/dL HDL, POC 81 mg/dL Triglycerides, POC 48 mg/dL LDL Cholesterol POC 96 mg/dL Chol/HDL Ratio, POC 2.3 Non-HDL Cholesterol, POC 105 mg/dL Cholesterol Total, POC 186 mg/dL Capillary blood 01/29/2023 1 2:42 PM GRINDER DRESSER us Mikey Harrington MD POINT OF CARE TEST ORDER ART Final Result * ECG 12 lead (01/29/2023) us Mikey Harrington MD ECG ORDERABLES Final Re sult documented in this encounter Visit Diagnoses Diagnosis Paroxysmal atrial fibrillation (CMS/HCC) (HCC)- Primary Atrial fibrillation Other acute pulmonary embolism without acute cor pulmonale (HCC) Primary hypertension Unspecified essential hypertension Hypothyroidism (acquired) Unspecified hypothyroidism Chronic anticoagulation Encounter for long-term (current) use of anticoagulants Lipid screening Screening for lipoid disorders documented in this encounter Historical Medications * This list may reflect changes made after this encounter. ketoconazole (NIZORAL) 2 % cream Apply topically daily rivaroxaban (XARELTO) 20 mg tablet Take 1 tablet (20 mg total) by mouth levothyroxine (SYNTHROID) 50 mcg tablet Take 1 tablet (50 mcg total) by mouth early childhood associate before breakfast valsartan-hydroC HLOROthiazide (DIOVAN-HCT) 160-12.5 mg per tablet Take 1 tablet by mouth daily psyllium, aspartame, SF (Metamucil Fiber Singles) 3.4 gram packet Take by mouth as directed 05/28/2018 omeprazole (PriLOSEC) 20 mg capsule 2 capsules (40 mg total) 08/10/2015 calcium carbonate-vitami n D3 1,250mg (500mg elemental) - 5 mcg (200 units) per tablet Take 1 tablet by mouth daily cyanocobalamin (Vitamin B-12) 100 mcg tablet Take 1 tablet (100 mcg total) by mouth daily cholecalciferol (VITAMIN D-3) 2000 unit tablet 0.5 tablets (1,000 Units total) acetaminophen (TYLENOL) 500 mg tablet Take 1 tablet (500 mg total) by mouth every 6 (six) hours as needed traZODone (DESYREL) 50 mg tablet Take 1 tablet (50 mg total) by mouth nightly traMADoL (ULTRAM) 50 mg tablet as needed 09/05/2012 fluticasone furoate-vilanter oL (BREO ELLIPTA) 200-25 mcg/dose diskus inhaler Inhale 1 puff daily Rinse mouth with water after use. Do not swallow. 4 folic acid (FOLVITE) 800 mcg tablet 400 mcg 3 added in this encounter Orders Outpatient Referral Count Last Ordered Date Fir st Ordered Date AMB REFERRAL TO CARDIOLOGY 1 01/29/2023 documented in this encounter Care Teams Wire Transfer Clerk Relationship Specialty Start Date End Date Tiki Park MD [address] [place] [address] PCP - General 11/12/17 02/25/23 documented as of this encounter
--- OUTSIDE RECORDS SUMMARY | 2024-11-21 18:18 | XMS_ITS | Encounter Summary ---
Author Organization [facility] Facility Care Team Providers Care Plumbing Warehouse Helper Name Role Phone Unavailable Primary Care Provider Unavailabl e Encounter Details Date Type Department Care Team (Late st Contact Info) Description 12/18/2016 1:13 PM COP - 12/18/2016 11:59 PM COP Hospital Encounter [facility] Tiki Park MD [address] [place] [address] Encounter for screening mammogram for malignant neoplasm of breast Social History Tobacco Use Types Packs/Day Years Used Date Smoking Tobacco: Every Day Comments Unknown Sex and Gender Information Value Date Recorded Sex Assigned at Not on file Legal Sex Female 3:32 AM COP Gender Identity Not on file Sexual Orientation [...] Date/Time Associated Diagnosis Comments SCREENING MAMMOGRAM Routine 12/18/2016 1 :47 PM COP documented in this encounter Results * Screening Mammogram (12/18/2016 1:47 PM COP) Anatomical Region Laterality Modality Breast N/A Mammography 12/18/2016 1:47 PM COP Narrative 12/20/2016 1:27 PM COP RUFINA CHAPMAN M.D. FINAL REPORT ACC# ??Date Time ??Exam [id number] Dec 18, 2016 13:47:00 [facility] [id number] [facility] Mamm grace 2v w/DANTE ?? Technologist(s): Viry Cabrera; Leyla Rutherford; EXAMINATION: ??Mammogram Technique: Bilateral Digital Breast Tomosynthesis, Bilateral C-view 2D. ??Views obtained: ??bilateral craniocaudal and bilateral mediolateral oblique. Computer Aided Detection was performed. Mammogram Findings: The present examination has been compared to prior imaging studies performed at [facility] on 11/19/2013 and 12/14/2015, and at [place] [address] on 12/13/2014. There are scattered areas of fibroglandular density. There is no suspicious abnormality in either breast. IMPRESSION: ??Annual screening mammography is recommended. OVERALL FINAL ASSESSMENT: BI-RADS CATEGORY 1: ??Negative. Requested By: Dictated By: ?? RUFINA CHAPMAN M.D. ??on Dec 20 2016 ??1:27P This document has been electronically signed by: RUFINA CHAPMAN M.D. on Dec 20 2016 ??1:27P [id number] Procedure Note Provider, MD Susan - 04/09/2017 RUFINA CHAPMAN M.D. FINAL REPORT ACC# Date Time Exam [id number] Dec 18, 2016 13:47:00 [facility] [id number] [facility] Mamm grace 2v w/DANTE Technologist(s): Viry Cabrera; Leyla Rutherford; EXAMINATION: Mammogram Technique: Bilateral Digital Breast Tomosynthesis, Bilateral C-view 2D. Views obtained: bilateral craniocaudal and bilateral mediolateral oblique. Computer Aided Detection was performed. Mammogram Findings: The present examination has been compared to prior imaging studies performed at [facility] on 11/19/2013 and 12/14/2015, and at [place] [address] on 12/13/2014. There are scattered areas of fibroglandular density. There is no suspicious abnormality in either breast. IMPRESSION: Annual screening mammography is recommended. OVERALL FINAL ASSESSMENT: BI-RADS CATEGORY 1: Negative. Requested By: Dictated By: RUFINA CHAPMAN M.D. on Dec 20 2016 1:27P This document has been electronically signed by: RUFINA CHAPMAN M.D. on Dec 20 2016 1:27P [id number] us Historical Provider MD [facility] Shelley l Result documented in this encounter Visit Diagnoses Diagnosis Encounter for screening mammogram for malignant neoplasm of breast documented in this encounter
--- OUTSIDE RECORDS SUMMARY | 2024-11-21 18:18 | XMS_ITS | Encounter Summary ---
Author Organization [facility] Facility Care Team Providers Care Igniter Assembler Name Role Phone Unavailable Primary Care Provider Unavailabl e Encounter Details Date Type Department Care Team (Late st Contact Info) Description 04/05/2014 - 04/05/2014 11:59 PM CDT Hospital Encounter [facility] Nighat Sifuentes MD [address] [facility] [address] [phone] [place] [address] Screening for malignant neoplasm of cervix; Satisfactory cervical smear but lacking transformation zone; Screening for HPV (human papillomavirus) Social History Tobacco Use Types Packs/Day Years Used Date Smoking Tobacco: Every Day Comments Unknown Sex and Gender Information Value Date Recorded Sex Assigned at Not on file Legal Sex Female 3:[address] Gender Identity Not on file Sexual Orientation Not on file documented as of this encounter Medications at Time of Discharge traMADoL (ULTRAM) 50 mg tablet as needed 09/05/2012 documented as of this encounter Plan of Treatment Not on file documented as of this encounter Procedures Procedure Name Priority Date/Time Associated Diagnosis Comments CYTOLOGY 04/05/2014 documented in this encounter Results * Cytology (04/05/2014) Narrative 04/05/2014 Ordered by an unspecified provider. us Historical Provider LAB CYTOLOGY ORDERABLES F inal Result documented in this encounter Visit Diagnoses Diagnosis Screening for malignant neoplasm of cervix Screening for malignant neoplasm of the cervix Satisfactory cervical smear but lacking transformation zone Screening for HPV (human papillomavirus) Special screening examination for human papillomavirus (HPV) documented in this encounter
--- OUTSIDE RECORDS SUMMARY | 2024-11-21 18:18 | XMS_ITS | Encounter Summary ---
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
--- OUTSIDE RECORDS SUMMARY | 2024-11-21 18:18 | XMS_ITS | Encounter Summary ---
Author Organization [facility] Facility Care Team Providers Care Loop Sewer Name Role Phone Unavailable Primary Care Provider Unavailabl e Encounter Details Date Type Department Care Team (Late st Contact Info) Description 11/19/2013 - 11/19/2013 11:59 PM PELLETIZER Hospital Encounter [facility] Nighat Sifuentes MD [address] [phone] [place] [address] Other screening mammogram Social History Tobacco Use Types Packs/Day Years Used Date Smoking Tobacco: Former Comments Unknown Sex and Gender Information Value Date Recorded Sex Assigned at Not on file Legal Sex Female 3:32 AM PELLETIZER Gender Identity Not on file Sexual Orientation Not on file documented as of this encounter Medications at Time of Discharge traMADoL (ULTRAM) 50 mg tablet as needed 09/05/2012 documented as of this encounter Plan of Treatment Not on file documented as of this encounter Procedures Procedure Name Priority Date/Time Associated Diagnosis Comments SCREENING MAMMOGRAM Routine 11/19/2013 1 0:50 AM PELLETIZER documented in this encounter Results * Screening Mammogram (11/19/2013 10:50 AM PELLETIZER) Anatomical Region Laterality Modality Breast N/A Mammography 11/19/2013 10:5 0 AM PELLETIZER Narrative 11/19/2013 3:32 PM PELLETIZER NELSON OROSCO M.D. FINAL REPORT ACC# ??Date Time ??Exam [id number] Nov 19, 2013 10:50:00 [facility] [id number] Screening Mamm Bilat ?? Technologist(s): Yecenia Winters; ; EXAMINATION: ??Mammogram Technique: Bilateral Full-Field Digital Screening Mammogram was performed. ??Views obtained: ??bilateral craniocaudal and bilateral mediolateral oblique. Computer Aided Detection was performed with [employer] 1.3 version 9.3. Mammogram Findings: The present examination has been compared to prior imaging studies performed at [facility] on 11/18/2012, 10/23/2011, 08/08/2010, 07/12/2009 and 06/07/2008. There are scattered fibroglandular densities. There is no suspicious abnormality in either breast. IMPRESSION: ??Annual screening mammography is recommended. OVERALL FINAL ASSESSMENT: BI-RADS CATEGORY 1: ??Negative. Requested By: Stefan Park ??M.D. Dictated By: ?? NELSON OROSCO M.D. ??on Nov 19 2013 ??3:32P This document has been electronically signed by: NELSON OROSCO M.D. on Nov 19 2013 11:39A Procedure Note Provider, MD Susan - 03/21/2017 NELSON OROSCO M.D. FINAL REPORT ACC# Date Time Exam [id number] Nov 19, 2013 10:50:00 [facility] [id number] Screening Mamm Bilat Technologist(s): Yecenia Winters; ; EXAMINATION: Mammogram Technique: Bilateral Full-Field Digital Screening Mammogram was performed. Views obtained: bilateral craniocaudal and bilateral mediolateral oblique. Computer Aided Detection was performed with [employer] 1.3 version 9.3. Mammogram Findings: The present examination has been compared to prior imaging studies performed at [facility] on 11/18/2012, 10/23/2011,08/08/2010, 07/12/2009 and 06/07/2008. There are scattered fibroglandular densities. There is no suspicious abnormality in either breast. IMPRESSION: Annual screening mammography is recommended. OVERALL FINAL ASSESSMENT: BI-RADS CATEGORY 1: Negative. Requested By: Stefan Park M.D. Dictated By: NELSON OROSCO M.D. on Nov 19 2013 3:32P This document has been electronically signed by: NELSON OROSCO M.D. on Nov 19 2013 11:39A Historical Provider MD [facility] Shelley l Result documented in this encounter Visit Diagnoses Diagnosis Other screening mammogram documented in this encounter
--- OUTSIDE RECORDS SUMMARY | 2024-11-21 18:18 | XMS_ITS | Encounter Summary ---
Author Organization [facility] Address [address] [place] [address] Care Team Providers Care Barn Manager Name Role Phone Sameer Hampton MD Primary Care Provider [phone] Reason for Visit * Reason Comments Vaginal Bleeding * Diagnostic Imaging (Routine) - Closed Specialty Diagnoses / Procedures Referred By Contac t Referred To Contact Diagnoses Postmenopausal bleeding Procedures US Transvaginal Paulina Leyva MD [address] [place] [address] [address] Phone: tel: Referral ID Status Reason Start Date Expiration Date Visits Re quested Visits Authorized [id number] Closed 09/09/2023 10/08/2024 1 1 Encounter Details Date Type Department Care Team (Latest Contact Info) Description 09/18/2023 10:30 AM CDT Ancillary Procedure [facility] [address] [place] [address] [address] [place] [id number] Postmenopausal bleeding Social History Tobacco Use Types [...] on file Legal 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 Gender Identity Not on file Sexual Orientation Not on file documented as of this encounter Plan of Treatment Not on file documented as of this encounter Procedures Procedure Name Priority Date/Time Associated Diagnosis Comments US TRANSVAGINAL Schedule Routine, Read Routine (OP Routine) 09/18/2023 11:01 AM CDT Postmenopausal bleeding documented in this encounter Results * US Transvaginal (09/18/2023 [...] bleeding documented in this encounter Care Teams Barn Manager Relationship Specialty Start Date End Date Sameer Hampton MD PCP - General Family Medicine 02/26/23 10/21/24 documented as of this encounter
--- OUTSIDE RECORDS SUMMARY | 2024-11-21 18:18 | XMS_ITS | Encounter Summary ---
Author Organization [facility] Address [address] [place] [address] Care Team Providers Care Bay Stocker Name Role Phone Sameer Hampton MD Primary Care Provider [phone] Reason for Referral * Diagnostic Imaging (Routine) - Closed Specialty Diagnoses / Procedures Referred By Contac t Referred To Contact Diagnoses Screening mammogram, encounter for Procedures Screening Mammogram Bilateral W Adrián Screening Mammogram, [facility] Referral ID Status Reason Start Date Expiration Date Visits Re quested Visits Authorized [id number] Closed 02/26/2023 03/27/2024 1 1 * Diagnostic Imaging (Routine) - Closed Specialty Diagnoses / Procedures Referred By Contac t Referred To Contact Diagnoses Screening mammogram, encounter for Procedures Screening Mammogram Bilateral W Adrián Screening Mammogram, [facility] Referral ID Status Reason Start Date Expiration Date Visits Re quested Visits Authorized [id number] Closed 02/26/2023 03/27/2024 1 1 Reason for Visit * Diagnostic Imaging (Routine) - Closed Specialty Diagnoses / Procedures Referred By Contac t Referred To Contact Diagnoses Screening mammogram, encounter for Procedures Screening Mammogram Bilateral W Adrián Screening Mammogram, [facility] Referral ID Status Reason Start Date Expiration Date Visits Re quested Visits Authorized [id number] Closed 02/26/2023 03/27/2024 1 1 Encounter Details Date Type Department Care Team (Latest Contact Info) Description 04/11/2023 1:30 PM CDT - 04/11/2023 11:59 PM CDT Hospital Encounter [facility] 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 Do not swallow. 4 folic acid (FOLVITE) 800 mcg tablet 400 mcg 3 metoprolol XL (TOPROL-XL) 25 mg extended release tablet Take 1 tablet (25 mg total) by mouth daily 30 tablet 11 01/29/2023 4 documented as of this encounter Discharge Disposition Disposition Code Departure Means Destination Discharge to home or self care documented in this encounter Plan of Treatment Not on file documented as of this encounter Procedures Procedure Name Priority Date/Time Associated Diagnosis Comments SCREENING MAMMOGRAM BILATERAL W ADRIÁN Schedule Routine, Read Routine (OP Routine) 04/11/2023 1:43 PM CDT Screening mammogram, encounter for documented in this encounter Results * Screening Mammogram Bilateral W Adrián (04/11/2023 1:43 PM CDT) Anatomical Region Laterality Modality Breast Bilateral Mammography Narrative 04/12/2023 10:04 AM CDT Mammogram Technique: Bilateral Digital Breast Tomosynthesis, Bilateral C-view 2D Screening mammogram. ??Views obtained: ??bilateral craniocaudal and bilateral mediolateral oblique. ??Computer Aided Detection was performed. Mammogram Findings: The present examination has been compared to prior imaging studies performed at [facility] on 02/16/2020, and at [facility] on 02/22/2021 and 03/21/2022. There are scattered areas of fibroglandular density. There is no suspicious abnormality in either breast. Impression: There is no mammographic evidence of malignancy. Annual screening mammography is recommended. OVERALL FINAL ASSESSMENT: BI-RADS CATEGORY 1: ??Negative. Procedure Note Sia Moore MD - 04/12/2023 Mammogram Technique: Bilateral Digital Breast Tomosynthesis, Bilateral C-view 2D Screening mammogram. Views obtained: bilateral craniocaudal and bilateral mediolateral oblique. Computer Aided Detection was performed. Mammogram Findings: The present examination has been compared to prior imaging studies performed at [facility] on 02/16/2020, and at [facility] on 02/22/2021 and 03/21/2022. There are scattered areas of fibroglandular density. There is no suspicious abnormality in either breast. Impression: There is no mammographic evidence of malignancy. Annual screening mammography is recommended. OVERALL FINAL ASSESSMENT: BI-RADS CATEGORY 1: Negative. us Self Screening Mammogram IMG MAMMO PROCEDURES Fi nal Result documented in this encounter Visit Diagnoses Diagnosis Screening mammogram, encounter for documented in this encounter Care Teams Bay Stocker Relationship Specialty Start Date End Date Sameer Hampton MD PCP - General Family Medicine 02/26/23 10/21/24 documented as of this encounter
--- OUTSIDE RECORDS SUMMARY | 2024-11-21 18:19 | XMS_ITS | Encounter Summary ---
Author Organization [facility] Facility Care Team Providers Care Advanced Manufacturing Vice President Name Role Phone Unavailable Primary Care Provider Unavailabl e Encounter Details Date Type Department Care Team (Late st Contact Info) Description 06/07/2008 - 06/07/2008 11:59 PM CDT Hospital Encounter [facility] Wally Limon MD PhD [address] [place] [address] Social History Tobacco Use Types Packs/Day Years Used Date Smoking Tobacco: Never Assessed Comments Unknown Sex and Gender Information Value Date Recorded Sex Assigned at Not on file 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
--- OUTSIDE RECORDS SUMMARY | 2024-11-21 18:19 | XMS_ITS | Encounter Summary ---
Author Organization [facility] Facility Care Team Providers Care Vehicle Trimmer Name Role Phone Unavailable Primary Care Provider Unavailabl e Encounter Details Date Type Department Care Team (Late st Contact Info) Description 07/12/2009 - 07/12/2009 11:59 PM CDT Hospital Encounter [facility] Wally Limon MD PhD [address] [facility] [address] [place] [address] Other screening mammogram Social History Tobacco Use Types Packs/Day Years Used Date Smoking Tobacco: Never Assessed Comments Unknown Sex and Gender Information Value Date Recorded Sex Assigned at Not on file Legal 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
--- OUTSIDE RECORDS SUMMARY | 2024-11-21 18:19 | XMS_ITS | Encounter Summary ---
Author Organization [facility] Facility Care Team Providers Care Architecture Intern Name Role Phone Unavailable Primary Care Provider Unavailabl e Encounter Details Date Type Department Care Team (Late st Contact Info) Description 02/04/2007 - 02/04/2007 11:59 PM X RAY TECHNOLOGIST Hospital Encounter [facility] Nighat Sifuentes MD [address] [facility] [address] [phone] [place] [address] Social History Tobacco Use Types Packs/Day Years Used Date Smoking Tobacco: Never Assessed Comments Unknown Sex and Gender Information Value Date Recorded Sex Assigned at Not on file Legal Sex Female 3:32 AM X RAY TECHNOLOGIST Gender Identity Not on file Sexual Orientation Not on file documented as of this encounter Plan of Treatment Not on file documented as of this encounter Visit Diagnoses Not on filedocumented in this encounter
--- OUTSIDE RECORDS SUMMARY | 2024-11-21 18:19 | XMS_ITS | Encounter Summary ---
Author Organization [facility] Facility Care Team Providers Care Appraisal Technician Name Role Phone Unavailable Primary Care Provider Unavailabl e Encounter Details Date Type Department Care Team (Late st Contact Info) Description 05/20/2007 - 05/20/2007 11:59 PM CDT Hospital Encounter [facility] Wally Limon MD PhD [address] [facility] [address] [place] [address] Social History Tobacco Use Types Packs/Day Years Used Date Smoking Tobacco: Never Assessed Comments Unknown Sex and Gender Information Value Date Recorded Sex Assigned at Not on file Legal Sex Female 3:32 AM CREATIVE DIRECTOR Gender Identity Not on file Sexual Orientation Not on file documented as of this encounter Plan of Treatment Not on file documented as of this encounter Visit Diagnoses Not on filedocumented in this encounter
--- OUTSIDE RECORDS SUMMARY | 2024-11-21 18:19 | XMS_ITS | Encounter Summary ---
Author Organization [facility] Facility Care Team Providers Care Supervisor Hot Dip Tinning Name Role Phone Unavailable Primary Care Provider Unavailabl e Encounter Details Date Type Department Care Team (Late st Contact Info) Description 09/05/2012 - 09/05/2012 11:59 PM CDT Hospital Encounter [facility] Kelly Mcgarry MD [address] [address] [place] [address] Degeneration of lumbar or lumbosacral intervertebral disc; Congenital spondylolisthesis; Lumbosacral spondylosis without myelopathy Social History Tobacco Use Types Packs/Day Years Used Date Smoking Tobacco: Never Assessed Comments Unknown Sex and Gender Information Value Date Recorded Sex Assigned at Not on file Legal 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
--- OUTSIDE RECORDS SUMMARY | 2024-11-21 18:19 | XMS_ITS | Encounter Summary ---
Author Organization [facility] Facility Care Team Providers Care Chairman Of The Board Name Role Phone Unavailable Primary Care Provider Unavailabl e Encounter Details Date Type Department Care Team (Late st Contact Info) Description 10/23/2011 - 10/23/2011 11:59 PM FISH BONING MACHINE FEEDER Hospital Encounter [facility] Nighat Sifuentes MD [address] [phone] [place] [address] Other screening mammogram Social History Tobacco Use Types Packs/Day Years Used Date Smoking Tobacco: Never Assessed Comments Unknown Sex and Gender Information Value Date Recorded Sex Assigned at Not on file Legal Sex Female 3:32 AM FISH BONING MACHINE FEEDER Gender Identity Not on file Sexual Orientation Not on file documented as of this encounter Plan of Treatment Not on file documented as of this encounter Visit Diagnoses Diagnosis Other screening mammogram documented in this encounter
--- OUTSIDE RECORDS SUMMARY | 2024-11-21 18:19 | XMS_ITS | Encounter Summary ---
Author Organization [facility] Facility Care Team Providers Care Air Sampling And Monitoring Name Role Phone Unavailable Primary Care Provider Unavailabl e Encounter Details Date Type Department Care Team (Late st Contact Info) Description 03/22/2009 - 03/22/2009 11:59 PM CDT Hospital Encounter [facility] Nighat Sifuentes MD [address] [phone] [place] [address] Screening for malignant neoplasm of cervix Social History Tobacco Use Types Packs/Day Years Used Date Smoking Tobacco: Never Assessed Comments Unknown Sex and Gender Information Value Date Recorded Sex Assigned at Not on file 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
--- OUTSIDE RECORDS SUMMARY | 2024-11-21 18:19 | XMS_ITS | Encounter Summary ---
Author Organization [facility] Facility Care Team Providers Care Double Spindle Shaper Operator Name Role Phone Unavailable Primary Care Provider Unavailabl e Encounter Details Date Type Department Care Team (Late st Contact Info) Description 08/08/2010 - 08/08/2010 11:59 PM CDT Hospital Encounter [facility] Wally Limon MD PhD [address] [facility] [address] [place] [address] Other screening mammogram Social History Tobacco Use Types Packs/Day Years Used Date Smoking Tobacco: Never Assessed Comments Unknown Sex and Gender Information Value Date Recorded Sex Assigned at Not on file Legal Sex Female 3:32 AM DESILVERIZER Gender Identity Not on file Sexual Orientation Not on file documented as of this encounter Plan of Treatment Not on file documented as of this encounter Visit Diagnoses Diagnosis Other screening mammogram documented in this encounter
--- OUTSIDE RECORDS SUMMARY | 2024-11-21 18:19 | XMS_ITS | Encounter Summary ---
Author Organization [facility] Facility Care Team Providers Care Structural Shop Helper Name Role Phone Unavailable Primary Care Provider Unavailabl e Encounter Details Date Type Department Care Team (Late st Contact Info) Description 02/13/2011 - 02/13/2011 11:59 PM CDT Hospital Encounter [facility] Nighat Sifuentse MD [address] [phone] [place] [address] Screening for malignant neoplasm of cervix; Satisfactory cervical smear but lacking transformation zone; Asymptomatic postmenopausal status Social History Tobacco Use Types Packs/Day Years Used Date Smoking Tobacco: Never Assessed Comments Unknown Sex and Gender Information Value Date Recorded Sex Assigned at Not on file Legal Sex Female 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
--- OUTSIDE RECORDS SUMMARY | 2024-11-21 18:19 | XMS_ITS | Encounter Summary ---
Author Organization [facility] Facility Care Team Providers Care Upper Trimmer Name Role Phone Unavailable Primary Care Provider Unavailabl e Encounter Details Date Type Department Care Team (Late st Contact Info) Description 03/09/2008 - 03/09/2008 11:59 PM CDT Hospital Encounter [facility] Nighat Sifuentes MD [address] [facility] [address] [phone] [place] [address] Social History Tobacco Use Types Packs/Day Years Used Date Smoking Tobacco: Never Assessed Comments Unknown Sex and Gender Information Value Date Recorded Sex Assigned at Not on file 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
--- OUTSIDE RECORDS SUMMARY | 2024-11-22 02:51 | XMS_ITS | Encounter Summary ---
Author Organization [facility] Healthcare Address [address] [place] [address] Care Team Providers Care Resident Programs Assistant Name Role Phone No, Physician Primary Care Provider [phone] Paulina Leyva MD Unavailable [phone] Reason for Visit * Auth/Cert (Routine) Specialty Diagnoses / Procedures Referred By Contac t Referred To Contact Diagnoses Postmenopausal bleeding Postmenopausal bleeding [N95.0] Procedures MD HYSTEROSCOPY BX ENDOMETRIUM&/POLYPC W/WO D&C HYSTEROSCOPY, DILATION AND CURETTAGE, MYOSURE POLYPECTOMY Referral ID Status Reason Start Date Expiration Date Visits Re quested Visits Authorized [id number] 1 1 Encounter Details Date Type Department Care Team (Late st Contact Info) Description 11/05/2024 10:31 AM LANDSCAPING SPECIALIST Anesthesia Event [facility] Operating Room [address] [place] [address] [place] [id number] [address] Archie Riggins MD [address] [place] [id number] Anesthesia Record Procedure Summary Procedure Name Responsible [...] on file Legal Sex Female 3:32 AM LANDSCAPING SPECIALIST Gender Identity Not on file Sexual Orientation Not on file documented as of this encounter OR Notes * Anesthesia Postprocedure Evaluation - Ruben Mosley MD - 11/05/2024 12:48 PM CST Patient: Lyssa Viera Procedure Summary Date: 11/05/24 Room / Location: [facility] OPERATING ROOM Anesthesia Start: 1031 Anesthesia Stop: [...] Nausea/Vomiting status: none No notable events documented. SCAPING SPECIALIST * Anesthesia Procedure Notes - Jason Ervin CRNA - 11/05/2024 10:47 AM CSTAssociated Order(s): Airway Airway Patient location: OR Urgency: elective Indications for airway management: anesthesia and airway protection Difficult airway: no Staff: Placed by: SPA CONSULTANT: Jason Ervin CRNA Emergent airway documentation: Risks [...] same as preop. No GERD sx today. SCAPING SPECIALIST * Anesthesia Preprocedure Evaluation - Portia Collado MD - 11/05/2024 9:30 AM LANDSCAPING SPECIALIST Images from the original note were not included. Anesthesia Evaluation Lyssa Viera is a 79 y.o. female HYSTEROSCOPY, DILATION AND CURETTAGE, MYOSURE POLYPECTOMY (Vagina) Pre-Op Diagnosis Codes: * Postmenopausal bleeding [N95.0] HISTORY Past Medical History Information obtained from: patient and chart. 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 Postoperative Plan: No postoperative mechanical ventilation intended. Informed Consent: Discussed plan with SPA CONSULTANT. Anesthesia plan and risks discussed with patient. Consent and Attending signature: I and/or my designee have discussed the anesthesia plan, benefits, possible alternatives, parental presence at time of induction (if indicated), and clinically relevant risks that may include dental injury, unintentional awareness, and/or other complications. The patient and/or parent/legal guardian understand, and agree to proceed. All questions answered. SCAPING SPECIALIST documented in this encounter Plan of Treatment Not on file documented as of this encounter Procedures Procedure Name Priority Date/Time Associated Diagnosis Comments MD AN ELECTIVE SUPRAGLOTTIC AIRWAY Routine 11/05/2024 10:47 AM LANDSCAPING SPECIALIST documented in this encounter Results * MD AN ELECTIVE SUPRAGLOTTIC AIRWAY (11/05/2024 10:47 AM LANDSCAPING SPECIALIST) Narrative Jason Ervin CRNA - 11/05/2024 10:47 AM LANDSCAPING SPECIALIST Jason Ervin CRNA ? 11/05/2024 10:47 AM Airway Patient location: OR Urgency: elective Indications for airway management: anesthesia and airway protection Difficult airway: no Staff: Placed by: SPA CONSULTANT: Jason Ervin CRNA Emergent airway documentation: Risks [...] 1044, Anesthesia Intra-op Given 11/05/2024 10:44 AM LANDSCAPING SPECIALIST 4 mg fentaNYL (SUBLIMAZE) preservative free injection intravenous, As needed, Starting on [place] 11/05/24 at 1045, Anesthesia Intra-op Given 11/05/2024 11:21 AM LANDSCAPING SPECIALIST 50 mcg Given 11/05/2024 10:56 AM LANDSCAPING SPECIALIST 25 mcg Given 11/05/2024 10:45 AM LANDSCAPING SPECIALIST 25 mcg lidocaine (PF) (XYLOCAINE) 20 mg/mL (2 %) preservative free injection intravenous, As needed, Starting on [place] 11/05/24 at 1039, Anesthesia Intra-op Given 11/05/2024 10:39 AM LANDSCAPING SPECIALIST 100 mg ondansetron (ZOFRAN) injection intravenous, Administer over 2 Minutes, As needed, Starting on [place] 11/05/24 at 1044, Anesthesia Intra-op Given 11/05/2024 10:44 AM LANDSCAPING SPECIALIST 4 mg propofoL (DIPRIVAN) 10 mg/mL IV intravenous, As needed, Starting on [place] 11/05/24 at 1039, Anesthesia Intra-op Given 11/05/2024 10:39 AM LANDSCAPING SPECIALIST 150 mg sodium chloride 0.9% infusion 125 mL/hr, intravenous, Continuous, Starting on [place] 11/05/24 at 1000, Pre-Op, May discontinue when discharge criteria met. New Bag 11/05/2024 10:39 AM LANDSCAPING SPECIALIST documented in this encounter Care Teams Resident Programs Assistant Relationship Specialty Start Date End Date No, Physician PCP - General 10/22/24 Paulina Leyva MD [address] [place] [address] [place] [id number] Consulting Physician Obstetrics and Gynecology 11/05/24 documented as of this encounter
--- OUTSIDE RECORDS SUMMARY | 2024-11-22 02:51 | XMS_ITS | Encounter Summary ---
Author Organization [facility] Address [address] [place] [address] Care Team Providers Care Fire Apparatus Sprinkler Inspector Name Role Phone No, Physician Primary Care Provider [phone] Paulina Leyva MD Unavailable [phone] Reason for Visit * Reason Onset Date Comments follow up 11/11/2024 Encounter Details Date Type Department Care Team (Late st Contact Info) Description 11/11/2024 Telephone [facility] [address] [place] [address] Paulina Leyva MD [address] [place] [address] [address] [place] [address] follow up Social History Tobacco [...] on file Legal Sex Female 3:32 AM 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 Patient states she was discharged yesterday from [place] at 10:30 am and laid around all [...] us if she needs us. INEZ Wood TY GROOVING MACHINE OPERATOR * Telephone Encounter - Nina Zurita RN - 11/11/2024 9:58 AM CST [phone] Patient called back to give update. Patient [...] she ended up in the ER at [place] last night due to Afib. Patient states [...] mg of metoprolol. Patient was discharged from [place] at 4 am and back home feeling better. Patient states she does see a block captain and was calling their office this morning for a follow up appt. Patient states she also has an appt. With a AFTERSCHOOL BABYSITTER at her PCP's office on Saturday11/16/2024 for her wellness exam. I stated that I would let Dr. Leyva, know and also reminded her of her post op appt. With Dr. Leyva on 11/23/2024 at 1 pm. REJI Tejeda RN TY GROOVING MACHINE OPERATOR * Telephone Encounter - Nina Zurita RN - 11/11/2024 9:10 AM CST [phone] Called and left VM for patient stating I was calling to check in on her post surgery. I advised patient to call us back when she can to give us an update. INEZ Wood TY GROOVING MACHINE OPERATOR * Telephone Encounter - Nina Zurita RN - 11/11/2024 9:09 AM CST ----- Message from Paulina Leyva MD sent at 11/09/2024 1:26 PM SAFETY GROOVING MACHINE OPERATOR ----- Please call and see how she is doing. TY GROOVING MACHINE OPERATOR documented in this encounter Plan of Treatment Not on file documented as of this encounter Visit Diagnoses Not on filedocumented in this encounter Care Teams Fire Apparatus Sprinkler Inspector Relationship Specialty Start Date End Date No, Physician PCP - General 10/22/24 Paulina Leyva MD [address] [place] [address] DR GRIJALVA [address] [place] [address] Consulting Physician Obstetrics and Gynecology 11/05/24 documented as of this encounter
--- OUTSIDE RECORDS SUMMARY | 2024-11-22 02:51 | XMS_ITS | Clinical Summary ---
Author Organization [facility] [address] [facility] [address] Address [address] [place] [address] Care Team Providers Care Rubber Down Name Role Phone No, Physician Primary Care Provider Paulina Leyva MD Unavailable [phone] Allergies Active Allergy Reactions Criticality Noted Date [...] 1 tablet (50 mcg total) by mouth leasing agent before breakfast Active rivaroxaban (XARELTO) 20 mg [...] 09/09/2023 Assessment & Plan (11/02/2024 2:29 PM CORPORATE GENERAL MANAGER): Procedure reviewed along with risk, benefits and [...] proceed. Assessment & Plan (01/06/2024 10:48 AM CORPORATE GENERAL MANAGER): To call if she has any more bleeding otherwise we will follow-up for complete exam in 1 year Assessment & Plan (09/30/2023 10:48 AM CDT): Options discussed She wants to watch and wait. If she bleeds again will go to OR Assessment & Plan (09/09/2023 2:20 PM CDT): To [facility] I anticipate she will need an emb [...] Department Care Team Description 11/20/2024 2:30 PM CORPORATE GENERAL MANAGER Office Visit [facility] Medical [facility]iology [address] [place] [address] Paulina Mejia NP Paroxysmal atrial fibrillation (CMS/HCC) (HCC); New onset left bundle branch block (LBBB); Chronic fatigue 11/16/2024 Telephone [facility] [employer] [address] [facility] [address] [place] [address] Paulina Leyva MD 11/11/2024 Telephone [facility] Cardiology [address] [place] [address] Berta Olivier MD 11/11/2024 [facility] 4 [facility] [address] [place] [address] Paulina Leyva MD follow up 11/05/2024 10:45 AM CORPORATE GENERAL MANAGER - 11/05/2024 12:00 PM CORPORATE GENERAL MANAGER Surgery [facility] Operating Room [address] [place] [address] Paulina Leyva MD HYSTEROSCOPY, DILATION AND CURETTAGE, MYOSURE POLYPECTOMY 11/05/2024 10:31 AM CORPORATE GENERAL MANAGER Anesthesia Event [facility] Operating Room [address] [place] [address] Ruben Mosley MD Reynolds, Ethan Emerson, MD 11/05/2024 9:15 AM CORPORATE GENERAL MANAGER - 11/05/2024 1:40 PM CORPORATE GENERAL MANAGER Hospital Encounter [facility] Operating Room [address] [place] [address] Paulina Leyva MD Postmenopausal bleeding Discharge Disposition: Discharge to home or self care 11/02/2024 2:47 PM CORPORATE GENERAL MANAGER - 11/02/2024 11:59 PM CORPORATE GENERAL MANAGER Hospital Encounter [address] [address] Postmenopausal bleeding; Pre-operative laboratory examination Discharge Disposition: Discharge to home or self care 11/02/2024 2:45 PM CORPORATE GENERAL MANAGER Lab [facility] Outpatient Lab at [address] [address] Hypothyroidism (acquired) (Primary Dx); Postmenopausal bleeding 11/02/2024 1:45 PM CORPORATE GENERAL MANAGER Office Visit [facility] at [address] [address] Paulina Leyva MD Postmenopausal bleeding (Primary Dx) 11/02/2024 Telephone [facility] Cardiology [address] [facility] [address] [place] [address] Berta Olivier MD 10/28/2024 Telephone Frank PAUL [employer] [address] [place] [address] [place] [address] Paulina Leyva MD 10/22/2024 9:15 AM CORPORATE GENERAL MANAGER Office Visit [facility] Cardiology [address] [facility] [address] [place] [address] Berta Olivier MD Paroxysmal atrial fibrillation (CMS/HCC) (HCC) (Primary Dx); Primary hypertension; Chronic anticoagulation 10/14/2024 Telephone [facility] 4 [facility] [address] [place] [address] Paulina Leyva MD Pre Cert (CPT 38839) 09/10/2024 Telephone Frank Kuhn 4 [facility] [address] [place] [address] Paulina Leyva MD Procedure Scheduling 09/07/2024 10:00 AM CDT Office Visit [facility] at [address] [address] Paulina Leyva MD Postmenopausal bleeding (Primary Dx) 08/31/2024 10:30 AM CDT Ancillary Procedure Frank Kuhn [address] [place] [address] [address] [place] [address] Postmenopausal bleeding 08/28/2024 Telephone [facility] [employer] [address] [place] [address] Paulina Leyva MD bleeding (PMB) from Last 3 Months Surgical History Surgery Date Site/Laterality Comments PA LIG/TRNSXJ FLP TUBE ABDL/ VAG APPR UNI/BI [...] Rosenberg Cancer Neg Hx no colon or childcare aide cancer cmt 09/09/23 Relation Name Status Comments [...] on file Legal Sex Female 3:32 AM CORPORATE GENERAL MANAGER Gender Identity Not on file Sexual [...] Comments Blood Pressure 132/84 11/20/2024 2:33 PM CORPORATE GENERAL MANAGER Pulse 89 11/20/2024 2:33 PM CORPORATE GENERAL MANAGER Temperature 36.6 ??C (97.8 ??F) 11/05/2024 1:10 PM CS T Respiratory Rate 18 11/05/2024 1:10 PM CORPORATE GENERAL MANAGER Oxygen Saturation 98% 11/20/2024 2:33 PM CORPORATE GENERAL MANAGER Inhaled Oxygen Concentration - - Weight 98 kg (216 lb) 11/20/2024 2:33 PM CORPORATE GENERAL MANAGER Height 157.5 cm (5' 2 ) 11/20/2024 2:33 PM CORPORATE GENERAL MANAGER Body Mass Index 39.51 11/20/2024 2:33 PM CORPORATE GENERAL MANAGER Plan of Treatment Health Maintenance Due Date [...] SURGICAL PATHOLOGY Routine 11/05/2024 2: 57 PM CORPORATE GENERAL MANAGER Postmenopausal bleeding PA AN ELECTIVE SUPRAGLOTTIC AIRWAY Routine 11/05/2024 10:47 AM CORPORATE GENERAL MANAGER DILATION AND CURETTAGE/HYSTEROSCO PY 11/05/2024 10:16 AM CORPORATE GENERAL MANAGER Postmenopausal bleeding ECG 12-LEAD STAT 11/05/2024 10:00 AM CORPORATE GENERAL MANAGER ANTIBODY SCREEN STAT 11/05/2024 9:49 AM CORPORATE GENERAL MANAGER ABO/RH STAT 11/05/2024 9:49 AM CORPORATE GENERAL MANAGER POTASSIUM, WHOLE BLOOD STAT 11/05/2024 9:49 AM CORPORATE GENERAL MANAGER TYPE AND SCREEN STAT 11/05/2024 9:49 AM CORPORATE GENERAL MANAGER EGFR Routine 11/02/2024 2:47 PM CORPORATE GENERAL MANAGER Postmenopausal bleeding Pre-operative laboratory examination DIFFERENTIAL AUTO Routine 11/02/2024 2:4 7 PM CORPORATE GENERAL MANAGER Postmenopausal bleeding Pre-operative laboratory examination COMPREHENSIVE METABOLIC PANEL Routine 11/02/2024 2:47 PM CORPORATE GENERAL MANAGER Postmenopausal bleeding Pre-operative laboratory examination URINALYSIS AND REFLEX TO MICROSCOPIC Routine 11/02/2024 2:47 PM CORPORATE GENERAL MANAGER Postmenopausal bleeding Pre-operative laboratory examination TYPE AND SCREEN Timed 11/02/2024 2:47 PM CORPORATE GENERAL MANAGER Postmenopausal bleeding Pre-operative laboratory examination CBC WITH AUTO DIFFERENTIAL Routine 11/02/2024 2:47 PM CORPORATE GENERAL MANAGER Postmenopausal bleeding Pre-operative laboratory examination URINE CULTURE Routine 11/02/2024 2:47 PM CORPORATE GENERAL MANAGER Postmenopausal bleeding Pre-operative laboratory examination US TRANSVAGINAL Schedule Routine, Read Routine (OP Routine) 08/31/2024 10:59 AM CDT Postmenopausal bleeding from Last 3 Months Results * ECG 12 lead (11/20/2024) 11/20/2024 Paulina Mejia NP ECG ORDERABLES Edited Re sult - Final * Surgical pathology (11/05/2024 2:57 PM CORPORATE GENERAL MANAGER) Tissue (Endometrial curettings) 11/05/2024 11:08 AM CORPORATE GENERAL MANAGER Narrative PATHOLOGY [facility] (RECTOR) - 11/09/2024 12:25 PM CORPORATE GENERAL MANAGER EPIC results best viewed via link to PDF [facility] Department of Pathology [address] [place] [address] Note to Patients: This report may contain [...] Final Report Patient Name: ??LYSSA ROSENBERG Address: ??[address] [place] [address], ??[place], [place] ?? Gender: ??F : ??1945 (Age: 79) Service: ??Obstetrics Location: ??[facility] Hospital #: ??[id number] Patient Type: ??[facility] EP OP in bed Accession # ?[id number] Taken: ??11/05/2024 Received: ??11/05/2024 Accessioned: ??11/05/2024 Reported: [...] determined by the Surgical Pathology Department at [facility] as part of an ongoing research quality assurance specialist program and in compliance with federally mandated [...] characteristics determined by the Surgical Pathology Department [facility]. ??It has not been cleared or approved by the U. S. Food and Drug Administration. Note for decalcified specimens: This assay has not been validated on decalcified tissues. Results should be interpreted with caution given the possibility of false negativity on decalcified specimens Paulina Leyva MD LAB PATHOLOGY ORDER ART Final Result Performing Organization Address City/State/[facility] Co de Phone Number PATHOLOGY [facility] [address] [place] [address] * PA AN ELECTIVE SUPRAGLOTTIC AIRWAY (11/05/2024 10:47 AM CORPORATE GENERAL MANAGER) Narrative Jason Ervin CRNA - 11/05/2024 10:47 AM CORPORATE GENERAL MANAGER Jason Ervin CRNA ? 11/05/2024 10:47 AM Airway Patient location: OR Urgency: elective Indications for airway management: anesthesia and airway protection Difficult airway: no Staff: Placed by: INSPECTOR MECHANICAL: Jason Ervin CRNA Emergent airway documentation: Risks [...] * ECG 12 lead (11/05/2024 10:00 AM CORPORATE GENERAL MANAGER) 11/05/2024 10:0 0 AM CORPORATE GENERAL MANAGER Narrative [facility] - 11/05/2024 10:17 AM CORPORATE GENERAL MANAGER Vent Rate: 69 bpm RR Interval: 859 msec PA Interval: 177 msec QRS Duration: 169 msec QT Interval: 454 msec QTC Interval: 474 msec P-R-T [place]: 28 - -24 - 122 degrees IMPRESSION: SINUS RHYTHM LEFT BUNDLE BRANCH BLOCK ??[120+ ms QRS DURATION, 80+ ms Q/S IN V1/V2, 85+ ms R IN I/aVL/V5/V6] ABNORMAL ECG Electronically Signed By: Mauri Sanches MD Archie Riggins MD ECG ORDERABLES Final Result Performing Organization Address City/[facility]/ZIP Co de Phone Number [facility] * Potassium, whole blood (11/05/2024 9:49 AM CORPORATE GENERAL MANAGER) Potassium, bld 4.0 3.3 - 4.9 mmol/L Comment: Interpretive Data This method is not able to assess for hemolysis, which may falsely increase potassium concentrations. If further testing is needed to evaluate this result, consider in-laboratory plasma potassium. Current Interpretive Data was last revised on 2022. Blood 11/05/2024 9:49 AM CORPORATE GENERAL MANAGER 11/05/2024 9:59 AM CORPORATE GENERAL MANAGER Archie Riggins MD LAB BLOOD ORDERABLES F inal Result [facility] HENRIQUEZ (RECTOR) 1 [facility] [place] [address] * ABO/Rh (11/05/2024 9:49 AM CORPORATE GENERAL MANAGER) Pathologist [facility] ABO/Rh O Positive Blood 11/05/2024 9:49 AM CORPORATE GENERAL MANAGER 11/05/2024 9:59 AM CORPORATE GENERAL MANAGER Narrative B[facility]IE HENRIQUEZ (RECTOR) - 11/05/2024 11:05 AM CORPORATE GENERAL MANAGER Has the patient had Daratumumab or Isatuximab in the past 6 months?->Unknown Paulina Leyva MD LAB BLOOD BANK TEST ORDERABLES Final Result [facility]IE HENRIQUEZ (RECTOR) 1 [facility] [place] [address] * Antibody screen (11/05/2024 9:49 AM CORPORATE GENERAL MANAGER) Pathologist [facility] Jayne, indirect, Gel Interpretation Negative ABSC Blood 11/05/2024 9:49 AM CORPORATE GENERAL MANAGER 11/05/2024 9:59 AM CORPORATE GENERAL MANAGER Narrative [facility]IE HENRIQUEZ (RECTOR) - 11/05/2024 11:05 AM CORPORATE GENERAL MANAGER Has the patient had Daratumumab or Isatuximab in the past 6 months?->Unknown Paulina Leyva MD LAB BLOOD BANK TEST ORDERABLES Final Result Performing Organization Address City/[facility] Co de Phone Number BOOGIE HENRIQUEZ (RECTOR) 1 [facility] [place] [address] * (ABNORMAL) eGFR (11/02/2024 2:47 PM CORPORATE GENERAL MANAGER) Pathologist [facility] eGFR 55(L) >=60 mL/min/1. 73 m2 Comment: [...] last reviewed 2021. Blood 11/02/2024 2:47 PM CORPORATE GENERAL MANAGER 11/02/2024 8:35 PM CORPORATE GENERAL MANAGER us Paulina Leyva MD LAB BLOOD ORDERABLE S Final Result [facility] [address] Department [place] [address] * (ABNORMAL) Differential, auto (11/02/2024 2:47 PM CORPORATE GENERAL MANAGER) Neutrophil abs 3.9 1.5 - 6.5 K/cumm Imm gran abs 0.0 0.0 - 0.1 K/cumm [facility] Lymphocyte abs 2.7 0.8 - 3.3 K/cumm [facility] Monocyte abs 0.9(H) 0.2 - 0.8 K/cumm [facility] Eosinophil abs 0.1 0.0 - 0.5 K/cumm [facility] Basophil abs 0.1 0.0 - 0.1 K/cumm [facility] Neutrophil pct 50.6 % [facility] Comment: Interpretive Data Percent cell count [...] revised on 2018. Lymphocyte pct 35.4 % [facility] Comment: Interpretive Data Percent cell count reference [...] revised on 2018. Blood 11/02/2024 2:47 PM CORPORATE GENERAL MANAGER 11/02/2024 7:38 PM CORPORATE GENERAL MANAGER us Paulina Leyva MD LAB BLOOD ORDERABLE S Final Result [facility] [address] Department [place] [address] * Urinalysis reflex to microscopic (11/02/2024 2:47 PM CORPORATE GENERAL MANAGER) Color, ur Yellow Yellow Clarity, ur Clear Clear [facility] Specific gravity, ur 1.020 1.003 - 1.030 [facility] pH, urine 6.0 [facility] Comment: Interpretive Data ? Urine pH is affected by diet, medications, systemic acid-base disturbances, and renal tubular function. ??pH may affect urinary stone formation. ??For example, urine pH below 6.0 may help reduce the tendency for calcium phosphate stones and pH greater than 6.0 may reduce the tendency for uric acid stone formation. Source: [facility] Current Interpretive Data was last revised on [...] not met. CERNER Urine 11/02/2024 2:47 PM CORPORATE GENERAL MANAGER 11/02/2024 7:38 PM CORPORATE GENERAL MANAGER Paulina Leyva MD LAB URINE ORDERABLE S Final Result [facility] [address] Department [place] [address] * (ABNORMAL) CBC with auto differential (11/02/2024 2:47 PM CORPORATE GENERAL MANAGER) WBC 7.6 3.8 - 9.9 K/cumm Hgb [...] K/cumm [facility] CH Blood 11/02/2024 2:47 PM CORPORATE GENERAL MANAGER 11/02/2024 7:38 PM CORPORATE GENERAL MANAGER us Paulina Leyva MD LAB BLOOD ORDERABLE S Final Result Performing Organization Address [facility] Co de Phone Number [facility] [address] [place] [address] * Type and screen (11/02/2024 2:47 PM CORPORATE GENERAL MANAGER) Jayne, indirect Negative ABO Rh O Positive [facility] Blood 11/02/2024 2:47 PM CORPORATE GENERAL MANAGER 11/02/2024 8:25 PM CORPORATE GENERAL MANAGER Narrative BOOGIE - 11/02/2024 9:06 PM CORPORATE GENERAL MANAGER Is this test being ordered in advance for a procedure?->Yes Expected date of procedure:->11/05/24 Has the patient been transfused in the past 3 months?->No Has the patient been in the past 3 months?->No Paulina Leyva MD LAB BLOOD BANK TEST ORDERABLES Final Result Performing Organization Address [facility] de Phone Number [facility] [address] [place] [address] * Urine culture Urine, clean voided (11/02/2024 2:47 PM CORPORATE GENERAL MANAGER) Report Final Report: Less than 100,000 colonies/mL (clinically insignificant growth based on current clinical standards) Comment:Testing performed by : [facility], [address] [place]., [address] Organism (CLINICALLY INSIGNIFICANT GROWTH [facility] Urine, clean voided 11/02/2024 2:47 PM CORPORATE GENERAL MANAGER 11/02/2024 10:18 PM CORPORATE GENERAL MANAGER Narrative BOOGIE - 11/04/2024 3:41 AM CORPORATE GENERAL MANAGER Testing performed by [facility] Microbiology Laboratory ([phone]) Paulina Leyva MD LAB MICROBIOLOGY - GENERAL ORDERABLES Final Result Performing Organization Address [facility] Co de Phone Number [facility] [phone] [place] [address] * (ABNORMAL) Comprehensive metabolic panel (11/02/2024 2:47 PM CORPORATE GENERAL MANAGER) Sodium 135 135 - 145 mmol/L Potassium, [...] Units/L [facility] Blood 11/02/2024 2:47 PM CORPORATE GENERAL MANAGER 11/02/2024 7:38 PM CORPORATE GENERAL MANAGER us Paulina Leyva MD LAB BLOOD ORDERABLE S Final Result [facility] [phone] [place] [address] * US Transvaginal (08/31/2024 10:59 AM [...] inal Result from Last 3 Months Insurance [facility] MEDICARE AETNA MEDICARE AETNA MEDICARE Care Teams Rubber Down Relationship Specialty Start Date End Date No, Physician PCP - General 10/22/24 Paulina Leyva MD [address] [place] [address] [place] [address] Consulting Physician Obstetrics and Gynecology 11/05/24
--- OUTSIDE RECORDS SUMMARY | 2024-11-22 02:51 | XMS_ITS | Encounter Summary ---
Author Organization [facility] Healthcare Address [address] [place] [address] Care Team Providers Care Industrial Diamond Polisher Name Role Phone No, Physician Primary Care Provider [phone] Paulina Leyva MD Unavailable [phone] Encounter Details Date Type Department Care Team (Late st Contact Info) Description 11/11/2024 Telephone [facility] Medical Group Cardiology [address] [place] [address] Berta Olivier MD [address] [address] Social History Tobacco Use Types [...] on file Legal Sex Female 3:32 AM CENTER REP Gender Identity Not on file Sexual Orientation Not on file documented as of this encounter Miscellaneous Notes * Telephone Encounter - Ammy Calix RN - 11/11/2024 10:45 AM CENTER REP Spoke with pt, reviewed RP's response and she verbalized understanding. ER REP * Telephone Encounter - Ammy Calix RN - 11/11/2024 10:25 AM CENTER REP Spoke with pt, she went to the [...] forward to RP. Please advise, thank you! ER REP * Telephone Encounter - Leilani Dubois - 11/11/2024 10:07 AM CST Pt calling to report she was seen at for Afib and was advised to discuss with her provider whether or not she should resume taking metoprolol. States ED doctor believes her Afib episode may have been caused due to stopping the medication. Pt requesting a call back to further discuss. Contact:[phone] ER REP documented in this encounter Plan of Treatment Not on file documented as of this encounter Visit Diagnoses Not on filedocumented in this encounter Care Teams Industrial Diamond Polisher Relationship Specialty Start Date End Date No, Physician PCP - General 10/22/24 Paulina Leyva MD [address] [place] [address] DR GRIJALVA [address] [place] [address] Consulting Physician Obstetrics and Gynecology 11/05/24 documented as of this encounter
--- OUTSIDE RECORDS SUMMARY | 2024-11-22 02:51 | XMS_ITS | Encounter Summary ---
Author Organization [facility] Healthcare Address [facility] [place] [address] Care Team Providers Care General Production Manager Name Role Phone No, Physician Primary Care Provider Encounter Details Date Type Department Care Team (Latest Contact Info) Description 11/02/2024 2:47 PM DEPUTY SHERIFF GENERALIST - 11/02/2024 11:59 PM DEPUTY SHERIFF GENERALIST Hospital Encounter [address] [address] Postmenopausal bleeding; Pre-operative laboratory examination Discharge Disposition: [...] on file Legal Sex Female 3:32 AM DEPUTY SHERIFF GENERALIST Gender Identity Not on file Sexual Orientation [...] 1 tablet (50 mcg total) by mouth hair cutter before breakfast omeprazole (PriLOSEC) 20 mg capsule [...] Diagnosis Comments EGFR Routine 11/02/2024 2:47 PM DEPUTY SHERIFF GENERALIST Postmenopausal bleeding Pre-operative laboratory examination DIFFERENTIAL AUTO Routine 11/02/2024 2:4 7 PM DEPUTY SHERIFF GENERALIST Postmenopausal bleeding Pre-operative laboratory examination URINALYSIS AND REFLEX TO MICROSCOPIC Routine 11/02/2024 2:47 PM DEPUTY SHERIFF GENERALIST Postmenopausal bleeding Pre-operative laboratory examination CBC WITH AUTO DIFFERENTIAL Routine 11/02/2024 2:47 PM DEPUTY SHERIFF GENERALIST Postmenopausal bleeding Pre-operative laboratory examination TYPE AND SCREEN Timed 11/02/2024 2:47 PM DEPUTY SHERIFF GENERALIST Postmenopausal bleeding Pre-operative laboratory examination URINE CULTURE Routine 11/02/2024 2:47 PM DEPUTY SHERIFF GENERALIST Postmenopausal bleeding Pre-operative laboratory examination COMPREHENSIVE METABOLIC PANEL Routine 11/02/2024 2:47 PM DEPUTY SHERIFF GENERALIST Postmenopausal bleeding Pre-operative laboratory examination documented in this encounter Results * (ABNORMAL) eGFR (11/02/2024 2:47 PM DEPUTY SHERIFF GENERALIST) eGFR 55(L) >=60 mL/min/1. 73 m2 Comment: [...] last reviewed 2021. Blood 11/02/2024 2:47 PM DEPUTY SHERIFF GENERALIST 11/02/2024 8:35 PM DEPUTY SHERIFF GENERALIST us Paulina Leyva MD LAB BLOOD ORDERABLE S Final Result [facility] [address] Department [place] [address] * (ABNORMAL) Differential, auto (11/02/2024 2:47 PM DEPUTY SHERIFF GENERALIST) Neutrophil abs 3.9 1.5 - 6.5 K/cumm Imm gran abs 0.0 0.0 - 0.1 K/cumm [facility] Lymphocyte abs 2.7 0.8 - 3.3 K/cumm [facility] Monocyte abs 0.9(H) 0.2 - 0.8 K/cumm [facility] Eosinophil abs 0.1 0.0 - 0.5 K/cumm [facility] Basophil abs 0.1 0.0 - 0.1 K/cumm [facility] Neutrophil pct 50.6 % [facility] Comment: Interpretive Data Percent cell count reference ranges are not reported, since discordance with absolute values may lead to misinterpretation of CBC data. Current Interpretive Data was last revised on 2018. Imm gran pct 0.3 % [facility] Comment: Interpretive Data Percent cell count reference ranges are not reported, since discordance with absolute values may lead to misinterpretation of CBC data. Current Interpretive Data was last revised on 2018. Lymphocyte pct 35.4 % [facility] Comment: Interpretive Data Percent cell count reference ranges are not reported, since discordance with absolute values may lead to misinterpretation of CBC data. Current Interpretive Data was last revised on 2018. Monocyte pct 11.8 % [facility] Comment: Interpretive Data Percent cell count reference ranges are not reported, since discordance with absolute values may lead to misinterpretation of CBC data. Current Interpretive Data was last revised on 2018. Eosinophil pct 1.2 % [facility] Comment: Interpretive Data Percent cell count reference ranges are not reported, since discordance with absolute values may lead to misinterpretation of CBC data. Current Interpretive Data was last revised on 2018. Basophil pct 0.7 % [facility] Comment: Interpretive Data Percent cell count reference ranges are not reported, since discordance with absolute values may lead to misinterpretation of CBC data. Current Interpretive Data was last revised on 2018. Blood 11/02/2024 2:4 7 PM DEPUTY SHERIFF GENERALIST 11/02/2024 7:38 PM DEPUTY SHERIFF GENERALIST us Paulina Leyva MD LAB BLOOD ORDERABLE S Final Result [facility] [address] Department [place] [address] * (ABNORMAL) Comprehensive metabolic panel (11/02/2024 2:47 PM DEPUTY SHERIFF GENERALIST) Sodium 135 135 - 145 mmol/L Potassium, pl 4.2 3.3 - 4.9 mmol/L [facility] Chloride 96(L) 97 - 110 mmol/L [facility] CO2 26 22 - 32 mmol/L [facility] Anion gap 13 2 - 15 mmol/L [facility] BUN 15 6 - 25 mg/dL [facility] Creatinine 1.03 0.60 - 1.10 mg/dL [facility] Glucose 95 70 - 199 mg/dL [facility] Comment: Interpretive Data Fasting glucose >/= [...] Calcium 9.3 8.5 - 10.3 mg/dL [facility] Bilirubin, total 0.7 0.1 - 1.2 mg/dL [facility] Protein, pl 7.6 6.5 - 8.5 g/dL [facility] Albumin 4.1 3.5 - 5.0 g/dL [facility] Alk phos 104 40 - 130 Units/L [facility] ALT 26 7 - 45 Units/L [facility] AST 45 10 - 45 Units/L [facility] Blood 11/02/2024 2:47 PM DEPUTY SHERIFF GENERALIST 11/02/2024 7:38 PM DEPUTY SHERIFF GENERALIST Paulina Leyva MD LAB BLOOD ORDERABLE S Final Result Performing Organization Address [facility] Co de Phone Number BOOGIE SIM [address] [place] [address] * Urine culture Urine, clean voided (11/02/2024 2:47 PM DEPUTY SHERIFF GENERALIST) Report Final Report: Less than 100,000 colonies/mL (clinically insignificant growth based on current clinical standards) Comment:Testing performed by : [facility], [address] [place]., [address] Organism (CLINICALLY INSIGNIFICANT GROWTH [facility] Urine, clean voided 11/02/2024 2:47 PM DEPUTY SHERIFF GENERALIST 11/02/2024 10:18 PM DEPUTY SHERIFF GENERALIST Narrative [facility] - 11/04/2024 3:41 AM DEPUTY SHERIFF GENERALIST Testing performed by [facility] Microbiology Laboratory ([phone]) Paulina Leyva MD LAB MICROBIOLOGY - GENERAL ORDERABLES Final Result Performing Organization Address City/[facility]/ZIP Co de Phone Number AURELIANOJULIETH SIM [address] [place] [address] * Urinalysis reflex to microscopic (11/02/2024 2:47 PM DEPUTY SHERIFF GENERALIST) Color, ur Yellow Yellow Clarity, ur Clear [...] tendency for uric acid stone formation. Source: [facility] Current Interpretive Data was last revised on [...] not met. [facility] Urine 11/02/2024 2:47 PM DEPUTY SHERIFF GENERALIST 11/02/2024 7:38 PM DEPUTY SHERIFF GENERALIST Paulina Leyva MD LAB URINE ORDERABLE S Final Result Performing Organization Address [facility] de Phone Number BOOGIE CHIQUIS [address] Department of [place], [place] [id number] * Type and screen (11/02/2024 2:47 PM DEPUTY SHERIFF GENERALIST) Pathologist [facility] Jayne, indirect Negative ABO Rh O Positive [facility] Blood 11/02/2024 2:47 PM DEPUTY SHERIFF GENERALIST 11/02/2024 8:25 PM DEPUTY SHERIFF GENERALIST Narrative [facility] - 11/02/2024 9:06 PM DEPUTY SHERIFF GENERALIST Is this test being ordered in advance for a procedure?->Yes Expected date of procedure:->11/05/24 Has the patient been transfused in the past 3 months?->No Has the patient been in the past 3 months?->No Paulina Leyva MD LAB BLOOD BANK TEST ORDERABLES Final Result Performing Organization Address [facility] Co de Phone Number AURELIANOJULIETH SIM [address] Department of Laboratories [place], [place] [id number] * (ABNORMAL) CBC with auto differential (11/02/2024 2:47 PM DEPUTY SHERIFF GENERALIST) WBC 7.6 3.8 - 9.9 K/cumm Hgb [...] 0.01 K/cumm [facility] Blood 11/02/2024 2:47 PM DEPUTY SHERIFF GENERALIST 11/02/2024 7:38 PM DEPUTY SHERIFF GENERALIST us Paulina Leyva MD LAB BLOOD ORDERABLE S Final Result [facility] [address] Department [place] [address] documented in this encounter Visit Diagnoses Diagnosis Postmenopausal bleeding Pre-operative laboratory examination Pre-procedural laboratory examination documented in this encounter Care Teams General Production Manager Relationship Specialty Start Date End Date No, Physician PCP - General 10/22/24 documented as of this encounter
--- OUTSIDE RECORDS SUMMARY | 2024-11-22 02:51 | XMS_ITS | Encounter Summary ---
Author Organization [facility] Address [address] [place] [address] Care Team Providers Care Operations Expert Name Role Phone No, Physician Primary Care Provider [phone] Paulina Leyva MD Unavailable [phone] Reason for Visit * Auth/Cert (Routine) Specialty Diagnoses / Procedures Referred By Contac t Referred To Contact Diagnoses Postmenopausal bleeding Postmenopausal bleeding [N95.0] Procedures NV HYSTEROSCOPY BX ENDOMETRIUM&/POLYPC W/WO D&C HYSTEROSCOPY, DILATION AND CURETTAGE, MYOSURE POLYPECTOMY Referral ID Status Reason Start Date Expiration Date Visits Re quested Visits Authorized [id number] 1 1 Encounter Details Date Type Department Care Team (Late st Contact Info) Description 11/05/2024 10:45 AM TERRAZZO ROLLER - 11/05/2024 12:00 PM TERRAZZO ROLLER Surgery [facility] Operating Room [address] [place] [address] Paulina Leyva MD [address] [place] [id number] HYSTEROSCOPY, DILATION AND CURETTAGE, MYOSURE POLYPECTOMY Surgery [...] on file Legal Sex Female 3:32 AM TERRAZZO ROLLER Gender Identity Not on file Sexual Orientation Not on file documented as of this encounter Last Filed Vital Signs Vital Sign Reading Time Taken Comments Blood Pressure 168/81 11/05/2024 12:00 PM TERRAZZO ROLLER Pulse 64 11/05/2024 12:00 PM TERRAZZO ROLLER Temperature 36.6 ??C (97.8 ??F) 11/05/2024 1 1:18 AM TERRAZZO ROLLER Respiratory Rate 13 11/05/2024 12:0 0 PM TERRAZZO ROLLER Oxygen Saturation 97% 11/05/2024 12: 00 PM TERRAZZO ROLLER Inhaled Oxygen Concentration - - Weight 98.3 kg (216 lb 11.4 oz) 11/05/2024 9:34 AM TERRAZZO ROLLER Height 158.8 cm (5' 2.5 ) 11/05/2024 9:34 AM TERRAZZO ROLLER Body Mass Index 39.01 11/05/2024 9:34 AM TERRAZZO ROLLER documented in this encounter Discharge Instructions * Attachments The following attachments cannot be sent through Care Everywhere. * MyoSure Tissue Removal System (Discharge Care) (Turkish) * Ibuprofen (By mouth) (Turkish) * General Anesthesia (Discharge Care) (Turkish) documented in this encounter Medications at Time [...] tablet (50 mcg total) by mouth early years teacher before breakfast omeprazole (PriLOSEC) 20 mg capsule [...] MyoSure D&C. She has recently seen her hotel manager in got cardiac clearance. No LMP recorded. Patient is postmenopausal. Past Medical History: Diagnosis Date Arthritis Asthma Atrial fibrillation (CMS/HCC) (HCC) Chronic kidney disease GERD (gastroesophageal reflux disease) Heart disease 12/2022 Hypertension Hypothyroidism Thyroid disease Past Surgical History: Procedure Laterality Date BREAST BIOPSY COLONOSCOPY CYST REMOVAL ESOPHAGOGASTRODUODENOSCOPY NV LIG/TRNSXJ FLP TUBE ABDL/VAG APPR UNI/BI Tubal [...] tablet (50 mcg total) by mouth early years teacher before breakfast Yes Susan Lacey MD omeprazole [...] Son Cancer Neg Hx no colon or medicare biller cancer cmt 09/09/23 Social History Tobacco Use [...] and desired to proceed. Paulina Leyva MD AZZO ROLLER documented in this encounter Miscellaneous Notes * [...] tolerated the procedure well. Paulina Leyva MD AZZO ROLLER * Perioperative Nursing Note - Nighat Friend RN - 10/28/2024 2:05 PM CST Pre operative instructions reviewed with patient, she verbalized understanding. Instructed patient that she is to hold xarelto prior to procedure and will be notified of hold time after Dr Olivier confirms this. Gris from Dr Leyva aware to get clearance and xarelto hold time from Dr Olivier AZZO ROLLER * Pre-Procedure Instructions - Nighat Friend RN - 10/28/2024 1:54 PM CST [phone] We are pleased that you and your doctor have chosen [facility] for your surgery. We hope that the [...] Take as prescribed Use no make-up, nail upper sorbian, lotions, oils or powders on your skin. [...] down the dwyer until you see the [employer] shop, there will be elevators to the [...] posted at the top of the page. AZZO ROLLER documented in this encounter Plan of Treatment Not on file documented as of this encounter Procedures Procedure Name Priority Date/Time Associated Diagnosis Comments SURGICAL PATHOLOGY Routine 11/05/2024 2: 57 PM TERRAZZO ROLLER Postmenopausal bleeding DILATION AND CURETTAGE/HYSTEROSC OPY 11/05/2024 10:16 AM TERRAZZO ROLLER Postmenopausal bleeding ECG 12-LEAD STAT 11/05/2024 10:00 AM TERRAZZO ROLLER POTASSIUM, WHOLE BLOOD STAT 11/05/2024 9:49 AM TERRAZZO ROLLER ABO/RH STAT 11/05/2024 9:49 AM TERRAZZO ROLLER ANTIBODY SCREEN STAT 11/05/2024 9:49 AM TERRAZZO ROLLER TYPE AND SCREEN STAT 11/05/2024 9:49 AM TERRAZZO ROLLER documented in this encounter Results * Surgical pathology (11/05/2024 2:57 PM TERRAZZO ROLLER) Tissue (Endometrial curettings) 11/05/2024 11:08 AM TERRAZZO ROLLER Narrative PATHOLOGY [facility] - 11/09/2024 12:25 PM TERRAZZO ROLLER EPIC results best viewed via link to PDF [facility] Department of Pathology [address] [place] [address] Note to Patients: This report may contain [...] Final Report Patient Name: ??LYSSA VIERARamón Address: ??[address] [place] [address], ??[place], [place] ?? Gender: ??F : ??1945 (Age: 79) Service: ??Obstetrics Location: ??[facility] Hospital #: ??[id number] Patient Type: ??[facility] EP OP in bed Accession # ?[id number] Taken: ??11/05/2024 Received: ??11/05/2024 Accessioned: ??11/05/2024 Reported: [...] determined by the Surgical Pathology Department at [facility] as part of an ongoing quality assurance project manager program and in compliance with federally mandated [...] characteristics determined by the Surgical Pathology Department [facility]. ??It has not been cleared or approved by the U. S. Food and Drug Administration. Note for decalcified specimens: This assay has not been validated on decalcified tissues. Results should be interpreted with caution given the possibility of false negativity on decalcified specimens Paulina Leyva MD LAB PATHOLOGY ORDER ART Final Result Performing Organization Address [facility] Co de Phone Number PATHOLOGY [facility] [address] [place] [address] * ECG 12 lead (11/05/2024 10:00 AM TERRAZZO ROLLER) 11/05/2024 10:0 0 AM TERRAZZO ROLLER Narrative [facility] - 11/05/2024 10:17 AM TERRAZZO ROLLER Vent Rate: 69 bpm RR Interval: 859 msec NV Interval: 177 msec QRS Duration: 169 msec QT Interval: 454 msec QTC Interval: 474 msec P-R-T [place]: 28 - -24 - 122 degrees IMPRESSION: SINUS RHYTHM LEFT BUNDLE BRANCH BLOCK ??[120+ ms QRS DURATION, 80+ ms Q/S IN V1/V2, 85+ ms R IN I/aVL/V5/V6] ABNORMAL ECG Electronically Signed By: Mauri Sanches MD Archie Riggins MD ECG ORDERABLES Final Result Performing Organization Address [facility] de Phone Number [facility] [employer] [facility] * Antibody screen (11/05/2024 9:49 AM TERRAZZO ROLLER) Jayne, indirect, Gel Interpretation Negative ABSC Blood 11/05/2024 9:49 AM TERRAZZO ROLLER 11/05/2024 9:59 AM TERRAZZO ROLLER Narrative [facility] - 11/05/2024 11:05 AM TERRAZZO ROLLER Has the patient had Daratumumab or Isatuximab in the past 6 months?->Unknown us Paulina Leyva MD LAB BLOOD BANK TEST ORDERABLES Final Result Performing Organization Address [facility] Co de Phone Number [facility] [address] [facility] Department [place] [address] * ABO/Rh (11/05/2024 9:49 AM TERRAZZO ROLLER) ABO/Rh O Positive Blood 11/05/2024 9:49 AM TERRAZZO ROLLER 11/05/2024 9:59 AM TERRAZZO ROLLER Narrative [facility] - 11/05/2024 11:05 AM TERRAZZO ROLLER Has the patient had Daratumumab or Isatuximab in the past 6 months?->Unknown Paulina Leyva MD LAB BLOOD BANK TEST ORDERABLES Final Result Performing Organization Address [facility]/ZIP Co de Phone Number [facility] ([place]) [address] [place] [address] [employer] [place] [address] * Potassium, whole blood (11/05/2024 9:49 AM TERRAZZO ROLLER) Potassium, bld 4.0 3.3 - 4.9 mmol/L Comment: Interpretive Data This method is not able to assess for hemolysis, which may falsely increase potassium concentrations. If further testing is needed to evaluate this result, consider in-laboratory plasma potassium. Current Interpretive Data was last revised on 2022. Blood 11/05/2024 9:49 AM TERRAZZO ROLLER 11/05/2024 9:59 AM TERRAZZO ROLLER Archie Riggins MD LAB BLOOD ORDERABLES F inal Result Performing Organization Address [facility] Co de Phone Number [facility] ([place]) [address] [place] [address] [place] [address] documented in this encounter Visit Diagnoses Diagnosis [...] induction., Indications: PainIndications:Pain Given 11/05/2024 9:58 AM TERRAZZO ROLLER 1,000 mg fentaNYL (SUBLIMAZE) preservative free injection 25 mcg 25 mcg, intravenous, Every 10 min PRN, 1st line for pain, Starting on Laurel 11/05/24 at 1124, Phase I, Notify Anesthesiologist if total PACU dose reaches 100 mcg and pain score 5/10 or more., Indications: PainIndications:Pain Given 11/05/2024 11:39 AM TERRAZZO ROLLER 25 mcg Given 11/05/2024 11:29 AM TERRAZZO ROLLER 25 mcg ketorolac (TORADOL) 30 mg/mL injection 30 mg 30 mg, intravenous, Once, On Laurel 11/05/24 at 1215, For 1 dose, Phase I, For Adult IV push, administer over 15 seconds Given 11/05/2024 11:46 AM TERRAZZO ROLLER 30 mg sodium chloride 0.9% infusion 125 mL/hr, intravenous, Continuous, Starting on Laurel 11/05/24 at 1000, Pre-Op, May discontinue when discharge criteria met. New Bag 11/05/2024 10:39 AM TERRAZZO ROLLER sodium chloride 0.9% irrigation As needed, Starting on Laurel 11/05/24 at 1102, Intra-Op Given 11/05/2024 11:02 AM TERRAZZO ROLLER 1,000 mL Surgical Site documented in this encounter Active and Recently Administered Medications Times are shown in TERRAZZO ROLLER. Scheduled Medication Order 11/03/2024 11/04/2024 11/05/2024 acetaminophen [...] 11/05/2024 documented in this encounter Care Teams Operations Expert Relationship Specialty Start Date End Date No, Physician PCP - General 10/22/24 Paulina Leyva MD 4 [facility] [address] [address] Consulting Physician Obstetrics and Gynecology 11/05/24 documented as of this encounter
--- OUTSIDE RECORDS SUMMARY | 2024-11-22 02:51 | XMS_ITS | Encounter Summary ---
Author Organization [facility] Healthcare Address [address] [place] [address] Care Team Providers Care Automatic Bow Maker Machine Tender Name Role Phone No, Physician Primary Care Provider [phone] Encounter Details Date Type Department Care Team (Late st Contact Info) Description 11/02/2024 Telephone [facility] Cardiology [address] [place] [address] Berta Olivier MD [address] [place] [address] Social History Tobacco Use Types Packs/Day [...] file Legal Sex Female 3:32 AM SECURITY REPRESENTATIVE Gender Identity Not on file Sexual Orientation Not on file documented as of this encounter Miscellaneous Notes * Telephone Encounter - Shaun Simon RN - 11/03/2024 11:51 AM SECURITY REPRESENTATIVE Clearance sent to [facility] [employer] [facility] RITY REPRESENTATIVE * Telephone Encounter - Shaun Simon RN - 11/02/2024 1:12 PM SECURITY REPRESENTATIVE LM on returning call regarding cardiac clearance. Explained that clearance will be reviewed tomorrow when RP returns to office. Advised their office to call back with any questions or concerns. RITY REPRESENTATIVE * Telephone Encounter - Priya Navarrete - 11/02/2024 11:43 AM CST Pt is scheduled for an OBGYN surgical procedure on 11/05/2024. They faxed us a letter asking for clearance and how long to hold Xarelto before and after on 10/28/2024. The OBGYN does not have a recommended time to hold medication. Clearance letter to our office is scanned into media. . RITY REPRESENTATIVE documented in this encounter Plan of Treatment Not on file documented as of this encounter Visit Diagnoses Not on filedocumented in this encounter Care Teams Automatic Bow Maker Machine Tender Relationship Specialty Start Date End Date No, Physician PCP - General 10/22/24 documented as of this encounter
--- OUTSIDE RECORDS SUMMARY | 2024-11-22 02:51 | XMS_ITS | Encounter Summary ---
Author Organization [facility] Healthcare Address [address] [place] [address] Care Team Providers Care Print Binding And Finishing Worker Name Role Phone No, Physician Primary Care Provider [phone] Encounter Details Date Type Department Care Team (Late st Contact Info) Description 11/02/2024 2:45 PM GARMENT LOOPER Lab [facility] Outpatient Lab at [address] [address] Hypothyroidism (acquired) (Primary Dx); Postmenopausal [...] on file Legal Sex Female 3:32 AM GARMENT LOOPER Gender Identity Not on file Sexual Orientation Not on file documented as of this encounter Plan of Treatment Not on file documented as of this encounter Visit Diagnoses Diagnosis Hypothyroidism (acquired)- Primary Unspecified hypothyroidism Postmenopausal bleeding documented in this encounter Care Teams Print Binding And Finishing Worker Relationship Specialty Start Date End Date No, Physician PCP - General 10/22/24 documented as of this encounter
--- OUTSIDE RECORDS SUMMARY | 2024-11-22 02:51 | XMS_ITS | Clinical Summary ---
Author Organization [facility] Address [address] [place] [address] Phone Care Team Providers Care Foam Rubber Curer Name Role Phone Stefan Park MD Primary Care Provider [phone] Social History Tobacco Use Types Packs/Day Years [...] Recently Relevant to Health Maintenance Care Teams Foam Rubber Curer Relationship Specialty Start Date End Date Stefan Park MD [address] [place] [address] PCP - General Family Medicine 07/15/19
--- OUTSIDE RECORDS SUMMARY | 2024-11-22 02:51 | XMS_ITS | Encounter Summary ---
Author Organization [facility] Healthcare Address [address] [place] [address] Care Team Providers Care Valve Tester Name Role Phone No, Physician Primary Care Provider [phone] Paulina Leyva MD Unavailable [phone] Encounter Details Date Type Department Care Team (Late st Contact Info) Description 11/16/2024 Telephone [facility] [address] [facility] [address] [place] [address] Paulina Leyva MD [address] [place] [address] Social History Tobacco Use Types Packs/Day [...] on file Legal Sex Female 3:32 AM MEDIA RELATIONS SPECIALIST Gender Identity Not on file Sexual Orientation Not on file documented as of this encounter Miscellaneous Notes * Telephone Encounter - Nina Zurita RN - 11/17/2024 3:32 PM CST [phone] Called patient and left VM to check in and see how she is doing. I advised her to call back at her convenience. INEZ Wood A RELATIONS SPECIALIST * Telephone Encounter - Arnulfo Le MD - 11/16/2024 9:16 AM MEDIA RELATIONS SPECIALIST I spoke with the ERP at [facility] today patient has been bleeding last day or 2. Op note and pathology reviewed. Ultrasound showed a thickened EMC thought to likely be blood. Bleeding is not extremely active. She is on Xarelto. We discussed holding her Xarelto for a few days. We talked about TXA but will instead hold Xarelto and call if bleeding is not improved. Hb is normal. A RELATIONS SPECIALIST * Telephone Encounter - Nina Zurita RN - 11/16/2024 8:44 AM CST My chart message from patient at 6:30am I am experiencing increased bleeding resulting from my Hysteroscopy, dilation & curettage, myosure Polpecotomy on 11/05/24. This increase has increased significantly in the last [address] Leyva is in [place] on Mondays, I would like to see her rather than go to the ER. Is this possible? I had significant bleeding from a LEEP procedure many years ago. That bleeding was attributed to a scab falling from the wound. I called and spoke with patient and when I called she was already at [facility]. She stated bleeding from procedure she [...] what the ER says. REJI Tejeda, RN A RELATIONS SPECIALIST documented in this encounter Plan of Treatment Not on file documented as of this encounter Visit Diagnoses Not on filedocumented in this encounter Care Teams Valve Tester Relationship Specialty Start Date End Date No, Physician PCP - General 10/22/24 Paulina Leyva MD [address] [place] [address] [place] [address] Consulting Physician Obstetrics and Gynecology 11/05/24 documented as of this encounter
--- OUTSIDE RECORDS SUMMARY | 2024-11-22 02:51 | XMS_ITS | Encounter Summary ---
Author Organization [facility] Healthcare Address [address] [place] [address] Care Team Providers Care Evaluation Manager Name Role Phone No, Physician Primary Care Provider [phone] Reason for Visit * Reason Comments Pre-op Visit Pt is scheduled for Hysteroscopy, D&C, Myosure Polypectomy on 11/05/2024 Surgical Clearance Still waiting for hernandez rgical clearance from Cardiology. Per nurse Madhav w/ [facility] Cardiology: Dr Olivier returns to office tomorrow, will complete and send back. Encounter Details Date Type Department Care Team (Late st Contact Info) Description 11/02/2024 1:45 PM SHIPPING AND RECEIVING ASSOCIATE Office Visit [facility] at [address] [address] Paulina Leyva MD [address] [place] [address] DR GRIJALVA [address] [place] [address] Postmenopausal bleeding (Primary Dx) Social History Tobacco [...] on file Legal Sex Female 3:32 AM SHIPPING AND RECEIVING ASSOCIATE Gender Identity Not on file Sexual Orientation Not on file documented as of this encounter Last Filed Vital Signs Vital Sign Reading Time Taken Comments Blood Pressure 126/70 11/02/2024 1:46 PM SHIPPING AND RECEIVING ASSOCIATE Pulse - - Temperature - - Respiratory Rate - - Oxygen Saturation - - Inhaled Oxygen Concentration - - Weight 98.9 kg (218 lb) 11/02/2024 1:46 PM SHIPPING AND RECEIVING ASSOCIATE Height 158.8 cm (5' 2.5 ) 11/02/2024 1:46 PM SHIPPING AND RECEIVING ASSOCIATE Body Mass Index 39.24 11/02/2024 1:46 PM SHIPPING AND RECEIVING ASSOCIATE documented in this encounter Progress Notes * Paulina Leyva MD - 11/02/2024 1:45 PM CST Images from the original note were not included. Skiver Hand Visit Pre-op Visit (Pt is scheduled for Hysteroscopy, D&C, Myosure Polypectomy on 11/05/2024) and Surgical Clearance (Still waiting for surgical clearance from Cardiology. Per nurse Madhav w/ [facility] Cardiology: Dr Olivier returns to office tomorrow, [...] scheduled follow up. Paulina Leyva MD 11/02/2024 PING AND RECEIVING ASSOCIATE documented in this encounter Miscellaneous Notes * Assessment & Plan Note - Paulina Leyva MD - 11/02/2024 2:29 PM CSTAssociated Problem(s): Postmenopausal bleeding Procedure reviewed along with risk, benefits and alternatives as they pertain to her specifically. Questions answered Post op pain management discussed. She voices understanding and desired to proceed. PING AND RECEIVING ASSOCIATE documented in this encounter Plan of Treatment Not on file documented as of this encounter Visit Diagnoses Diagnosis Postmenopausal bleeding- Primary documented in this encounter Care Teams Evaluation Manager Relationship Specialty Start Date End Date No, Physician PCP - General 10/22/24 documented as of this encounter
--- OUTSIDE RECORDS SUMMARY | 2024-11-22 02:51 | XMS_ITS | Encounter Summary ---
Author Organization [facility] Healthcare Address [address] [place] [address] Care Team Providers Care Cost Consultant Name Role Phone No, Physician Primary Care Provider [phone] Paulina Leyva MD Unavailable [phone] Reason for Visit * Auth/Cert (Routine) Specialty Diagnoses / Procedures Referred By Contac t Referred To Contact Diagnoses Postmenopausal bleeding Postmenopausal bleeding [N95.0] Procedures AR HYSTEROSCOPY BX ENDOMETRIUM&/POLYPC W/WO D&C HYSTEROSCOPY, DILATION AND CURETTAGE, MYOSURE POLYPECTOMY Referral ID Status Reason Start Date Expiration Date Visits Re quested Visits Authorized [id number] 1 1 Encounter Details Date Type Department Care Team (Late st Contact Info) Description 11/05/2024 9:15 AM AREA FIELD PERSON - 11/05/2024 1:40 PM AREA FIELD PERSON Hospital Encounter [facility] Operating Room [address] [place] [address] Paulina Leyva MD [address] [place] [address] Postmenopausal bleeding Discharge Disposition: Discharge to home [...] on file Legal Sex Female 3:32 AM AREA FIELD PERSON Gender Identity Not on file Sexual Orientation Not on file documented as of this encounter Last Filed Vital Signs Vital Sign Reading Time Taken Comments Blood Pressure 164/96 11/05/2024 1:10 PM AREA FIELD PERSON Pulse 75 11/05/2024 1:10 PM AREA FIELD PERSON Temperature 36.6 ??C (97.8 ??F) 11/05/2024 1:10 PM CS T Respiratory Rate 18 11/05/2024 1:10 PM AREA FIELD PERSON Oxygen Saturation 95% 11/05/2024 1:10 PM AREA FIELD PERSON Inhaled Oxygen Concentration - - Weight 98.3 kg (216 lb 11.4 oz) 11/05/2024 9:34 AM AREA FIELD PERSON Height 158.8 cm (5' 2.5 ) 11/05/2024 9:34 AM AREA FIELD PERSON Body Mass Index 39.01 11/05/2024 9:34 AM AREA FIELD PERSON documented in this encounter Discharge Instructions * Attachments The following attachments cannot be sent through Care Everywhere. 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 She has recently seen her layout man in got cardiac clearance. No LMP recorded. 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 Paulina Leyva MD FIELD PERSON documented in this encounter Miscellaneous Notes * [...] tolerated the procedure well. Paulina Leyva MD FIELD PERSON * Perioperative Nursing Note - Nighat Friend RN - 10/28/2024 2:05 PM CST Pre operative instructions reviewed with patient, she verbalized understanding. Instructed patient that she is to hold xarelto prior to procedure and will be notified of hold time after Dr Olivier confirms this. Gris from Dr Leyva aware to get clearance and xarelto hold time from Dr Olivier FIELD PERSON * Pre-Procedure Instructions - Nighat Friend RN - 10/28/2024 1:54 PM CST [phone] We are pleased that you and your doctor have chosen [facility] for your surgery. We hope that [...] Take as prescribed Use no make-up, nail indonesian, lotions, oils or powders on your skin. [...] down the dwyer until you see the [employer]/coffee shop, there will be elevators to the [...] posted at the top of the page. FIELD PERSON documented in this encounter Plan of Treatment Not on file documented as of this encounter Procedures Procedure Name Priority Date/Time Associated Diagnosis Comments SURGICAL PATHOLOGY Routine 11/05/2024 2: 57 PM AREA FIELD PERSON Postmenopausal bleeding DILATION AND CURETTAGE/HYSTEROSC OPY 11/05/2024 10:16 AM AREA FIELD PERSON Postmenopausal bleeding ECG 12-LEAD STAT 11/05/2024 10:00 AM AREA FIELD PERSON POTASSIUM, WHOLE BLOOD STAT 11/05/2024 9:49 AM AREA FIELD PERSON ABO/RH STAT 11/05/2024 9:49 AM AREA FIELD PERSON ANTIBODY SCREEN STAT 11/05/2024 9:49 AM AREA FIELD PERSON TYPE AND SCREEN STAT 11/05/2024 9:49 AM AREA FIELD PERSON documented in this encounter Results * Surgical pathology (11/05/2024 2:57 PM AREA FIELD PERSON) Tissue (Endometrial curettings) 11/05/2024 11:08 AM AREA FIELD PERSON Narrative PATHOLOGY [facility] - 11/09/2024 12:25 PM AREA FIELD PERSON EPIC results best viewed via link to PDF [facility] Department of Pathology [address] [place] [id number] Note to Patients: This report may contain [...] Final Report Patient Name: ??LYSSA ROSENBERGRamón Address: ??[address] [place] [address], ??[place], [place] ?? Gender: ??F : ??1945 (Age: 79) Service: ??Obstetrics Location: ??[facility] Hospital #: ??[id number] Patient Type: ??[facility] EP OP in bed Accession # ?[id number] Taken: ??11/05/2024 Received: ??11/05/2024 Accessioned: ??11/05/2024 Reported: [...] determined by the Surgical Pathology Department at [facility] as part of an ongoing aircraft quality control inspector program and in compliance with federally mandated [...] characteristics determined by the Surgical Pathology Department [facility]. ??It has not been cleared or approved by the U. S. Food and Drug Administration. Note for decalcified specimens: This assay has not been validated on decalcified tissues. Results should be interpreted with caution given the possibility of false negativity on decalcified specimens Paulina Leyva MD LAB PATHOLOGY ORDER ART Final Result PATHOLOGY [facility] [address] [place] [address] * ECG 12 lead (11/05/2024 10:00 AM AREA FIELD PERSON) 11/05/2024 10:0 0 AM AREA FIELD PERSON Narrative [facility] - 11/05/2024 10:17 AM AREA FIELD PERSON Vent Rate: 69 bpm RR Interval: 859 msec AR Interval: 177 msec QRS Duration: 169 msec QT Interval: 454 msec QTC Interval: 474 msec P-R-T [place]: 28 - -24 - 122 degrees IMPRESSION: SINUS RHYTHM LEFT BUNDLE BRANCH BLOCK ??[120+ ms QRS DURATION, 80+ ms Q/S IN V1/V2, 85+ ms R IN I/aVL/V5/V6] ABNORMAL ECG Electronically Signed By: Mauri Sanches MD us Archie Riggins MD ECG ORDERABLES Final Result [facility] * Antibody screen (11/05/2024 9:49 AM AREA FIELD PERSON) Jayne, indirect, Gel Interpretation Negative ABSC Blood 11/05/2024 9:49 AM AREA FIELD PERSON 11/05/2024 9:59 AM AREA FIELD PERSON Narrative [facility] - 11/05/2024 11:05 AM AREA FIELD PERSON Has the patient had Daratumumab or Isatuximab in the past 6 months?->Unknown us Paulina Leyva MD LAB BLOOD BANK TEST ORDERABLES Final Result [facility] 1 [facility] Department [place] [address] * ABO/Rh (11/05/2024 9:49 AM AREA FIELD PERSON) ABO/Rh O Positive Blood 11/05/2024 9:49 AM AREA FIELD PERSON 11/05/2024 9:59 AM AREA FIELD PERSON Narrative [facility] - 11/05/2024 11:05 AM AREA FIELD PERSON Has the patient had Daratumumab or Isatuximab in the past 6 months?->Unknown us Paulina Leyva MD LAB BLOOD BANK TEST ORDERABLES Final Result [facility] [place] 1 [facility] [place] [address] * Potassium, whole blood (11/05/2024 9:49 AM AREA FIELD PERSON) Potassium, bld 4.0 3.3 - 4.9 mmol/L Comment: Interpretive Data This method is not able to assess for hemolysis, which may falsely increase potassium concentrations. If further testing is needed to evaluate this result, consider in-laboratory plasma potassium. Current Interpretive Data was last revised on 2022. Blood 11/05/2024 9:49 AM AREA FIELD PERSON 11/05/2024 9:59 AM AREA FIELD PERSON Archie Riggins MD LAB BLOOD ORDERABLES F inal Result Performing Organization Address [facility] Co de Phone Number [facility] 1 [facility] [place] [address] documented in this encounter Visit Diagnoses Diagnosis [...] induction., Indications: PainIndications:Pain Given 11/05/2024 9:58 AM AREA FIELD PERSON 1,000 mg fentaNYL (SUBLIMAZE) preservative free injection 25 mcg 25 mcg, intravenous, Every 10 min PRN, 1st line for pain, Starting on [place] 11/05/24 at 1124, Phase I, Notify Anesthesiologist if total PACU dose reaches 100 mcg and pain score 5/10 or more., Indications: PainIndications:Pain Given 11/05/2024 11:39 AM AREA FIELD PERSON 25 mcg Given 11/05/2024 11:29 AM AREA FIELD PERSON 25 mcg ketorolac (TORADOL) 30 mg/mL injection 30 mg 30 mg, intravenous, Once, On [place] 11/05/24 at 1215, For 1 dose, Phase I, For Adult IV push, administer over 15 seconds Given 11/05/2024 11:46 AM AREA FIELD PERSON 30 mg sodium chloride 0.9% infusion 125 mL/hr, intravenous, Continuous, Starting on [place] 11/05/24 at 1000, Pre-Op, May discontinue when discharge criteria met. New Bag 11/05/2024 10:39 AM AREA FIELD PERSON documented in this encounter Active and Recently Administered Medications Times are shown in AREA FIELD PERSON. Scheduled Medication Order 11/03/2024 11/04/2024 11/05/2024 acetaminophen [...] 11/05/2024 documented in this encounter Care Teams Cost Consultant Relationship Specialty Start Date End Date No, Physician PCP - General 10/22/24 Paulina Leyva MD [address] [place] [address] [place] [address] Consulting Physician Obstetrics and Gynecology 11/05/24 documented as of this encounter
--- OUTSIDE RECORDS SUMMARY | 2024-11-22 02:51 | XMS_ITS | Encounter Summary ---
Author Organization [facility] Healthcare Address [address] [place] [address] Care Team Providers Care Desk Editor Name Role Phone No, Physician Primary Care Provider [phone] Paulina Leyva MD Unavailable [phone] Encounter Details Date Type Department Care Team (Late st Contact Info) Description 10/28/2024 Telephone [facility] [address] [facility] [address] [place] [address] Paulina Leyva MD [address] [place] [address] Social History Tobacco Use Types Packs/Day [...] on file Legal Sex Female 3:32 AM AIRPORT RAMP AGENT Gender Identity Not on file Sexual Orientation Not on file documented as of this encounter Miscellaneous Notes * Telephone Encounter - Gris Carias MA - 11/03/2024 2:35 PM AIRPORT RAMP AGENT Received surgical clearance from Cardiology - scanned into media & attached to encounter Dr Autumn MENDOZA Thank you Gris ORT RAMP AGENT * Telephone Encounter - Gris Carias MA - 11/02/2024 1:46 PM AIRPORT RAMP AGENT Received a VM from nurse Madhav w/ [facility] Cardiology: claims that Dr Olivier is out of the office today and returns in the morning. Will have completed and sent back tomorrow morning. Return call number if needed: [phone] Thank you Gris. ORT RAMP AGENT * Telephone Encounter - Gris Carias MA - 11/02/2024 11:41 AM AIRPORT RAMP AGENT Walked over and spoke w/ Cardiology in the [facility] office Claims that she will follow up with faxed request, aware that patient is scheduled 11/05. ORT RAMP AGENT * Telephone Encounter - Gris Carias MA - 10/28/2024 2:17 PM AIRPORT RAMP AGENT Completed letter and faxed Waiting for response ORT RAMP AGENT * Telephone Encounter - Gris Carias MA - 10/28/2024 1:50 PM AIRPORT RAMP AGENT Nighat ortizRamón pre arrival called into the office stating that they do not see a medical clearance from Cardiology. Claims that they need to know how long patient should hold Xarelto medication prior to her surgical procedure scheduled 11/05/2024. [id number] [facility] Cardiology - [facility] location Spoke w Josselyn Claims that she does not see where the patient discussed the surgical procedure w/ Dr Olivier at [facility] on 10/22/2024. Requested to send a clearance letter form over to Dr Olivier at fax #: [phone] Olivier will review & sign off. Must include surgical date, type of procedure and medication name/ concern. ORT RAMP AGENT documented in this encounter Plan of Treatment Not on file documented as of this encounter Visit Diagnoses Not on filedocumented in this encounter Care Teams Desk Editor Relationship Specialty Start Date End Date No, Physician PCP - General 10/22/24 Paulina Leyva MD [address] [place] [address] [address] Consulting Physician Obstetrics and Gynecology 11/05/24 documented as of this encounter
--- OUTSIDE RECORDS SUMMARY | 2024-11-22 02:51 | XMS_ITS | Referral Summary ---
Author Organization [facility] [address] [place] [address] Address [address] [facility] [address] [place] [address] Care Team Providers Care Remelter Name Role Phone No, Physician Primary Care Provider Paulina Leyva MD Unavailable [phone] Encounters Date Type Department Care Team Description 11/20/2024 2:30 PM LOKIE DRIVER Office Visit [facility] Medical [facility] [address] [place] [address] [address] [place] [address] Paulina Mejia NP Paroxysmal atrial fibrillation (CMS/HCC) (HCC); New onset left bundle branch block (LBBB); Chronic fatigue 11/16/2024 Telephone [facility] [address] [place] [address] [address], [place] [address] Paulina Leyva MD 11/11/2024 Telephone [facility] [address] [place] [address] [address] [place] [address] Berta Olivier MD 11/11/2024 Telephone [facility] [address] [place] [address] [address] [place] [phone] Paulina Leyva MD follow up 11/05/2024 10:45 AM LOKIE DRIVER - 11/05/2024 12:00 PM LOKIE DRIVER Surgery [facility] Operating Room 1 [place] [address] Paulina Leyva MD HYSTEROSCOPY, DILATION AND CURETTAGE, MYOSURE POLYPECTOMY 11/05/2024 10:31 AM LOKIE DRIVER Anesthesia Event [facility] Operating Room 1 [place] [address] Ruben Mosley MD Reynolds, Ethan Emerson, MD 11/05/2024 9:15 AM LOKIE DRIVER - 11/05/2024 1:40 PM LOKIE DRIVER Hospital Encounter [facility] Operating Room 1 [place] [address] Paulina Leyva MD Postmenopausal bleeding Discharge Disposition: Discharge to home or self care 11/02/2024 2:47 PM LOKIE DRIVER - 11/02/2024 11:59 PM LOKIE DRIVER Hospital Encounter [address] [address] Postmenopausal bleeding; Pre-operative laboratory examination Discharge Disposition: Discharge to home or self care 11/02/2024 2:45 PM LOKIE DRIVER Lab [facility] at [address] [phone] Hypothyroidism (acquired) (Primary Dx); Postmenopausal bleeding 11/02/2024 Telephone [facility] [address] [place] [address] [place] [phone] Berta Olivier MD 11/02/2024 1:45 PM LOKIE DRIVER Office Visit [facility] Care at [address] [phone] Paulina Leyva MD Postmenopausal bleeding (Primary Dx) 10/28/2024 Telephone [facility] [employer] [address] [place] [address] [place] [phone] Paulina Leyva MD 10/22/2024 9:15 AM LOKIE DRIVER Office Visit [facility] [address] [place] [address] [address] [place] [phone] Berta [place] MD Paroxysmal atrial fibrillation (CMS/HCC) (HCC) (Primary Dx); Primary hypertension; Chronic anticoagulation 10/14/2024 Telephone [facility] [employer] 4 [facility] [address] [place] [phone] Paulina Leyva MD Pre Cert (CPT 11805) 09/10/2024 Telephone [facility] [employer] 4 [facility] [address] [place] [phone] Paulina Leyva MD Procedure Scheduling 09/07/2024 10:00 AM CDT Office Visit [facility] Medical Group Women's [facility] Care at [address] [address] Paulina Leyva MD Postmenopausal bleeding (Primary Dx) 08/31/2024 10:30 AM CDT Ancillary Procedure [facility] [address] [place] [address] [address] [place] [phone] Postmenopausal bleeding 08/28/2024 Telephone [facility] [address] [place] [address] [address] [place] [phone] Paulina Leyva MD bleeding (PMB) from Last [...] 1 tablet (50 mcg total) by mouth materials associate before breakfast Active rivaroxaban (XARELTO) 20 mg [...] 09/09/2023 Assessment & Plan (11/02/2024 2:29 PM LOKIE DRIVER): Procedure reviewed along with risk, benefits and [...] proceed. Assessment & Plan (01/06/2024 10:48 AM LOKIE DRIVER): To call if she has any more bleeding otherwise we will follow-up for complete exam in 1 year Assessment & Plan (09/30/2023 10:48 AM CDT): Options discussed She wants to watch and wait. If she bleeds again will go to OR Assessment & Plan (09/09/2023 2:20 PM CDT): To [facility] I anticipate she will need an emb [...] on file Legal Sex Female 3:32 AM LOKIE DRIVER Gender Identity Not on file Sexual Orientation Not on file Last Filed Vital Signs Vital Sign Reading Time Taken Comments Blood Pressure 132/84 11/20/2024 2:33 PM LOKIE DRIVER Pulse 89 11/20/2024 2:33 PM LOKIE DRIVER Temperature 36.6 ??C (97.8 ??F) 11/05/2024 1:10 PM CS T Respiratory Rate 18 11/05/2024 1:10 PM LOKIE DRIVER Oxygen Saturation 98% 11/20/2024 2:33 PM LOKIE DRIVER Inhaled Oxygen Concentration - - Weight 98 kg (216 lb) 11/20/2024 2:33 PM LOKIE DRIVER Height 157.5 cm (5' 2 ) 11/20/2024 2:33 PM LOKIE DRIVER Body Mass Index 39.51 11/20/2024 2:33 PM LOKIE DRIVER Plan of Treatment Not on file Procedures Procedure Name Priority Date/Time Associated Diagnosis Comments ECG 12-LEAD Routine 11/20/2024 New onset left bundle branch block (LBBB) Paroxysmal atrial fibrillation (CMS/HCC) (HCC) SURGICAL PATHOLOGY Routine 11/05/2024 2: 57 PM LOKIE DRIVER Postmenopausal bleeding CO AN ELECTIVE SUPRAGLOTTIC AIRWAY Routine 11/05/2024 10:47 AM LOKIE DRIVER DILATION AND CURETTAGE/HYSTEROSCO PY 11/05/2024 10:16 AM LOKIE DRIVER Postmenopausal bleeding ECG 12-LEAD STAT 11/05/2024 10:00 AM LOKIE DRIVER ANTIBODY SCREEN STAT 11/05/2024 9:49 AM LOKIE DRIVER ABO/RH STAT 11/05/2024 9:49 AM LOKIE DRIVER POTASSIUM, WHOLE BLOOD STAT 11/05/2024 9:49 AM LOKIE DRIVER TYPE AND SCREEN STAT 11/05/2024 9:49 AM LOKIE DRIVER EGFR Routine 11/02/2024 2:47 PM LOKIE DRIVER Postmenopausal bleeding Pre-operative laboratory examination DIFFERENTIAL AUTO Routine 11/02/2024 2:4 7 PM LOKIE DRIVER Postmenopausal bleeding Pre-operative laboratory examination COMPREHENSIVE METABOLIC PANEL Routine 11/02/2024 2:47 PM LOKIE DRIVER Postmenopausal bleeding Pre-operative laboratory examination URINALYSIS AND REFLEX TO MICROSCOPIC Routine 11/02/2024 2:47 PM LOKIE DRIVER Postmenopausal bleeding Pre-operative laboratory examination TYPE AND SCREEN Timed 11/02/2024 2:47 PM LOKIE DRIVER Postmenopausal bleeding Pre-operative laboratory examination CBC WITH AUTO DIFFERENTIAL Routine 11/02/2024 2:47 PM LOKIE DRIVER Postmenopausal bleeding Pre-operative laboratory examination URINE CULTURE Routine 11/02/2024 2:47 PM LOKIE DRIVER Postmenopausal bleeding Pre-operative laboratory examination US TRANSVAGINAL Schedule Routine, Read Routine (OP Routine) 08/31/2024 10:59 AM CDT Postmenopausal bleeding from Last 3 Months Results * ECG 12 lead (11/20/2024) 11/20/2024 us Paulina Mejia NP ECG ORDERABLES Edited Re sult - Final * Surgical pathology (11/05/2024 2:57 PM LOKIE DRIVER) Tissue (Endometrial curettings) 11/05/2024 11:08 AM LOKIE DRIVER Narrative PATHOLOGY [facility] (STELLA) - 11/09/2024 12:25 PM LOKIE DRIVER EPIC results best viewed via link to PDF [facility] Department of Pathology [address] [place], [place] [id number] Note to Patients: This report may contain [...] Final Report Patient Name: ??LYSSA ROSENBERG Address: ??[address] [place] [address], ??[place], [place] ?? Gender: ??F : ??1945 (Age: 79) Service: ??Obstetrics Location: ??[facility] Hospital #: ??[id number] Patient Type: ??[facility] EP OP in bed Accession # ?[id number] Taken: ??11/05/2024 Received: ??11/05/2024 Accessioned: ??11/05/2024 Reported: [...] determined by the Surgical Pathology Department at [facility] as part of an ongoing quality assurance auditor program and in compliance with federally mandated [...] characteristics determined by the Surgical Pathology Department [facility]. ??It has not been cleared or approved by the U. S. Food and Drug Administration. Note for decalcified specimens: This assay has not been validated on decalcified tissues. Results should be interpreted with caution given the possibility of false negativity on decalcified specimens Paulina Leyva MD LAB PATHOLOGY ORDER ART Final Result Performing Organization Address City/State/[facility] [[email or web address]] Co de Phone Number PATHOLOGY [place] [phone] * CO AN ELECTIVE SUPRAGLOTTIC AIRWAY (11/05/2024 10:47 AM LOKIE DRIVER) Narrative Jason Ervin CRNA - 11/05/2024 10:47 AM LOKIE DRIVER Jason Ervin CRNA ? 11/05/2024 10:47 AM Airway Patient location: OR Urgency: elective Indications for airway management: anesthesia and airway protection Difficult airway: no Staff: Placed by: BANANA EXPERT: Jason Ervin CRNA Emergent airway documentation: Risks [...] * ECG 12 lead (11/05/2024 10:00 AM LOKIE DRIVER) 11/05/2024 10:0 0 AM LOKIE DRIVER Narrative [facility] - 11/05/2024 10:17 AM LOKIE DRIVER Vent Rate: 69 bpm RR Interval: 859 msec CO Interval: 177 msec QRS Duration: 169 msec QT Interval: 454 msec QTC Interval: 474 msec P-R-T Superior: 28 - -24 - 122 degrees IMPRESSION: SINUS RHYTHM LEFT BUNDLE BRANCH BLOCK ??[120+ ms QRS DURATION, 80+ ms Q/S IN V1/V2, 85+ ms R IN I/aVL/V5/V6] ABNORMAL ECG Electronically Signed By: Mauri Sanches MD Archie Riggins MD ECG ORDERABLES Final Result Performing Organization Address [facility]/ZIP Co de Phone Number [facility] [employer] [facility] * Potassium, whole blood (11/05/2024 9:49 AM LOKIE DRIVER) Potassium, bld 4.0 3.3 - 4.9 mmol/L Comment: Interpretive Data This method is not able to assess for hemolysis, which may falsely increase potassium concentrations. If further testing is needed to evaluate this result, consider in-laboratory plasma potassium. Current Interpretive Data was last revised on 2022. Blood 11/05/2024 9:49 AM LOKIE DRIVER 11/05/2024 9:59 AM LOKIE DRIVER Archie Riggins MD LAB BLOOD ORDERABLES F inal Result Performing Organization Address [facility]/ZIP Co de Phone Number B[facility]GIE HENRIQUEZ (TIFFANIE) 1 [facility] Department of Laboratories [place] [phone] * ABO/Rh (11/05/2024 9:49 AM LOKIE DRIVER) ABO/Rh O Positive Blood 11/05/2024 9:49 AM LOKIE DRIVER 11/05/2024 9:59 AM LOKIE DRIVER Narrative B[facility] HENRIQUEZ (TIFFANIE) - 11/05/2024 11:05 AM LOKIE DRIVER Has the patient had Daratumumab or Isatuximab in the past 6 months?->Unknown us Paulina Leyva MD LAB BLOOD BANK TEST ORDERABLES Final Result Performing Organization Address [facility]/ZIP Co de Phone Number BOOGIE HENRIQUEZ (STELLA) 1 [facility] Department [place] [address] * Antibody screen (11/05/2024 9:49 AM LOKIE DRIVER) Jayne, indirect, Gel Interpretation Negative ABSC Blood 11/05/2024 9:49 AM LOKIE DRIVER 11/05/2024 9:59 AM LOKIE DRIVER Narrative [facility] HENRIQUEZ (STELLA) - 11/05/2024 11:05 AM LOKIE DRIVER Has the patient had Daratumumab or Isatuximab in the past 6 months?->Unknown us Paulina Leyva MD LAB BLOOD BANK TEST ORDERABLES Final Result Performing Organization Address [facility] de Phone Number BOOGIE HENRIQUEZ (STELLA) 1 [facility] [place] [address] * (ABNORMAL) eGFR (11/02/2024 2:47 PM LOKIE DRIVER) eGFR 55(L) >=60 mL/min/1. 73 m2 Comment: [...] last reviewed 2021. Blood 11/02/2024 2:47 PM LOKIE DRIVER 11/02/2024 8:35 PM LOKIE DRIVER us Paulina Leyva MD LAB BLOOD ORDERABLE S Final Result [facility] [address] [place] [address] * (ABNORMAL) Differential, auto (11/02/2024 2:47 PM LOKIE DRIVER) Neutrophil abs 3.9 1.5 - 6.5 K/cumm Imm gran abs 0.0 0.0 - 0.1 K/cumm [facility] Lymphocyte abs 2.7 0.8 - 3.3 K/cumm [facility] Monocyte abs 0.9(H) 0.2 - 0.8 K/cumm [facility] Eosinophil abs 0.1 0.0 - 0.5 K/cumm [facility] Basophil abs 0.1 0.0 - 0.1 K/cumm [facility] Neutrophil pct 50.6 % [facility] Comment: Interpretive Data Percent cell count reference ranges are not reported, since discordance with absolute values may lead to misinterpretation of CBC data. Current Interpretive Data was last revised on 2018. Imm gran pct 0.3 % [facility] Comment: Interpretive Data Percent cell count reference ranges are not reported, since discordance with absolute values may lead to misinterpretation of CBC data. Current Interpretive Data was last revised on 2018. Lymphocyte pct 35.4 % [facility] Comment: Interpretive Data Percent cell count reference ranges are not reported, since discordance with absolute values may lead to misinterpretation of CBC data. Current Interpretive Data was last revised on 2018. Monocyte pct 11.8 % [facility] Comment: Interpretive Data Percent cell count reference [...] revised on 2018. Blood 11/02/2024 2:47 PM LOKIE DRIVER 11/02/2024 7:38 PM LOKIE DRIVER Paulina Leyva MD LAB BLOOD ORDERABLE S Final Result [facility] [address] [place] [address] * Urinalysis reflex to microscopic (11/02/2024 2:47 PM LOKIE DRIVER) Color, ur Yellow Yellow Clarity, ur Clear [...] tendency for uric acid stone formation. Source: [facility] [employer] Current Interpretive Data was last revised on [...] not met. [facility] Urine 11/02/2024 2:47 PM LOKIE DRIVER 11/02/2024 7:38 PM LOKIE DRIVER Paulina Leyva MD LAB URINE ORDERABLE S Final Result Performing Organization Address City/[facility] [[email or web address]] Co de Phone Number B[facility]IE SIM [address] [facility] [place] [address] * (ABNORMAL) CBC with auto differential (11/02/2024 2:47 PM LOKIE DRIVER) WBC 7.6 3.8 - 9.9 K/cumm Hgb 13.5 11.9 - 15.5 g/dL [facility] Hct 42.9 35.6 - 45.5 % [facility] Plt 282 150 - 400 K/cumm [facility] MPV 9.6 9.1 - 12.3 fL [facility] RBC 4.32 3.90 - 5.20 M/cumm [facility] CH MCV 99.3(H) 81.3 - 96.4 fL [facility] MCH 31.3 27.1 - 33.3 pg [facility] MCHC 31.5(L) 32.3 - 35.7 g/dL [facility] CH RDW CV 13.3 11.1 - 14.9 % [facility] CH RDW SD 49.1(H) 35.7 - 48.1 fL [facility] NRBC abs 0.00 0.00 - 0.01 K/cumm [facility] Blood 11/02/2024 2:47 PM LOKIE DRIVER 11/02/2024 7:38 PM LOKIE DRIVER Paulina Leyva MD LAB BLOOD ORDERABLE S Final Result Performing Organization Address City/[facility]/ZIP Co de Phone Number BOOGIE [address] Department of [employer] [place], [place] [phone] * Type and screen (11/02/2024 2:47 PM LOKIE DRIVER) Jayne, indirect Negative ABO Rh O Positive [facility] Blood 11/02/2024 2:47 PM LOKIE DRIVER 11/02/2024 8:25 PM LOKIE DRIVER Narrative [facility] - 11/02/2024 9:06 PM LOKIE DRIVER Is this test being ordered in advance for a procedure?->Yes Expected date of procedure:->11/05/24 Has the patient been transfused in the past 3 months?->No Has the patient been in the past 3 months?->No Paulina Leyva MD LAB BLOOD BANK TEST ORDERABLES Final Result Performing Organization Address [facility] de Phone Number B[facility]IE SIM [phone] [place] [address] * Urine culture Urine, clean voided (11/02/2024 2:47 PM LOKIE DRIVER) Report Final Report: Less than 100,000 colonies/mL (clinically insignificant growth based on current clinical standards) Comment:Testing performed by : [facility], [address] [place]., [address] Organism (CLINICALLY INSIGNIFICANT GROWTH [facility] Urine, clean voided 11/02/2024 2:47 PM LOKIE DRIVER 11/02/2024 10:18 PM LOKIE DRIVER Narrative [facility] - 11/04/2024 3:41 AM LOKIE DRIVER Testing performed by [facility] Microbiology Laboratory ([phone]) Paulina Leyva MD LAB MICROBIOLOGY - GENERAL ORDERABLES Final Result Performing Organization Address [facility] de Phone Number [facility]IE SIM [phone] [place] [address] * (ABNORMAL) Comprehensive metabolic panel (11/02/2024 2:47 PM LOKIE DRIVER) Sodium 135 135 - 145 mmol/L Potassium, pl 4.2 3.3 - 4.9 mmol/L [facility] Chloride 96(L) 97 - 110 mmol/L [facility] CH CO2 26 22 - 32 mmol/L [facility] Anion gap 13 2 - 15 mmol/L [facility] CH BUN 15 6 - 25 mg/dL [facility] Creatinine 1.03 0.60 - 1.10 mg/dL [facility] Glucose 95 70 - 199 mg/dL [facility] Comment: Interpretive Data Fasting glucose >/= 126 [...] Units/L [facility] Blood 11/02/2024 2:47 PM LOKIE DRIVER 11/02/2024 7:38 PM LOKIE DRIVER us Paulina Leyva MD LAB BLOOD ORDERABLE S Final Result [facility] [address] [place] [address] * US Transvaginal (08/31/2024 10:59 [...] inal Result from Last 3 Months Insurance [facility] Care Teams Remelter Relationship Specialty Start Date End Date No, Physician PCP - General 10/22/24 Paulina Leyva MD [address] [place] [address] Consulting Physician Obstetrics and Gynecology 11/05/24
--- OUTSIDE RECORDS SUMMARY | 2024-11-22 02:52 | XMS_ITS | Encounter Summary ---
Author Organization [facility] Healthcare Address [address] [place] [address] Care Team Providers Care Cadmium Plater Name Role Phone Sameer Hampton MD Primary Care Provider [phone] Reason for Referral * Diagnostic Imaging (Routine) - Closed Specialty Diagnoses / Procedures Referred By Kaleb taylor Referred To Contact Diagnoses Postmenopausal bleeding Procedures US Transvaginal Paulina Leyva MD [address] [facility] [address] G[place] [address] [place] [address] Phone: tel: Referral ID Status Reason Start Date Expiration Date Visits Re quested Visits Authorized [id number] Closed 09/09/2023 10/08/2024 1 1 Reason for Visit * Reason Comments Postmenopausal Bleeding Encounter Details Date Type Department Care Team (Late st Contact Info) Description 09/09/2023 2:00 PM CDT Office Visit [facility] Medical Group Women's Health Care at [address] [address] Paulina Leyva MD [address] [place] [address] [address]RIJ[address]VA [address] [place] [phone] Postmenopausal bleeding (Primary Dx); Well woman exam [...] on file Legal Sex Female 3:32 AM 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 Initial benchroom shop optician visit Subjective: Pateint presents for: Postmenopausal Bleeding [...] MA - 09/09/2023 2:00 PM CDTAddended by: SAIM CARIAS on: 09/09/2023 02:40 PM Modules accepted: [...] bleeding documented in this encounter Care Teams Cadmium Plater Relationship Specialty Start Date End Date Sameer Hampton MD PCP - General Family Medicine 02/26/23 10/21/24 documented as of this encounter
--- OUTSIDE RECORDS SUMMARY | 2024-11-22 02:52 | XMS_ITS | Encounter Summary ---
Author Organization [facility] Healthcare Facility Care Team Providers Care Motor Grader Operator Name Role Phone Unavailable Primary Care Provider Unavailabl e Encounter Details Date Type Department Care Team (Late st Contact Info) Description 09/05/2012 - 09/05/2012 11:59 PM CDT Hospital Encounter [facility] Kelly Mcgarry MD [address] [facility] 6A/6B/12[place] [address] Degeneration of lumbar or lumbosacral intervertebral disc; Congenital spondylolisthesis; Lumbosacral spondylosis without myelopathy Social History Tobacco Use Types Packs/Day Years Used Date Smoking Tobacco: Never Assessed Comments Unknown Sex and Gender Information Value Date Recorded Sex Assigned at Not on file Legal Sex Female 3:32 AM CREDIT SUPPORT COUNSELOR Gender Identity Not on file Sexual Orientation [...]
--- OUTSIDE RECORDS SUMMARY | 2024-11-22 02:52 | XMS_ITS | Encounter Summary ---
Author Organization [facility] Facility Care Team Providers Care Sole Rounding Machine Operator Name Role Phone Unavailable Primary Care Provider Unavailabl e Encounter Details Date Type Department Care Team (Late st Contact Info) Description 06/07/2008 - 06/07/2008 11:59 PM CDT Hospital Encounter [facility] Wally Limon MD PhD [address] [facility] [address] [place] [address] Social History Tobacco Use Types Packs/Day Years Used Date Smoking Tobacco: Never Assessed Comments Unknown Sex and Gender Information Value Date Recorded Sex Assigned at Not on file Legal Sex Female 3:32 AM MACHINE EDGE BANDER Gender Identity Not on file Sexual Orientation Not on file documented as of this encounter Plan of Treatment Not on file documented as of this encounter Visit Diagnoses Not on filedocumented in this encounter
--- OUTSIDE RECORDS SUMMARY | 2024-11-22 02:52 | XMS_ITS | Encounter Summary ---
Author Organization [facility] Address [address] [place] [address] Care Team Providers Care Bundle Person Name Role Phone Tiki Park MD Primary Care Provider [phone] Reason for Referral * Diagnostic Imaging (Routine) - Closed Specialty Diagnoses / Procedures Referred By Kaleb taylor Referred To Contact Diagnoses Encounter for screening mammogram for malignant neoplasm of breast Procedures Screening Mammogram Bilateral W Adrián Screening Mammogram, Self [address] [address] Referral ID Status Reason Start Date Expiration Date Visits Re quested Visits Authorized [id number] Closed 01/09/2021 02/08/2022 1 1 Reason for Visit * Diagnostic Imaging (Routine) - Closed Specialty Diagnoses / Procedures Referred By Kaleb taylor Referred To Contact Diagnoses Encounter for screening mammogram for malignant neoplasm of breast Procedures Screening Mammogram Bilateral W Adrián Screening Mammogram, Self [address] [address] Referral ID Status Reason Start Date Expiration Date Visits Re quested Visits Authorized [id number] Closed 01/09/2021 02/08/2022 1 1 Encounter Details Date Type Department Care Team (Latest Contact Info) Description 02/22/2021 10:15 AM CDT - 02/22/2021 11:59 PM CDT Hospital Encounter [facility] [address] [address] Screening Mammogram, Self Encounter for screening mammogram for malignant neoplasm of breast Discharge Disposition: Discharge to home or self care Social History Tobacco Use Types Packs/Day Years Used Date Smoking Tobacco: Every Day Comments Unknown Sex and Gender Information Value Date Recorded Sex Assigned at Not on file Legal Sex Female 3:32 AM 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 There are [...] compared to prior imaging studies performed at [facility] on 02/16/2020, and at [facility] at [facility] on 02/02/2019 and 02/09/2020. There are [...] breast documented in this encounter Care Teams Bundle Person Relationship Specialty Start Date End Date Tiki Park MD [address] [place] [address] PCP - General 11/12/17 02/25/23 documented as of this encounter
--- OUTSIDE RECORDS SUMMARY | 2024-11-22 02:52 | XMS_ITS | Encounter Summary ---
Author Organization [facility] Facility Care Team Providers Care Waste Management Recycling Technician Name Role Phone Unavailable Primary Care Provider Unavailabl e Encounter Details Date Type Department Care Team (Late st Contact Info) Description 12/14/2015 - 12/14/2015 11:59 PM SEAM PRESSER Hospital [facility] Jean-Baptiste MD [address] [place] [address] Nighat Bolden MD [address] [phone] [place] [address] Encounter for screening mammogram for malignant neoplasm of breast Social History Tobacco Use Types Packs/Day Years Used Date Smoking Tobacco: Every Day Comments Unknown Sex and Gender Information Value Date Recorded Sex Assigned at Not on file Legal Sex Female 3:32 AM SEAM PRESSER Gender Identity Not on file Sexual Orientation [...] MAMMOGRAM W ADRIÁN Routine 12/14/2015 1:32 PM SEAM PRESSER documented in this encounter Results * Screening Mammogram W Adrián (12/14/2015 1:32 PM SEAM PRESSER) Anatomical Region Laterality Modality Breast N/A Mammography 12/14/2015 1:32 PM SEAM PRESSER Narrative 12/15/2015 10:15 AM SEAM PRESSER RUFINA MCINTYRE M.D. FINAL REPORT ACC# ??Date Time ??Exam [id number] Dec 14, 2015 13:32:00 [facility] [id number] Bilateral screen w adrián ?? Technologist(s): Yecenia Winters; ; EXAMINATION: ??Mammogram Technique: Bilateral Full-Field Digital Screening Mammogram and Digital Breast Tomosynthesis were performed. ??Views obtained: ??bilateral craniocaudal and bilateral mediolateral oblique. ??Computer Aided Detection of the 2D images was performed with Miradore.3 version 9.3. Mammogram Findings: The present examination has been compared to prior imaging studies performed at [facility] on 11/19/2013 and 11/18/2012, and at [facility] [place] [address] on 12/13/2014. There are scattered areas of fibroglandular density. There is no suspicious abnormality in either breast. IMPRESSION: ??Annual screening mammography is recommended. OVERALL FINAL ASSESSMENT: BI-RADS CATEGORY 1: ??Negative. Requested By: Dictated By: ?? RUFINA MCINTYRE M.D. ??on Dec 15 2015 10:15A This document has been electronically signed by: RUFINA MCINTYRE M.D. on Dec 15 2015 10:15A [id number] Procedure Note Provider, MD Susan - 03/21/2017 RUFINA MCINTYRE M.D. FINAL REPORT ACC# Date Time Exam [id number] Dec 14, 2015 13:32:00 [facility] [id number] Bilateral screen w adrián Technologist(s): Yecenia Winters; ; EXAMINATION: Mammogram Technique: Bilateral Full-Field Digital Screening Mammogram and Digital Breast Tomosynthesis were performed. Views obtained: bilateral craniocaudaland bilateral mediolateral oblique. Computer Aided Detection of the 2Dimages was performed with Miradore.3 version 9.3. Mammogram Findings: The present examination has been compared to prior imaging studies performed at [facility] on 11/19/2013 and 11/18/2012, and at [facility] [place] [address] on 12/13/2014. There are scattered areas of fibroglandular density. There is no suspicious abnormality in either breast. IMPRESSION: Annual screening mammography is recommended. OVERALL FINAL ASSESSMENT: BI-RADS CATEGORY 1: Negative. Requested By: Dictated By: RUFINA MCINTYRE M.D. on Dec 15 2015 10:15A This document has been electronically signed by: RUFINA MCINTYRE M.D. on Dec 15 2015 10:15A [id number] us Historical Provider MD ROBINS MAMMO PROCEDURES Shelley l Result documented in this encounter Visit Diagnoses Diagnosis Encounter for screening mammogram for malignant neoplasm of breast documented in this encounter
--- OUTSIDE RECORDS SUMMARY | 2024-11-22 02:52 | XMS_ITS | Encounter Summary ---
Author Organization [facility] Address [address] [place] [address] Care Team Providers Care Soft Sugar Supervisor Name Role Phone Sameer Hampton MD Primary Care Provider [phone] Reason for Visit * Reason Comments Follow-up 3 mo f/u Atrial Fibrillation Hypertension Encounter Details Date Type Department Care Team (Late st Contact Info) Description 04/23/2023 9:00 AM CDT Office Visit [facility] Cardiology at [address] [place] [address] Mikey Harrington MD [address] [place] [address] Paroxysmal atrial fibrillation (CMS/HCC) (HCC) (Primary Dx); Primary hypertension; Medication side effects; Chronic fatigue; Chronic anticoagulation; Hypothyroidism (acquired) Social History Tobacco Use Types Packs/Day Years Used Date Smoking Tobacco: Former Cigarettes Q uit: 1986 Comments Unknown Sex and Gender Information Value Date Recorded Sex Assigned at Not on file 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 She was alerted by her [employer] originally. BP controled, goal <140/90mmHg. Monitor BP [...] PAF, PE, CKD, HTN, hypothyroidism, seen in [facility] referral by Mikey Harrington MD for my [...] melena/BRBPR. 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 Tires with walking whereas she [...] SR. She had taken a cruiseto the [employer] in August but she forgot her compression [...] LABS AND OTHER DIAGNOSTIC TESTS 12/08/2022 CTA [facility]: Filling defects left upper lobe and [...] medical record, and bloodwork/lipids. Joaquin Harrington MD, [facility] This note is dictated and transcribed using PowerPlay Mobile Direct Software. Nursing Unit Clerk variancesmay occur. Despite proofreading, typographical errors may [...] documented as of this encounter Care Teams Soft Sugar Supervisor Relationship Specialty Start Date End Date Sameer Hampton MD PCP - General Family Medicine 02/26/23 10/21/24 documented as of this encounter
--- OUTSIDE RECORDS SUMMARY | 2024-11-22 02:52 | XMS_ITS | Encounter Summary ---
Author Organization [facility] Address [address] [place] [address] Care Team Providers Care Morgue Attendant Name Role Phone Tiki Park MD Primary Care Provider [phone] Reason for Referral * Diagnostic Imaging (Routine) - Closed Specialty Diagnoses / Procedures Referred By Kaleb taylor Referred To Contact Diagnoses Abnormal mammogram Procedures US Breast Right Limited Tiki Park MD [address] [place] [address] Phone: tel: fax: [address] [phone] Referral ID Status Reason Start Date Expiration Date Visits Re quested Visits Authorized [id number] Closed 02/12/2020 08/23/2021 1 1 * Diagnostic Imaging (Routine) - Closed Specialty Diagnoses / Procedures Referred By Kaleb taylor Referred To Contact Diagnoses Abnormal mammogram Procedures Diagnostic Mammogram Right W Tiki Yeung MD [address] [place] [address] Phone: tel: fax: [facility] Referral ID Status Reason Start Date Expiration Date Visits Re quested Visits Authorized [id number] Closed 02/12/2020 08/23/2021 1 1 Reason for Visit * Diagnostic Imaging (Routine) - Closed Specialty Diagnoses / Procedures Referred By Kaleb taylor Referred To Contact Diagnoses Abnormal mammogram Procedures Diagnostic Mammogram Right W Adrián Tiki Park MD [address] [place] [address] Phone: tel: fax: [facility] Referral ID Status Reason Start Date Expiration Date Visits Re quested Visits Authorized [id number] Closed 02/12/2020 08/23/2021 1 1 Encounter Details Date Type Department Care Team (Latest Contact Info) Description 02/16/2020 1:38 PM CDT - 02/16/2020 11:59 PM CDT Hospital Encounter [facility] Breast Imaging [facility] ([facility]) [address] [place] [address] Tiki Park MD [address] [place] [address] Abnormal mammogram Discharge Disposition: Discharge to home or self care Social History Tobacco Use Types Packs/Day Years Used Date Smoking Tobacco: Every Day Comments Unknown Sex and Gender Information Value Date Recorded Sex Assigned at Not on file Legal Sex Female 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
--- OUTSIDE RECORDS SUMMARY | 2024-11-22 02:52 | XMS_ITS | Encounter Summary ---
Author Organization [facility] Address [address] [place] [address] Care Team Providers Care Shell Freezing Machine Operator Name Role Phone Tiki Park MD Primary Care Provider [phone] Encounter Details Date Type Department Care Team (Latest Contact Info) Description 01/08/2018 10:52 AM HOG RINGER - 01/08/2018 11:59 PM HOG RINGER Hospital Encounter [facility] INTERIM [phone] Davina Bolden MD [address] [phone] [place] [address] Discharge Disposition: Discharge to home or self care Social History Tobacco Use Types Packs/Day Years Used Date Smoking Tobacco: Every Day Comments Unknown Sex and Gender Information Value Date Recorded Sex Assigned at Not on file Legal Sex Female 3:32 AM HOG RINGER Gender Identity Not on file Sexual Orientation [...] MAMMOGRAPHY, TOMOGRAPHY, BILATERAL Routine 01/08/2018 5:18 PM HOG RINGER documented in this encounter Results * MAMMOGRAPHY, TOMOGRAPHY, BILATERAL (01/08/2018 5:18 PM HOG RINGER) Anatomical Region Laterality Modality Breast Bilateral Mammography 01/08/2018 5:18 PM HOG RINGER Narrative 01/13/2018 3:35 PM HOG RINGER RUFINA MCINTYRE M.D. FINAL REPORT ACC# ??Date Time ??Exam [id number] Jan 08, 2018 11:18:00 [facility] [id number] Scr Mamm grace 2v w/DANTE ?? Technologist(s): Feli Klein; ; EXAMINATION: ??Mammogram Technique: Bilateral Digital Breast Tomosynthesis, Bilateral C-view 2D Screening mammogram. ??Views obtained: ??bilateral craniocaudal and bilateral mediolateral oblique. ??Computer Aided Detection was performed. Mammogram Findings: The present examination has been compared to prior imaging studies performed at [facility] on 12/14/2015 and 12/18/2016, and at [facility] [place] [address] on 12/13/2014. There are scattered areas of fibroglandular density. There is no suspicious abnormality in either breast. IMPRESSION: ??Annual screening mammography is recommended. OVERALL FINAL ASSESSMENT: BI-RADS CATEGORY 1: ??Negative. Requested By: Davina Bolden ??Shyla ? Dictated By: ?? RUFINA MCINTYRE M.D. ??on Jan 13 2018 ??9:35A This document has been electronically signed by: RUFINA MCINTYRE M.D. on Jan 13 2018 ??9:35A [id number] MCINTYRE M.D. FINAL REPORT Attending: ??YUAN, ??DAVINA Requesting: ??Yuan, ??Davina Requesting Fax: ?? Attending Fax: ?? Attending ID: ??[id number] Requesting ID: ??[id number] Report To 1 ID: ??[id number] ? Report To 1 Name: ??, ?? Report To 1 FAX: ?? NextGen Order #: ?? Procedure Note Miscellaneous, Not In File - 01/13/2018 RUFINA MCINTYRE M.D. FINAL REPORT ACC# Date Time Exam [id number] Jan 08, 2018 11:18:00 [facility] [id number] Scr Mamm grace 2v w/DANTE Technologist(s): Feli Klein; ; EXAMINATION: Mammogram Technique: Bilateral Digital Breast Tomosynthesis, Bilateral C-view 2D Screening mammogram. Views obtained: bilateral craniocaudal and bilateral mediolateral oblique. Computer Aided Detection was performed. Mammogram Findings: The present examination has been compared to prior imaging studies performed at [facility] on 12/14/2015 and 12/18/2016, and at [facility] [place] [address] on 12/13/2014. There are scattered areas of fibroglandular density. There is no suspicious abnormality in either breast. IMPRESSION: Annual screening mammography is recommended. OVERALL FINAL ASSESSMENT: BI-RADS CATEGORY 1: Negative. Requested By: Davina Bolden M.D. Dictated By: RUFINA MCINTYRE M.D. on Jan 13 2018 9:35A This document has been electronically signed by: RUFINA MCINTYRE M.D. on Jan 13 2018 9:35A [id number] MCINTYRE M.D. FINAL REPORT Attending: DAVINA BOLDEN Requesting: Davina Bolden Requesting Fax: Attending Fax: Attending ID: [id number] Requesting ID: [id number] Report To 1 ID: [id number] Report To 1 Name: , Report To 1 FAX: NextGen Order #: Davina Bolden MD IMG MAMMO PROCEDURES Final R esult documented in this encounter Visit Diagnoses Not on filedocumented in this encounter Care Teams Shell Freezing Machine Operator Relationship Specialty Start Date End Date Tiki Park MD [address] [place] [address] PCP - General 11/12/17 02/25/23 documented as of this encounter
--- OUTSIDE RECORDS SUMMARY | 2024-11-22 02:52 | XMS_ITS | Encounter Summary ---
Author Organization 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
--- OUTSIDE RECORDS SUMMARY | 2024-11-22 02:52 | XMS_ITS | Encounter Summary ---
Author Organization [facility] Address [address] [place] [address] Care Team Providers Care Senior Product Development Scientist Name Role Phone Sameer Hampton MD Primary Care Provider [phone] Reason for Visit * Reason Onset Date Comments Procedure Scheduling 09/10/2024 Encounter Details Date Type Department Care Team (Late st Contact Info) Description 09/10/2024 Telephone [facility] [address] [place] [address] Paulina Leyva MD [address] [place] [address] [address] [place] [address] Procedure Scheduling Social History Tobacco [...] file Legal Sex Female 3:32 AM PUBLIC HEALTH OFFICER Gender Identity Not on file Sexual Orientation Not on file documented as of this encounter Miscellaneous Notes * Telephone Encounter - Gris Carias MA - 09/10/2024 10:56 AM CDT [phone] Spoke w/ patient, Scheduled surgical procedure: Hysteroscopy, D&C, Myosure for 11/05/2024 Scheduled pre & post op appts as well Thank you Gris documented in this encounter Plan of Treatment Not on file documented as of this encounter Visit Diagnoses Not on filedocumented in this encounter Care Teams Senior Product Development Scientist Relationship Specialty Start Date End Date Sameer Hampton MD PCP - General Family Medicine 02/26/23 10/21/24 documented as of this encounter
--- OUTSIDE RECORDS SUMMARY | 2024-11-22 02:52 | XMS_ITS | Encounter Summary ---
Author Organization [facility] Address [address] [place] [address] Care Team Providers Care Burrito Maker Name Role Phone Sameer Hampton MD Primary Care Provider [phone] Reason for Visit * Reason Comments Follow-up 4 mo f/u Atrial Fibrillation Encounter Details Date Type Department Care Team (Latest Contact Info) Description 08/27/2023 9:00 AM CDT Office Visit [facility] Cardiology at [address] [place] [address] Mikey Harrington MD [id number] [place] [address] Paroxysmal atrial fibrillation (CMS/HCC) (HCC) (Primary Dx); Primary hypertension; Medication side effects; Chronic fatigue; Chronic anticoagulation Social History Tobacco Use Types Packs/Day Years Used Date Smoking Tobacco: Former Cigarettes Q uit: 1986 Comments Unknown Sex and Gender Information Value Date Recorded Sex Assigned at Not on file 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 Tires with walking whereas she [...] SR. She had taken a cruiseto the [employer] in August but she forgot her compression [...] AND OTHER DIAGNOSTIC TESTS 12/08/2022 CTA [facility]: Filling defects left upper lobe and [...] medical record, and bloodwork/lipids. Joaquin Harrington MD, [facility] This note is dictated and transcribed using giftee Direct Software. Tiller Worker variancesmay occur. Despite proofreading, typographical errors may [...] anticoagulants documented in this encounter Care Teams Burrito Maker Relationship Specialty Start Date End Date Sameer Hampton MD PCP - General Family Medicine 02/26/23 10/21/24 documented as of this encounter
--- OUTSIDE RECORDS SUMMARY | 2024-11-22 02:52 | XMS_ITS | Encounter Summary ---
Author Organization [facility] Address [address] [place] [address] Care Team Providers Care Sales Representative Leather Goods Name Role Phone Sameer Hampton MD Primary Care Provider [phone] Reason for Visit * Reason Onset Date Comments Pre Cert 10/14/2024 CPT 32905 Encounter Details Date Type Department Care Team (Late st Contact Info) Description 10/14/2024 Telephone [facility] [address] [place] [address] [address] [place] [address] Paulina Leyva MD [address] [place] [address] [address] [place] [address] Pre Cert (CPT 68250) Social History Tobacco Use Types Packs/Day Years [...] on file Legal Sex Female 3:32 AM READING COACH Gender Identity Not on file Sexual Orientation Not on file documented as of this encounter Miscellaneous Notes * Telephone Encounter - Gris Carias MA - 10/14/2024 11:49 AM READING COACH [phone] [employer] Spoke w/ Alfred Mancia, rep Claims that he has to transfer call to: [phone] (opt 3) Spoke w/ Issacc, intake rep Claims that CPT 06427: No Prior Auth Required Ref #: [id number] Thank you, Gris ING COACH documented in this encounter Plan of Treatment Not on file documented as of this encounter Visit Diagnoses Not on filedocumented in this encounter Care Teams Sales Representative Leather Goods Relationship Specialty Start Date End Date Sameer Hampton MD PCP - General Family Medicine 02/26/23 10/21/24 documented as of this encounter
--- OUTSIDE RECORDS SUMMARY | 2024-11-22 02:52 | XMS_ITS | Encounter Summary ---
Author Organization [facility] Address [address] [place] [address] Care Team Providers Care Shirrer Name Role Phone Sameer Hampton MD Primary Care Provider [phone] Reason for Referral * Diagnostic Imaging (Routine) - Closed Specialty Diagnoses / Procedures Referred By Contac t Referred To Contact Diagnoses Screening mammogram, encounter for Procedures Screening Mammogram Bilateral W Adrián Screening Mammogram, Self [facility] Referral ID Status Reason Start Date Expiration Date Visits Re quested Visits Authorized [id number] Closed 03/23/2024 04/22/2025 1 1 * Diagnostic Imaging (Routine) - Closed Specialty Diagnoses / Procedures Referred By Contac t Referred To Contact Diagnoses Screening mammogram, encounter for Procedures Screening Mammogram Bilateral W Adrián Screening Mammogram, Self [facility] Referral ID Status Reason Start Date Expiration Date Visits Re quested Visits Authorized [id number] Closed 03/23/2024 04/22/2025 1 1 Reason for Visit * Diagnostic Imaging (Routine) - Closed Specialty Diagnoses / Procedures Referred By Contac t Referred To Contact Diagnoses Screening mammogram, encounter for Procedures Screening Mammogram Bilateral W Adrián Screening Mammogram, Self [facility] Referral ID Status Reason Start Date Expiration Date Visits Re quested Visits Authorized [id number] Closed 03/23/2024 04/22/2025 1 1 Encounter Details Date Type Department Care Team (Latest Contact Info) Description 04/15/2024 9:49 AM CDT - 04/15/2024 11:59 PM CDT Hospital Encounter [facility] [address] [place] [address] Screening mammogram, encounter for Discharge Disposition: Discharge [...] on file Legal Sex Female 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 Gender Identity Not on file Sexual Orientation [...] 1 tablet (50 mcg total) by mouth classification clerk before breakfast omeprazole (PriLOSEC) 20 mg capsule [...] compared to prior imaging studies performed at [facility] on 12/14/2015, 12/18/2016, 01/08/2018 and 02/16/2020, and at [facility] on 12/13/2014, 02/02/2019, 02/09/2020, 02/22/2021, 03/21/2022 and [...] compared to prior imaging studies performed at [facility] on 12/14/2015, 12/18/2016,01/08/2018 and 02/16/2020, and at [facility] at [facility] on 12/13/2014, 02/02/2019, 02/09/2020, 02/22/2021, 03/21/2022 and04/11/2023. [...] for documented in this encounter Care Teams Shirrer Relationship Specialty Start Date End Date Sameer Hampton MD PCP - General Family Medicine 02/26/23 10/21/24 documented as of this encounter
--- OUTSIDE RECORDS SUMMARY | 2024-11-22 02:52 | XMS_ITS | Encounter Summary ---
Author Organization [facility] Facility Care Team Providers Care Marine Engine Mechanic Name Role Phone Unavailable Primary Care Provider Unavailabl e Encounter Details Date Type Department Care Team (Late st Contact Info) Description 03/22/2009 - 03/22/2009 11:59 PM CDT Hospital Encounter [facility] Nigaht Sifuentes MD [address] [phone] [place] [address] Screening for malignant neoplasm of cervix Social History Tobacco Use Types Packs/Day Years Used Date Smoking Tobacco: Never Assessed Comments Unknown Sex and Gender Information Value Date Recorded Sex Assigned at Not on file 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
--- OUTSIDE RECORDS SUMMARY | 2024-11-22 02:52 | XMS_ITS | Encounter Summary ---
Author Organization [facility] Facility Care Team Providers Care Scientist Immunology Name Role Phone Unavailable Primary Care Provider Unavailabl e Encounter Details Date Type Department Care Team (Late st Contact Info) Description 04/05/2014 - 04/05/2014 11:59 PM CDT Hospital Encounter [facility] Nighat Sifuentes MD [address] [facility] [address] [phone] [place] [address] Screening for malignant neoplasm of cervix; Satisfactory cervical smear but lacking transformation zone; Screening for HPV (human papillomavirus) Social History Tobacco Use Types Packs/Day Years Used Date Smoking Tobacco: Every Day Comments Unknown Sex and Gender Information Value Date Recorded Sex Assigned at Not on file Legal Sex Female 3:32 AM OBSTETRICIAN Gender Identity Not on file Sexual Orientation [...]
--- OUTSIDE RECORDS SUMMARY | 2024-11-22 02:52 | XMS_ITS | Encounter Summary ---
Author Organization [facility] Facility Care Team Providers Care Rn Ed Name Role Phone Unavailable Primary Care Provider Unavailabl e Encounter Details Date Type Department Care Team (Late st Contact Info) Description 10/23/2011 - 10/23/2011 11:59 PM VACATION PLANNER Hospital Encounter [facility] Nighat Sifuentes MD [address] [id number] [place] [address] Other screening mammogram Social History Tobacco Use Types Packs/Day Years Used Date Smoking Tobacco: Never Assessed Comments Unknown Sex and Gender Information Value Date Recorded Sex Assigned at Not on file Legal Sex Female 3:32 AM VACATION PLANNER Gender Identity Not on file Sexual Orientation Not on file documented as of this encounter Plan of Treatment Not on file documented as of this encounter Visit Diagnoses Diagnosis Other screening mammogram documented in this encounter
--- OUTSIDE RECORDS SUMMARY | 2024-11-22 02:52 | XMS_ITS | Encounter Summary ---
Author Organization [facility] Facility Care Team Providers Care Joint Finisher Name Role Phone Unavailable Primary Care Provider Unavailabl e Encounter Details Date Type Department Care Team (Late st Contact Info) Description 02/13/2011 - 02/13/2011 11:59 PM CDT Hospital Encounter [facility] Nighat Sifuentes MD [address] [id number] [place] [address] Screening for malignant neoplasm of cervix; Satisfactory cervical smear but lacking transformation zone; Asymptomatic postmenopausal status Social History Tobacco Use Types Packs/Day Years Used Date Smoking Tobacco: Never Assessed Comments Unknown Sex and Gender Information Value Date Recorded Sex Assigned at Not on file Legal Sex Female 3:32 AM HEAT SET OPERATOR Gender Identity Not on file Sexual [...]
--- OUTSIDE RECORDS SUMMARY | 2024-11-22 02:52 | XMS_ITS | Encounter Summary ---
Author Organization [facility] Healthcare Address [address] [place] [address] Care Team Providers Care Dog Catcher Name Role Phone Sameer Hampton MD Primary Care Provider [phone] Reason for Visit * Reason Comments Follow-up 6 mo f/u Atrial Fibrillation Encounter Details Date Type Department Care Team (Latest Contact Info) Description 02/26/2024 9:30 AM CDT Office Visit [facility] Medical Group Cardiology [address] [place] [address] Mikey Harrington MD [address] [facility] [address] [place] [address] Paroxysmal atrial fibrillation (CMS/HCC) (HCC) [...] on file Legal Sex Female 3:32 AM STATE'S ATTORNEY Gender Identity Not on file Sexual Orientation [...] SR. She had [place] but she forgot her compression [...] AND OTHER DIAGNOSTIC TESTS 12/08/2022 CTA PE [facility]: Filling defects left upper lobe and [...] medical record, and bloodwork/lipids. Joaquin Harrington MD, [facility] This note is dictated and transcribed using Secure Command Direct Software. Insulator Technician variancesmay occur. Despite proofreading, typographical errors may [...] documented as of this encounter Care Teams Dog Catcher Relationship Specialty Start Date End Date Sameer Hampton MD PCP - General Family Medicine 02/26/23 10/21/24 documented as of this encounter
--- OUTSIDE RECORDS SUMMARY | 2024-11-22 02:52 | XMS_ITS | Encounter Summary ---
Author Organization [facility] Healthcare Address [address] [place] [address] Care Team Providers Care Pet Resort Concierge Name Role Phone Tiki Park MD Primary Care Provider [phone] Sameer Hampton MD Primary Care Provider [phone] Encounter Details Date Type Department Care Team (Late st Contact Info) Description 01/30/2023 Orders Only [facility] [place] Information Management [address] [place] [address] Scanning, Provider Social History Tobacco Use [...] file Legal Sex Female 3:32 AM GENERAL INTERNIST AND PHYSICIAN LEADER Gender Identity Not on file Sexual Orientation Not on file documented as of this encounter Plan of Treatment Not on file documented as of this encounter Procedures Procedure Name Priority Date/Time Associated Diagnosis Comments SCAN - RADIOLOGY/IMAGING 01/30/2023 9:28 PM GENERAL INTERNIST AND PHYSICIAN LEADER documented in this encounter Results * SCAN - RADIOLOGY/IMAGING (01/30/2023 9:28 PM GENERAL INTERNIST AND PHYSICIAN LEADER) Anatomical Region Laterality Modality Other us Provider Scanning Edited Result - Final documented in this encounter Visit Diagnoses Not on filedocumented in this encounter Care Teams Pet Resort Concierge Relationship Specialty Start Date End Date Tiki Park MD [address] [place] [address] PCP - General 11/12/17 02/25/23 Sameer Hampton MD [address] [place] [address] PCP - General Family Medicine 02/26/23 10/21/24 documented as of this encounter
--- OUTSIDE RECORDS SUMMARY | 2024-11-22 02:52 | XMS_ITS | Encounter Summary ---
Author Organization [facility] Healthcare Address [address] [place] [address] Care Team Providers Care Interior Design Faculty Member Name Role Phone Sameer Hampton MD Primary Care Provider [phone] Reason for Visit * Reason Comments Follow-up Pt is here for a 6 m [facility] f/u PMB Encounter Details Date Type Department Care Team (Late st Contact Info) Description 01/06/2024 10:30 AM BODY DIE MAKER Office Visit [facility] Medical Group Women's [facility] at [address] [address] Paulina Leyva MD [address] [place], [place] [id number] Postmenopausal bleeding (Primary Dx) Social History Tobacco [...] on file Legal Sex Female 3:32 AM BODY DIE MAKER Gender Identity Not on file Sexual Orientation Not on file documented as of this encounter Last Filed Vital Signs Vital Sign Reading Time Taken Comments Blood Pressure 134/78 01/06/2024 10:25 AM BODY DIE MAKER Pulse - - Temperature - - Respiratory Rate - - Oxygen Saturation - - Inhaled Oxygen Concentration - - Weight 98.9 kg (218 lb) 01/06/2024 10:25 AM BODY DIE MAKER Height - - Body Mass Index 39.24 08/27/2023 9:01 AM CDT documented in this encounter Progress Notes * Paulina Leyva MD - 01/06/2024 10:30 AM CST Images from the original note were not included. Recycling Sorter Visit Follow-up (Pt is here for a [...] and complete exam. Paulina Leyva MD 01/06/2024 DIE MAKER documented in this encounter Miscellaneous Notes * Assessment & Plan Note - Paulina Leyva MD - 01/06/2024 10:48 AM CSTAssociated Problem(s): Postmenopausal bleeding To call if she has any more bleeding otherwise we will follow-up for complete exam in 1 year DIE MAKER documented in this encounter Plan of Treatment Not on file documented as of this encounter Visit Diagnoses Diagnosis Postmenopausal bleeding- Primary documented in this encounter Care Teams Interior Design Faculty Member Relationship Specialty Start Date End Date Sameer Hampton MD PCP - General Family Medicine 02/26/23 10/21/24 documented as of this encounter
--- OUTSIDE RECORDS SUMMARY | 2024-11-22 02:52 | XMS_ITS | Encounter Summary ---
Author Organization [facility] Address [address] [place] [address] Care Team Providers Care Traffic Attendant Name Role Phone Tiki aPrk MD Primary Care Provider [phone] Reason for Referral * Diagnostic Imaging (Routine) - Closed Specialty Diagnoses / Procedures Referred By Kaleb taylor Referred To Contact Diagnoses Encounter for screening mammogram for malignant neoplasm of breast Procedures Screening Mammogram Bilateral W Adrián Screening Mammogram, Self [address] [address] Referral ID Status Reason Start Date Expiration Date Visits Re quested Visits Authorized [id number] Closed 12/28/2019 07/08/2021 1 1 Reason for Visit * Diagnostic Imaging (Routine) - Closed Specialty Diagnoses / Procedures Referred By Kaleb taylor Referred To Contact Diagnoses Encounter for screening mammogram for malignant neoplasm of breast Procedures Screening Mammogram Bilateral W Adrián Screening Mammogram, Self [address] [address] Referral ID Status Reason Start Date Expiration Date Visits Re quested Visits Authorized [id number] Closed 12/28/2019 07/08/2021 1 1 Encounter Details Date Type Department Care Team (Latest Contact Info) Description 02/09/2020 12:50 PM CDT - 02/09/2020 11:59 PM CDT Hospital Encounter [facility] [address] [address] Screening Mammogram, Self Encounter for screening mammogram for malignant neoplasm of breast Discharge Disposition: Discharge to home or self care Social History Tobacco Use Types Packs/Day Years Used Date Smoking Tobacco: Every Day Comments Unknown Sex and Gender Information Value Date Recorded Sex Assigned at Not on file Legal Sex Female 3:32 AM DOCTOR OF NATUROPATHIC MEDICINE Gender Identity Not on file Sexual Orientation [...] to prior imaging studies performed at [facility] on 12/18/2016 and 01/08/2018, and at [facility] at [place] [address] on 02/02/2019. Mammogram Findings: Finding 2: ??Upon [...] to prior imaging studies performed at [facility] on 12/18/2016 and 01/08/2018, and at [place] [address] on 02/02/2019. There are scattered areas of [...] to prior imaging studies performed at [facility] on 12/18/2016 and 01/08/2018, and at [place] [address] on 02/02/2019. There are scattered areas of [...] breast documented in this encounter Care Teams Traffic Attendant Relationship Specialty Start Date End Date Tiki Park MD [address] [place] [address] PCP - General 11/12/17 02/25/23 documented as of this encounter
--- OUTSIDE RECORDS SUMMARY | 2024-11-22 02:52 | XMS_ITS | Encounter Summary ---
Author Organization [facility] Healthcare Address [address] [place] [address] Care Team Providers Care Watch Commander Name Role Phone Tiki Park MD Primary Care Provider [phone] Encounter Details Date Type Department Care Team (Late st Contact Info) Description 02/21/2021 Telephone [facility] [address] [place] [address] Christina Nuñez RT Social History Tobacco Use Types Packs/Day Years Used Date Smoking Tobacco: Every Day Comments Unknown Sex and Gender Information Value Date Recorded Sex Assigned at Not on file Legal Sex Female 3:32 AM PERSONNEL SUPERVISOR Gender Identity Not on file Sexual Orientation Not on file documented as of this encounter Miscellaneous Notes * Telephone Encounter - Christina Nuñez RT - 02/21/2021 10:24 AM CDT Spoke to patient 1024 documented in this encounter Plan of Treatment Not on file documented as of this encounter Visit Diagnoses Not on filedocumented in this encounter Care Teams Watch Commander Relationship Specialty Start Date End Date Tiki Park MD [address] [place] [address] PCP - General 11/12/17 02/25/23 documented as of this encounter
--- OUTSIDE RECORDS SUMMARY | 2024-11-22 02:52 | XMS_ITS | Encounter Summary ---
Author Organization [facility] Healthcare Address [address] [place] [address] Care Team Providers Care Networking Specialist Name Role Phone No, Physician Primary Care Provider [phone] Reason for Visit * Reason Comments Atrial Fibrillation Hypertension 6 mo f/u Encounter Details Date Type Department Care Team (Latest Contact Info) Description 10/22/2024 9:15 AM SCULPTURE INSTRUCTOR Office Visit [facility] Medical Group Cardiology [address] [place] [address] Berta Olivier MD [address] [address] Paroxysmal atrial fibrillation (CMS/HCC) (HCC) [...] on file Legal Sex Female 3:32 AM SCULPTURE INSTRUCTOR Gender Identity Not on file Sexual Orientation Not on file documented as of this encounter Last Filed Vital Signs Vital Sign Reading Time Taken Comments Blood Pressure 134/82 10/22/2024 9:11 AM SCULPTURE INSTRUCTOR Pulse 82 10/22/2024 9:11 AM SCULPTURE INSTRUCTOR Temperature - - Respiratory Rate - - Oxygen Saturation 98% 10/22/2024 9:11 AM SCULPTURE INSTRUCTOR Inhaled Oxygen Concentration - - Weight 98 kg (216 lb) 10/22/2024 9:11 AM SCULPTURE INSTRUCTOR Height 158.8 cm (5' 2.5 ) 10/22/2024 9:11 AM SCULPTURE INSTRUCTOR Body Mass Index 38.88 10/22/2024 9:11 AM SCULPTURE INSTRUCTOR documented in this encounter Progress Notes * [...] Xarelto. Hypertension Continue Valsartan-HCTZ. Berta Olivier M.D., [facility] PTURE INSTRUCTOR documented in this encounter Plan of Treatment [...] documented as of this encounter Care Teams Networking Specialist Relationship Specialty Start Date End Date No, Physician PCP - General 10/22/24 documented as of this encounter
--- OUTSIDE RECORDS SUMMARY | 2024-11-22 02:52 | XMS_ITS | Encounter Summary ---
Author Organization [facility] Medical Group Address [address] [facility] [address] [place] [address] Care Team Providers Care Ironworker Helper Shop Name Role Phone Tiki Pakr MD Primary Care Provider [phone] Reason for Visit * Reason Comments New Patient Atrial Fibrillation * Consultation (Routine) - Closed Specialty Diagnoses / Procedures Referred By Contac t Referred To Contact Cardiology Diagnoses Atrial fibrillation, unspecified type (HCC) Other acute pulmonary embolism without acute cor pulmonale (HCC) Sameer Hampton MD Phone: tel: fax: [facility] Medical [facility] Cardiology [address] [place] [address] [address] [place] [address] Phone: tel: fax: Referral ID Status Reason Start Date Expiration Date V isits Requested Visits Authorized [id number] Closed Specialty Services Required 12/25/2022 05/31/2023 4 4 Encounter Details Date Type Department Care Team (Late st Contact Info) Description 01/29/2023 9:30 AM TEST DRILLER Office Visit [facility] Medical Group Cardiology at [address] [place] [address] Mikey Harrington MD [address] [place] [address] Paroxysmal atrial fibrillation (CMS/HCC) (HCC) (Primary Dx); [...] on file Legal Sex Female 3:32 AM TEST DRILLER Gender Identity Not on file Sexual Orientation Not on file documented as of this encounter Last Filed Vital Signs Vital Sign Reading Time Taken Comments Blood Pressure 112/74 01/29/2023 9:39 AM TEST DRILLER Pulse 81 01/29/2023 9:39 AM TEST DRILLER Temperature - - Respiratory Rate - - Oxygen Saturation 98% 01/29/2023 9:39 AM TEST DRILLER Inhaled Oxygen Concentration - - Weight 96.5 kg (212 lb 11.2 oz) 01/29/2023 9:39 AM TEST DRILLER Height 158.8 cm (5' 2.5 ) 01/29/2023 9:39 AM TEST DRILLER Body Mass Index 38.28 01/29/2023 9:39 AM TEST DRILLER documented in this encounter Ordered Prescriptions Prescription [...] given the concerning circumstances. [facility]. Recommendation to follow. [...] artifact, borderline ECG 86 beats per minute AL 166 milliseconds QRS 84 milliseconds QT corrected [...] PAF, PE, CKD, HTN, hypothyroidism, [facility] referral by Sameer Hampton MD for my [...] melena/BRBPR. 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 Tires with walking whereas she [...] SR. She had taken a cruis[place] the [employer] in August but she forgot her compression [...] LABS AND OTHER DIAGNOSTIC TESTS 12/08/2022 CTA [facility]: Filling defects left upper lobe and [...] medical record, and bloodwork/lipids. Joaquin Harrington MD, [facility] This note is dictated and transcribed using Lineagen Direct Software. Assistant Professor variancesmay occur. Despite proofreading, typographical errors may occur. DRILLER DRILLER documented in this encounter Plan of Treatment Not on file documented as of this encounter Procedures Procedure Name Priority Date/Time Associated Diagnosis Comments POCT LIPID PANEL Routine 01/29/2023 12:4 2 PM TEST DRILLER Lipid screening ECG 12-LEAD Routine 01/29/2023 Paroxysmal atrial fibrillation (CMS/HCC) (HCC) documented in this encounter Results * POCT lipid panel (01/29/2023 12:42 PM TEST DRILLER) Cholesterol, POC 186 mg/dL HDL, POC 81 mg/dL Triglycerides, POC 48 mg/dL LDL Cholesterol POC 96 mg/dL Chol/HDL Ratio, POC 2.3 Non-HDL Cholesterol, POC 105 mg/dL Cholesterol Total, POC 186 mg/dL Capillary blood 01/29/2023 1 2:42 PM TEST DRILLER us Mikey Harrington MD POINT OF CARE [...] 1 tablet (50 mcg total) by mouth fitness studies teacher before breakfast valsartan-hydroC HLOROthiazide (DIOVAN-HCT) 160-12.5 mg [...] 01/29/2023 documented in this encounter Care Teams Ironworker Helper Shop Relationship Specialty Start Date End Date Tiki Park MD [address] [place] [address] PCP - General 11/12/17 02/25/23 documented as of this encounter
--- OUTSIDE RECORDS SUMMARY | 2024-11-22 02:52 | XMS_ITS | Encounter Summary ---
Author Organization [facility] Address [address] [place] [address] Care Team Providers Care Funeral Home Assistant Name Role Phone Tiki Park MD Primary Care Provider [phone] Reason for Referral * Diagnostic Imaging (Routine) - Closed Specialty Diagnoses / Procedures Referred By Kaleb taylor Referred To Contact Diagnoses Encounter for screening mammogram for malignant neoplasm of breast Procedures Screening Mammogram Bilateral W Tiki Yeung MD Phone: tel: fax: [address] [address] Referral ID Status Reason Start Date Expiration Date Visits Re quested Visits Authorized [id number] Closed 12/04/2018 06/14/2020 1 1 NING ROOM HAND Reason for Visit * Diagnostic Imaging (Routine) - Closed Specialty Diagnoses / Procedures Referred By Kaleb taylor Referred To Contact Diagnoses Encounter for screening mammogram for malignant neoplasm of breast Procedures Screening Mammogram Bilateral W Tiki Yeung MD Phone: tel: fax: [address] [address] Referral ID Status Reason Start Date Expiration Date Visits Re quested Visits Authorized [id number] Closed 12/04/2018 06/14/2020 1 1 Encounter Details Date Type Department Care Team (Latest Contact Info) Description 02/02/2019 1:42 PM RIPENING ROOM HAND - 02/02/2019 11:59 PM RIPENING ROOM HAND Hospital Encounter [facility] [address] [facility] [address] [place] [address] Tiki Park MD [address] [place] [id number] Encounter for screening mammogram for malignant neoplasm of breast Discharge Disposition: Discharge to home or self care Social History Tobacco Use Types Packs/Day Years Used Date Smoking Tobacco: Every Day Comments Unknown Sex and Gender Information Value Date Recorded Sex Assigned at Not on file Legal Sex Female 3:32 AM RIPENING ROOM HAND Gender Identity Not on file Sexual Orientation [...] Read Routine (OP Routine) 02/02/2019 1:49 PM RIPENING ROOM HAND Encounter for screening mammogram for malignant neoplasm of breast documented in this encounter Results * Screening Mammogram Bilateral W Adrián (02/02/2019 1:49 PM RIPENING ROOM HAND) Anatomical Region Laterality Modality Breast Bilateral Digital Radiogra phy Narrative 02/04/2019 3:30 PM RIPENING ROOM HAND Mammogram Technique: Bilateral Digital Breast Tomosynthesis, Bilateral C-view 2D Screening mammogram. ??Views obtained: ??bilateral craniocaudal and bilateral mediolateral oblique. ??Computer Aided Detection was performed. Mammogram Findings: The present examination has been compared to prior imaging studies performed at [facility] on 12/14/2015, 12/18/2016 and 01/08/2018. There are [...] to prior imaging studies performed at [facility] on 12/14/2015, 12/18/2016 and 01/08/2018. There are [...] breast documented in this encounter Care Teams Funeral Home Assistant Relationship Specialty Start Date End Date Tiki Park MD [address] [place] [address] PCP - General 11/12/17 02/25/23 documented as of this encounter
--- OUTSIDE RECORDS SUMMARY | 2024-11-22 02:52 | XMS_ITS | Encounter Summary ---
Author Organization [facility] Address [address] [place] [address] Care Team Providers Care Roving Winder Name Role Phone Tiki Park MD Primary Care Provider [phone] Reason for Referral * Diagnostic Imaging (Routine) - Closed Specialty Diagnoses / Procedures Referred By Contac t Referred To Contact Diagnoses Screening mammogram, encounter for Procedures Screening Mammogram Bilateral W Adrián Screening Mammogram, Self [facility] Referral ID Status Reason Start Date Expiration Date Visits Re quested Visits Authorized [id number] Closed 01/30/2022 03/01/2023 1 1 * Diagnostic Imaging (Routine) - Closed Specialty Diagnoses / Procedures Referred By Contac t Referred To Contact Diagnoses Screening mammogram, encounter for Procedures Screening Mammogram Bilateral W Adrián Screening Mammogram, Self [facility] Referral ID Status Reason Start Date Expiration Date Visits Re quested Visits Authorized [id number] Closed 01/30/2022 03/01/2023 1 1 SOAKER Reason for Visit * Diagnostic Imaging (Routine) - Closed Specialty Diagnoses / Procedures Referred By Contac t Referred To Contact Diagnoses Screening mammogram, encounter for Procedures Screening Mammogram Bilateral W Adrián Screening Mammogram, Self [facility] Referral ID Status Reason Start Date Expiration Date Visits Re quested Visits Authorized [id number] Closed 01/30/2022 03/01/2023 1 1 Encounter Details Date Type Department Care Team (Latest Contact Info) Description 03/21/2022 10:52 AM CDT - 03/21/2022 11:59 PM CDT Hospital Encounter [facility] [address] [facility] [address] [place] [address] Screening Mammogram, Self Screening mammogram, encounter for Discharge Disposition: Discharge to home or self care Social History Tobacco Use Types Packs/Day Years Used Date Smoking Tobacco: Every Day Comments Unknown Sex and Gender Information Value Date Recorded Sex Assigned at Not on file Legal Sex Female 3:32 AM MEAT SOAKER Gender Identity Not on file Sexual Orientation [...] compared to prior imaging studies performed at [facility] on 02/16/2020, and at [facility] on 02/09/2020 and 02/22/2021. There are scattered [...] compared to prior imaging studies performed at [facility] on 02/16/2020, and at [facility] on 02/09/2020 and 02/22/2021. There are scattered [...] for documented in this encounter Care Teams Roving Winder Relationship Specialty Start Date End Date Tiki Park MD [address] [place] [address] PCP - General 11/12/17 02/25/23 documented as of this encounter
--- OUTSIDE RECORDS SUMMARY | 2024-11-22 02:52 | XMS_ITS | Encounter Summary ---
Author Organization [facility] Facility Care Team Providers Care Produce Laborer Name Role Phone Unavailable Primary Care Provider Unavailabl e Encounter Details Date Type Department Care Team (Late st Contact Info) Description 12/18/2016 1:13 PM LIVESTOCK TRADER - 12/18/2016 11:59 PM LIVESTOCK TRADER Hospital Encounter [facility] Tiki Park MD [address] [place] [address] Encounter for screening mammogram for malignant neoplasm of breast Social History Tobacco Use Types Packs/Day Years Used Date Smoking Tobacco: Every Day Comments Unknown Sex and Gender Information Value Date Recorded Sex Assigned at Not on file Legal Sex Female 3:32 AM LIVESTOCK TRADER Gender Identity Not on file Sexual Orientation [...] SCREENING MAMMOGRAM Routine 12/18/2016 1 :47 PM LIVESTOCK TRADER documented in this encounter Results * Screening Mammogram (12/18/2016 1:47 PM LIVESTOCK TRADER) Anatomical Region Laterality Modality Breast N/A Mammography 12/18/2016 1:47 PM LIVESTOCK TRADER Narrative 12/20/2016 1:27 PM LIVESTOCK TRADER RUFINA CHAPMAN M.D. FINAL REPORT ACC# ??Date Time ??Exam [id number] Dec 18, 2016 13:47:00 [facility] [id number] [facility] Mamm grace 2v w/DANTE ?? Technologist(s): Viry Cabrera; Leyla Rutherford; EXAMINATION: ??Mammogram Technique: Bilateral Digital Breast Tomosynthesis, Bilateral C-view 2D. ??Views obtained: ??bilateral craniocaudal and bilateral mediolateral oblique. Computer Aided Detection was performed. Mammogram Findings: The present examination has been compared to prior imaging studies performed at [facility] on 11/19/2013 and 12/14/2015, and at [place] [address] on 12/13/2014. There are scattered areas of fibroglandular density. There is no suspicious abnormality in either breast. IMPRESSION: ??Annual screening mammography is recommended. OVERALL FINAL ASSESSMENT: BI-RADS CATEGORY 1: ??Negative. Requested By: Dictated By: ?? RUFINA CHAPMAN M.D. ??on Dec 20 2016 ??1:27P This document has been electronically signed by: RUFINA CHAPMAN M.D. on Dec 20 2016 ??1:27P [id number] Procedure Note Provider, MD Susan - 04/09/2017 RUFINA CHAPMAN M.D. FINAL REPORT ACC# Date Time Exam [id number] Dec 18, 2016 13:47:00 [facility] [id number] [facility] Mamm grace 2v w/DANTE Technologist(s): Viry Cabrera; Leyla Rutherford; EXAMINATION: Mammogram Technique: Bilateral Digital Breast Tomosynthesis, Bilateral C-view 2D. Views obtained: bilateral craniocaudal and bilateral mediolateral oblique. Computer Aided Detection was performed. Mammogram Findings: The present examination has been compared to prior imaging studies performed at [facility] on 11/19/2013 and 12/14/2015, and at [place] [address] on 12/13/2014. There are scattered areas of fibroglandular density. There is no suspicious abnormality in either breast. IMPRESSION: Annual screening mammography is recommended. OVERALL FINAL ASSESSMENT: BI-RADS CATEGORY 1: Negative. Requested By: Dictated By: RUFINA CHAPMAN M.D. on Dec 20 2016 1:27P This document has been electronically signed by: RUFINA CHAPMAN M.D. on Dec 20 2016 1:27P [id number] us Historical Provider MD [facility]INS MAMMO PROCEDURES Shelley l Result documented in this encounter Visit Diagnoses Diagnosis Encounter for screening mammogram for malignant neoplasm of breast documented in this encounter
--- OUTSIDE RECORDS SUMMARY | 2024-11-22 02:52 | XMS_ITS | Encounter Summary ---
Author Organization [facility] Facility Care Team Providers Care Disk And Tape Machine Tender Name Role Phone Unavailable Primary Care Provider Unavailabl e Encounter Details Date Type Department Care Team (Late st Contact Info) Description 07/12/2009 - 07/12/2009 11:59 PM CDT Hospital Encounter [facility] Wally Limon MD PhD [address] [facility] [address] [place] [address] Other screening mammogram Social History Tobacco Use Types Packs/Day Years Used Date Smoking Tobacco: Never Assessed Comments Unknown Sex and Gender Information Value Date Recorded Sex Assigned at Not on file Legal Sex Female 3:32 AM CREDIT CARD ANALYST Gender Identity Not on file Sexual Orientation Not on file documented as of this encounter Plan of Treatment Not on file documented as of this encounter Visit Diagnoses Diagnosis Other screening mammogram documented in this encounter
--- OUTSIDE RECORDS SUMMARY | 2024-11-22 02:52 | XMS_ITS | Encounter Summary ---
Author Organization [facility] Address [address] [place] [address] Care Team Providers Care Code Enforcement Inspector Name Role Phone Sameer Hampton MD Primary Care Provider [phone] Reason for Visit * Reason Comments Vaginal Bleeding * Diagnostic Imaging (Routine) - Pending Review Specialty Diagnoses / Procedures Referred By Contac t Referred To Contact Diagnoses Postmenopausal bleeding Procedures US Transvaginal Paulina Leyva MD [address] [facility] [address] [address] Phone: tel: Referral ID Status Reason Start Date Expiration Date V isits Requested Visits Authorized [id number] Pending Review 08/28/2024 09/27/2025 1 1 Encounter Details Date Type Department Care Team (Latest Contact Info) Description 08/31/2024 10:30 AM CDT Ancillary Procedure [facility] [address] [facility] [address] [place] [id number] Postmenopausal bleeding Social History Tobacco Use Types [...] on file Legal 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
--- OUTSIDE RECORDS SUMMARY | 2024-11-22 02:52 | XMS_ITS | Encounter Summary ---
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 Clam Sorter Visit Follow-up (Pt is here for [...] Primary documented in this encounter Care Teams Clinical Technologist Relationship Specialty Start Date End Date Sameer Hampton MD PCP - General Family Medicine 02/26/23 10/21/24 documented as of this encounter
--- OUTSIDE RECORDS SUMMARY | 2024-11-22 02:52 | XMS_ITS | Encounter Summary ---
Author Organization [facility] Facility Care Team Providers Care Financial Director Name Role Phone Unavailable Primary Care Provider Unavailabl e Encounter Details Date Type Department Care Team (Late st Contact Info) Description 11/18/2012 - 11/18/2012 11:59 PM CHARGER OPERATOR Hospital Encounter [facility] Nighat Sifuentes MD [address] [phone] [place] [address] Other screening mammogram Social History Tobacco Use Types Packs/Day Years Used Date Smoking Tobacco: Never Assessed Comments Unknown Sex and Gender Information Value Date Recorded Sex Assigned at Not on file Legal 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
--- OUTSIDE RECORDS SUMMARY | 2024-11-22 02:52 | XMS_ITS | Encounter Summary ---
Author Organization [facility] Facility Care Team Providers Care Index Clerk Name Role Phone Unavailable Primary Care Provider Unavailabl e Encounter Details Date Type Department Care Team (Late st Contact Info) Description 12/13/2014 - 12/13/2014 11:59 PM HAND CELL TUBER Hospital Encounter [facility] Jean-Baptiste MD [address] [place] [address] Other screening mammogram Social History Tobacco Use Types Packs/Day Years Used Date Smoking Tobacco: Every Day Comments Unknown Sex and Gender Information Value Date Recorded Sex Assigned at Not on file Legal Sex Female 3:32 AM HAND CELL TUBER Gender Identity Not on file Sexual Orientation Not on file documented as of this encounter Medications at Time of Discharge traMADoL (ULTRAM) 50 mg tablet as needed 09/05/2012 documented as of this encounter Plan of Treatment Not on file documented as of this encounter Procedures Procedure Name Priority Date/Time Associated Diagnosis Comments SCREENING MAMMOGRAM Routine 12/13/2014 1 0:29 AM HAND CELL TUBER documented in this encounter Results * Screening Mammogram (12/13/2014 10:29 AM HAND CELL TUBER) Anatomical Region Laterality Modality Breast N/A Mammography 12/13/2014 10:2 9 AM HAND CELL TUBER Narrative 12/14/2014 10:00 AM HAND CELL TUBER DORIS DAWKINS MD, PHD FINAL REPORT The radiology attending physician has personally reviewed this study, and has reviewed and/or edited this written report and agrees with it. ACC# ??Date Time ??Exam [id number] Dec 13, 2014 10:29:00 [facility] [id number] Bilateral Screen w Adrián ?? Technologist(s): Fatimah Cr; ; EXAMINATION: ??Mammogram Technique: Bilateral Bilateral Full-Field Digital Screening Mammogram and Digital Breast Tomosynthesis were performed. ??Views obtained: ??bilateral craniocaudal and bilateral mediolateral oblique. ??Computer Aided Detection of the 2D images was performed with [employer] version 9.3. Mammogram Findings: The present examination has been compared to prior imaging studies performed at [facility] on 11/19/2013, 11/18/2012 and 10/23/2011. There are [...] agrees with it. ACC# Date Time Exam [id number] Dec 13, 2014 10:29:00 [facility] [id number] Bilateral Screen w Adrián Technologist(s): Fatimah Cr; ; EXAMINATION: Mammogram Technique: Bilateral Bilateral Full-Field Digital Screening Mammogram and Digital Breast Tomosynthesis were performed. Views obtained: bilateral craniocaudal and bilateral mediolateral oblique. Computer AidedDetection of the 2D images was performed with [employer] 1.3 version 9.3. Mammogram Findings: The present examination has been compared to prior imaging studies performed at [facility] on 11/19/2013, 11/18/2012 and 10/23/2011. There are [...]
--- OUTSIDE RECORDS SUMMARY | 2024-11-22 02:52 | XMS_ITS | Encounter Summary ---
Author Organization [facility] Address [address] [place] [address] Care Team Providers Care Bookkeeping Manager Name Role Phone Sameer Hampton MD Primary Care Provider [phone] Reason for Visit * Reason Comments Vaginal Bleeding * Diagnostic Imaging (Routine) - Closed Specialty Diagnoses / Procedures Referred By Contac t Referred To Contact Diagnoses Postmenopausal bleeding Procedures US Transvaginal Paulina Leyva MD [address] [place] [address] [address] Phone: tel: Referral ID Status Reason Start Date Expiration Date Visits Re quested Visits Authorized [id number] Closed 09/09/2023 10/08/2024 1 1 Encounter Details Date Type Department Care Team (Latest Contact Info) Description 09/18/2023 10:30 AM CDT Ancillary Procedure [facility] [address] [place] [address] [address] [place] [phone] Postmenopausal bleeding Social History Tobacco Use Types [...] on file Legal 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
--- OUTSIDE RECORDS SUMMARY | 2024-11-22 02:52 | XMS_ITS | Encounter Summary ---
Author Organization [facility] Address [address] [place] [address] Care Team Providers Care Python Web Developer Name Role Phone Sameer Hampton MD Primary Care Provider [phone] Reason for Referral * Diagnostic Imaging (Routine) - Closed Specialty Diagnoses / Procedures Referred By Contac t Referred To Contact Diagnoses Screening mammogram, encounter for Procedures Screening Mammogram Bilateral W Adrián Screening Mammogram, Self [facility] Referral ID Status Reason Start Date Expiration Date Visits Re quested Visits Authorized [id number] Closed 02/26/2023 03/27/2024 1 1 * Diagnostic Imaging (Routine) - Closed Specialty Diagnoses / Procedures Referred By Contac t Referred To Contact Diagnoses Screening mammogram, encounter for Procedures Screening Mammogram Bilateral W Adrián Screening Mammogram, Self [facility] Referral ID Status Reason Start Date Expiration Date Visits Re quested Visits Authorized [id number] Closed 02/26/2023 03/27/2024 1 1 Reason for Visit * Diagnostic Imaging (Routine) - Closed Specialty Diagnoses / Procedures Referred By Contac t Referred To Contact Diagnoses Screening mammogram, encounter for Procedures Screening Mammogram Bilateral W Adrián Screening Mammogram, Self [facility] Referral ID Status Reason Start Date Expiration Date Visits Re quested Visits Authorized [id number] Closed 02/26/2023 03/27/2024 1 1 Encounter Details Date Type Department Care Team (Latest Contact Info) Description 04/11/2023 1:30 PM CDT - 04/11/2023 11:59 PM CDT Hospital Encounter [facility] [address] [facility] [address] [place] [address] Screening mammogram, encounter for Discharge Disposition: Discharge to home or self care Social History Tobacco Use Types Packs/Day Years Used Date Smoking Tobacco: Former Cigarettes Q uit: 1986 Comments Unknown Sex and Gender Information Value Date Recorded Sex Assigned at Not on file Legal 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 There are scattered [...] compared to prior imaging studies performed at [facility] on 02/16/2020, and at [facility] on 02/22/2021 and 03/21/2022. There are scattered [...] for documented in this encounter Care Teams Python Web Developer Relationship Specialty Start Date End Date Sameer Hampton MD PCP - General Family Medicine 02/26/23 10/21/24 documented as of this encounter
--- OUTSIDE RECORDS SUMMARY | 2024-11-22 02:52 | XMS_ITS | Encounter Summary ---
Author Organization [facility] Address [address] [place] [address] Care Team Providers Care Automatic Pinsetter Mechanic Name Role Phone Sameer Hampton MD Primary Care Provider Reason for Referral * Diagnostic Imaging (Routine) - Pending Review Specialty Diagnoses / Procedures Referred By Contleigh ann t Referred To Contact Diagnoses Postmenopausal bleeding Procedures US Transvaginal Paulina Leyva MD [address] [place] [address] [address] GRIJ[address] [place] [address] Phone: tel: Referral ID Status Reason Start Date Expiration Date V isits Requested Visits Authorized [id number] Pending Review 08/28/2024 09/27/2025 1 1 Reason for Visit * Reason Onset Date Comments bleeding 08/28/2024 PMB Encounter Details Date Type Department Care Team (Late st Contact Info) Description 08/28/2024 Telephone [facility] [address] [facility] [address] [place] [address] Paulina Leyva MD [address] [place] [address] [address]RIJALVA [address] [place] [address] bleeding (PMB) Social History Tobacco Use [...] on file 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 Leyva can see her at the [place] office on 09/07/24 at 9:[address]am. Dr. Leyva, Any further instructions? Thank you, INEZ Wood [...] bleeding documented in this encounter Care Teams Automatic Pinsetter Mechanic Relationship Specialty Start Date End Date Sameer Hampton MD PCP - General Family Medicine 02/26/23 10/21/24 documented as of this encounter
--- OUTSIDE RECORDS SUMMARY | 2024-11-22 02:52 | XMS_ITS | Encounter Summary ---
Author Organization [facility] Healthcare Address [address] [place] [address] Care Team Providers Care Industrial Electrician Name Role Phone Sameer Hampton MD Primary Care Provider [phone] Reason for Visit * Reason Comments Follow-up [facility] Encounter Details Date Type Department Care Team (Late st Contact Info) Description 09/30/2023 10:15 AM CDT Office Visit [facility] Medical Group Women's Health Care at [address] [address] Paulina Leyva MD [address] [place] [address] Postmenopausal bleeding (Primary Dx) Social History Tobacco [...] on file Legal 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 Lead Android Developer Visit Follow-up ([facility]) Subjective: Lyssa Viera is [...] Primary documented in this encounter Care Teams Industrial Electrician Relationship Specialty Start Date End Date Sameer Hampton MD PCP - General Family Medicine 02/26/23 10/21/24 documented as of this encounter
--- OUTSIDE RECORDS SUMMARY | 2024-11-22 02:52 | XMS_ITS | Encounter Summary ---
Author Organization [facility] Facility Care Team Providers Care Branch Services Manager Name Role Phone Unavailable Primary Care Provider Unavailabl e Encounter Details Date Type Department Care Team (Late st Contact Info) Description 11/19/2013 - 11/19/2013 11:59 PM CDL SERVICE TECHNICIAN Hospital Encounter [facility] Nighat Sifuentes MD [address] [phone] [place] [address] Other screening mammogram Social History Tobacco Use Types Packs/Day Years Used Date Smoking Tobacco: Former Comments Unknown Sex and Gender Information Value Date Recorded Sex Assigned at Not on file Legal Sex Female 3:32 AM CDL SERVICE TECHNICIAN Gender Identity Not on file Sexual Orientation Not on file documented as of this encounter Medications at Time of Discharge traMADoL (ULTRAM) 50 mg tablet as needed 09/05/2012 documented as of this encounter Plan of Treatment Not on file documented as of this encounter Procedures Procedure Name Priority Date/Time Associated Diagnosis Comments SCREENING MAMMOGRAM Routine 11/19/2013 1 0:50 AM CDL SERVICE TECHNICIAN documented in this encounter Results * Screening Mammogram (11/19/2013 10:50 AM CDL SERVICE TECHNICIAN) Anatomical Region Laterality Modality Breast N/A Mammography 11/19/2013 10:5 0 AM CDL SERVICE TECHNICIAN Narrative 11/19/2013 3:32 PM CDL SERVICE TECHNICIAN NELSON OROSCO M.D. FINAL REPORT ACC# ??Date Time ??Exam [id number] Nov 19, 2013 10:50:00 [facility] [id number] Screening Mamm Bilat ?? Technologist(s): Yecenia Winters; ; EXAMINATION: ??Mammogram Technique: Bilateral Full-Field Digital Screening Mammogram was performed. ??Views obtained: ??bilateral craniocaudal and bilateral mediolateral oblique. Computer Aided Detection was performed with [employer] 1.3 version 9.3. Mammogram Findings: The present examination has been compared to prior imaging studies performed at [facility] on 11/18/2012, 10/23/2011, 08/08/2010, 07/12/2009 and 06/07/2008. [...] M.D. FINAL REPORT ACC# Date Time Exam [id number] Nov 19, 2013 10:50:00 [facility] [id number] Screening Mamm Bilat Technologist(s): Yecenia Winters; ; EXAMINATION: Mammogram Technique: Bilateral Full-Field Digital Screening Mammogram was performed. Views obtained: bilateral craniocaudal and bilateral mediolateral oblique. Computer Aided Detection was performed with [employer] 1.3 version 9.3. Mammogram Findings: The present examination has been compared to prior imaging studies performed at [facility] on 11/18/2012, 10/23/2011,08/08/2010, 07/12/2009 and 06/07/2008. There [...]
--- OUTSIDE RECORDS SUMMARY | 2024-11-22 02:53 | XMS_ITS | Encounter Summary ---
Author Organization [facility] Facility Care Team Providers Care Body Maker Machine Setter Name Role Phone Unavailable Primary Care Provider Unavailabl e Encounter Details Date Type Department Care Team (Late st Contact Info) Description 05/20/2007 - 05/20/2007 11:59 PM CDT Hospital Encounter [facility] Wally Limon MD PhD [address] [facility] [address] [place] [address] Social History Tobacco Use Types Packs/Day Years Used Date Smoking Tobacco: Never Assessed Comments Unknown Sex and Gender Information Value Date Recorded Sex Assigned at Not on file Legal 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
--- OUTSIDE RECORDS SUMMARY | 2024-11-22 02:53 | XMS_ITS | Encounter Summary ---
Author Organization [facility] Facility Care Team Providers Care Concrete Swimming Pool Installer Name Role Phone Unavailable Primary Care Provider Unavailabl e Encounter Details Date Type Department Care Team (Late st Contact Info) Description 02/04/2007 - 02/04/2007 11:59 PM WHEEL TRUING MACHINE TENDER Hospital Encounter [facility] Nighat Sifuentes MD [address] [facility] [address] [phone] [place] [address] Social History Tobacco Use Types Packs/Day Years Used Date Smoking Tobacco: Never Assessed Comments Unknown Sex and Gender Information Value Date Recorded Sex Assigned at Not on file Legal Sex Female 3:32 AM WHEEL TRUING MACHINE TENDER Gender Identity Not on file Sexual Orientation Not on file documented as of this encounter Plan of Treatment Not on file documented as of this encounter Visit Diagnoses Not on filedocumented in this encounter
--- OUTSIDE RECORDS SUMMARY | 2024-11-22 02:53 | XMS_ITS | Encounter Summary ---
Author Organization [facility] Facility Care Team Providers Care Inspector Eyeglass Name Role Phone Unavailable Primary Care Provider Unavailabl e Encounter Details Date Type Department Care Team (Late st Contact Info) Description 03/09/2008 - 03/09/2008 11:59 PM CDT Hospital Encounter [facility] Nighat Sifuentes MD [address] [facility] [address] [phone] [place] [address] Social History Tobacco Use Types Packs/Day Years Used Date Smoking Tobacco: Never Assessed Comments Unknown Sex and Gender Information Value Date Recorded Sex Assigned at Not on file Legal 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
== END 2024-11-16 10:20 | disposition home or self-care (01) ==
PROVIDERS: Emergency Provider Emergency Medicine; PCP Emergency Medicine
DX: N93.9 Abnormal uterine and vaginal bleeding, unspecified (principal); I48.91 Unspecified atrial fibrillation; I12.9 Hypertensive chronic kidney disease with stage 1 through stage 4 chronic kidney disease, or unspecified chronic kidney disease; N18.9 Chronic kidney disease, unspecified; E03.9 Hypothyroidism, unspecified; Z86.0100 Personal history of colon polyps, unspecified; Z86.711 Personal history of pulmonary embolism; Z87.891 Personal history of nicotine dependence
CPT/HCPCS: 36415; 76856; 80053; 85025; 85610; 85730; 99284

== ENCOUNTER 2024-12-16 01:42 | Day surgery (SDC) | payer MEDICARE, SELFPAY ==
[2024-12-15 13:21] VITALS: BMI 36.6
[2024-12-16] VITALS (15 sets, daily range): BP systolic 119–169; BP diastolic 79–104; PULSE 63–97; RESP 15–19; TEMP 36.7–36.8; O2SAT 95–100; BMI 39.1
[2024-12-16 08:09] LABS: Basophils Absolute Auto 0.1 K/mm3 (0.0-0.1); Basophils Percent Auto 1.2 % (0.2-1.2); Eosinophils Absolute Auto 0.2 K/mm3 (0-0.3); Eosinophils Percent Auto 2.6 % (0-4.4); Hemoglobin 14.2 g/dL (12.0-15.0); Immature Granulocyte Absolute 0.02 K/mm3 (0.00-0.031); Immature Granulocyte Percent A 0.3 % (0-0.5); Lymphocytes Absolute Auto 2.55 K/mm3 (0.9-3.2); Lymphocytes Percent Auto 38.8 % (18.3-44.2); Mean Corpuscular HGB Conc 33.8 g/dl (32-36); Mean Corpuscular Hemoglobin 33.3 pg (26-34); Mean Corpuscular Volume 98.6 fl (80-100); Mean Platelet Volume 9.3 fl (7.4-10.4); Monocytes Absolute Auto 0.8 K/mm3 (0.1-0.6); Monocytes Percent Auto 12.6 % (2.6-8.5); Neutrophils Absolute Auto 2.9 K/mm3 (1.3-6.7); Neutrophils Percent Auto 44.5 % (45.5-73.1); Platelet Count Result 288 k/mm3 (150-375); Red Blood Count 4.26 M/mm3 (4.2-5.4); Red Cell Distribution Width 13.9 % (11.5-14.5); White Blood Count 6.6 K/mm3 (4.5-10.0)
--- NOTE | 2024-12-16 08:36 | WPDHPUPDATE1 ---
History and Physical Update Update Date/Time: 12/16/24 08:36 History and Physical has been reviewed, including an updated exam of the patient. There are NO changes in the patient's condition. Risks, benefits, and alternatives have been discussed and questions answered. Patient agrees to proceed with procedure.
--- NOTE | 2024-12-16 08:36 | WPDMODSED ---
Moderate Sedation Note-Pt Data Patient Data Diagnosis: Abnormal stress test Present Complaint: Abnormal stress test Procedure to be performed/Plan: Coronary angiography, left heart cath, +/- PCI Allergies Allergy/AdvReac Type Severity Reaction Status Date / Time erythromycin base Allergy Unknown Skin Verified 12/16/24 07:56 Reaction Sulfa (Sulfonamide Allergy Unknown severe Verified 12/16/24 07:56 Antibiotics) joint pain Home Medications ?Medication ?Instructions ?Recorded ?Confirmed ?Type cholecalciferol (vitamin D3) 25 25 mcg PO DAILY 07/26/20 12/15/24 History mcg (1,000 unit) capsule cyanocobalamin (vitamin B-12) 1,000 mcg PO DAILY 07/26/20 12/15/24 History 1,000 mcg tablet (Vitamin B-12) metoprolol succinate 25 mg 12.5 mg (1/2 x 25 mg) PO DAILY #45 04/16/24 12/15/24 Rx tablet,extended release 24 hr tabs pantoprazole 40 mg tablet,delayed 40 mg PO QAM #90 tabs 04/16/24 12/15/24 Rx release levothyroxine 50 mcg tablet See Rx Instructions .Route 07/27/24 12/15/24 Rx .COMPLEX #90 tabs rivaroxaban 20 mg tablet (Xarelto) 20 mg PO DAILY #90 tabs 07/27/24 12/15/24 Rx valsartan 160 See Rx Instructions .Route 07/27/24 12/15/24 Rx mg-hydrochlorothiazide 12.5 mg .COMPLEX #90 tabs tablet tramadol 50 mg tablet 50 mg PO Q8H PRN pain #20 tabs 10/19/24 12/15/24 Rx diltiazem HCl 120 mg 120 mg PO Q24H 12/15/24 12/15/24 History tablet,extended release 24 hr Sedation/Anesthesia: No previous sedation/anesthesia problems (including family history). [facility] Past Medical History Medical History Pulmonary embolism Atrial fibrillation Right foot infection Cortisone 08/18/2024 History of colon polyps CKD (chronic kidney disease) Benign essential HTN Hypothyroidism (acquired) On levothyroxine Surgical History Surgical History H/O colonoscopy with polypectomy History of nasal surgery Cyst removed below left nostril H/O breast biopsy History of esophagogastroduodenoscopy (EGD) May 17, 2021 biopsies negative History of tubal ligation Family History Family History Father Family history of malignant neoplasm Sibling Family history of malignant neoplasm Family history of malignant neoplasm of breast Mother Family history of malignant neoplasm of breast in first degree relative Son Diabetes mellitus Son Congestive heart failure Social History Social History Social History: The patient lives with her son and spouse . She has 3 children. She is Retired from [employer]. 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 She is a former smoker. She drinks a glass a wine a day. Code status full code Smoking packs per day: 0.5 Smoking cigarettes per day: 10.0 Years smoked: 17 Smoking pack-years: 8.50 Smoking status: Never smoker Tobacco type: cigarettes Second hand tobacco smoke exposure: No Alcohol intake: current Drinks per week: 10 Alcohol use details: wine Substance use: never Substance use type: does not use Lack of Transportation: No Lack of Food: Never True Current Housing: I Have Housing Concerned About Future Housing: No Difficulty Paying Gas/Electric Bills: No Difficulty Paying for Meds: No Currently Unemployed: No Education: Master's Degree or Higher Difficulty w/ Childcare or Family Care: No Living arrangements: with family Spiritual care concerns: No Mod Sed Physical Exam Physical Exam Pre Procedural Exam: Normal: Appearance, Lungs, Heart Rate, Heart Rhythm, Neuro Exam, Extremities and Skin Hours since solid foods: 12 Hours since liquid intake: 8 Mallampati Classification: class III Internal Medicine - PN: Obj Da Vital Signs Vital Signs: Vital Signs - 24 hr 12/16/24 07:58 Temperature 36.7 C Pulse Rate 80 Respiratory Rate 19 Blood Pressure 167/90 H Pulse Oximetry 98 Oxygen Delivery Room Air Labs 12/16/24 08:01 12/16/24 08:01 Labs: Laboratory Results - last 24 hr 12/16/24 08:01 WBC 6.6 RBC 4.26 Hgb 14.2 Hct 42.0 MCV 98.6 MCH 33.3 MCHC 33.8 RDW 13.9 Plt Count 288 MPV 9.3 Immature Gran % (Auto) 0.3 Neut % (Auto) 44.5 L Lymph % (Auto) 38.8 [place] % (Auto) 12.6 H Eos % (Auto) 2.6 Baso % (Auto) 1.2 Lymph # (Auto) 2.55 [place] # (Auto) 0.8 H Eos # (Auto) 0.2 Baso # (Auto) 0.1 Abs Immat Gran (auto) 0.02 Absolute Neuts (auto) 2.9 Absolute Nucleated RBC 0.000 Nucleated RBC % 0.0 ASA Classification/Sedation ASA Classification/Sedation ASA Class: II Emergent: No Risks: Risks, benefits and alternatives explained and patient/family accepted plan for sedation. Patient re-evaluated immediately prior to sedation.
[2024-12-16 08:37] LABS: Anion Gap 7 mmol/L (4-12); Blood Urea Nitrogen 17 mg/dL (7-17); Calcium 8.8 mg/dL (8.4-10.2); Carbon Dioxide 29 mmol/L (22-30); Chloride 100 mmol/L (98-107); Estimated CRCL calculation 47 ml/min; Estimated Glomerular Filt Rate 59; Glucose 102 mg/dL (65-110); Sodium 136 mmol/L (137-145)
--- NOTE | 2024-12-16 08:39 | P.PCNCC_ITS ---
Cardiac Cath Procedure Note Date of procedure:: 12/16/24 Performing physician:: CATHETERIZATION LABORATORY REPORT Procedure Date: 12/16/2024 Nursing Education Specialist: Berta Olivier M.D., [facility]? Referring Physician: Berta Olivier M.D.? Anesthesia: Versed and Fentanyl were ordered and given in my presence at 09:06, procedure ended at 09:25. Supervision of nurse monitored moderate sedation with Versed and Fentanyl was provided for 19 minutes. Total of Versed 1mg and Fentanyl 75mcg were administered by the Telephone Order Clerk RN Sedny Akers. Pre-op Diagnosis: Coronary artery disease Post-op Diagnosis: Mild nonobstructive coronary artery disease Procedure(s): 1. Moderate sedation 2. Ultrasound-guided access of the right radial artery 3. Coronary angiography Access Site: Right radial artery Brief History and Clinical Indications: Patient is a 79 year old female who is referred for [facility] for abnormal stress test. All risks, benefits and alternatives to left heart catheterization with or without percutaneous coronary intervention was discussed at length with the patient. Risk of complications including but not limited to bleeding, infection, arrhythmia, stroke, worsening kidney function, blood loss, groin hematoma, limb loss, emergency coronary artery bypass grafting, and even were discussed with the patient and all questions were answered. The patient understood and wished to proceed. Time out called, patient name, date of , medical record number, allergies, procedure performed, identify Nursing Education Specialist, patient and staff member concurred with accurate data, procedure carried on. Findings: LEFT HEART CATHETERIZATION FINDINGS: 1. Left main: The left main coronary artery is widely patent without any significant obstructive disease. 2. Left anterior descending: The proximal-mid LAD has mild diffuse disease. Remainder of the LAD has luminal irregularities. Diagonal branches with luminal irregularities. 3. Left circumflex: The left circumflex artery and the main marginal branches have mild luminal irregularities without any significant obstructive angiographic disease. 4. Right coronary artery: The RCA is the dominant vessel. The proximal RCA has mild disease. Remainder of the RCA has luminal irregularities. Description of Procedure: Informed consent signed and placed in the chart. Patient transferred to engineering lab technician room. Prepped and draped in usual sterile fashion. 2% lidocaine injected subcutaneously in right wrist area. 22-gauge venipuncture catheter used to access the right radial artery under ultrasound guidance. 6-FR slender sheath placed in right radial artery. Nitroglycerine and Verapamil were given intraarterial through the sheath. Versacore wire advanced under fluoroscopy 5F Tig 4 diagnostic catheter engaged Left Main Coronary Artery. 5F Tig 4 diagnostic catheter engaged Right Coronary Artery Multiple orthogonal angiogram obtained and reviewed Hemostasis was achieved by application of TR band. Disposition: Home Plan: The patient will be monitored in the recovery area. Discharge home after post cath bed rest is complete. Continue aggressive medical therapy and risk factor modification. ? Berta Olivier M.D. Interventional Cardiology
== END 2024-12-16 13:03 | disposition home or self-care (01) ==
PROVIDERS: PCP Family Medicine; Visit Provider Internal Medicine
PROC: (CPT 93454; principal; 2024-12-16 09:00)
DX: I25.10 Atherosclerotic heart disease of native coronary artery without angina pectoris (principal); I48.0 Paroxysmal atrial fibrillation; I12.9 Hypertensive chronic kidney disease with stage 1 through stage 4 chronic kidney disease, or unspecified chronic kidney disease; N18.9 Chronic kidney disease, unspecified; E03.9 Hypothyroidism, unspecified; Z86.711 Personal history of pulmonary embolism
CPT/HCPCS: 36415; 80048; 85025; 93454; A9270; C1769; C1887; C1894; J1644; J2003; J2250; J2305; J3010; J7040

== ENCOUNTER 2024-12-22 15:24 | Outpatient (CLI) | payer MEDICARE, SELFPAY ==
--- NOTE | ~2024-12-22 | XR_ITS ---
HISTORY: M79.671 - Pain in right foot COMPARISON: None TECHNIQUE: 4 views of the right foot were performed FINDINGS: No acute fracture or dislocation is appreciated. No significant degenerative disease is noted. The base of the fifth metatarsal is intact. No calcaneal spur is noted. No significant soft tissue swelling is present. IMPRESSION: Unremarkable plain film evaluation of the right foot, as detailed above. Reviewed, dictated and finalized at location A. R OBSERVER
== END 2024-12-22 15:25 | disposition home or self-care (01) ==
LOC: MICIMG 15:25
PROVIDERS: PCP Family Medicine; Visit Provider Nurse Practitioner Family
DX: M79.671 Pain in right foot (principal)
CPT/HCPCS: 73630

== ENCOUNTER 2025-04-15 14:21 | Outpatient (CLI) | payer MEDICARE, SELFPAY ==
--- NOTE | ~2025-04-15 | XR_ITS ---
XR shoulder RT min 2V 04/15/2025 14:42 Indication: Right shoulder pain Procedure: 4 views right shoulder Comparison: No prior studies for comparison. 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 No fracture, subluxation or dislocation. No soft tissue abnormality. No foreign bodies. Impression: 1: No acute bone or joint abnormality. Reviewed, dictated and finalized at location A. Impression: 1: No acute bone or joint abnormality.
== END 2025-04-15 14:22 | disposition home or self-care (01) ==
PROVIDERS: PCP Family Medicine; Visit Provider Family Medicine
DX: M25.511 Pain in right shoulder (principal)
CPT/HCPCS: 73030

== ENCOUNTER 2025-04-29 12:40 | Outpatient (CLI) | payer MEDICARE, SELFPAY ==
--- OUTSIDE RECORDS SUMMARY | 2025-04-29 12:43 | XMS_ITS | Clinical Summary ---
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 Role Phone Stefan Park MD Primary Care Provider [phone] Social History Tobacco Use Types Packs/Day Years [...] Virus (HCV) Screening 1945 TdaP Immunization 1945 Pneumococcal Immunization (5 0+ years) (1 of 1 - PCV) 1995 Zoster Immunization (1 of 2) 1995 Respiratory Syncytial Virus (RSV) Immunization (Adult) (1 - 1-dose 75+ series) 2020 Influenza Immunization (#1) 2024 SARS-COV-2 Immunization ( season) 2024 Colonoscopy High Risk Discontinued 09/03/2019 Colonoscopy [...] Procedure Name Priority Date/Time Associated Diagnosis Comments COLONOSCOPY Routine 09/03/2019 from Last 3 Months or Most Recently Relevant to Health Maintenance Results * HM COLONOSCOPY (09/03/2019) us Malik Austin DO PROCEDURE/MINOR SURGICAL ORDERA BLES Final Result from Last 3 Months or Most Recently Relevant to Health Maintenance Care Teams Farm Contractor Buyer Relationship Specialty Start Date End Date Stefan Park MD [address] [place] [address] PCP - General Family Medicine 07/15/19
--- OUTSIDE RECORDS SUMMARY | 2025-04-29 12:43 | XMS_ITS | Clinical Summary ---
Author Organization [facility] [place] [address] Address [address] [place] [address] Care Team Providers Care Vehicle Service Agent Name Role Phone Paulina Leyva MD Unavailable [phone] Lala Poole MD Primary Care Provider + Allergies Active Allergy Reactions Criticality Noted Date Comments Erythromycin Rash Medium 09/03/2012 Sulfa (Sulfonamide Antibiotics) Other (See comments) Medium 09/03/2012 Extreme pain in back Medications traZODone (DESYREL) 50 mg tablet Take 1 [...] mcg total) by mouth daily Active calcium carbonate-vitamin D3 1,250mg (500mg elemental) - 5 mcg (200 units) per tablet Take 1 tablet by mouth daily Active omeprazole (PriLOSEC) 20 mg capsule 2 capsules (40 mg total) 08/10/20 15 Active psyllium, aspartame, SF (Metamucil Fiber Singles) 3.4 gram packet Take by mouth as directed 05/28/20 18 Active valsartan-hydroCHL OROthiazide (DIOVAN-HCT) 160-12.5 mg per tablet Take 1 tablet by mouth daily Active levothyroxine (SYNTHROID) 50 mcg tablet Take 1 tablet (50 mcg total) by mouth early intervention specialist before breakfast Active ketoconazole (NIZORAL) 2 % cream Apply topically daily Active ibuprofen (ADVIL,MOTRIN) 600 mg tablet Take 1 tablet (600 mg total) by mouth every 6 (six) hours as needed for pain 10 tablet 11/05/20 24 Active Additional Information Patient not taking.Reported on 11/23/2024 diltiazem LA (CARDIZEM LA) 120 mg 24 hr tabletIndications: Paroxysmal atrial fibrillation (HCC) Take 1 tablet (120 mg total) by mouth daily 90 tablet 3 11/20/20 24 025 Active docusate sodium (COLACE) 100 mg capsuleIndications :constipation Take 1 capsule (100 mg total) by mouth 2 (two) times a day 30 capsule 01/06/20 25 Active gabapentin (NEURONTIN) 100 mg capsule Take 1 capsule (100 mg total) by mouth nightly 30 capsule 11 01/06/20 25 026 Active ondansetron ODT (ZOFRAN-ODT) 4 mg disintegrating tabletIndications: nausea and vomiting Take 1 tablet (4 mg total) by mouth every 6 (six) hours as needed for nausea or vomiting 20 tablet 01/06/20 25 Active senna (SENOKOT) 8.6 mg tablet Take 2 tablets by mouth 2 (two) times a day 120 tablet 11 01/06/20 25 026 Active rivaroxaban (XARELTO) 15 mg tabletIndications: atrial fibrillation Take 1 tablet (15 mg total) by mouth daily with dinner 30 tablet 1 01/14/20 25 Active naloxone (NARCAN) 4 mg/actuation spray,non-aerosol Administer 1 spray into affected nostril(s) as needed for opioid reversal or respiratory depression Call 911. Administer a single spray in one nostril. Repeat every 3 minutes as needed if no or minimal response. 1 each 01/21/20 25 Active oxyCODONE (ROXICODONE) 5 mg immediate release tabletIndications: Pain Take 1 tablet (5 mg total) by mouth every 4 (four) hours as needed for pain for up to 14 doses 14 tablet 01/29/20 25 Active gabapentin (NEURONTIN) 100 mg capsuleIndications :Carpal tunnel syndrome on right Take 2 capsules (200 mg total) by mouth nightly 60 capsule 6 02/05/20 25 Active cyclobenzaprine (FLEXERIL) 10 mg tabletIndications: Carpal tunnel syndrome on right Take 0.5 tablets (5 mg total) by mouth 3 (three) times a day as needed for muscle spasms 20 tablet 02/05/20 25 Active acetylcysteine 600 mg capsule Take by mouth 07/21/20 17 Active atorvastatin (LIPITOR) 20 mg tablet Take 1 tablet (20 mg total) by mouth daily 12/16/19 25 Active atovaquone-proguan iL (MALARONE) 250-100 mg tablet daily 12/05/19 17 Active citalopram (CeleXA) 10 mg tablet 11/17/20 14 Active losartan-hydrochlo rothiazide (HYZAAR) 100-25 mg per tablet 11/17/20 14 Active mecobalamin, vitamin B12, 1,000 mcg tablet,chewable Take by mouth daily 04/12/20 16 Active meloxicam (MOBIC) 15 mg tablet daily 09/05/20 12 Active meloxicam (MOBIC) 7.5 mg tablet take 1 po qd with food 06/18/20 13 Active multivitamin tablet Active pantoprazole DR (PROTONIX) 40 mg EC tablet Take 1 tablet (40 mg total) by mouth every morning 01/04/20 25 Active solifenacin (Vesicare) 10 mg tablet Active typhoid (Vivotif Yissel Vaccine) 2 billion unit capsule live vaccine TAKE ONE CAPSULE ON DAYS 1, 3, 5 AND 7 11/14/20 16 Active cholecalciferol 400 unit capsule Take by mouth 11/17/20 14 Active Active Problems Problem Noted Date Diagnosed Date Acute embolism and thrombosi s of deep vein of right upper extremity 01/18/2025 GERD (gastroesophageal reflux disease) Class 2 obesity with body ma ss index (BMI) of 39.0 to 39.9 in adult 01/04/2025 Stage 3b chronic kidney disease (CKD) 01/02/2025 Assessment & Plan (01/08/2025 12:08 PM HOSPITALITY ASSOCIATE): Cr at baseline. If staying overnight, reasonable to repeat BMP to ensure no new Galo contributing to bleeding Laceration of radial artery at forearm level, initial encounter 01/01/2025 Assessment & Plan (01/08/2025 12:03 PM HOSPITALITY ASSOCIATE): Complication of recent cardiac catheterization on 12/16. She underwent right CTR/GCR, ligation of radial artery and fasciotomies with Plastic Surgery on 01/01/25. - now with increased bleeding in arm since starting back on Xarelto last night. Pt says she did move around a little more last night but only with minimal movement of her arm - see below for anticoagulation plan Postmenopausal bleeding 09/09/2023 Assessment & Plan (11/23/2024 1:10 PM HOSPITALITY ASSOCIATE): Will follow. I dont think she needs any further treatment at this time. Assessment & Plan (11/02/2024 2:29 PM HOSPITALITY ASSOCIATE): Procedure reviewed along with risk, benefits and [...] proceed. Assessment & Plan (01/06/2024 10:48 AM HOSPITALITY ASSOCIATE): To call if she has any more bleeding otherwise we will follow-up for complete exam in 1 year Assessment & Plan (09/30/2023 10:48 AM CDT): Options discussed She wants to watch and wait. If she bleeds again will go to OR Assessment & Plan (09/09/2023 2:20 PM CDT): To usg I anticipate she will need an emb Well woman exam 09/09/2023 Overview (09/09/2023): Lab: Pap:s/p cryo and LEEP. Labs with pcp. S/p emb x 2 last 20 years ago. Job:2022 Colonoscopy: 2019- told not come back BMD:2021 Assessment & Plan (11/23/2024 1:11 PM HOSPITALITY ASSOCIATE): Due in Sep 2024 Chronic fatigue 04/23/2023 Medication side effects 04/23/2023 Primary hypertension 01/29/2023 Assessment & Plan (01/06/2025 12:06 PM HOSPITALITY ASSOCIATE): --Continue home diltiazem, review of prior to admission meds also show Diovan HCT. Ok to resume this (or our formulary equivalent) now or at discharge. Paroxysmal atrial fibrillation 01/29/2023 Assessment & Plan (01/08/2025 12:07 PM HOSPITALITY ASSOCIATE): Home medications are diltiazem and Xarelto. - ideal dose given her renal function is 15 mg nightly. Any lower doses are not validated for afib indication - To me options going forward are as follows Hold xarelto and all anticoagulation for about 2 weeks. If arm doing well then, can resume xarelto. Doing this does lead to a minimal increased stroke risk. Her [id number] score yields a stroke risk of about 6-10% over one year if off anticoagulation - so risk over two weeks is minimal but not zero Use lovenox BID instead of xarelto. It is not clear to me why she tolerated this better but with her CKD, it is possible the xarelto has a higher bleed risk. However, I would still think risk of continued bleeding is similar on either agent. Continue xarelto tonight with repeat CBC and evaluation and decide tomorrow about above options depending on how she tolerates it I recommended to the pt that we hold anticoagulation for next two weeks. She is agreeable to wait we decide but does not want to make the decision herself. I have notified the PRS team of my thought process Pulmonary embolus 01/29/2023 Assessment & Plan (01/06/2025 12:07 PM HOSPITALITY ASSOCIATE): --anticoagulation plan as described elsewhere -- indefinite anticoagulation is planned due to hx of paroxysmal afib and hx of VTE Hypothyroidism, unspecified 01/29/2023 Assessment & Plan (01/02/2025 10:57 AM HOSPITALITY ASSOCIATE): --Continue home levothyroxine 50 mcg q am Chronic anticoagulation 01/29/2023 Stage 3 chronic kidney disease 04/18/2015 Hematuria 11/17/2014 Essential (primary) hypertension 11/17/2014 Hypertension 04/05/2014 Arthralgia of hip 09/03/2012 Resolved Problems Problem Noted Date Diagnosed Date Resolved Date 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 01/08/2025 Encounters Date Type Department Care Team Description 04/22/2025 3:00 PM CDT Office Visit [facility] [address] [place] [address] [place] [address] Areli Bradshaw MD Carpal tunnel syndrome on right (Primary Dx) 04/16/2025 10:43 AM CDT - 04/16/2025 11:59 PM CDT Hospital Encounter [facility] [address] [facility] [address] [place] [address] Screening mammogram, encounter for Discharge Disposition: Discharge to home or self care 03/18/2025 10:30 AM CDT Office Visit [facility] [address] [place] [address] [place] [address] Areli Bradshaw MD Carpal tunnel syndrome on right (Primary Dx) 02/24/2025 2:30 PM CDT Office Visit [facility] [address] [place] [address] [place] [address] Angella Allen NP Carpal tunnel syndrome on right (Primary Dx) 02/04/2025 2:00 PM HOSPITALITY ASSOCIATE Therapy [facility] [address] [place] [address] [place] [address] Marilu Barahona DPT Carpal tunnel syndrome on right (Primary Dx) 02/04/2025 12:45 PM HOSPITALITY ASSOCIATE Office Visit [facility] [address] [place] [address] [place] [address] Areli Bradshaw MD Carpal tunnel syndrome on right (Primary Dx) 02/04/2025 Documentation [facility] [address] [facility] [address] [place] [id number] Areli Bradshaw MD 01/29/2025 Telephone [facility] [address] [facility] 6th [place] [phone] Ramona Ramirez, TONNY from Last 3 Months Immunizations Immunization Administration Dates Next Due Influenza, Quadrivalent, Hig h Dose, Preservative Free, Intrr 09/05/2023 RSV Vaccine, Pref, Recombina nt, Subunit, Adjuvanted, PF, IM (Arexvy) 09/30/2023 Yellow Fever 11/14/2016 ZOSTER LIVE 08/11/2019 ZOSTER Recombinant 06/05/2019 Surgical History Surgery Date Site/Laterality Comments ID LIG/TRNSXJ FLP TUBE ABDL/ VAG APPR UNI/BI Tubal Ligation - (Added by TW Conv) BREAST BIOPSY CYST REMOVAL TUBAL LIGATION COLONOSCOPY ESOPHAGOGASTRODUODENOSCOPY Medical History Medical History Date Comments Atrial fibrillation (HCC) Chronic kidney disease Hypertension Thyroid disease [...] Sister 1 Marti Arthritis Sister 2 Crystal Alvarados Breast cancer Sister 2 Crystal Alvarados x2 she was br ca 1&2 negative. Hypertension Sister 2 Crystal Alvarados Autism Son 1 Tomer Viera (autism) Diabetes Son 1 Tomer Viera (autism) Asthma Son 2 Tomer Viera Learning disabilities Son 2 Tomer Viera Cancer Neg Hx no colon or gmat instructor cancer cmt 09/09/23 Relation Name Status Comments Brother Father Gui Meeks Mother Paternal Grandfather Sister 1 Marti Sister 2 Crystal Monreal Son 1 Tomer Viera (autism) Son 2 Tomer Viera Social History Tobacco Use Types Packs/Day Years [...] alcohol? 4 or more times a week 01/01/2025 Q2: How many drinks containi ng alcohol do you have on a typical day when you are drinking? 1 or 2 Q3: How often do you have si x or more drinks on one occasion? Never 01/01/2025 PHQ-2 Answer Date Recorded PHQ-2 Total Score 0 09/07/2024 Personal Safety Answer Date Recorded Have you ever been in or are you currently in a harmful physical or emotional relationship or is someone making you feel afraid or unsafe? Denies 01/14/2025 Comments No Sex and Gender Information Value Date Recorded Sex Assigned at Not on file Legal Sex Female 3:32 AM HOSPITALITY ASSOCIATE Gender Identity Not on file Sexual Orientation Not on file Obstetrics History Para Term AB IAB SAB Ectopic Multiple Livin g Live Births 2 2 1 1 1 3 3 Date Outcome GA Total Labor Labor/2nd/3rd Weight Sex Type Anes PTL Lisa A1 A5 Name Clin 10/20 76 1.758 kg (3 lb 14 oz) M Vaginal None Living Complications:None 11/19 76 2.155 kg (4 lb 12 oz) M Vaginal None Living Complications:None 06/19 78 Term 2.92 kg (6 lb 7 oz) M Vaginal None Living Complications:None Last Filed Vital Signs Vital Sign Reading Time Taken Comments Blood Pressure 150/77 01/14/2025 10:00 AM HOSPITALITY ASSOCIATE Pulse 72 01/14/2025 10:00 AM HOSPITALITY ASSOCIATE Temperature 36.8 C (98.3 F) 01/14/2025 5:15 AM HOSPITALITY ASSOCIATE Respiratory Rate 14 01/14/2025 10:00 AM HOSPITALITY ASSOCIATE Oxygen Saturation 98% 01/14/2025 10:00 AM HOSPITALITY ASSOCIATE Inhaled Oxygen Concentration - - Weight 90.7 kg (200 lb) 01/14/2025 2:57 AM HOSPITALITY ASSOCIATE Height 157.5 cm (5' 2) 01/14/2025 2:57 AM HOSPITALITY ASSOCIATE Body Mass Index 36.58 01/14/2025 2:57 AM HOSPITALITY ASSOCIATE Plan of Treatment Health Maintenance Due Date Last Done Comments Osteoporosis Screening-Bone Density Scan 1945 DTaP/Tdap/Td Vaccine (1 - Tdap) 1956 Hepatitis B Screening 1963 Pneumococcal vaccine 65+ (1 of 2 - PCV) 1964 Well Visit 65+ 2010 Zoster Vaccine (2 of 2) 10/06/2019 08/11/2019, 06/05 Covid-19 Vaccine (2023-2 5 season) 2024 09/30/2023, 08/24/2022, 03/26/2022, Additional history exists Influenza Vaccine (Season Ended) 2025 09/05/20 23 Depression Screening 09/07/2025 09/07/2024 Fall Risk Assessment 01/09/2026 01/09/2025, 09/10/20 24 Procedures Procedure Name Priority Date/Time Associated Diagnosis Comments SCREENING MAMMOGRAM BILATERAL W ADRIÁN Schedule Routine, Read Routine (OP Routine) 04/16/2025 11:01 AM CDT Screening mammogram, encounter for from Last 3 Months Results * Screening Mammogram Bilateral W Adrián (04/16/2025 11:01 AM CDT) Anatomical Region Laterality Modality Breast Bilateral Mammography Narrative 04/19/2025 11:23 AM CDT Mammogram Technique: Bilateral Digital Breast Tomosynthesis, Bilateral C-view 2D Screening mammogram. Views obtained: bilateral craniocaudal and bilateral mediolateral oblique. Computer Aided Detection was performed. Mammogram Findings: The present examination has been compared to prior imaging studies performed at [facility] on 03/21/2022, 04/11/2023 and 04/15/2024. There are scattered areas of fibroglandular density. There is no suspicious abnormality in either breast. Impression: There is no mammographic evidence of malignancy. Annual screening mammography is recommended. OVERALL FINAL ASSESSMENT: BI-RADS CATEGORY 1: Negative. Procedure Note Sia Moore MD - 04/19/2025 Mammogram Technique: Bilateral Digital Breast Tomosynthesis, Bilateral C-view 2D Screening mammogram. Views obtained: bilateral craniocaudal and bilateral mediolateral oblique. Computer Aided Detection was performed. Mammogram Findings: The present examination has been compared to prior imaging studies performed at [facility] on 03/21/2022, 04/11/2023 and 04/15/2024. There are scattered areas of fibroglandular density. There is no suspicious abnormality in either breast. Impression: There is no mammographic evidence of malignancy. Annual screening mammography is recommended. OVERALL FINAL ASSESSMENT: BI-RADS CATEGORY 1: Negative. us Self Screening Mammogram IMG MAMMO PROCEDURES Fi nal Result from Last 3 Months Insurance [employer] MEDICARE T MEDICARE [id number] [place] [address] MEDICARE Advance Directives For more information, please contact: [phone] * Full Code (Latest Code Status on File) Date Activated Date Inactivated Comments 01/01/2025 7:35 PM 01/09/2025 5:53 PM Care Teams Vehicle Service Agent Relationship Specialty Start Date End Date Lala Poole MD [address] [place] [address] PCP - General Family Medicine 12/09/24 Paulina Leyva MD [address] [place] [address] [address] [place] [address] Consulting Physician Obstetrics and Gynecology 11/05/24
--- OUTSIDE RECORDS SUMMARY | 2025-04-29 12:43 | XMS_ITS | Referral Summary ---
Author Organization [facility] [place] [address] Address [address] [place] [address] Care Team Providers Care Political Research Scientist Name Role Phone Paulina Leyva MD Unavailable [phone] Lala Poole MD Primary Care Provider + Encounters Date Type Department Care Team Description 04/22/2025 3:00 PM CDT Office Visit [facility] [address] [place] [address] 6th [place] [address] Areli Bradshaw MD Carpal tunnel syndrome on right (Primary Dx) 04/16/2025 10:43 AM CDT - 04/16/2025 11:59 PM CDT Hospital Encounter [address] [place] [address] Screening mammogram, encounter for Discharge Disposition: Discharge to home or self care 03/18/2025 10:30 AM CDT Office Visit [facility] [address] [place] [address] 6th [place] [phone] Areli Bradshaw MD Carpal tunnel syndrome on right (Primary Dx) 02/24/2025 2:30 PM CDT Office Visit [facility] [address] [facility] 6th [place] [address] Angella Allen NP Carpal tunnel syndrome on right (Primary Dx) 02/04/2025 Documentation [facility] [address] [facility] 6th [place] [address] Areli Bradshaw MD 02/04/2025 2:00 PM SEISMIC INTERPRETER Therapy [facility] [address] [facility] 6th [place] [address] Marilu Barahona DPT Carpal tunnel syndrome on right (Primary Dx) 02/04/2025 12:45 PM SEISMIC INTERPRETER Office Visit [facility] [address] [facility] 6th [place] [address] Areli Bradshaw MD Carpal tunnel syndrome on right (Primary Dx) 01/29/2025 Telephone [facility] [address] [facility] 6th [place] [address] Ramona Ramirez CMA from Last 3 Months Allergies Active Allergy [...] 1 tablet (50 mcg total) by mouth bridge teacher before breakfast Active ketoconazole (NIZORAL) 2 % [...] if no or minimal response. 1 each 1 01/21/20 25 Active oxyCODONE (ROXICODONE) 5 mg [...] 01/02/2025 Assessment & Plan (01/08/2025 12:08 PM SEISMIC INTERPRETER): Cr at baseline. If staying overnight, reasonable to repeat BMP to ensure no new Galo contributing to bleeding Laceration of radial artery at forearm level, initial encounter 01/01/2025 Assessment & Plan (01/08/2025 12:03 PM SEISMIC INTERPRETER): Complication of recent cardiac catheterization on 12/16. [...] 09/09/2023 Assessment & Plan (11/23/2024 1:10 PM SEISMIC INTERPRETER): Will follow. I dont think she needs any further treatment at this time. Assessment & Plan (11/02/2024 2:29 PM SEISMIC INTERPRETER): Procedure reviewed along with risk, benefits and [...] proceed. Assessment & Plan (01/06/2024 10:48 AM SEISMIC INTERPRETER): To call if she has any more [...] BMD:2021 Assessment & Plan (11/23/2024 1:11 PM SEISMIC INTERPRETER): Due in Sep 2024 Chronic fatigue 04/23/2023 Medication side effects 04/23/2023 Primary hypertension 01/29/2023 Assessment & Plan (01/06/2025 12:06 PM SEISMIC INTERPRETER): --Continue home diltiazem, review of prior to admission meds also show Diovan HCT. Ok to resume this (or our formulary equivalent) now or at discharge. Paroxysmal atrial fibrillation 01/29/2023 Assessment & Plan (01/08/2025 12:07 PM SEISMIC INTERPRETER): Home medications are diltiazem and Xarelto. - ideal dose given her renal function is 15 mg nightly. Any lower doses are not validated for afib indication - To me options going forward are as follows Hold xarelto and all anticoagulation for about 2 weeks. If arm doing well then, can resume xarelto. Doing this does lead to a minimal increased stroke risk. Her [id number] score yields a stroke risk of about [...] 01/29/2023 Assessment & Plan (01/06/2025 12:07 PM SEISMIC INTERPRETER): --anticoagulation plan as described elsewhere -- indefinite anticoagulation is planned due to hx of paroxysmal afib and hx of VTE Hypothyroidism, unspecified 01/29/2023 Assessment & Plan (01/02/2025 10:57 AM SEISMIC INTERPRETER): --Continue home levothyroxine 50 mcg q am Chronic anticoagulation 01/29/2023 Stage 3 chronic kidney disease 04/18/2015 Hematuria 11/17/2014 Essential (primary) hypertension 11/17/2014 Hypertension 04/05/2014 Arthralgia of hip 09/03/2012 Resolved Problems Problem Noted Date Diagnosed Date Resolved Date 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 01/08/2025 Immunizations Immunization Administration Dates Next Due Influenza, Quadrivalent, Hig h Dose, Preservative Free, Intrr 09/05/2023 RSV Vaccine, Pref, Recombina nt, Subunit, Adjuvanted, PF, IM (Arexvy) 09/30/2023 Yellow Fever 11/14/2016 ZOSTER LIVE 08/11/2019 ZOSTER Recombinant 06/05/2019 Social History Tobacco Use Types Packs/Day Years [...] on file Legal Sex Female 3:32 AM SEISMIC INTERPRETER Gender Identity Not on file Sexual Orientation Not on file Last Filed Vital Signs Vital Sign Reading Time Taken Comments Blood Pressure 150/77 01/14/2025 10:00 AM SEISMIC INTERPRETER Pulse 72 01/14/2025 10:00 AM SEISMIC INTERPRETER Temperature 36.8 C (98.3 F) 01/14/2025 5:15 AM SEISMIC INTERPRETER Respiratory Rate 14 01/14/2025 10:00 AM SEISMIC INTERPRETER Oxygen Saturation 98% 01/14/2025 10:00 AM SEISMIC INTERPRETER Inhaled Oxygen Concentration - - Weight 90.7 kg (200 lb) 01/14/2025 2:57 AM SEISMIC INTERPRETER Height 157.5 cm (5' 2) 01/14/2025 2:57 AM SEISMIC INTERPRETER Body Mass Index 36.58 01/14/2025 2:57 AM SEISMIC INTERPRETER Plan of Treatment Not on file Procedures Procedure Name Priority Date/Time Associated Diagnosis Comments SCREENING MAMMOGRAM BILATERAL W DANTE Schedule Routine, Read Routine (OP Routine) 04/16/2025 11:01 AM CDT Screening mammogram, encounter for from Last 3 Months Results * Screening Mammogram Bilateral W Dante (04/16/2025 11:01 AM CDT) Anatomical Region Laterality Modality Breast Bilateral Mammography Narrative 04/19/2025 11:23 AM CDT Mammogram Technique: Bilateral Digital Breast Tomosynthesis, Bilateral C-view 2D Screening mammogram. Views obtained: bilateral craniocaudal and bilateral mediolateral oblique. Computer Aided Detection was performed. Mammogram Findings: The present examination has been compared to prior imaging studies performed at [facility] on 03/21/2022, 04/11/2023 and 04/15/2024. There are [...] compared to prior imaging studies performed at [facility] on 03/21/2022, 04/11/2023 and 04/15/2024. There are scattered areas of fibroglandular density. There is no suspicious abnormality in either breast. Impression: There is no mammographic evidence of malignancy. Annual screening mammography is recommended. OVERALL FINAL ASSESSMENT: BI-RADS CATEGORY 1: Negative. us Self Screening Mammogram IMG MAMMO PROCEDURES Fi nal Result from Last 3 Months Insurance [facility] MEDICARE [facility] MEDICARE [employer] MEDICARE Advance Directives For more information, please contact: [phone] * Full Code (Latest Code Status on File) Date Activated Date Inactivated Comments 01/01/2025 7:35 PM 01/09/2025 5:53 PM Care Teams Political Research Scientist Relationship Specialty Start Date End Date Lala Poole MD [address] [place] [address] [place] [address] PCP - General Family Medicine 12/09/24 Paulina Leyva MD [address] [place] [address] [address] Consulting Physician Obstetrics and Gynecology 11/05/24
[2025-04-29 20:03] LABS: Alanine Aminotransferase 30 U/L (6-35); Albumin Level 4.3 g/dL (3.5-5.1); Alkaline Phosphatase 76 U/L (38-126); Anion Gap 11 mmol/L (4-12); Aspartate Amino Transferase 56 U/L (14-36); Bilirubin,Total 0.8 mg/dL (0.2-1.3); Blood Urea Nitrogen 34 mg/dL (7-17); Calcium 9.5 mg/dL (8.4-10.2); Carbon Dioxide 26 mmol/L (22-30); Chloride 100 mmol/L (98-107); Cholesterol 162 mg/dL (0-200); Estimated Glomerular Filt Rate 48; Glucose 104 mg/dL (65-110); HDL Direct 102 mg/dL; Sodium 137 mmol/L (137-145); Triglycerides 64 mg/dL (<150)
[2025-04-29 20:15] LABS: LDL Cholesterol Direct 41 mg/dL
[2025-04-29 20:27] LABS: Basophils Percent Auto 0.3 % (0.2-1.2); Eosinophils Absolute Auto 0.1 K/mm3 (0-0.3); Eosinophils Percent Auto 0.5 % (0-4.4); Hematocrit 41.7 % (37.0-47.0); Hemoglobin 13.5 g/dL (12.0-15.0); Immature Granulocyte Absolute 0.06 K/mm3 (0.00-0.031); Immature Granulocyte Percent A 0.5 % (0-0.5); Lymphocytes Absolute Auto 2.56 K/mm3 (0.9-3.2); Lymphocytes Percent Auto 22.5 % (18.3-44.2); Mean Corpuscular HGB Conc 32.4 g/dl (32-36); Mean Corpuscular Hemoglobin 32.8 pg (26-34); Mean Corpuscular Volume 101.2 fl (80-100); Monocytes Absolute Auto 1.1 K/mm3 (0.1-0.6); Monocytes Percent Auto 9.5 % (2.6-8.5); Neutrophils Absolute Auto 7.6 K/mm3 (1.3-6.7); Neutrophils Percent Auto 66.7 % (45.5-73.1); Platelet Count Result 315 k/mm3 (150-375); Red Blood Count 4.12 M/mm3 (4.2-5.4); Red Cell Distribution Width 14.6 % (11.5-14.5); White Blood Count 11.4 K/mm3 (4.5-10.0)
[2025-04-29 20:54] LABS: Hepatitis C Virus Antibody Negative (Negative)
== END 2025-04-29 12:41 | disposition home or self-care (01) ==
LOC: ANHGOSHLAB 12:41
PROVIDERS: PCP Family Medicine; Visit Provider Family Medicine
DX: E03.9 Hypothyroidism, unspecified (principal); I25.10 Atherosclerotic heart disease of native coronary artery without angina pectoris; Z11.59 Encounter for screening for other viral diseases; I10 Essential (primary) hypertension; Z79.01 Long term (current) use of anticoagulants
CPT/HCPCS: 36415; 80053; 80061; 84443; 85025; 86803

== ENCOUNTER 2025-05-12 11:00 | Outpatient (RCR) | payer MEDICARE, SELFPAY ==
--- NOTE | 2025-02-11 15:45 | OTOPEVAL1 ---
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 She has been compliant with her HEP and reports noticing improvements since beginning the exercises, edema massage, and scar massage. She reports she continues to have severe limitations with functional use of her hand. 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 She reports her thumb, index finger, and middle fingers are numb. Assessment OT Clinical Summary Patient referred to OT following right forearm fasciotomy, muscle debridement, carpal tunnel release, Guyon's canal release, and ligation of the radial artery. She presents with a decline in right, dominant UE use due to weakness, soft tissue restriction, edema, and numbness. Educated on active and passive ROM HEP for the wrist, hand, fingers, and thumb. Continued skilled OT indicated for use of modalities, manual therapy, HEP progression, and functional therapeutic exercises and activities to facilitate optimal functional use of her right UE for ADLs. Plan of Care Interventions Therapeutic Exercise,Manual Therapy,Neuro Re- education,Therapeutic Activities,Hot Pack/Cold Pack,Ultrasound,Paraffin OT Services Indicated Yes Treatment Frequency and 1x/week for 6 visits Duration These treatments will address the objective and functional deficits as defined above. The patient will be advanced safely and appropriately in order for the patient to progress towards his/her prior level of function. Additional exercises will be introduced and as well as a comprehensive home exercise program upon discharge, if needed, ?to ensure carryover of functional gains achieved in the clinic. This treatment plan has been reviewed and agreement upon by the patient.
--- NOTE | 2025-02-11 15:46 | OPREHPOC ---
Outpatient Therapy Plan of Care This is a Multidisciplinary Plan of Care that may contain components documented by all disciplines (PT, OT, and ST.) OT Problem 1 OT Problem #1 Knowledge Deficit OT Goal 1 Goal / Goal Update Patient to be independent with instructed materials. Target Visit 6 OT Problem 2 OT Problem #2 Impaired Flexibility OT Goal 1 Goal / Goal Update Improve flexibility of the (R) wrist for improved tissue glide in prep for strengthening as demonstrated by: - increasing wrist flexion to 55 deg - increasing wrist extension to 55 deg Target Visit 6 OT Problem 3 OT Problem #3 Impaired Strength OT Goal 1 Goal / Goal Update Increase strength of the right thumb PFL as demonstrated by being able to oppose to all digit tips. Target Visit 6 OT Goal 2 Goal / Goal Update Increase strength of the right finger flexors as demonstrated by being able to make a fist, touching all finger tips to her palm. Target Visit 6
--- NOTE | 2025-03-25 09:02 | OTOPPROG ---
Assessment and note entered by Castillo Chou, FRIDA/Jason, CHT OT Progress Update 03/25/25 Diagnosis G56.01 Carpal tunnel syndrome on right Subjective Information Patient reports progress in the right hand, noting improved mobility and strength. She reports she has improved to being able to use her right hand to dress herself, shower and wash her hair, pinch and don a bra, apple picker a tissue, type, and grasp the car door to close it. She states she continues to be unable to tie her shoes or drive. She does not feel confident enough to grasp a steering wheel yet. ROM improvements - Wrist flexion improved from 35 to 60 Wrist extension improved from 25 to 45 Full fist measurements: - index improved from 6 to 1 cm gap - middle improved from 7 to 3 cm gap - ring improved from 8 to 3 cm gap - small improved from 8 to 2 cm gap Hook fist improvements: - index improved from 4 cm to 3 cm gap - middle improved from 6 cm to 3 cm gap - ring improved from 5 cm to 3 cm gap - small improved from 4 cm to 3 cm gap Assessment OT Clinical Summary Patient referred to OT following right forearm fasciotomy, muscle debridement, carpal tunnel release, Guyon's canal release, and ligation of the radial artery. She presents today for re- assessment after 6 weeks of therapy. She is making progress with improved functional ROM, strength, and use of the right wrist and fingers. 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 Continued skilled OT indicated for use of modalities, manual therapy, HEP progression , and functional therapeutic exercises and activities to facilitate optimal functional use of her right UE for ADLs. Plan of Care Interventions Therapeutic Exercise,Manual Therapy,Neuro Re- education,Therapeutic Activities,Hot Pack/Cold Pack,Ultrasound,Paraffin OT Services Indicated Yes Treatment Frequency and 1x/week for 6 visits Duration These treatments will address the objective and functional deficits as defined above. The patient will be advanced safely and appropriately in order for the patient to progress towards his/her prior level of function. Additional exercises will be introduced and as well as a comprehensive home exercise program upon discharge, if needed, ?to ensure carryover of functional gains achieved in the clinic. This treatment plan has been reviewed and agreement upon by the patient.
--- NOTE | 2025-03-25 09:02 | OPREHPOC ---
Outpatient Therapy Plan of Care This is a Multidisciplinary Plan of Care that may contain components documented by all disciplines (PT, OT, and ST.) OT Problem 1 OT Problem #1 Knowledge Deficit OT Goal 1 Goal / Goal Update Patient to be independent with instructed materials. ---OT POC UPDATE 03/25/25--- Met, continue as HEP is progressed Target Visit 12 OT Problem 2 OT Problem #2 Impaired Flexibility OT Goal 1 Goal / Goal Update Improve flexibility of the (R) wrist for improved tissue glide in prep for strengthening as demonstrated by: - increasing wrist flexion to 55 deg - increasing wrist extension to 55 deg ---OT POC UPDATE 03/25/25--- - wrist flexion met - wrist extension is progressing, continue Target Visit 12 OT Problem 3 OT Problem #3 Impaired Strength OT Goal 1 Goal / Goal Update Increase strength of the right thumb PFL as demonstrated by being able to oppose to all digit tips. ---OT POC UPDATE 03/25/25--- Met, Upgrade to being able to touch the base of V Target Visit 12 OT Goal 2 Goal / Goal Update Increase strength of the right finger flexors as demonstrated by being able to make a fist, touching all finger tips to her palm. ---OT POC UPDATE 03/25/25--- Progressing, 1-3 cm gaps, continue goal Target Visit 12
--- NOTE | 2025-05-06 14:03 | OTOPPROG ---
Assessment and note entered by Castillo Chou, FRIDA/Jason, CHT Evaluation Information Assessment Status Progress Diagnosis G56.01 Carpal tunnel syndrome on right Subjective Information Patient reports progress in the right hand, noting improved mobility and strength. She is now back to driving, however she needs both hands to shift. 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 She reports progress with being able to fold clothes and towels. ROM improvements - Wrist flexion improved from 60 to 65 Wrist extension improved from 45 to 60 Full fist measurements: - index improved from 1 to 0 cm gap - middle improved from 3 to 1 cm gap - ring improved from 3 to 0.5 cm gap - small improved from 2 to 0.5 cm gap Hook fist improvements: - index improved from 3 cm to 2 cm gap - middle improved from 3 cm to 2 cm gap - ring improved from 3 cm to 2 cm gap - small improved from 3 cm to 2 cm gap (R) Manufacturing Test Technician strength improved from 5o to 12 lbs. Assessment OT Clinical Summary Patient referred to OT following right forearm fasciotomy, muscle debridement, carpal tunnel release, Guyon's canal release, and ligation of the radial artery. She presents today for re- assessment after 12 weeks of therapy. She is making progress with improved functional ROM, strength, and use of the right wrist and fingers. Patient's wrist and finger flexion ROM continues to improve. Wrist active ROM has returned to functional limits. When attempting to make a fist her finger tips are now 0-1 cm away from touching. Passive ROM is WFL. Manufacturing Test Technician strength improved from 5 to 12 lbs. She has progressed to 2 lb. free weight for wrist strengthening. Continued skilled OT indicated for use of modalities, manual therapy , HEP progression, and functional therapeutic exercises and activities to facilitate optimal functional use of her right UE for ADLs. Plan of Care Interventions Therapeutic Exercise,Manual Therapy,Neuro Re- education,Therapeutic Activities,Hot Pack/Cold Pack,Ultrasound,Paraffin OT Services Indicated Yes Treatment Frequency and 1x/week for 6 visits Duration These treatments will address the objective and functional deficits as defined above. The patient will be advanced safely and appropriately in order for the patient to progress towards his/her prior level of function. Additional exercises will be introduced and as well as a comprehensive home exercise program upon discharge, if needed, ?to ensure carryover of functional gains achieved in the clinic. This treatment plan has been reviewed and agreement upon by the patient.
--- NOTE | 2025-05-06 14:04 | OPREHPOC ---
Outpatient Therapy Plan of Care This is a Multidisciplinary Plan of Care that may contain components documented by all disciplines (PT, OT, and ST.) OT Problem 1 OT Problem #1 Knowledge Deficit OT Goal 1 Goal / Goal Update Patient to be independent with instructed materials. ---OT POC UPDATE 03/25/25--- Met, continue as HEP is progressed ---OT POC UPDATE 05/06/25--- Met Target Visit 20 OT Problem 2 OT Problem #2 Impaired Flexibility OT Goal 1 Goal / Goal Update Improve flexibility of the (R) wrist for improved tissue glide in prep for strengthening as demonstrated by: - increasing wrist flexion to 55 deg - increasing wrist extension to 55 deg ---OT POC UPDATE 03/25/25--- - wrist flexion met - wrist extension is progressing, continue ---OT POC UPDATE 05/06/25--- both wrist goals met Target Visit 12 Progress Met OT Problem 3 OT Problem #3 Impaired Strength OT Goal 1 Goal / Goal Update Increase strength of the right thumb PFL as demonstrated by being able to oppose to all digit tips. ---OT POC UPDATE 03/25/25--- Met, Upgrade to being able to touch the base of V ---OT POC UPDATE 05/06/25--- Progressing, continue goal Target Visit 20 OT Goal 2 Goal / Goal Update Increase strength of the right finger flexors as demonstrated by being able to make a fist, touching all finger tips to her palm. ---OT POC UPDATE 03/25/25--- Progressing, 1-3 cm gaps, continue goal ---OT POC UPDATE 05/06/25--- Progressing, continue goal Target Visit 20 OT Problem 4 OT Problem #4 Impaired Strength OT Goal 1 Goal / Goal Update Increase (R) surgery consultant strength to 30 lbs. Target Visit 20
--- NOTE | 2025-05-12 11:47 | PTOPEVAL1 ---
Assessment and note entered by Abdoulaye Arteaga Evaluation Information Assessment Status Evaluation ICD-10 Condition Codes (PT) Pain in right shoulder M25.511 Other ICD-10 Condition Codes ( Adhesive capsulitis right shoulder PT) Onset 04/14/25 Subjective Information Pt. reports that she developed right shoulder pain about 4 weeks ago. She states that she does not recall an injury to the shoulder, but did have to hold her arm still for several weeks after surgery to the lower arm. She states that pain is in the front of the right shoulder and radiates into the described deltoid region. She reports that she did get an injection in the shoulder 2 weeks ago that help to ease her pain some. She reports that pain is most notable with attempting to reach overhead. She states that she cannot hang clothes in her closet with the right arm due to pain and weakness. She is right hand dominant. She states that pain does affect her sleep. She reports that her goal is to decrease her right shoulder pain and be able to reach overhead without pain. Reported Pain Level Pain Score 2,2: Self Report Assessment PT Clinical Summary Pt. is an 80 year old female who enters the clinic with right shoulder pain. Pt. presents with indications of right shoulder impingement on this date. She presents with right shoulder weakness, impaired right shoulder ROM, impaired postural awareness and pain. Continued skilled PT is indicated in order to improve these areas to allow the pt. to be able to complete all IADL's with improved efficiency and comfort. Plan of Care Interventions Electrical Stimulation,Hot Pack/Cold Pack,Manual Therapy,Neuro Re-education,Patient/Caregiver Education,Therapeutic Activities,Therapeutic Exercise PT Services Indicated Yes Treatment Frequency and 2x/week x 10 visits Duration These treatments will address the objective and functional deficits as defined above. The patient will be advanced safely and appropriately in order for the patient to progress towards his/her prior level of function. Additional exercises will be introduced and as well as a comprehensive home exercise program upon discharge, if needed, ?to ensure carryover of functional gains achieved in the clinic. This treatment plan has been reviewed and agreement upon by the patient.
--- NOTE | 2025-05-12 11:47 | OPREHPOC ---
Outpatient Therapy Plan of Care This is a Multidisciplinary Plan of Care that may contain components documented by all disciplines (PT, OT, and ST.) PT Problem 1 PT Problem #1 Knowledge Deficit PT Goal 1 Goal / Goal Update Pt. will be independent with a HEP addressing ROM and postural awareness Target Visit 2 PT Problem 2 PT Problem #2 Impaired Range of Motion PT Goal 1 Goal / Goal Update Pt. will achieve 90 degrees active right shoulder ER in supine Pt. will achieve 140 degrees active right shoulder flexion against gravity in order to place objects overhead in her closet. Target Visit 10 PT Problem 3 PT Problem #3 Impaired Strength PT Goal 1 Goal / Goal Update Pt. will present with 4+/5 proximal right u.e. strength in all muscle groups. Pt. will be able to lift 3-5# object overhead for 5 reps with no pain noted. Target Visit 10 PT Problem 4 PT Problem #4 Impaired Functional Mobility PT Goal 1 Goal / Goal Update Pt. will present with less than 25% limitation on the Quick DASH indicating significant functional improvement. Target Visit 10 OT Problem 1 OT Problem #1 Knowledge Deficit OT Goal 1 Goal / Goal Update Patient to be independent with instructed materials. ---OT POC UPDATE 03/25/25--- Met, continue as HEP is progressed ---OT POC UPDATE 05/06/25--- Met Target Visit 20 OT Problem 2 OT Problem #2 Impaired Flexibility OT Goal 1 Goal / Goal Update Improve flexibility of the (R) wrist for improved tissue glide in prep for strengthening as demonstrated by: - increasing wrist flexion to 55 deg - increasing wrist extension to 55 deg ---OT POC UPDATE 03/25/25--- - wrist flexion met - wrist extension is progressing, continue ---OT POC UPDATE 05/06/25--- both wrist goals met Target Visit 12 Progress Met OT Problem 3 OT Problem #3 Impaired Strength OT Goal 1 Goal / Goal Update Increase strength of the right thumb PFL as demonstrated by being able to oppose to all digit tips. ---OT POC UPDATE 03/25/25--- Met, Upgrade to being able to touch the base of V ---OT POC UPDATE 05/06/25--- Progressing, continue goal Target Visit 20 OT Goal 2 Goal / Goal Update Increase strength of the right finger flexors as demonstrated by being able to make a fist, touching all finger tips to her palm. ---OT POC UPDATE 03/25/25--- Progressing, 1-3 cm gaps, continue goal ---OT POC UPDATE 05/06/25--- Progressing, continue goal Target Visit 20 OT Problem 4 OT Problem #4 Impaired Strength OT Goal 1 Goal / Goal Update Increase (R) slitting and shipping supervisor strength to 30 lbs. Target Visit 20
== END 2025-05-12 23:59 | disposition home or self-care (01) ==
LOC: ANHGOSHPT 11:00
PROVIDERS: PCP Family Medicine
DX: G56.01 Carpal tunnel syndrome, right upper limb (principal)
CPT/HCPCS: 97014; 97018; 97110; 97140; 97161; 97166; 97530; G0283

== ENCOUNTER 2025-05-14 13:30 | Outpatient (CLI) | payer MEDICARE, SELFPAY ==
--- OUTSIDE RECORDS SUMMARY | 2025-05-14 13:33 | XMS_ITS | Clinical Summary ---
Author Organization [facility] Address [address] [place] [address] Phone Care Team Providers Care Rn Transitional Care Name Role Phone Stefan Park MD Primary Care Provider [phone] [phone] Social History Tobacco Use Types Packs/Day Years [...] 2024 SARS-COV-2 Immunization ( season) 2024 Colonoscopy Discontinued 09/03/2019 Colorectal Cancer Screening Discontinued Retired - Colonoscopy High Risk Discontinued 9 Cologuard Discontinued Hepatitis B Immunization Aged Out [...] Recently Relevant to Health Maintenance Care Teams Rn Transitional Care Relationship Specialty Start Date End Date Stefan Park MD [address] [place] [address] PCP - General Family Medicine 07/15/19
--- OUTSIDE RECORDS SUMMARY | 2025-05-14 13:33 | XMS_ITS | Clinical Summary ---
Author Organization [facility] [place] [address] Address [address] [place] [address] Care Team Providers Care Shampooer Name Role Phone Paulina Leyva MD Unavailable [phone] Lala Poole MD Primary Care Provider + [...] 1 tablet (50 mcg total) by mouth assisted living executive director before breakfast Active ketoconazole (NIZORAL) 2 % [...] 01/02/2025 Assessment & Plan (01/08/2025 12:08 PM TAFE REGISTRAR): Cr at baseline. If staying overnight, reasonable to repeat BMP to ensure no new Galo contributing to bleeding Laceration of radial artery at forearm level, initial encounter 01/01/2025 Assessment & Plan (01/08/2025 12:03 PM TAFE REGISTRAR): Complication of recent cardiac catheterization on 12/16. [...] 09/09/2023 Assessment & Plan (11/23/2024 1:10 PM TAFE REGISTRAR): Will follow. I dont think she needs any further treatment at this time. Assessment & Plan (11/02/2024 2:29 PM TAFE REGISTRAR): Procedure reviewed along with risk, benefits and [...] proceed. Assessment & Plan (01/06/2024 10:48 AM TAFE REGISTRAR): To call if she has any more [...] BMD:2021 Assessment & Plan (11/23/2024 1:11 PM TAFE REGISTRAR): Due in Sep 2024 Chronic fatigue 04/23/2023 Medication side effects 04/23/2023 Primary hypertension 01/29/2023 Assessment & Plan (01/06/2025 12:06 PM TAFE REGISTRAR): --Continue home diltiazem, review of prior to admission meds also show Diovan HCT. Ok to resume this (or our formulary equivalent) now or at discharge. Paroxysmal atrial fibrillation 01/29/2023 Assessment & Plan (01/08/2025 12:07 PM TAFE REGISTRAR): Home medications are diltiazem and Xarelto. - ideal dose given her renal function is 15 mg nightly. Any lower doses are not validated for afib indication - To me options going forward are as follows Hold xarelto and all anticoagulation for about 2 weeks. If arm doing well then, can resume xarelto. Doing this does lead to a minimal increased stroke risk. Her [id number] score yields a stroke risk of about [...] 01/29/2023 Assessment & Plan (01/06/2025 12:07 PM TAFE REGISTRAR): --anticoagulation plan as described elsewhere -- indefinite anticoagulation is planned due to hx of paroxysmal afib and hx of VTE Hypothyroidism, unspecified 01/29/2023 Assessment & Plan (01/02/2025 10:57 AM TAFE REGISTRAR): --Continue home levothyroxine 50 mcg q am Chronic anticoagulation 01/29/2023 Stage 3 chronic kidney disease 04/18/2015 Hematuria 11/17/2014 Essential (primary) hypertension 11/17/2014 Hypertension 04/05/2014 Arthralgia of hip 09/03/2012 Resolved Problems Problem Noted Date Diagnosed Date Resolved Date 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 01/08/2025 Encounters Date Type Department Care Team Description 04/22/2025 3:00 PM CDT Office Visit [facility] Surgery [address] [place] [address] [place] [address] Areli Bradshaw MD Carpal tunnel syndrome on right (Primary Dx) 04/16/2025 10:43 AM CDT - 04/16/2025 11:59 PM CDT Hospital Encounter [facility] [address] [facility] [address] [place] [address] Screening mammogram, encounter for Discharge Disposition: Discharge to home or self care 03/18/2025 10:30 AM CDT Office Visit [facility] Surgery [address] [place] [address] [place] [address] Areli Bradshaw MD Carpal tunnel syndrome on right (Primary Dx) 02/24/2025 2:30 PM CDT Office Visit [facility] Surgery [address] [place] [address] [place] [address] Angella Allen NP Carpal tunnel syndrome on right (Primary Dx) from Last 3 Months Immunizations Immunization Administration Dates Next Due Influenza, Quadrivalent, Hig h Dose, Preservative Free, Intrr 09/05/2023 RSV Vaccine, Pref, Recombina nt, Subunit, Adjuvanted, PF, IM (Arexvy) 09/30/2023 Yellow Fever 11/14/2016 ZOSTER LIVE 08/11/2019 ZOSTER Recombinant 06/05/2019 Surgical History Surgery Date Site/Laterality Comments [place] LIG/TRNSXJ FLP TUBE ABDL/ VAG APPR UNI/BI [...] 2 Crystal Monreal Autism Son 1 Tomer Viera (autism) Diabetes Son 1 Tomer Viera (autism) Asthma Son 2 Tomer Viera Learning disabilities Son 2 Tomer Viera Cancer Neg 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 cancer 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 09/09/23 Relation Name Status Comments [...] on file Legal Sex Female 3:32 AM TAFE REGISTRAR Gender Identity Not on file Sexual Orientation [...] Comments Blood Pressure 150/77 01/14/2025 10:00 AM TAFE REGISTRAR Pulse 72 01/14/2025 10:00 AM TAFE REGISTRAR Temperature 36.8 C (98.3 F) 01/14/2025 5:15 AM TAFE REGISTRAR Respiratory Rate 14 01/14/2025 10:00 AM TAFE REGISTRAR Oxygen Saturation 98% 01/14/2025 10:00 AM TAFE REGISTRAR Inhaled Oxygen Concentration - - Weight 90.7 kg (200 lb) 01/14/2025 2:57 AM TAFE REGISTRAR Height 157.5 cm (5' 2) 01/14/2025 2:57 AM TAFE REGISTRAR Body Mass Index 36.58 01/14/2025 2:57 AM TAFE REGISTRAR Plan of Treatment Health Maintenance Due Date Last Done Comments Osteoporosis Screening-Bone Density Scan 1945 DTaP/Tdap/Td Vaccine (1 - Tdap) 1956 Hepatitis B Screening 1963 Pneumococcal vaccine 65+ (1 of 2 - PCV) 1964 Well Visit 65+ 2010 Zoster Vaccine (2 of 2) 10/06/2019 08/11/2019, 06/05 Covid-19 Vaccine (7 - 2023-2 5 season) 2024 09/30/2023, 08/24/2022, 03/26/2022, Additional [...] to prior imaging studies performed at [facility] on 03/21/2022, 04/11/2023 and 04/15/2024. There [...] to prior imaging studies performed at [facility] on 03/21/2022, 04/11/2023 and 04/15/2024. There are scattered areas of fibroglandular density. There is no suspicious abnormality in either breast. Impression: There is no mammographic evidence of malignancy. Annual screening mammography is recommended. OVERALL FINAL ASSESSMENT: BI-RADS CATEGORY 1: Negative. us Self Screening Mammogram IMG MAMMO PROCEDURES Fi nal Result from Last 3 Months Insurance [employer] MEDICARE [employer] MEDICARE [employer] MEDICARE Advance Directives For more information, please contact: [phone] * Full Code (Latest Code Status on File) Date Activated Date Inactivated Comments 01/01/2025 7:35 PM 01/09/2025 5:53 PM Care Teams Shampooer Relationship Specialty Start Date End Date Lala Poole MD [address] [place] [address] [place] [address] PCP - General Family Medicine 12/09/24 Paulina Leyva MD [address] [place] [address] [place] [address] Consulting Physician Obstetrics and Gynecology 11/05/24
--- OUTSIDE RECORDS SUMMARY | 2025-05-14 13:33 | XMS_ITS | Referral Summary ---
Author Organization [facility] [place] [address] Address [address] [place] [address] Care Team Providers Care Staff Accountant Name Role Phone Paulina Leyva MD Unavailable [phone] Lala Poole MD Primary Care Provider + Encounters Date Type Department Care Team Description 04/22/2025 3:00 PM CDT Office Visit [facility] Surgery [address] [place] [address] 6th [place] [address] Areli Bradshaw MD Carpal tunnel syndrome on right (Primary Dx) 04/16/2025 10:43 AM CDT - 04/16/2025 11:59 PM CDT Hospital Encounter [address] [place] [address] Screening mammogram, encounter for Discharge Disposition: Discharge to home or self care 03/18/2025 10:30 AM CDT Office Visit [facility] Surgery [address] [place] [address] 6th [place] [id number] Areli Bradshaw MD Carpal tunnel syndrome on right (Primary Dx) 02/24/2025 2:30 PM CDT Office Visit [facility] [address] [facility] [address] [place] [address] Jha Bettlach, Angella Adelaide, SINGLE RESOURCE BOSS Carpal tunnel syndrome on right (Primary Dx) from Last 3 Months Allergies Active Allergy [...] 1 tablet (50 mcg total) by mouth inventory control assistant before breakfast Active ketoconazole (NIZORAL) 2 % [...] 2 (two) times a day 120 tablet 01/06/20 25 026 Active rivaroxaban (XARELTO) 15 mg tabletIndications: atrial fibrillation Take 1 tablet (15 mg total) by mouth daily with dinner 30 tablet 01/14/20 25 Active naloxone (NARCAN) 4 mg/actuation [...] upper extremity 01/18/2025 GERD (gastroesophageal reflux disease) 5 Class 2 obesity with body ma ss index (BMI) of 39.0 to 39.9 in adult 01/04/2025 Stage 3b chronic kidney disease (CKD) 01/02/2025 Assessment & Plan (01/08/2025 12:08 PM SEAT COVER INSTALLER): Cr at baseline. If staying overnight, reasonable to repeat BMP to ensure no new Galo contributing to bleeding Laceration of radial artery at forearm level, initial encounter 01/01/2025 Assessment & Plan (01/08/2025 12:03 PM SEAT COVER INSTALLER): Complication of recent cardiac catheterization on 12/16. [...] 09/09/2023 Assessment & Plan (11/23/2024 1:10 PM SEAT COVER INSTALLER): Will follow. I dont think she needs any further treatment at this time. Assessment & Plan (11/02/2024 2:29 PM SEAT COVER INSTALLER): Procedure reviewed along with risk, benefits and [...] proceed. Assessment & Plan (01/06/2024 10:48 AM SEAT COVER INSTALLER): To call if she has any more [...] BMD:2021 Assessment & Plan (11/23/2024 1:11 PM SEAT COVER INSTALLER): Due in Sep 2024 Chronic fatigue 04/23/2023 Medication side effects 04/23/2023 Primary hypertension 01/29/2023 Assessment & Plan (01/06/2025 12:06 PM SEAT COVER INSTALLER): --Continue home diltiazem, review of prior to admission meds also show Diovan HCT. Ok to resume this (or our formulary equivalent) now or at discharge. Paroxysmal atrial fibrillation 01/29/2023 Assessment & Plan (01/08/2025 12:07 PM SEAT COVER INSTALLER): Home medications are diltiazem and Xarelto. - ideal dose given her renal function is 15 mg nightly. Any lower doses are not validated for afib indication - To me options going forward are as follows Hold xarelto and all anticoagulation for about 2 weeks. If arm doing well then, can resume xarelto. Doing this does lead to a minimal increased stroke risk. Her [id number] score yields a stroke risk of about [...] 01/29/2023 Assessment & Plan (01/06/2025 12:07 PM SEAT COVER INSTALLER): --anticoagulation plan as described elsewhere -- indefinite anticoagulation is planned due to hx of paroxysmal afib and hx of VTE Hypothyroidism, unspecified 01/29/2023 Assessment & Plan (01/02/2025 10:57 AM SEAT COVER INSTALLER): --Continue home levothyroxine 50 mcg q am [...] on file Legal Sex Female 3:32 AM SEAT COVER INSTALLER Gender Identity Not on file Sexual Orientation Not on file Last Filed Vital Signs Vital Sign Reading Time Taken Comments Blood Pressure 150/77 01/14/2025 10:00 AM SEAT COVER INSTALLER Pulse 72 01/14/2025 10:00 AM SEAT COVER INSTALLER Temperature 36.8 C (98.3 F) 01/14/2025 5:15 AM SEAT COVER INSTALLER Respiratory Rate 14 01/14/2025 10:00 AM SEAT COVER INSTALLER Oxygen Saturation 98% 01/14/2025 10:00 AM SEAT COVER INSTALLER Inhaled Oxygen Concentration - - Weight 90.7 kg (200 lb) 01/14/2025 2:57 AM SEAT COVER INSTALLER Height 157.5 cm (5' 2) 01/14/2025 2:57 AM SEAT COVER INSTALLER Body Mass Index 36.58 01/14/2025 2:57 AM SEAT COVER INSTALLER Plan of Treatment Not on file Procedures [...] compared to prior imaging studies performed at [facility] on 03/21/2022, 04/11/2023 and 04/15/2024. [...] compared to prior imaging studies performed at [facility] on 03/21/2022, 04/11/2023 and 04/15/2024. There are scattered areas of fibroglandular density. There is no suspicious abnormality in either breast. Impression: There is no mammographic evidence of malignancy. Annual screening mammography is recommended. OVERALL FINAL ASSESSMENT: BI-RADS CATEGORY 1: Negative. us Self Screening Mammogram IMG MAMMO PROCEDURES Fi nal Result from Last 3 Months Insurance Advance Directives For more information, please contact: [phone] * Full Code (Latest Code Status on File) Date Activated Date Inactivated Comments 01/01/2025 7:35 PM 01/09/2025 5:53 PM Care Teams Staff Accountant Relationship Specialty Start Date End Date Lala Poole MD [address] [place] [address] [place] [address] PCP - General Family Medicine 12/09/24 Paulina Leyva MD [address] [place] [address] [place] [address] Consulting Physician Obstetrics and Gynecology 11/05/24
[2025-05-14 18:00] LABS: Basophils Absolute Auto 0.1 K/mm3 (0.0-0.1); Basophils Percent Auto 0.8 % (0.2-1.2); Eosinophils Percent Auto 0.3 % (0-4.4); Hematocrit 39.6 % (37.0-47.0); Hemoglobin 12.8 g/dL (12.0-15.0); Immature Granulocyte Absolute 0.02 K/mm3 (0.00-0.031); Immature Granulocyte Percent A 0.2 % (0-0.5); Lymphocytes Absolute Auto 1.96 K/mm3 (0.9-3.2); Lymphocytes Percent Auto 22.5 % (18.3-44.2); Mean Corpuscular HGB Conc 32.3 g/dl (32-36); Mean Corpuscular Hemoglobin 32.5 pg (26-34); Mean Corpuscular Volume 100.5 fl (80-100); Mean Platelet Volume 9.7 fl (7.4-10.4); Monocytes Absolute Auto 0.8 K/mm3 (0.1-0.6); Monocytes Percent Auto 8.7 % (2.6-8.5); Neutrophils Absolute Auto 5.9 K/mm3 (1.3-6.7); Neutrophils Percent Auto 67.5 % (45.5-73.1); Platelet Count Result 246 k/mm3 (150-375); Red Blood Count 3.94 M/mm3 (4.2-5.4); Red Cell Distribution Width 13.9 % (11.5-14.5); White Blood Count 8.7 K/mm3 (4.5-10.0)
[2025-05-14 18:18] LABS: Anion Gap 10 mmol/L (4-12); Blood Urea Nitrogen 14 mg/dL (7-17); Calcium 9.2 mg/dL (8.4-10.2); Carbon Dioxide 27 mmol/L (22-30); Chloride 96 mmol/L (98-107); Estimated Glomerular Filt Rate 57; Glucose 107 mg/dL (65-110); Potassium 3.8 mmol/L (3.4-5.0); Sodium 133 mmol/L (137-145)
== END 2025-05-14 13:31 | disposition home or self-care (01) ==
LOC: ANHGOSHLAB 13:31
PROVIDERS: PCP Family Medicine; Visit Provider Family Medicine
DX: D72.829 Elevated white blood cell count, unspecified (principal); N18.31 Chronic kidney disease, stage 3a
CPT/HCPCS: 36415; 80048; 85025

== ENCOUNTER 2025-06-03 14:07 | Outpatient (CLI) | payer MEDICARE, SELFPAY ==
--- OUTSIDE RECORDS SUMMARY | 2025-06-03 14:13 | XMS_ITS | Clinical Summary ---
Author Organization [facility] Address [address] [place] [address] Phone Care Team Providers Care Rn Assessment Name Role Phone Stefan Park MD Primary Care Provider [phone] Social History Tobacco Use Types Packs/Day Years [...] Relevant to Health Maintenance Care Teams Rn Assessment Relationship Specialty Start Date End Date Stefan Park MD [address] [place] [address] PCP - General Family Medicine 07/15/19
--- OUTSIDE RECORDS SUMMARY | 2025-06-03 14:13 | XMS_ITS | Clinical Summary ---
Author Organization [facility] [address] Address [address] [place] [address] Care Team Providers Care Mint Machine Operator Name Role Phone Paulina Leyva MD Unavailable [phone] Lala Poole MD Primary Care Provider + [...] 1 tablet (50 mcg total) by mouth instructor knitting before breakfast Active ketoconazole (NIZORAL) 2 % [...] 01/02/2025 Assessment & Plan (01/08/2025 12:08 PM PRINCIPAL DEVELOPER): Cr at baseline. If staying overnight, reasonable to repeat BMP to ensure no new Galo contributing to bleeding Laceration of radial artery at forearm level, initial encounter 01/01/2025 Assessment & Plan (01/08/2025 12:03 PM PRINCIPAL DEVELOPER): Complication of recent cardiac catheterization on 12/16. [...] 09/09/2023 Assessment & Plan (11/23/2024 1:10 PM PRINCIPAL DEVELOPER): Will follow. I dont think she needs any further treatment at this time. Assessment & Plan (11/02/2024 2:29 PM PRINCIPAL DEVELOPER): Procedure reviewed along with risk, benefits and [...] proceed. Assessment & Plan (01/06/2024 10:48 AM PRINCIPAL DEVELOPER): To call if she has any more [...] BMD:2021 Assessment & Plan (11/23/2024 1:11 PM PRINCIPAL DEVELOPER): Due in Sep 2024 Chronic fatigue 04/23/2023 Medication side effects 04/23/2023 Primary hypertension 01/29/2023 Assessment & Plan (01/06/2025 12:06 PM PRINCIPAL DEVELOPER): --Continue home diltiazem, review of prior to admission meds also show Diovan HCT. Ok to resume this (or our formulary equivalent) now or at discharge. Paroxysmal atrial fibrillation 01/29/2023 Assessment & Plan (01/08/2025 12:07 PM PRINCIPAL DEVELOPER): Home medications are diltiazem and Xarelto. - ideal dose given her renal function is 15 mg nightly. Any lower doses are not validated for afib indication - To me options going forward are as follows Hold xarelto and all anticoagulation for about 2 weeks. If arm doing well then, can resume xarelto. Doing this does lead to a minimal increased stroke risk. Her [id number] score yields a stroke risk of about [...] 01/29/2023 Assessment & Plan (01/06/2025 12:07 PM PRINCIPAL DEVELOPER): --anticoagulation plan as described elsewhere -- indefinite anticoagulation is planned due to hx of paroxysmal afib and hx of VTE Hypothyroidism, unspecified 01/29/2023 Assessment & Plan (01/02/2025 10:57 AM PRINCIPAL DEVELOPER): --Continue home levothyroxine 50 mcg q am Chronic anticoagulation 01/29/2023 Stage 3 chronic kidney disease 04/18/2015 Hematuria 11/17/2014 Essential (primary) hypertension 11/17/2014 Hypertension 04/05/2014 Arthralgia of hip 09/03/2012 Resolved Problems Problem Noted Date Diagnosed Date Resolved Date 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 6th [place] [address] Areli Bradshaw MD Carpal tunnel syndrome on right (Primary Dx) 04/16/2025 10:43 AM CDT - 04/16/2025 11:59 PM CDT Hospital Encounter [facility] [address] [facility] [address] [place] [address] Screening mammogram, encounter for Discharge Disposition: Discharge to home or self care 03/18/2025 10:30 AM CDT Office Visit [facility] [address] [place] [address] 6th [place] [address] Areli Bradshaw MD Carpal tunnel syndrome on right (Primary Dx) from Last 3 Months Immunizations Immunization Administration Dates Next Due Influenza, Quadrivalent, Hig h Dose, Preservative Free, Intrr 09/05/2023 RSV Vaccine, Pref, Recombina nt, Subunit, Adjuvanted, PF, IM (Arexvy) 09/30/2023 Yellow Fever 11/14/2016 ZOSTER LIVE 08/11/2019 ZOSTER Recombinant 06/05/2019 Surgical History Surgery Date Site/Laterality Comments OR LIG/TRNSXJ FLP TUBE ABDL/ VAG APPR UNI/BI [...] Viera Cancer Neg Hx no colon or mixed animal 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 cancer 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 09/09/23 Relation Name Status Comments [...] file Legal Sex Female 3:32 AM PRINCIPAL DEVELOPER Gender Identity Not on file Sexual Orientation Not on file Obstetrics History Para Term AB IAB SAB Ectopic Multiple Livin g Live Births 2 2 1 1 1 3 3 Date Outcome GA Total Labor Labor//3rd Weight Sex Type Anes PTL Lisa A1 [...] Comments Blood Pressure 150/77 01/14/2025 10:00 AM PRINCIPAL DEVELOPER Pulse 72 01/14/2025 10:00 AM PRINCIPAL DEVELOPER Temperature 36.8 C (98.3 F) 01/14/2025 5:15 AM PRINCIPAL DEVELOPER Respiratory Rate 14 01/14/2025 10:00 AM PRINCIPAL DEVELOPER Oxygen Saturation 98% 01/14/2025 10:00 AM PRINCIPAL DEVELOPER Inhaled Oxygen Concentration - - Weight 90.7 kg (200 lb) 01/14/2025 2:57 AM PRINCIPAL DEVELOPER Height 157.5 cm (5' 2) 01/14/2025 2:57 AM PRINCIPAL DEVELOPER Body Mass Index 36.58 01/14/2025 2:57 AM PRINCIPAL DEVELOPER Plan of Treatment Health Maintenance Due Date Last Done Comments Osteoporosis Screening-Bone Density Scan 1945 DTaP/Tdap/Td Vaccine (1 - Tdap) 1956 Hepatitis B Screening 1963 Pneumococcal vaccine 65+ (1 of 2 - PCV) 1964 Well Visit 65+ 2010 Zoster Vaccine (2 of 2) 10/06/2019 08/11/2019, 06/05 Covid-19 Vaccine (7 - 2024-2 5 season) 2024 09/30/2023, 08/24/2022, 03/26/2022, Additional [...] to prior imaging studies performed at [facility] on 03/21/2022, 04/11/2023 and 04/15/2024. There [...] to prior imaging studies performed at [facility] on 03/21/2022, 04/11/2023 and 04/15/2024. There are scattered areas of fibroglandular density. There is no suspicious abnormality in either breast. Impression: There is no mammographic evidence of malignancy. Annual screening mammography is recommended. OVERALL FINAL ASSESSMENT: BI-RADS CATEGORY 1: Negative. us Self Screening Mammogram IMG MAMMO PROCEDURES Fi nal Result from Last 3 Months Insurance [facility] MEDICARE MEDICARE T MEDICARE Advance Directives For more information, please contact: [phone] * Full Code (Latest Code Status on File) Date Activated Date Inactivated Comments 01/01/2025 7:35 PM 01/09/2025 5:53 PM Care Teams Mint Machine Operator Relationship Specialty Start Date End Date Lala Poole MD [address] [place] [address] [place] [address] PCP - General Family Medicine 12/09/24 Paulina Leyva MD [address] [place] [address] [place] [address] Consulting Physician Obstetrics and Gynecology 11/05/24
--- OUTSIDE RECORDS SUMMARY | 2025-06-03 14:13 | XMS_ITS | Referral Summary ---
Author Organization [facility] [address] Address [address] [place] [address] Care Team Providers Care Contact Lens Lathe Operator Name Role Phone Paulian Leyva MD Unavailable [phone] Lala Poole MD Primary Care Provider + Encounters Date Type Department Care Team Description 04/22/2025 3:00 PM CDT Office Visit [facility] [address] [facility] 6th [place] [address] [place] [address] Areli Bradshaw MD Carpal tunnel syndrome on right (Primary Dx) 04/16/2025 10:43 AM CDT - 04/16/2025 11:59 PM CDT Hospital Encounter [address] [place] [address] Screening mammogram, encounter for Discharge Disposition: Discharge to home or self care 03/18/2025 10:30 AM CDT Office Visit [facility] [address] [facility] 6th [place] [address] [place] [address] Areli Bradshaw MD Carpal tunnel syndrome on [...] 1 tablet (50 mcg total) by mouth hall supervisor before breakfast Active ketoconazole (NIZORAL) 2 % [...] 01/02/2025 Assessment & Plan (01/08/2025 12:08 PM BUILDING CARPENTER): Cr at baseline. If staying overnight, reasonable to repeat BMP to ensure no new Galo contributing to bleeding Laceration of radial artery at forearm level, initial encounter 01/01/2025 Assessment & Plan (01/08/2025 12:03 PM BUILDING CARPENTER): Complication of recent cardiac catheterization on 12/16. [...] 09/09/2023 Assessment & Plan (11/23/2024 1:10 PM BUILDING CARPENTER): Will follow. I dont think she needs any further treatment at this time. Assessment & Plan (11/02/2024 2:29 PM BUILDING CARPENTER): Procedure reviewed along with risk, benefits and [...] proceed. Assessment & Plan (01/06/2024 10:48 AM BUILDING CARPENTER): To call if she has any more [...] BMD:2021 Assessment & Plan (11/23/2024 1:11 PM BUILDING CARPENTER): Due in Sep 2024 Chronic fatigue 04/23/2023 Medication side effects 04/23/2023 Primary hypertension 01/29/2023 Assessment & Plan (01/06/2025 12:06 PM BUILDING CARPENTER): --Continue home diltiazem, review of prior to admission meds also show Diovan HCT. Ok to resume this (or our formulary equivalent) now or at discharge. Paroxysmal atrial fibrillation 01/29/2023 Assessment & Plan (01/08/2025 12:07 PM BUILDING CARPENTER): Home medications are diltiazem and Xarelto. - ideal dose given her renal function is 15 mg nightly. Any lower doses are not validated for afib indication - To me options going forward are as follows Hold xarelto and all anticoagulation for about 2 weeks. If arm doing well then, can resume xarelto. Doing this does lead to a minimal increased stroke risk. Her [id number] score yields a stroke risk of about [...] 01/29/2023 Assessment & Plan (01/06/2025 12:07 PM BUILDING CARPENTER): --anticoagulation plan as described elsewhere -- indefinite anticoagulation is planned due to hx of paroxysmal afib and hx of VTE Hypothyroidism, unspecified 01/29/2023 Assessment & Plan (01/02/2025 10:57 AM BUILDING CARPENTER): --Continue home levothyroxine 50 mcg q am [...] on file Legal Sex Female 3:32 AM BUILDING CARPENTER Gender Identity Not on file Sexual Orientation Not on file Last Filed Vital Signs Vital Sign Reading Time Taken Comments Blood Pressure 150/77 01/14/2025 10:00 AM BUILDING CARPENTER Pulse 72 01/14/2025 10:00 AM BUILDING CARPENTER Temperature 36.8 C (98.3 F) 01/14/2025 5:15 AM BUILDING CARPENTER Respiratory Rate 14 01/14/2025 10:00 AM BUILDING CARPENTER Oxygen Saturation 98% 01/14/2025 10:00 AM BUILDING CARPENTER Inhaled Oxygen Concentration - - Weight 90.7 kg (200 lb) 01/14/2025 2:57 AM BUILDING CARPENTER Height 157.5 cm (5' 2) 01/14/2025 2:57 AM BUILDING CARPENTER Body Mass Index 36.58 01/14/2025 2:57 AM BUILDING CARPENTER Plan of Treatment Not on file Procedures [...] compared to prior imaging studies performed at [facility] on 03/21/2022, 04/11/2023 and [...] compared to prior imaging studies performed at [facility] on 03/21/2022, 04/11/2023 and 04/15/2024. There are scattered areas of fibroglandular density. There is no suspicious abnormality in either breast. Impression: There is no mammographic evidence of malignancy. Annual screening mammography is recommended. OVERALL FINAL ASSESSMENT: BI-RADS CATEGORY 1: Negative. us Self Screening Mammogram IMG MAMMO PROCEDURES Fi nal Result from Last 3 Months Insurance [facility] MEDICARE Advance Directives For more information, please contact: [phone] * Full Code (Latest Code Status on File) Date Activated Date Inactivated Comments 01/01/2025 7:35 PM 01/09/2025 5:53 PM Care Teams Contact Lens Lathe Operator Relationship Specialty Start Date End Date Lala Poole MD [address] [place] [address] [place] [address] PCP - General Family Medicine 12/09/24 Paulina Leyva MD [address] [place] [address] [place] [address] Consulting Physician Obstetrics and Gynecology 11/05/24
[2025-06-03 18:49] LABS: Anion Gap 12 mmol/L (4-12); Blood Urea Nitrogen 19 mg/dL (7-17); Calcium 9.6 mg/dL (8.4-10.2); Carbon Dioxide 28 mmol/L (22-30); Chloride 96 mmol/L (98-107); Estimated Glomerular Filt Rate 51; Glucose 96 mg/dL (65-110); Potassium 3.6 mmol/L (3.4-5.0); Sodium 136 mmol/L (137-145)
== END 2025-06-03 14:08 | disposition home or self-care (01) ==
LOC: ANHGOSHLAB 14:10
PROVIDERS: PCP Family Medicine; Visit Provider Family Medicine
DX: E87.1 Hypo-osmolality and hyponatremia (principal)
CPT/HCPCS: 36415; 80048

== ENCOUNTER 2025-07-15 14:47 | Outpatient (CLI) | payer MEDICARE, SELFPAY ==
--- NOTE | ~2025-07-15 | DEXA_ITS ---
Bone Density Report Name: ALISSON ROSENBERG Age: 80 Sex: Female Ethnicity: White Date of : 1945 Indication: postmenopausal; screening for osteoporosis; Referring Provider: BRENNA AZUL Study: Bone densitometry was performed. Exam Date: July 15, 2025 Accession number: [id number] Bone Density: Region BMD T-score Z-score Classification AP Spine(L1-L4) 1.210 1.5 4.2 Normal Femoral Neck (Left) 0.670 -1.6 0.7 Osteopenia Total Hip (Left) 1.045 0.8 2.9 Normal Femoral Neck (Right) 0.699 -1.4 1.0 Osteopenia Total Hip (Right) 1.063 1.0 3.1 Normal Total Hip Mean 1.054 0.9 3.0 Normal World Health Organization criteria for BMD impression classify patients as: Normal (T-score at or above -1.0), Osteopenia (T-score between -1.0 and -2.5), or Osteoporosis (T-score at or below -2.5). 10-year Fracture Risk(1): Major Osteoporotic Fracture 13% Hip Fracture 3.0% Reported Risk Factors: [place] (), Neck BMD=0.670, BMI=37.7 (1) FRAX(R) Version 3.08. Fracture probability calculated for an untreated patient. Fracture probability may be lower if the patient has received treatment. Previous Exams: -- Region Exam Age BMD T-score BMD Change BMD Change Date g/cm2 vs Baseline vs Previous -- AP Spine (L1-L4) 07/15/2025 80 1.210 1.5 10.3%* 8.2%# 09/10/2022 77 1.119 0.7 2.0%# 2.0%# 05/08/2017 72 1.098 0.5 Total Hip(Left) 07/15/2025 80 1.045 0.8 1.3% -3.2%# 09/10/2022 77 1.081 1.1 4.7%# 4.7%# 05/08/2017 72 1.032 0.7 Total Hip(Right) 07/15/2025 80 1.063 1.0 10.3%* 7.9%# 09/10/2022 77 0.985 0.4 2.3%# 2.3%# 05/08/2017 72 0.964 0.2 -- *Denotes significance at 95% confidence level, LSC for AP Spine = 0.022 g/cm2, LSC for Total Hip = 0.027 g/cm2 # Denotes dissimilar scan types or analysis methods Clinical Information Provided by Patient: Has used the following medications: Vitamin D, Calcium Patient maximum height was 63.7 Menopause Age: 55 Drinks caffeinated beverages Onset of menses at age 11 Number of children 1 Impression: The patient has low bone mass, based on the Left Femoral Neck T-score. The patient has an estimated ten-year risk of hip fracture of 3% and an estimated ten-year risk of major fracture of 13%, based on the WHO FRAX algorithm. Unable to evaluate interval change due to the use of different scan modes. Discussion: BONE DENSITY IS LOW AT ONE OR MORE SKELETAL SITES. THE PATIENT'S BMD AND CLINICAL RISK FACTORS CONTRIBUTE TO THIS PATIENT'S INCREASED RISK OF FRACTURE. This patient's lowest T-score is low at one or more skeletal sites. It meets the World Health Organization's (WHO) criteria for ?low bone mass? (T-score between -1.0 and -2.5). The patient's 10-year risk of hip fracture as calculated by FRAX exceeds the threshold where pharmacological therapy is recommended by the National Osteoporosis Foundation (NOF). However, all treatment decisions require clinical judgment and consideration of individual patient factors, including patient preferences, comorbidities, previous drug use, risk factors not captured in the FRAX model (e.g., frailty, falls, vitamin D deficiency, increased bone turnover, interval significant decline in bone density) and possible under or overestimation of fracture risk by FRAX. The patient should follow a healthful lifestyle (good nutrition with adequate calcium and vitamin D, and appropriate weight-bearing exercise). Follow-Up: Consider a repeat BMD and Vertebral Fracture Assessment (VFA) exam in 2 years or sooner if medically necessary, to reassess this patient's status. Reported by: HARMONY on 07/15/2025 3:21:00 PM. Reviewed, dictated and finalized at location A.
== END 2025-07-15 14:48 | disposition home or self-care (01) ==
LOC: MICIMG 14:48
PROVIDERS: PCP Family Medicine; Visit Provider Family Medicine
DX: Z78.0 Asymptomatic menopausal state (principal); M85.852 Other specified disorders of bone density and structure, left thigh; M85.851 Other specified disorders of bone density and structure, right thigh
CPT/HCPCS: 77080

== ENCOUNTER 2025-08-10 11:45 | Outpatient (RCR) | payer MEDICARE, SELFPAY ==
--- NOTE | 2025-06-16 11:51 | PTOPPROG ---
Assessment and note entered by Sandor Frazier PT Evaluation Information Assessment Status Progress ICD-10 Condition Codes (PT) Pain in right shoulder M25.511 Other ICD-10 Condition Codes ( Adhesive capsulitis right shoulder PT) Onset 04/14/25 Subjective Information Pt. reports she feels 80% better overall she notes improvements in motion strength and functional use such as being able to push off her R side to get out of bed. She states she does still feel like her R shoulder is weaker than her left and she still has pain with certain motions. Pt notes she has continued difficulty with overhead reaching and lifting objects down from pantry. Assessment PT Clinical Summary Patient's R shoulder has improved overall as evidenced by decreased in pain symptoms and increased in mobility, strength, and overall functional use of the extremity. However, some limitations are still present with overhead reaching and overall strength and endurance of her RUE. Pt has unmet therapy goals and would benefit from continued skilled physical therapy services to address the above listed impairments and facilitate a return to their prior level of function. Plan of Care Interventions Electrical Stimulation,Hot Pack/Cold Pack,Manual Therapy,Neuro Re-education,Patient/Caregiver Education,Therapeutic Activities,Therapeutic Exercise PT Services Indicated Yes Treatment Frequency and 1-2x week 6 visits Duration These treatments will address the objective and functional deficits as defined above. The patient will be advanced safely and appropriately in order for the patient to progress towards his/her prior level of function. Additional exercises will be introduced and as well as a comprehensive home exercise program upon discharge, if needed, ?to ensure carryover of functional gains achieved in the clinic. This treatment plan has been reviewed and agreement upon by the patient.
--- NOTE | 2025-06-17 10:46 | OTOPPROG ---
Assessment and note entered by Castillo Chou, FRIDA/Jason, CHT OT Progress Update 06/17/25 Diagnosis G56.01 Carpal tunnel syndrome on right Subjective Information Patient reports progress in the right hand, noting improved mobility, flexibility, and strength. She is now back to driving and now able to use the right hand to shift, compared to needing both hands to shift. She continues to be unable to use her right hand to cut a steak or open a bottle of water. ROM improvements - Wrist flexion remained WFL at 65 Wrist extension improved from 60 to 65 Full fist measurements: - all digits now touch the palm when making a fist compared to 0.5-1 cm gap last month Hook fist improvements: - index improved from 2 cm to 1 cm gap - middle improved from 2 cm to 1 cm gap - ring improved from 2 cm to 1 cm gap - small improved from 2 cm to 1 cm gap Thumb improvements: - She is now able to touch her thumb to the base of digit V - Pt's thumb IP is flexing 55 degrees, compared to 35 last month (R) Communication Assistant strength improved from 12 to 19 lbs. (R) lateral pinch 8 lbs. (R) tip pinch 4 lbs. Assessment OT Clinical Summary Patient referred to OT following right forearm fasciotomy, muscle debridement, carpal tunnel release, Guyon's canal release, and ligation of the radial artery. She is making progress with improved functional ROM, strength, and use of the right wrist and fingers. Patient's wrist and finger flexion ROM continues to improve. Wrist active ROM has returned to normal limits. When attempting to make a fist her finger tips are now 0 cm away from touching. 1 cm gap with a hook fist . Passive ROM is WFL. Communication Assistant strength improved from 12 to 19 lbs. She has progressed to 3 lb. free weight for wrist strengthening. Continued skilled OT indicated for use of modalities, manual therapy , HEP progression, and functional therapeutic exercises and activities to facilitate optimal functional use of her right UE for ADLs. Plan of Care Interventions Therapeutic Exercise,Manual Therapy,Neuro Re- education,Therapeutic Activities,Hot Pack/Cold Pack,Ultrasound,Paraffin OT Services Indicated Yes Treatment Frequency and 1x/week for 4 visits Duration These treatments will address the objective and functional deficits as defined above. The patient will be advanced safely and appropriately in order for the patient to progress towards his/her prior level of function. Additional exercises will be introduced and as well as a comprehensive home exercise program upon discharge, if needed, ?to ensure carryover of functional gains achieved in the clinic. This treatment plan has been reviewed and agreement upon by the patient.
--- NOTE | 2025-06-17 10:47 | OPREHPOC ---
Outpatient Therapy Plan of Care This is a Multidisciplinary Plan of Care that may contain components documented by all disciplines (PT, OT, and ST.) PT Problem 1 PT Problem #1 Knowledge Deficit PT Goal 1 Goal / Goal Update Pt. will be independent with a HEP addressing ROM and postural awareness Target Visit 2 Progress Met PT Problem 2 PT Problem #2 Impaired Range of Motion PT Goal 1 Goal / Goal Update Pt. will achieve 90 degrees active right shoulder ER in supine Pt. will achieve 140 degrees active right shoulder flexion against gravity in order to place objects overhead in her closet. Progress note 06-16-25 Target Visit 10 Progress Partially Met PT Problem 3 PT Problem #3 Impaired Strength PT Goal 1 Goal / Goal Update Pt. will present with 4+/5 proximal right u.e. strength in all muscle groups. Pt. will be able to lift 3-5# object overhead for 5 reps with no pain noted. Progress note 06-16-25 Target Visit 10 Progress Partially Met PT Problem 4 PT Problem #4 Impaired Functional Mobility PT Goal 1 Goal / Goal Update Pt. will present with less than 25% limitation on the Quick DASH indicating significant functional improvement. Progress note 06-16-25 Target Visit 10 Progress Partially Met OT Problem 1 OT Problem #1 Knowledge Deficit OT Goal 1 Goal / Goal Update Patient to be independent with instructed materials. ---OT POC UPDATE 03/25/25--- Met, continue as HEP is progressed ---OT POC UPDATE 05/06/25--- Met ---OT POC UPDATE 06/17/25--- Met Target Visit 23 OT Problem 2 OT Problem #2 Impaired Flexibility OT Goal 1 Goal / Goal Update Improve flexibility of the (R) wrist for improved tissue glide in prep for strengthening as demonstrated by: - increasing wrist flexion to 55 deg - increasing wrist extension to 55 deg ---OT POC UPDATE 03/25/25--- - wrist flexion met - wrist extension is progressing, continue ---OT POC UPDATE 05/06/25--- both wrist goals met Target Visit 12 Progress Met OT Problem 3 OT Problem #3 Impaired Strength OT Goal 1 Goal / Goal Update Increase strength of the right thumb PFL as demonstrated by being able to oppose to all digit tips. ---OT POC UPDATE 03/25/25--- Met, Upgrade to being able to touch the base of V ---OT POC UPDATE 05/06/25--- Progressing, continue goal ---OT D/C 06/17/25--- Met Target Visit 20 OT Goal 2 Goal / Goal Update Increase strength of the right finger flexors as demonstrated by being able to make a fist, touching all finger tips to her palm. ---OT POC UPDATE 03/25/25--- Progressing, 1-3 cm gaps, continue goal ---OT POC UPDATE 05/06/25--- Progressing, continue goal ---OT D/C 06/17/25--- Met Target Visit 20 OT Problem 4 OT Problem #4 Impaired Strength OT Goal 1 Goal / Goal Update 1. Increase (R) rehabilitation counselor strength to 30 lbs. ---OT D/C 06/17/25--- 1. Progressing - continue to 30 lbs. NEW GOALS 2. Increase (R) palmar pinch strength to 8 lbs. 3. Be able to complete (R) wrist strengthening with 3 lbs. x20 reps. Target Visit 23
--- NOTE | 2025-07-14 10:52 | PTOPDC ---
Assessment and note entered by Sandor Frazier PT Evaluation Information Assessment Status Discharge ICD-10 Condition Codes (PT) Pain in right shoulder M25.511 Other ICD-10 Condition Codes ( Adhesive capsulitis right shoulder PT) Onset 04/14/25 Subjective Information Pt. reports she feels 85% better overall she notes improvements in ROM and is in much less pain. Pt notes she still feels weak and has difficulty due to fatigue in her shoulder with doing house work and self care. Pt notes she feels this may be her new normal although she would like to continue to improve. Reported Pain Level Pain Score 2: Self Report Assessment PT Clinical Summary Patient's R shoulder has improved overall as evidenced by advancements in symptoms, mobility, strength, and overall functional use of the extremity. However, some limitations are still present such as limited strength and functional endurance. Patient would like to discharge with a home exercise program and see if she can maintain her strength and endurance on her own. Plan of Care PT Services Indicated No
--- NOTE | 2025-07-15 14:00 | OTOPPROG ---
Assessment and note entered by Castillo Chou, FRIDA/Jason, CHT Evaluation Information Assessment Status Progress Diagnosis G56.01 Carpal tunnel syndrome on right Subjective Information Patient reports progress in the right hand, noting improved mobility, flexibility, and strength. She reports improvements with being able to use her right hand to change sheets/make the bed and improvements in her hand writing. Difficulties with opening a water bottle, using a can economic development director, and opening a pill bottle. ROM improvements - Wrist flexion remained WFL at 65 Wrist extension remained WFL at 60 Full fist measurements: - all digits now touch the palm when making a fist Hook fist improvements: - index improved from 1 cm to 0.5 cm gap - middle improved from 1 cm to 0.5 cm gap - ring improved from 1 cm to 0.5 cm gap - small improved from 1 cm to 0.5 cm gap Thumb improvements: - She is now able to touch her thumb to the base of digit V - Pt's thumb IP is flexing 60 degrees, compared to 55 last month (R) Set Key Driver strength remained at 19 lbs. (R) lateral pinch improved from 8 lbs. to 9 lbs. (R) tip pinch improved from 4 lbs. to 5 lbs. Static 2 point discrimination is 5 mm for thumb and middle finger. 8 mm for index finger. Assessment OT Clinical Summary Patient referred to OT following right forearm fasciotomy, muscle debridement, carpal tunnel release, Guyon's canal release, and ligation of the radial artery. She is making progress with improved functional ROM, strength, and use of the right wrist and hand. Patient's finger flexion ROM continues to improve toward normal limits. Wrist active ROM has returned to normal limits. When attempting to make a fist her finger tips are now 0 cm away from touching. 0.5 cm gap with a hook fist. Passive ROM is WFL. Set Key Driver and pinch strength is slowly improving. Her biggest functional limitation appears to be due to residual wheel truing machine tender and pinch weakness. Continued skilled OT indicated for use of modalities, manual therapy, HEP progression, and functional therapeutic exercises and activities to facilitate optimal functional use of her right UE for ADLs. Plan of Care Interventions Therapeutic Exercise,Manual Therapy,Neuro Re- education,Therapeutic Activities,Hot Pack/Cold Pack,Ultrasound,Paraffin OT Services Indicated Yes Treatment Frequency and 1x/week for 6 visits Duration These treatments will address the objective and functional deficits as defined above. The patient will be advanced safely and appropriately in order for the patient to progress towards his/her prior level of function. Additional exercises will be introduced and as well as a comprehensive home exercise program upon discharge, if needed, ?to ensure carryover of functional gains achieved in the clinic. This treatment plan has been reviewed and agreement upon by the patient.
--- NOTE | 2025-07-15 14:00 | OPREHPOC ---
Outpatient Therapy Plan of Care This is a Multidisciplinary Plan of Care that may contain components documented by all disciplines (PT, OT, and ST.) PT Problem 1 PT Problem #1 Knowledge Deficit PT Goal 1 Goal / Goal Update Pt. will be independent with a HEP addressing ROM and postural awareness Target Visit 2 Progress Met PT Problem 2 PT Problem #2 Impaired Range of Motion PT Goal 1 Goal / Goal Update Pt. will achieve 90 degrees active right shoulder ER in supine Pt. will achieve 140 degrees active right shoulder flexion against gravity in order to place objects overhead in her closet. Progress note 07-14-25 125 degrees Target Visit 10 Progress Partially Met PT Problem 3 PT Problem #3 Impaired Strength PT Goal 1 Goal / Goal Update Pt. will present with 4+/5 proximal right u.e. strength in all muscle groups. Pt. will be able to lift 3-5# object overhead for 5 reps with no pain noted. Target Visit 10 Progress Met PT Problem 4 PT Problem #4 Impaired Functional Mobility PT Goal 1 Goal / Goal Update Pt. will present with less than 25% limitation on the Quick DASH indicating significant functional improvement. Progress note 06-16-25 Target Visit 10 Progress Partially Met OT Problem 1 OT Problem #1 Knowledge Deficit OT Goal 1 Goal / Goal Update Patient to be independent with instructed materials. ---OT POC UPDATE 03/25/25--- Met, continue as HEP is progressed ---OT POC UPDATE 05/06/25--- Met ---OT POC UPDATE 06/17/25--- Met ---OT POC UPDATE 07/15/25--- Met Target Visit 29 OT Problem 2 OT Problem #2 Impaired Flexibility OT Goal 1 Goal / Goal Update Improve flexibility of the (R) wrist for improved tissue glide in prep for strengthening as demonstrated by: - increasing wrist flexion to 55 deg - increasing wrist extension to 55 deg ---OT POC UPDATE 03/25/25--- - wrist flexion met - wrist extension is progressing, continue ---OT POC UPDATE 05/06/25--- both wrist goals met Target Visit 12 Progress Met OT Problem 3 OT Problem #3 Impaired Strength OT Goal 1 Goal / Goal Update Increase strength of the right thumb PFL as demonstrated by being able to oppose to all digit tips. ---OT POC UPDATE 03/25/25--- Met, Upgrade to being able to touch the base of V ---OT POC UPDATE 05/06/25--- Progressing, continue goal ---OT D/C 06/17/25--- Met Target Visit 20 Progress Met OT Goal 2 Goal / Goal Update Increase strength of the right finger flexors as demonstrated by being able to make a fist, touching all finger tips to her palm. ---OT POC UPDATE 03/25/25--- Progressing, 1-3 cm gaps, continue goal ---OT POC UPDATE 05/06/25--- Progressing, continue goal ---OT D/C 06/17/25--- Met Target Visit 20 Progress Met OT Problem 4 OT Problem #4 Impaired Strength OT Goal 1 Goal / Goal Update 1. Increase (R) heat welder plastics strength to 30 lbs. ---OT D/C 06/17/25--- 1. Progressing - continue to 30 lbs. NEW GOALS 2. Increase (R) palmar pinch strength to 8 lbs. 3. Be able to complete (R) wrist strengthening with 3 lbs. x20 reps. ---OT POC UPDATE 07/15/25--- 1. Not met, continue 2. Progressing, continue 3. Met Target Visit 29
== END 2025-08-15 23:59 | disposition home or self-care (01) ==
LOC: ANHGOSHOT 11:45
PROVIDERS: PCP Family Medicine
DX: G56.01 Carpal tunnel syndrome, right upper limb (principal); M75.01 Adhesive capsulitis of right shoulder
CPT/HCPCS: 97014; 97018; 97110; 97112; 97140; 97530; G0283

== ENCOUNTER 2025-09-09 15:15 | Outpatient (CLI) | payer MEDICARE, SELFPAY ==
[2025-09-09 18:28] LABS: Alanine Aminotransferase 21 U/L (6-35); Aspartate Amino Transferase 35 U/L (14-36)
[2025-09-09 18:34] LABS: Alanine Aminotransferase 21 U/L (6-35); Albumin Level 4.4 g/dL (3.5-5.1); Alkaline Phosphatase 108 U/L (38-126); Anion Gap 10 mmol/L (4-12); Aspartate Amino Transferase 47 U/L (14-36); Bilirubin,Total 0.9 mg/dL (0.2-1.3); Blood Urea Nitrogen 25 mg/dL (7-17); Calcium 9.4 mg/dL (8.4-10.2); Carbon Dioxide 27 mmol/L (22-30); Chloride 99 mmol/L (98-107); Cholesterol 155 mg/dL (0-200); Estimated Glomerular Filt Rate 50; Glucose 99 mg/dL (65-110); HDL Direct 105 mg/dL; Potassium 3.5 mmol/L (3.4-5.0); Sodium 136 mmol/L (137-145); Total Protein 8.0 g/dL (6.3-8.2); Triglycerides 70 mg/dL (<150)
[2025-09-09 19:16] LABS: Thyroid Stimulating Hormone 1.030 uIU/mL (0.465-4.680)
== END 2025-09-09 15:16 | disposition home or self-care (01) ==
PROVIDERS: PCP Family Medicine; Visit Provider Podiatrist Foot & Ankle Surgery
DX: E03.9 Hypothyroidism, unspecified (principal); K76.0 Fatty (change of) liver, not elsewhere classified; M81.0 Age-related osteoporosis without current pathological fracture; B35.1 Tinea unguium
CPT/HCPCS: 36415; 80053; 80061; 82306; 84443; 84450; 84460

== ENCOUNTER 2025-11-18 09:30 | Outpatient (RCR) | payer MEDICARE, SELFPAY ==
--- NOTE | 2025-08-19 14:54 | PCOTNOTE ---
Patient called and cancelled today's appointment
--- NOTE | 2025-09-23 10:59 | OTOPPROG ---
Assessment and note entered by Castillo Chou, FRIDA/Jason, CHT OT Progress Update 09/23/25 Assessment Status Progress Diagnosis G56.01 Carpal tunnel syndrome on right Subjective Information Patient reports progress in the right hand, noting improved mobility, flexibility, and strength. She reports improvements with being able to use her improved appeals examiner strength for ADLs such as during doorknobs, hand on the steering wheel, and opening pill bottles. She reports improved sensation, nothing that her thumb is feeling close to normal , the area of numbness in the index and middle fingers is getting smaller and closer to the tip of the fingers. She reports continued difficulties with opening a water bottle, opening a jar, and using a can program aide group work ROM improvements - Wrist flexion remained WFL at 65 Wrist extension remained WFL at 60 Full fist: - all digits now touch the palm when making a fist Hook fist: - index 0.5 cm gap - middle 0.5 cm gap - ring 0.5 cm gap - small 0.5 cm gap Thumb : - She is now able to touch her thumb to the base of digit V - Pt's thumb IP is flexing 60 degrees (R) Security Door Installer strength improved from 19 lbs. to 25 lbs. (R) lateral pinch improved from 9 lbs. to 10 lbs. (R) cueva pinch improved from 4 to 5 lbs. (R) tip pinch improved from 4 lbs. to 5 lbs. Static 2 point discrimination is 4 mm for thumb and middle finger. 5 mm for index finger. This improved from 5 and 8 respectively. Stereognosis is WNL. 9-hole peg assessment: - (R) hand improved from 70 sec to 27 sec Assessment OT Clinical Summary Patient referred to OT following right forearm fasciotomy, muscle debridement, carpal tunnel release, Guyon's canal release, and ligation of the radial artery. She is making progress with improved strength, sensation, and dexterity. 9- hole peg test is now WFL. Sensation is measuring WFL. Security Door Installer and pinch strength is slowly improving. Her biggest functional limitation appears to be due to residual appeals examiner and pinch weakness. She benefits from the use of the BTE machine in the clinic for targeted functional strengthening to simulate ADLs with unlimited resistance to improve strength and muscular endurance. Continued skilled OT indicated for use of modalities, strengthening, HEP progression, and functional therapeutic exercises and activities to facilitate optimal functional use of her right UE for ADLs. Plan of Care Interventions Therapeutic Exercise,Manual Therapy,Neuro Re- education,Therapeutic Activities,Hot Pack/Cold Pack,Ultrasound,Paraffin OT Services Indicated Yes Treatment Frequency and 1x/week for 4 visits Duration These treatments will address the objective and functional deficits as defined above. The patient will be advanced safely and appropriately in order for the patient to progress towards his/her prior level of function. Additional exercises will be introduced and as well as a comprehensive home exercise program upon discharge, if needed, ?to ensure carryover of functional gains achieved in the clinic. This treatment plan has been reviewed and agreement upon by the patient.
--- NOTE | 2025-09-23 10:59 | OPREHPOC ---
Outpatient Therapy Plan of Care This is a Multidisciplinary Plan of Care that may contain components documented by all disciplines (PT, OT, and ST.) PT Problem 1 PT Problem #1 Knowledge Deficit PT Goal 1 Goal / Goal Update Pt. will be independent with a HEP addressing ROM and postural awareness Target Visit 2 Progress Met PT Problem 2 PT Problem #2 Impaired Range of Motion PT Goal 1 Goal / Goal Update Pt. will achieve 90 degrees active right shoulder ER in supine Pt. will achieve 140 degrees active right shoulder flexion against gravity in order to place objects overhead in her closet. Progress note 07-14-25 125 degrees Target Visit 10 Progress Partially Met PT Problem 3 PT Problem #3 Impaired Strength PT Goal 1 Goal / Goal Update Pt. will present with 4+/5 proximal right u.e. strength in all muscle groups. Pt. will be able to lift 3-5# object overhead for 5 reps with no pain noted. Target Visit 10 Progress Met PT Problem 4 PT Problem #4 Impaired Functional Mobility PT Goal 1 Goal / Goal Update Pt. will present with less than 25% limitation on the Quick DASH indicating significant functional improvement. Progress note 06-16-25 Target Visit 10 Progress Partially Met OT Problem 1 OT Problem #1 Knowledge Deficit OT Goal 1 Goal / Goal Update Patient to be independent with instructed materials. ---OT POC UPDATE 03/25/25--- Met, continue as HEP is progressed ---OT POC UPDATE 05/06/25--- Met ---OT POC UPDATE 06/17/25--- Met ---OT POC UPDATE 07/15/25--- Met ---OT POC UPDATE 09/23/25--- Met Target Visit 33 Progress Met OT Problem 2 OT Problem #2 Impaired Flexibility OT Goal 1 Goal / Goal Update Improve flexibility of the (R) wrist for improved tissue glide in prep for strengthening as demonstrated by: - increasing wrist flexion to 55 deg - increasing wrist extension to 55 deg ---OT POC UPDATE 03/25/25--- - wrist flexion met - wrist extension is progressing, continue ---OT POC UPDATE 05/06/25--- both wrist goals met Target Visit 12 Progress Met OT Problem 3 OT Problem #3 Impaired Strength OT Goal 1 Goal / Goal Update Increase strength of the right thumb PFL as demonstrated by being able to oppose to all digit tips. ---OT POC UPDATE 03/25/25--- Met, Upgrade to being able to touch the base of V ---OT POC UPDATE 05/06/25--- Progressing, continue goal ---OT D/C 06/17/25--- Met Target Visit 20 Progress Met OT Goal 2 Goal / Goal Update Increase strength of the right finger flexors as demonstrated by being able to make a fist, touching all finger tips to her palm. ---OT POC UPDATE 03/25/25--- Progressing, 1-3 cm gaps, continue goal ---OT POC UPDATE 05/06/25--- Progressing, continue goal ---OT D/C 06/17/25--- Met Target Visit 20 Progress Met OT Problem 4 OT Problem #4 Impaired Strength OT Goal 1 Goal / Goal Update 1. Increase (R) electronics hardware design engineer strength to 30 lbs. ---OT D/C 06/17/25--- 1. Progressing - continue to 30 lbs. NEW GOALS 2. Increase (R) palmar pinch strength to 8 lbs. 3. Be able to complete (R) wrist strengthening with 3 lbs. x20 reps. ---OT POC UPDATE 07/15/25--- 1. Not met, continue 2. Progressing, continue 3. Met ---OT POC UPDATE 09/23/25--- 1. electronics hardware design engineer is progressing, continue to 30 lbs. 2. Met, upgrade to 12 lbs. 3. Met, upgrade to 4 lbs x20 res Target Visit 29
--- NOTE | 2025-10-21 15:59 | OTOPPROG ---
Assessment and note entered by Castillo Chou, FRIDA/Jason, CHT Evaluation Information Assessment Status Progress Diagnosis G56.01 Carpal tunnel syndrome on right Subjective Information Patient reports progress in the right hand, noting improved mobility, flexibility, and strength. She reports improvements with being able to use her improved director of quality improvement strength for ADLs such as using a can pre parole counseling aide, during doorknobs, hand on the steering wheel, and opening pill bottles. She reports improved sensation, nothing that her thumb is feeling close to normal, the area of numbness in the index and middle fingers is getting smaller and closer to the tip of the fingers. She reports continued difficulties with opening a water bottle and opening a jar. ROM improvements - Wrist flexion remained WFL at 65 Wrist extension remained WFL at 60 Full fist: - all digits now touch the palm when making a fist Hook fist: - index 0.5 cm gap - middle 0.5 cm gap - ring 0.5 cm gap - small 0.5 cm gap Thumb : - She is now able to touch her thumb to the base of digit V - Pt's thumb IP is flexing 60 degrees (R) Slot Floorperson strength remained at 25 lbs. (R) lateral pinch remained 10 lbs. (R) cueva pinch improved from 5 lbs. to 6 lbs. (R) tip pinch remained at 5 lbs. Static 2 point discrimination is 4 mm for thumb and middle finger. 5 mm for index finger. Stereognosis is WNL. 9-hole peg assessment: - (R) hand improved from 27 sec to 24 sec Assessment OT Clinical Summary Patient referred to OT following right forearm fasciotomy, muscle debridement, carpal tunnel release, Guyon's canal release, and ligation of the radial artery. She is making progress with improved strength, sensation, and dexterity. 9- hole peg test is now WFL. Sensation is measuring WFL. Slot Floorperson and pinch strength is slowly improving. Her biggest functional limitation appears to be due to residual director of quality improvement and pinch weakness. She benefits from the use of the BTE machine in the clinic for targeted functional strengthening to simulate ADLs with unlimited resistance to improve strength and muscular endurance. Continued skilled OT indicated for use of modalities, strengthening, HEP progression, and functional therapeutic exercises and activities to facilitate optimal functional use of her right UE for ADLs. Plan of Care Interventions Therapeutic Exercise,Manual Therapy,Neuro Re- education,Therapeutic Activities,Hot Pack/Cold Pack,Ultrasound,Paraffin OT Services Indicated Yes Treatment Frequency and 1x/week for 5 visits Duration These treatments will address the objective and functional deficits as defined above. The patient will be advanced safely and appropriately in order for the patient to progress towards his/her prior level of function. Additional exercises will be introduced and as well as a comprehensive home exercise program upon discharge, if needed, ?to ensure carryover of functional gains achieved in the clinic. This treatment plan has been reviewed and agreement upon by the patient.
--- NOTE | 2025-10-21 15:59 | OPREHPOC ---
Outpatient Therapy Plan of Care This is a Multidisciplinary Plan of Care that may contain components documented by all disciplines (PT, OT, and ST.) PT Problem 1 PT Problem #1 Knowledge Deficit PT Goal 1 Goal / Goal Update Pt. will be independent with a HEP addressing ROM and postural awareness Target Visit 2 Progress Met PT Problem 2 PT Problem #2 Impaired Range of Motion PT Goal 1 Goal / Goal Update Pt. will achieve 90 degrees active right shoulder ER in supine Pt. will achieve 140 degrees active right shoulder flexion against gravity in order to place objects overhead in her closet. Progress note 07-14-25 125 degrees Target Visit 10 Progress Partially Met PT Problem 3 PT Problem #3 Impaired Strength PT Goal 1 Goal / Goal Update Pt. will present with 4+/5 proximal right u.e. strength in all muscle groups. Pt. will be able to lift 3-5# object overhead for 5 reps with no pain noted. Target Visit 10 Progress Met PT Problem 4 PT Problem #4 Impaired Functional Mobility PT Goal 1 Goal / Goal Update Pt. will present with less than 25% limitation on the Quick DASH indicating significant functional improvement. Progress note 06-16-25 Target Visit 10 Progress Partially Met OT Problem 1 OT Problem #1 Knowledge Deficit OT Goal 1 Goal / Goal Update Patient to be independent with instructed materials. ---OT POC UPDATE 03/25/25--- Met, continue as HEP is progressed ---OT POC UPDATE 05/06/25--- Met ---OT POC UPDATE 06/17/25--- Met ---OT POC UPDATE 07/15/25--- Met ---OT POC UPDATE 09/23/25--- Met ---OT POC UPDATE 10/21/25--- Met, continue Target Visit 38 Progress Met OT Problem 2 OT Problem #2 Impaired Flexibility OT Goal 1 Goal / Goal Update Improve flexibility of the (R) wrist for improved tissue glide in prep for strengthening as demonstrated by: - increasing wrist flexion to 55 deg - increasing wrist extension to 55 deg ---OT POC UPDATE 03/25/25--- - wrist flexion met - wrist extension is progressing, continue ---OT POC UPDATE 05/06/25--- both wrist goals met Target Visit 12 Progress Met OT Problem 3 OT Problem #3 Impaired Strength OT Goal 1 Goal / Goal Update Increase strength of the right thumb PFL as demonstrated by being able to oppose to all digit tips. ---OT POC UPDATE 03/25/25--- Met, Upgrade to being able to touch the base of V ---OT POC UPDATE 05/06/25--- Progressing, continue goal ---OT D/C 06/17/25--- Met Target Visit 20 Progress Met OT Goal 2 Goal / Goal Update Increase strength of the right finger flexors as demonstrated by being able to make a fist, touching all finger tips to her palm. ---OT POC UPDATE 03/25/25--- Progressing, 1-3 cm gaps, continue goal ---OT POC UPDATE 05/06/25--- Progressing, continue goal ---OT D/C 06/17/25--- Met Target Visit 20 Progress Met OT Problem 4 OT Problem #4 Impaired Strength OT Goal 1 Goal / Goal Update 1. Increase (R) citizen participation specialist strength to 30 lbs. ---OT D/C 06/17/25--- 1. Progressing - continue to 30 lbs. NEW GOALS 2. Increase (R) palmar pinch strength to 8 lbs. 3. Be able to complete (R) wrist strengthening with 3 lbs. x20 reps. ---OT POC UPDATE 07/15/25--- 1. Not met, continue 2. Progressing, continue 3. Met ---OT POC UPDATE 09/23/25--- 1. citizen participation specialist is progressing, continue to 30 lbs. 2. Met, upgrade to 12 lbs. 3. Met, upgrade to 4 lbs x20 res ---OT POC UPDATE 10/21/25--- 1. Progressing, not met, continue to 30 lbs. 2. Progressing, not met, continue to 12 lbs. 3. Progressing, not met, continue goal Target Visit 38
== END 2025-11-24 23:59 | disposition home or self-care (01) ==
LOC: ANHGOSHOT 09:30
PROVIDERS: PCP Family Medicine
DX: G56.01 Carpal tunnel syndrome, right upper limb (principal); M75.01 Adhesive capsulitis of right shoulder
CPT/HCPCS: 97018; 97110